=== PATIENT | female | born 1985 | race Caucasian/White ===

== ENCOUNTER 2020-10-25 09:28 | Emergency (ER) | payer BC, SELFPAY ==
[2020-10-25 09:30] VITALS: BP 147/86; PULSE 98; RESP 20; TEMP 36.6; O2SAT 99; BMI 26.6
--- NOTE | 2020-10-25 10:06 | HMH.EDUTC ---
[facility] [place] Clinical Impression: Contact dermatitis Qualifiers: Contact dermatitis type: allergic Contact dermatitis trigger: unspecified trigger Qualified Code(s): L23.9 - Allergic contact dermatitis, unspecified cause Disposition: Home, Self-Care Condition on Discharge: Good Instructions: DI for Contact Dermatitis Additional Instructions: Avoid contact with the offending substance (poison olga). Don't start the oral steroids until tomorrow. Don't put the topical steroids (triamcinolone) on your face or your groin. Follow up with your regular doctor. GO TO THE ER FOR ANY WORSENING SYMPTOMS OR CONCERNS Prescriptions: methylPREDNISolone [Medrol] 4 mg PO DIRECTED 6 Days #21 [email or web address] Transmission Status: Received by [id number] Triamcinolone Acetonide 1 applicatio TP TIDP PRN 7 Days #1 tube PRN Reason: Itching Transmission Status: Received by [id number] Referrals: Hermilo Otto MD [Primary Care Provider] - Time of Disposition: 10:13 Medical Decision Making - Medical Records Medical records reviewed: No: I reviewed the patient's medical records. - Russ Inquiry Pt receiving controlled substance: No Vital Signs: 10/25/20 09:30 10/25/20 10:13 Temperature 97.8 F 97.8 F Temperature Source Oral Pulse Rate 98 H Pulse Rate [Right Brachial] 98 H Respiratory Rate 20 20 Blood Pressure 147/86 H Blood Pressure [Right Arm] 147/86 H Blood Pressure Mean [Right Arm] 106 Blood Pressure Source [Right Arm] Automatic Cuff Blood Pressure Position [Right Arm] Sitting 02 Sat by Pulse Oximetry 99 Oxygen Delivery Method Room Air Orders (Tests/Meds): ED MEDICATIONS Discontinued Medications Generic Name Dose Route Start Last Admin Trade Name Freq PRN Reason Stop Dose Admin Methylprednisolone Sodium Succinate 125 mg 10/25/20 10:06 10/25/20 10:07 Methylprednisolone Sod Succ 125mg Vial IM 10/25/20 10:07 125 mg ONCE ONE Administration [facility] [place] - General Stated complaint: poison oak Time Seen by Provider: 10/25/20 09:45 Mode of Arrival: Ambulatory Source of Information: Patient Limitations: No Limitations Description of Symptoms (Recalled from Triage Doc. by RN): PATIENT C/O POISON OAK RASH TO LEFT ARM AND SIDE SINCE SATURDAY HEENT Symptoms (Recalled from RN notes): No Resp Symptoms (Recalled from RN notes): No Skin Symptoms (Recalled from RN notes): Yes MS Symptoms (Recalled from RN notes): No Functional Status (Recalled from RN notes): wnl - History of Present Illness Provider Complaint: She states that for the past 2 days she has had itching and rash on her left arm, neck and chest. She thinks that she was exposed to poison olga. She has a history of being very sensitive to it. - Related Data Previous Rx's Medication Instructions Recorded Triamcinolone Acetonide 1 applicatio TP TIDP PRN 7 Days #1 10/25/20 tube methylPREDNISolone [Medrol] 4 mg PO DIRECTED 6 Days #21 10/25/20 [email or web address] Allergies Allergy/AdvReac Type Severity Reaction Status Date / Time No Known Allergies Allergy Verified 09/21/19 11:36 - Worker's Comp Is this a Worker's Comp case?: No [facility] History - Hepatitis A Screen Drug use history?: No High risk sexual behaviors?: No History of sexually transmitted infection?: No Currently employed?: No Childcare worker?: No Do you have indoor plumbing?: Yes Do you have electricity?: Yes Attestation statement:: This patient has been screened for Hepatitis A risk factors. I have reviewed the patient's past medical history: Yes Laterality Cases: Bilateral: Tonsillectomy Other Surgeries: Yes: No Previous Surgery, Tubal Ligation - Social History Smoking Status: Never smoker Alcohol Intake: never Occupational Status: other Family Hx:: Hypertension ROS Obtained: Yes All systems reviewed & no additional complaints - Constitutional Constitutional: Denies chills, Denies fever(s) - Musculoskeletal Muscu
[2020-10-25 10:13] VITALS: BP 147/86; PULSE 98; RESP 20; TEMP 36.6; O2SAT 99
== END 2020-10-25 10:17 | disposition home or self-care (01) ==
PROVIDERS: Emergency Provider Nurse Practitioner Family; PCP Family Medicine
DX: L23.7 Allergic contact dermatitis due to plants, except food (principal)
CPT/HCPCS: 96372; 99202; G0463

== ENCOUNTER 2024-06-08 07:57 | Outpatient (CLI) | payer BC, SELFPAY ==
[2024-06-08 08:41] LABS: Basophils # 0.1 K/mm3 (0-0.2); Eosinophils # 0.2 K/mm3 (0.0-0.4); Eosinophils % 2.9 % (0.1-12.0); Hematocrit 42.3 % (37.0-47.0); Hemoglobin 14.5 g/dL (12.2-16.2); Lymphocytes # 2.3 K/mm3 (0.7-4.5); Lymphocytes % 45.1 % (10-50); Mean Corpuscular HGB Conc 34.2 g/dL (31.8-35.4); Mean Corpuscular Hemoglobin 29.7 pg (27.0-31.2); Mean Corpuscular Volume 86.9 fl (81-99); Mean Platelet Volume 9.4 fl (7.4-10.4); Monocytes # 0.2 K/mm3 (0.1-1.0); Monocytes % 2.9 % (1.7-9.3); Neutrophils # 2.5 K/mm3 (1.8-7.8); Neutrophils % 48.2 % (37.0-80.0); Platelet Count 174 K/mm3 (142-424); Red Blood Count 4.86 M/mm3 (4.20-5.40); Red Cell Distribution Width 13.4 % (11.5-17.5); White Blood Count 5.1 K/mm3 (4.8-10.8)
[2024-06-08 09:01] LABS: Chloride 108 mmol/L (98-107)
[2024-06-08 09:02] LABS: Albumin Level 4.4 g/dl (3.5-5.0); Potassium 5.4 mmoL/L (3.5-5.1); Sodium 137 mmol/L (136-145)
[2024-06-08 09:04] LABS: Alanine Aminotransferase 45 U/L (12-78); Anion Gap 6.4 mEq/L (5-15); Aspartate Amino Transferase 36 U/L (14-36); Blood Urea Nitrogen 21 mg/dl (7-17); Carbon Dioxide 28 mmol/L (22.0-30.0); Estimated Glomerular Filt Rate 46 ml/min (>60); GFR (African American) 56 ML/MIN (>60)
[2024-06-08 09:05] LABS: Albumin/Globulin Ratio 1.8 (1.1-1.8); Alkaline Phosphatase 111 U/L (38-126); Bilirubin,Total 0.8 mg/dl (0.2-1.3); Calcium 9.7 mg/dl (8.4-10.2); Globulin 2.4 g/dL (1.3-3.2); Glucose 89 mg/dl (74-100); Total Protein,Serum 6.8 g/dl (6.3-8.2)
[2024-06-09 13:58] LABS: CA 27.29 1271.5
== END 2024-06-08 23:59 | disposition home or self-care (01) ==
LOC: LAB 07:59
PROVIDERS: PCP Family Medicine; Visit Provider Internal Medicine Hematology & Oncology
DX: C50.411 Malignant neoplasm of upper-outer quadrant of right female breast (principal); Z17.0 Estrogen receptor positive status [ER+]; C50.912 Malignant neoplasm of unspecified site of left female breast
CPT/HCPCS: 36415; 80053; 85025; 86300

== ENCOUNTER 2024-06-15 09:25 | Outpatient (CLI) | payer BC, SELFPAY ==
[2024-06-15 09:52] LABS: Chloride 110 mmol/L (98-107); Potassium 4.8 mmoL/L (3.5-5.1); Sodium 137 mmol/L (136-145)
[2024-06-15 09:55] LABS: Anion Gap 5.8 mEq/L (5-15); Blood Urea Nitrogen 13 mg/dl (7-17); Carbon Dioxide 26 mmol/L (22.0-30.0); Estimated Glomerular Filt Rate 56 ml/min (>60); GFR (African American) 68 ML/MIN (>60)
[2024-06-15 09:56] LABS: Calcium 9.5 mg/dl (8.4-10.2); Glucose 93 mg/dl (74-100)
== END 2024-06-15 23:59 | disposition home or self-care (01) ==
LOC: LAB 09:26
PROVIDERS: PCP Family Medicine; Visit Provider Internal Medicine Hematology & Oncology
DX: C50.911 Malignant neoplasm of unspecified site of right female breast (principal); C50.912 Malignant neoplasm of unspecified site of left female breast; Z17.0 Estrogen receptor positive status [ER+]
CPT/HCPCS: 36415; 80048

== ENCOUNTER 2024-07-10 07:59 | Outpatient (CLI) | payer BC, SELFPAY ==
[2024-07-10 08:19] LABS: Basophils # 0.1 K/mm3 (0-0.2); Basophils % 1.6 % (0.1-2.0); Eosinophils # 0.1 K/mm3 (0.0-0.4); Eosinophils % 1.4 % (0.1-12.0); Hematocrit 39.2 % (37.0-47.0); Hemoglobin 13.6 g/dL (12.2-16.2); Lymphocytes # 2.6 K/mm3 (0.7-4.5); Mean Corpuscular HGB Conc 34.7 g/dL (31.8-35.4); Mean Corpuscular Volume 89.3 fl (81-99); Mean Platelet Volume 10.3 fl (7.4-10.4); Monocytes # 0.4 K/mm3 (0.1-1.0); Monocytes % 7.9 % (1.7-9.3); Neutrophils # 1.4 K/mm3 (1.8-7.8); Neutrophils % 30.9 % (37.0-80.0); Platelet Count 238 K/mm3 (142-424); Red Blood Count 4.39 M/mm3 (4.20-5.40); Red Cell Distribution Width 14.4 % (11.5-17.5); White Blood Count 4.4 K/mm3 (4.8-10.8)
[2024-07-10 08:42] LABS: MANUAL DIFFERENTIAL MANUAL DIFFERENTIAL (MANUAL DIFF)
[2024-07-10 08:52] LABS: Sodium 139 mmol/L (136-145)
[2024-07-10 08:53] LABS: Alanine Aminotransferase 45 U/L (12-78); Albumin Level 4.7 g/dl (3.5-5.0); Alkaline Phosphatase 90 U/L (38-126); Anion Gap 11.9 mEq/L (5-15); Aspartate Amino Transferase 44 U/L (14-36); Bilirubin,Total 0.5 mg/dl (0.2-1.3); Blood Urea Nitrogen 17 mg/dl (7-17); Calcium 9.6 mg/dl (8.4-10.2); Carbon Dioxide 25 mmol/L (22.0-30.0); Chloride 107 mmol/L (98-107); Estimated Glomerular Filt Rate 51 ml/min (>60); GFR (African American) 62 ML/MIN (>60); Globulin 2.4 g/dL (1.3-3.2); Glucose 86 mg/dl (74-100); Total Protein,Serum 7.1 g/dl (6.3-8.2)
[2024-07-10 08:54] LABS: Potassium 4.9 mmoL/L (3.5-5.1)
[2024-07-10 11:29] LABS: Lymphocytes % 64 % (10-50); Monocytes % 3 % (2-9); Neutrophils % 33 % (42-76); Platelet Estimate Normal; RBC Morphology Normal; Total Cells Counted 100
[2024-07-11 06:11] LABS: CA 27.29 731.4 U/mL (0.0-38.6)
== END 2024-07-10 23:59 | disposition home or self-care (01) ==
LOC: LAB 08:01
PROVIDERS: PCP Family Medicine; Visit Provider Internal Medicine Hematology & Oncology
DX: C50.911 Malignant neoplasm of unspecified site of right female breast (principal); C50.912 Malignant neoplasm of unspecified site of left female breast; C50.411 Malignant neoplasm of upper-outer quadrant of right female breast; Z17.0 Estrogen receptor positive status [ER+]
CPT/HCPCS: 36415; 80053; 85007; 85025; 85027; 86300

== ENCOUNTER 2024-08-08 09:07 | Outpatient (CLI) | payer BC, SELFPAY ==
[2024-08-08 09:24] LABS: Basophils # 0.1 K/mm3 (0-0.2); Basophils % 1.1 % (0.1-2.0); Eosinophils # 0.1 K/mm3 (0.0-0.4); Eosinophils % 1.7 % (0.1-12.0); Hematocrit 39.3 % (37.0-47.0); Hemoglobin 13.5 g/dL (12.2-16.2); Lymphocytes # 2.8 K/mm3 (0.7-4.5); Lymphocytes % 50.7 % (10-50); Mean Corpuscular HGB Conc 34.4 g/dL (31.8-35.4); Mean Corpuscular Hemoglobin 31.5 pg (27.0-31.2); Mean Corpuscular Volume 91.8 fl (81-99); Mean Platelet Volume 10.7 fl (7.4-10.4); Monocytes # 0.3 K/mm3 (0.1-1.0); Monocytes % 6.3 % (1.7-9.3); Neutrophils # 2.2 K/mm3 (1.8-7.8); Platelet Count 210 K/mm3 (142-424); Red Blood Count 4.28 M/mm3 (4.20-5.40); Red Cell Distribution Width 15.5 % (11.5-17.5); White Blood Count 5.4 K/mm3 (4.8-10.8)
[2024-08-08 09:47] LABS: MANUAL DIFFERENTIAL MANUAL DIFFERENTIAL (MANUAL DIFF)
[2024-08-08 10:25] LABS: Chloride 110 mmol/L (98-107)
[2024-08-08 10:26] LABS: Albumin Level 4.6 g/dl (3.5-5.0); Potassium 5.6 mmoL/L (3.5-5.1); Sodium 143 mmol/L (136-145)
[2024-08-08 10:28] LABS: Blood Urea Nitrogen 11 mg/dl (7-17); Estimated Glomerular Filt Rate 63 ml/min (>60); GFR (African American) 76 ML/MIN (>60)
[2024-08-08 10:29] LABS: Alanine Aminotransferase 49 U/L (12-78); Albumin/Globulin Ratio 1.9 (1.1-1.8); Alkaline Phosphatase 75 U/L (38-126); Anion Gap 11.6 mEq/L (5-15); Aspartate Amino Transferase 47 U/L (14-36); Bilirubin,Total 0.6 mg/dl (0.2-1.3); Calcium 9.3 mg/dl (8.4-10.2); Carbon Dioxide 27 mmol/L (22.0-30.0); Globulin 2.4 g/dL (1.3-3.2); Glucose 91 mg/dl (74-100)
[2024-08-08 13:01] LABS: Lymphocytes % 60 % (10-50); Monocytes % 5 % (2-9); Neutrophils % 35 % (42-76); Platelet Estimate Normal; RBC Morphology Normal; Total Cells Counted 100
== END 2024-08-08 23:59 | disposition home or self-care (01) ==
LOC: LAB 09:10
PROVIDERS: PCP Physician Assistant; Visit Provider Internal Medicine Hematology & Oncology
DX: C50.911 Malignant neoplasm of unspecified site of right female breast (principal); C50.912 Malignant neoplasm of unspecified site of left female breast; Z17.0 Estrogen receptor positive status [ER+]
CPT/HCPCS: 36415; 80053; 85007; 85025; 85027; 86300

== ENCOUNTER 2024-09-04 07:46 | Outpatient (CLI) | payer BC, SELFPAY ==
[2024-09-04 08:26] LABS: Basophils % 0.9 % (0.1-2.0); Eosinophils % 0.9 % (0.1-12.0); Hemoglobin 12.4 g/dL (12.2-16.2); Lymphocytes # 0.6 K/mm3 (0.7-4.5); Mean Corpuscular HGB Conc 35.4 g/dL (31.8-35.4); Mean Corpuscular Hemoglobin 32.9 pg (27.0-31.2); Mean Corpuscular Volume 92.8 fl (81-99); Mean Platelet Volume 10.5 fl (7.4-10.4); Monocytes # 0.3 K/mm3 (0.1-1.0); Monocytes % 6.4 % (1.7-9.3); Neutrophils # 3.3 K/mm3 (1.8-7.8); Neutrophils % 78.3 % (37.0-80.0); Platelet Count 169 K/mm3 (142-424); Red Blood Count 3.77 M/mm3 (4.20-5.40); Red Cell Distribution Width 13.6 % (11.5-17.5); White Blood Count 4.2 K/mm3 (4.8-10.8)
[2024-09-04 08:52] LABS: Alanine Aminotransferase 33 U/L (12-78); Albumin Level 4.6 g/dl (3.5-5.0); Alkaline Phosphatase 70 U/L (38-126); Anion Gap 9.7 mEq/L (5-15); Aspartate Amino Transferase 29 U/L (14-36); Bilirubin,Total 0.6 mg/dl (0.2-1.3); Blood Urea Nitrogen 17 mg/dl (7-17); Calcium 9.4 mg/dl (8.4-10.2); Carbon Dioxide 27 mmol/L (22.0-30.0); Chloride 108 mmol/L (98-107); Estimated Glomerular Filt Rate 63 ml/min (>60); GFR (African American) 76 ML/MIN (>60); Globulin 2.3 g/dL (1.3-3.2); Glucose 100 mg/dl (74-100); Potassium 4.7 mmoL/L (3.5-5.1); Sodium 140 mmol/L (136-145); Total Protein,Serum 6.9 g/dl (6.3-8.2)
[2024-09-05 08:20] LABS: CA 27.29 207.4 U/mL (0.0-38.6)
== END 2024-09-04 23:59 | disposition home or self-care (01) ==
LOC: LAB 07:47
PROVIDERS: PCP Family Medicine; Visit Provider Internal Medicine Hematology & Oncology
DX: C50.911 Malignant neoplasm of unspecified site of right female breast (principal); C50.912 Malignant neoplasm of unspecified site of left female breast; Z17.0 Estrogen receptor positive status [ER+]
CPT/HCPCS: 36415; 80053; 85025; 86300

== ENCOUNTER 2024-09-05 10:52 | Emergency (ER) | payer BC, SELFPAY ==
[2024-09-05] VITALS (9 sets, daily range): BP systolic 104–143; BP diastolic 66–88; PULSE 97–134; RESP 13–19; TEMP 36.9–37.6; O2SAT 96–99; BMI 26.9
--- NOTE | 2024-09-05 11:24 | ECG_ITS ---
APPROVED REPORT Exam: Resting ECG HR:110 bpm ECG Measurements Heart Rate 110 AXES VT 118 P 54 QRSd 80 QRS 16 QT 298 T 54 QTc 363 Conclusion SINUS TACHYCARDIA No STEMI Electronically signed by : VALERIE BETTS, 09/05/2024 15:49:15
--- NOTE | 2024-09-05 11:25 | XR_ITS ---
PROCEDURE INFORMATION: Exam: XR Chest Exam date and time: 09/05/2024 11:33 AM Age: 38 years old Clinical indication: Cough; Additional info: Sirs +, h/o malignancy TECHNIQUE: Imaging protocol: Radiologic exam of the chest. Views: 2 views. COMPARISON: No relevant prior studies available. FINDINGS: Lungs: Unremarkable. No consolidation. Pleural spaces: Unremarkable. No pleural effusion. No pneumothorax. Heart/Mediastinum: Unremarkable. No cardiomegaly. Bones/joints: Unremarkable. IMPRESSION: No acute findings.
[2024-09-05 11:31] LABS: Coronavirus 19, PCR Not Detected (NotDetected); Influenza B, PCR Not Detected (NotDetected)
[2024-09-05] MEDS: LACTATED RINGERS 1000ML 1,000 ML 1000 ML IV (11:34)
[2024-09-05 11:43] LABS: Basophils % 0.6 % (0.1-2.0); Eosinophils % 0.3 % (0.1-12.0); Hematocrit 33.1 % (37.0-47.0); Hemoglobin 11.5 g/dL (12.2-16.2); Lymphocytes # 0.4 K/mm3 (0.7-4.5); Lymphocytes % 13.5 % (10-50); Mean Corpuscular HGB Conc 34.7 g/dL (31.8-35.4); Mean Corpuscular Hemoglobin 32.5 pg (27.0-31.2); Mean Corpuscular Volume 93.5 fl (81-99); Mean Platelet Volume 10.7 fl (7.4-10.4); Monocytes # 0.2 K/mm3 (0.1-1.0); Monocytes % 6.1 % (1.7-9.3); Neutrophils # 2.5 K/mm3 (1.8-7.8); Neutrophils % 79.2 % (37.0-80.0); Platelet Count 132 K/mm3 (142-424); Red Blood Count 3.54 M/mm3 (4.20-5.40); Red Cell Distribution Width 13.9 % (11.5-17.5); White Blood Count 3.1 K/mm3 (4.8-10.8)
[2024-09-05 11:45] LABS: Lactic Acid 0.6 mmol/L (0.7-2.1)
[2024-09-05 11:46] LABS: Alanine Aminotransferase 70 U/L (12-78); Albumin Level 4.2 g/dl (3.5-5.0); Albumin/Globulin Ratio 1.6 (1.1-1.8); Alkaline Phosphatase 82 U/L (38-126); Anion Gap 10.7 mEq/L (5-15); Aspartate Amino Transferase 65 U/L (14-36); Bilirubin,Total 0.5 mg/dl (0.2-1.3); Blood Urea Nitrogen 11 mg/dl (7-17); Calcium 8.7 mg/dl (8.4-10.2); Carbon Dioxide 22 mmol/L (22.0-30.0); Chloride 108 mmol/L (98-107); Creatinine Clearance Estimated 100 mL/min (50-200); Estimated Glomerular Filt Rate 71 ml/min (>60); GFR (African American) 86 ML/MIN (>60); Globulin 2.6 g/dL (1.3-3.2); Glucose 129 mg/dl (74-100); Potassium 3.7 mmoL/L (3.5-5.1); Sodium 137 mmol/L (136-145); Total Protein,Serum 6.8 g/dl (6.3-8.2)
--- NOTE | 2024-09-05 11:46 | HMH.EDGENADL ---
Discharge Plan Disposition Patient Disposition: Home, Self-Care Condition: Good Prescriptions Prescriptions: New cephalexin 500 mg capsule 500 mg PO Q8H 10 Days Qty: 30 0RF ondansetron 4 mg tablet,disintegrating 4 mg PO Q8H PRN (Reason: nausea and vomiting) 4 Days Qty: 12 0RF cwrusceplgwtrxn-aqwawyqms-MF [Bromfed DM] 2-30-10 mg/5 mL syrup 5 ml PO Q6H PRN (Reason: cold symptoms) Qty: 118 0RF oseltamivir [Tamiflu] 75 mg capsule 75 mg PO BID 5 Days Qty: 10 0RF No Action letrozole 2.5 mg tablet 2.5 mg PO Verzenio 150 mg tablet PO Referrals Follow up/Referrals: Hermilo Otto MD [Primary Care Provider] - See instructions Activity Restrictions/Add. Instructions Additional Instructions/Restrictions: You were evaluated in the emergency department today and diagnosed with flu A as well as a urinary tract infection. As we discussed, you do technically meet sepsis criteria based on having an infection, having a high white heart rate, high fever, high respiratory rate, and low white blood cell count. We did send blood cultures, which are pending. We will call you if they come back positive in the next 24 to 48 hours. If you start feeling worse, it is imperative that you return to the emergency department right away. Please pick up and delivery driver your prescriptions at the pharmacy and take them as prescribed. Take ibuprofen every 6-8 hours as needed for fever. Please follow-up closely with your primary care provider for reassessment. Clinical Impressions Clinical Impression: SIRS (systemic inflammatory response syndrome), Influenza A, UTI (urinary tract infection) Stand Alone Forms Stand Alone Forms: Work/School Release Instructions Patient Instructions: DI for Urinary Tract Infection (UTI), DI for Influenza -- Adult, DI for Sepsis -- Adult Print Language Print Language: Latvian Discharge ED Provider: Leslie Clay General Adult HPI General Chief complaint: Fever Stated complaint: fever, cough, body aches Time Seen by Provider: 09/05/24 11:00 Mode of Arrival: Ambulatory Source of Information: Patient Description of Symptoms (Recalled from ER Triage Doc. by RN): pt states she has been sick x3d. pt c/o fever, nonproductive cough, myalgia, chills and N/V. pts was febrile at 104.7F orally this am. pt too 800mg ibuprofen this am and is now 99.7F orally. pt was dx with stage IV bilateral breast cancer in March 2024. 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 pt takes letrozole, verzenio, luperin and xegvalio for her cancer treatments. pts oncologist is Dr. Godfrey at the [facility]. History of Present Illness HPI narrative: This patient is a 38-year-old female with a history of stage IV breast cancer on hormonal therapy presenting to the emergency department for evaluation with concern for fevers, chills, dry cough, body aches for 3 days. She took 800 mg of ibuprofen this morning with some improvement, but she cannot take Tylenol per her oncologist recommendations. She denies any abdominal pain, urinary symptoms, or other concerns. Her child at home did have a fever couple days ago, but no other known sick contacts. Of note, she was seen in [facility] 08/26/2024 for sore throat and was prescribed amoxicillin, which she states she is completed. No other concerns noted at this time. Related Data Home Medications ?Medication ?Instructions ?Recorded ?Confirmed abemaciclib 150 mg tablet mg PO 08/26/24 08/26/24 (Verzenio) letrozole 2.5 mg tablet 2.5 mg PO 08/26/24 08/26/24 Previous Rx's ?Medication ?Instructions ?Recorded [id number]-xpjlazdgdrexobl-TB 5 ml PO Q6H PRN cold symptoms #118 09/05/24 2 mg-30 mg-10 mg/5 mL oral syrup mL (Bromfed DM) cephalexin 500 mg capsule 500 mg PO Q8H 10 days #30 caps 09/05/24 ondansetron 4 mg disintegrating 4 mg PO Q8H PRN nausea and 09/05/24 tablet vomiting 4 days #12 tabs oseltamivir 75 mg capsule (Tamiflu) 75 mg PO BID 5 days #10 caps 09/05/24 Allergies Allergy/AdvReac Type Severity Reaction Status Date / Time No Known Allergies Allergy Verified 09/05/24 11:13 [facility] Disclaimer: The information contained in this section may have been updated after the patient was seen, as this information can be updated by other users. Medical History Pharyngitis Social History Smoking Status: Never smoker alcohol intake: never current occupational status: other Travel in the last 8 weeks: None Have you lived/traveled outside [place] in past 30 days?: No Contact w/someone who lives/traveled outside US past 30 days?: No Exposure to someone with infectious disease in past 14 days?: No Do you have a fever (greater than 100.4 F or 38 C)?: Yes Have you tested positive for COVID-19: No Exposed to someone with COVID-19 in past 14 days?: No Do you have a sore throat?: No Do you have a cough?: Yes Do you have any weakness?: No Do you have any diarrhea?: No Are you experiencing any unusual bleeding?: No Do you have any muscle aches/pain?: Yes Do you have any abdominal pain?: No Are you experiencing loss of taste or smell?: No Other Medical History Have you received the Flu Vaccine for this season: No Have you received the Pneumonia Vaccine: No ROS Obtained: Yes All systems reviewed & no additional complaints except as documented Physical Exam General General appearance: alert and in no apparent distress Head Head exam: atraumatic and normocephalic Eye Eye exam: Present normal appearance, PERRL and EOMI ENT ENT exam: Present normal exam, normal oropharynx, mucous membranes moist and normal external ear exam Neck Neck exam: Present normal inspection, full ROM and trachea midline; Absent tenderness Chest Chest inspection: Present normal inspection and symmetric chest wall rise; Absent tenderness Respiratory Respiratory exam: Present normal lung sounds bilaterally; Absent respiratory distress, wheezes, stridor or accessory muscle use Cardiovascular Cardiovascular exam: Present normal rhythm and tachycardia Abdominal Exam Abdominal exam: Present soft; Absent distention, tenderness or guarding Extremities Exam Extremities exam: Present normal inspection, full ROM and normal capillary refill; Absent tenderness or edema Back Exam Back exam: Present normal inspection and full ROM; Absent tenderness Neurological Exam Neurological exam: Present alert, oriented X3, CN II-XII intact and normal gait; Absent motor sensory deficit Psychiatric Psychiatric exam: Present normal affect and normal mood Skin Skin exam: Present warm and dry Medical Decision Making Medical Records Medical records reviewed: Yes I reviewed the patient's medical records. Screening: Per USPSTF and CDC recommendations, given the prevalence of disease in our region, it is our hospital?s policy to screen for HIV and viral Hepatitis for all patients aged 18 and over and those with ongoing risk factors. Russ Inquiry Pt receiving controlled substance: No Vital Signs: 09/05/24 11:04 09/05/24 11:21 09/05/24 11:30 Temperature 99.7 F H Temperature Source Oral Pulse Rate 134 H 131 H Pulse Rate [Left] 129 H Respiratory Rate 18 15 14 Blood Pressure 143/88 H 134/85 Blood Pressure [Right Arm] 135/69 Blood Pressure Mean Blood Pressure Mean [Right Arm] 91 Blood Pressure Source Blood Pressure Source [Right Arm] Automatic Cuff Blood Pressure Position Blood Pressure Position [Right Arm] Sitting 02 Sat by Pulse Oximetry 99 97 98 Oxygen Delivery Method Room Air Room Air Room Air 09/05/24 11:40 09/05/24 12:13 09/05/24 12:30 Temperature Temperature Source Oral Pulse Rate Pulse Rate [Left] Respiratory Rate 16 13 Blood Pressure 117/71 106/66 L Blood Pressure [Right Arm] Blood Pressure Mean Blood Pressure Mean [Right Arm] Blood Pressure Source Blood Pressure Source [Right Arm] Blood Pressure Position Blood Pressure Position [Right Arm] 02 Sat by Pulse Oximetry Oxygen Delivery Method 09/05/24 13:00 09/05/24 13:30 09/05/24 14:07 Temperature 98.4 F Temperature Source Pulse Rate 97 H 101 H 106 H Pulse Rate [Left] Respiratory Rate 19 16 Blood Pressure 115/70 109/68 L 104/74 L Blood Pressure [Right Arm] Blood Pressure Mean 74 Blood Pressure Mean [Right Arm] Blood Pressure Source Blood Pressure Source [Right Arm] Blood Pressure Position Blood Pressure Position [Right Arm] 02 Sat by Pulse Oximetry 96 96 Oxygen Delivery Method Room Air Room Air 09/05/24 14:12 Temperature 98.9 F Temperature Source Pulse Rate 100 H Pulse Rate [Left] Respiratory Rate 15 Blood Pressure 112/79 Blood Pressure [Right Arm] Blood Pressure Mean Blood Pressure Mean [Right Arm] Blood Pressure Source Automatic Cuff Blood Pressure Source [Right Arm] Blood Pressure Position Supine Blood Pressure Position [Right Arm] 02 Sat by Pulse Oximetry Oxygen Delivery Method Room Air Lab Data Lab results reviewed: Yes I reviewed the patient's lab results. Lab Results 09/05/24 11:11: WBC 3.1 L D, RBC 3.54 L, Hgb 11.5 L, Hct 33.1 L, MCV 93.5, MCH 32.5 H, MCHC 34.7, RDW 13.9, Plt Count 132 L, MPV 10.7 H, Neut % (Auto) 79.2, Lymph % (Auto) 13.5, [place] % (Auto) 6.1, Eos % (Auto) 0.3, Baso % (Auto) 0.6, Neut # (Auto) 2.5, Lymph # (Auto) 0.4 L, [place] # (Auto) 0.2, Eos # (Auto) 0.0, Baso # (Auto) 0.0, ESR 77 H, PT 10.8, INR 0.96, APTT 27.9, D-Dimer 0.61 H, Sodium 137, Potassium 3.7 D, Chloride 108 H, Carbon Dioxide 22, Anion Gap 10.7, BUN 11 D, Creatinine 0.90, Estimated Creat Clear 100, Estimated GFR 71, Est GFR ( Amer) 86, Glucose 129 H, Lactate 0.6 L, Calcium 8.7, Total Bilirubin 0.5, AST 65 H D, ALT 70 D, Alkaline Phosphatase 82, C-Reactive Protein 11.1 H, Total Protein 6.8, Albumin 4.2, Globulin 2.6, Albumin/Globulin Ratio 1.6, Procalcitonin 0.083, HCV Ab ANTIONE w/Rflx PCR Qn Negative, HIV Ag/Ab Combo Qual Negative 09/05/24 11:20: SARS-CoV-2 (PCR) Not detected, Influenza A Untype (PCR) Detected A, Influenza Type B (PCR) Not detected 09/05/24 11:58: Urine Color Yellow, Urine Appearance Slightly cloudy, Urine pH 6.0, Ur Specific [place] >= 1.030, Urine Protein 2+ A, Urine Glucose (UA) Negative, Urine Ketones Trace, Urine Blood 2+ A, Urine Nitrate Negative, Urine Bilirubin Negative, Urine Urobilinogen 0.2, Ur Leukocyte Esterase 3+ A, Urine RBC 5-10, Urine WBC 10-20, Ur Squamous Epith Cells Occasional, Urine Bacteria 2+ 09/05/24 11:11 09/05/24 11:11 Orders (Tests/Meds): ED MEDICATIONS Discontinued Medications Generic Name Dose Route Start Last Admin Trade Name Freq PRN Reason Stop Dose Admin Acetaminophen 1,000 mg 09/05/24 11:28 09/05/24 11:38 Acetaminophen 1,000mg/100ml Vial IV 09/05/24 11:29 Not Given ONCE ONE Lactated Ringer's 1,000 mls @ 1,000 mls/hr 09/05/24 11:25 09/05/24 11:34 Lactated Ringer's 1000 Ml Bag IV 09/05/24 12:24 1,000 mls/hr .Q1H ONE Administration Protocol Lactated Ringer's 1,000 mls @ 999 mls/hr 09/05/24 12:14 09/05/24 12:58 Lactated Ringer's 1000 Ml Bag IV 09/05/24 13:14 999 mls/hr .Q1H1M ONE Administration Ceftriaxone Sodium 2 gm/ 100 mls @ 200 mls/hr 09/05/24 13:01 09/05/24 13:08 Sodium Chloride IV 09/05/24 13:30 200 mls/hr ONCE ONE Administration Sodium Chloride 1,000 mls @ 999 mls/hr 09/05/24 13:01 09/05/24 13:08 Sod Chlor 0.9% 1000ml Bag IV 09/05/24 14:01 999 mls/hr .Q1H1M ONE Administration ORDERS Category Date Time Status XR chest 2V Stat Exams 09/05/24 11:25 Completed Activated Partial Thrombo Time Stat Lab 09/05/24 11:11 Completed C-Reactive Protein Stat Lab 09/05/24 11:11 Completed Complete Blood Count Auto Diff Stat Lab 09/05/24 11:11 Completed Comprehensive Metabolic Panel Stat Lab 09/05/24 11:11 Completed D-Dimer Stat Lab 09/05/24 11:11 Completed Erythrocyte Sedimentation Rate Stat Lab 09/05/24 11:11 Completed HIV Combo Stat Lab 09/05/24 11:11 Completed Hepatitis C Ab Qual. W/ RFX Stat Lab 09/05/24 11:11 Completed Lactic Acid Stat Lab 09/05/24 11:11 Completed Procalcitonin Stat Lab 09/05/24 11:11 Completed Prothrombin Time INR Stat Lab 09/05/24 11:11 Completed Rapid PCR Covid and Flu A/B Stat Lab 09/05/24 11:20 Completed Urinalysis and Microscopic Stat Lab 09/05/24 11:58 Completed Blood Culture Stat Micro 09/05/24 11:35 Received Urine Culture Stat Micro 09/05/24 11:58 Received ECG Data Tracing #1: I reviewed this ECG and interpreted as documented below: Sinus tachycardia with a ventricular rate of [address] changes concerning for ischemia. Normal intervals. ECG initial impression date: 09/05/24 ECG initial impression time: 11:28 Medical Decision Narrative: In summary, this patient is a 38-year-old female presenting to the Emergency Department for evaluation of fever, body aches, dry cough. Differential diagnoses considered include but are not limited to viral syndrome, pneumonia, sepsis. Ruling out the most morbid conditions drove assessment. It should be noted patient's history includes metastatic breast cancer which may or may not be at goal therapy. This complicates all aspects of care by increasing patient's risk for morbidity. I reviewed patient's past medical records and noted [facility] eval 08/26/24, negative strep, prescribed amoxicillin. On exam, patient is lying in bed in no acute distress. She is febrile and tachycardic but non tachypneic, reassuring cardiopulmonary and abdominal exam. No adventitious lung sounds, normal work of breathing. Based on reassuring exam, favor viral illness as a cause of symptoms. Workup included sepsis workup including CBC, CMP, ESR, CRP, lactic acid, procalcitonin, D-dimer, chest x-ray, EKG. EKG obtained is reassuring. She was given sepsis bolus based on ideal body weight. I had initially ordered IV acetaminophen but she states she cannot take Tylenol per oncologist recommendations. I independently interpreted chest x-ray prior to the radiologist read and noted no large focal consolidation concerning for pneumonia. Please see their read for final interpretation. Labs were obtained that demonstrated leukopenia but no neutropenia, chemistry is reassuring with negative lactic acid, normal procalcitonin. Urine is concerning for infection with 2+ blood, 3+ leukocyte esterase, 10-20 white blood cells, 2+ bacteria. She denies any urinary symptoms, but her urinalysis is very concerning. She is positive for flu A, which would explain most of her vital sign abnormalities, including the fever and tachycardia. On reassessment, patient had great improvement after administration of IV fluids. She is feeling a lot better and heart rate is improved and normalized. I discussed with her the fact that she meets sepsis criteria with her vital sign abnormalities, leukopenia, and source of infection being her urine. I advised that the safest option will be to admit her to the hospital for IV antibiotics pending blood cultures. I also had given her the full sepsis bolus as well as IV Rocephin her. after thorough explanation of risk versus benefit and options, patient elects to go home on oral antibiotics to treat urine and instructions for supportive management of the flu. She states that she will come back if her blood cultures come back positive. We discussed reasons for return otherwise as well as should her symptoms worsen. She was discharged with strict return precautions, instructions for supportive management, prescriptions for Zofran, Bromfed, cephalexin, and Tamiflu. She was also given instructions for close outpatient follow-up. Critical Care Critical Care Time Critical Care Time: No
[2024-09-05 11:51] LABS: C-Reactive Protein 11.1 mg/L (0-4)
[2024-09-05 12:04] LABS: Procalcitonin 0.083 ng/mL (0.0-2.0)
[2024-09-05 12:13] LABS: D-Dimer 0.61 ug/mL (0.0-0.5); Erythrocyte Sedimentation Rate 77 mm/hr (0-20)
[2024-09-05 12:13] LABS: Influenza A, PCR Detected (NotDetected)
[2024-09-05 12:17] LABS: Microscopic, Urine URINE MICROSCOPIC (MICROSCOPIC)
[2024-09-05 12:44] LABS: Appearance,Urine Slightly Cloudy (Clear); Color,Urine Yellow (Yellow)
[2024-09-05 12:45] LABS: Glucose,Urine (UA) Negative (Negative); Ketones,Urine Trace (Negative); Protein,Urine 2+ (Negative); Specific Gravity, Urine >= 1.030 (1.005-1.030)
[2024-09-05 12:46] LABS: Bilirubin,Urine Negative (Negative); Blood, Urine 2+ (Negative); Leukocyte Esterase,Urine 3+ (Negative); Nitrate,Urine Negative (Negative); Squamous Epithelial Cell,Urine Occasional #/hpf (0-5); Urobilinogen,Urine 0.2 EU/dl (0.2)
[2024-09-05 12:47] LABS: Bacteria,Urine 2+ /lpf
[2024-09-05] MEDS: LACTATED RINGERS 1000ML 1,000 ML 999 ML IV (12:58)
[2024-09-05 13:07] LABS: Activated Partial Thrombo Time 27.9 seconds (22.8-30.6); INR 0.96 (0.9-1.1); Prothrombin Time 10.8 seconds (10.1-12.5)
[2024-09-05] MEDS: 0.9 % SODIUM CHLORIDE 1000ML 1,000 ML 999 ML IV (13:08)
[2024-09-05] MEDS: CEFTRIAXONE SODIUM 2 GM in 0.9 % SODIUM CHLORIDE 100 ML IV (13:08)
[2024-09-05 13:42] LABS: HIV Combo NEGATIVE (Negative)
[2024-09-05 13:50] LABS: Hepatitis C Ab Qual. W/ RFX NEGATIVE (Negative)
--- NOTE | 2024-09-05 13:54 | PC.NURSE ---
I rounded on the pt. no new complaints at this time. no needs voiced. I asked the pt if she preferred admission or d/c to await results on her blood cultures per . pt states she prefers to be d/c home. call milena in reach.
== END 2024-09-05 14:14 | disposition home or self-care (01) ==
PROVIDERS: Emergency Provider Emergency Medicine; PCP Family Medicine
DX: N39.0 Urinary tract infection, site not specified (principal); R65.10 Systemic inflammatory response syndrome (SIRS) of non-infectious origin without acute organ dysfunction; J10.1 Influenza due to other identified influenza virus with other respiratory manifestations; R50.9 Fever, unspecified; R05.9 Cough, unspecified; M79.10 Myalgia, unspecified site; R11.2 Nausea with vomiting, unspecified; Z85.3 Personal history of malignant neoplasm of breast
CPT/HCPCS: 71046; 80053; 81001; 83605; 84145; 85025; 85378; 85610; 85651; 85730; 86140; 86803; 87040; 87086; 87389; 87636; 93005; 96361; 96365; 96367; 96368; 99284; J0131; J0696; J7030; J7120

== ENCOUNTER 2024-10-05 07:46 | Outpatient (CLI) | payer BC, SELFPAY ==
[2024-10-05 08:33] LABS: Basophils # 0.1 K/mm3 (0-0.2); Basophils % 1.1 % (0.1-2.0); Eosinophils # 0.1 K/mm3 (0.0-0.4); Eosinophils % 1.5 % (0.1-12.0); Hematocrit 36.8 % (37.0-47.0); Hemoglobin 12.8 g/dL (12.2-16.2); Lymphocytes # 2.9 K/mm3 (0.7-4.5); Lymphocytes % 62.8 % (10-50); Mean Corpuscular HGB Conc 34.8 g/dL (31.8-35.4); Mean Corpuscular Hemoglobin 33.9 pg (27.0-31.2); Mean Corpuscular Volume 97.4 fl (81-99); Mean Platelet Volume 10.4 fl (7.4-10.4); Monocytes # 0.3 K/mm3 (0.1-1.0); Monocytes % 6.2 % (1.7-9.3); Neutrophils # 1.3 K/mm3 (1.8-7.8); Neutrophils % 28.2 % (37.0-80.0); Nucleated Red Blood Cells # 0 10^3/uL; Nucleated Red Blood Cells % 0 %; Platelet Count 164 K/mm3 (142-424); Red Blood Count 3.78 M/mm3 (4.20-5.40); Red Cell Distribution Width 13.4 % (11.5-17.5); Red Cell Distribution Width-SD 47.4 fL; White Blood Count 4.7 K/mm3 (4.8-10.8)
[2024-10-05 08:44] LABS: MANUAL DIFFERENTIAL MANUAL DIFFERENTIAL (MANUAL DIFF)
[2024-10-05 08:46] LABS: Albumin Level 4.3 g/dl (3.5-5.0); Chloride 108 mmol/L (98-107); Sodium 142 mmol/L (136-145)
[2024-10-05 08:47] LABS: Potassium 4.9 mmoL/L (3.5-5.1)
[2024-10-05 08:49] LABS: Alanine Aminotransferase 35 U/L (12-78); Albumin/Globulin Ratio 1.5 (1.1-1.8); Alkaline Phosphatase 60 U/L (38-126); Anion Gap 12.9 mEq/L (5-15); Aspartate Amino Transferase 35 U/L (14-36); Bilirubin,Total 0.5 mg/dl (0.2-1.3); Blood Urea Nitrogen 12 mg/dl (7-17); Carbon Dioxide 26 mmol/L (22.0-30.0); Estimated Glomerular Filt Rate 70 ml/min (>60); GFR (African American) 85 ML/MIN (>60); Globulin 2.9 g/dL (1.3-3.2); Total Protein,Serum 7.2 g/dl (6.3-8.2)
[2024-10-05 08:50] LABS: Calcium 9.2 mg/dl (8.4-10.2); Glucose 89 mg/dl (74-100)
[2024-10-05 09:53] LABS: Eosinophils % 1 % (0-3); Lymphocytes % 60 % (10-50); Monocytes % 10 % (2-9); Neutrophils % 29 % (42-76); Total Cells Counted 100
[2024-10-05 09:54] LABS: Platelet Estimate Normal; RBC Morphology Normal
[2024-10-06 09:28] LABS: CA 27.29 180.1 U/mL (0.0-38.6)
== END 2024-10-05 23:59 | disposition home or self-care (01) ==
LOC: LAB 07:47
PROVIDERS: PCP Family Medicine; Visit Provider Internal Medicine Hematology & Oncology
DX: C50.911 Malignant neoplasm of unspecified site of right female breast (principal); C50.912 Malignant neoplasm of unspecified site of left female breast; Z17.0 Estrogen receptor positive status [ER+]
CPT/HCPCS: 36415; 80053; 85007; 85025; 85027; 86300

== ENCOUNTER 2024-10-30 08:15 | Outpatient (CLI) | payer BC, SELFPAY ==
[2024-10-30 08:56] LABS: Basophils # 0.1 K/mm3 (0-0.2); Basophils % 1.2 % (0.1-2.0); Eosinophils # 0.1 Kmm3 (0.0-0.4); Hematocrit 38.6 % (37.0-47.0); Hemoglobin 13.5 g/dL (12.2-16.2); Immature Granulocytes # 0.01 10^3uL; Immature Granulocytes % 0.2 %; Lymphocytes # 2.6 K/mm3 (0.7-4.5); Lymphocytes % 50.6 % (10-50); Mean Corpuscular Hemoglobin 33.3 pg (27.0-31.2); Mean Corpuscular Volume 95.3 fl (81-99); Mean Platelet Volume 10.5 fl (7.4-10.4); Monocytes # 0.3 K/mm3 (0.1-1.0); Monocytes % 5.1 % (1.7-9.3); Neutrophils # 2.1 K/mm3 (1.8-7.8); Neutrophils % 41.9 % (37.0-80.0); Nucleated Red Blood Cells # 0 10^3/uL; Nucleated Red Blood Cells % 0 %; Platelet Count 190 K/mm3 (142-424); Red Blood Count 4.05 M/mm3 (4.20-5.40); Red Cell Distribution Width 12.6 % (11.5-17.5); White Blood Count 5.1 K/mm3 (4.8-10.8)
[2024-10-30 09:30] LABS: Chloride 111 mmol/L (98-107)
[2024-10-30 09:31] LABS: Albumin Level 4.8 g/dl (3.5-5.0); Potassium 4.7 mmoL/L (3.5-5.1); Sodium 143 mmol/L (136-145)
[2024-10-30 09:33] LABS: Anion Gap 9.7 mEq/L (5-15); Blood Urea Nitrogen 15 mg/dl (7-17); Carbon Dioxide 27 mmol/L (22.0-30.0); Estimated Glomerular Filt Rate 56 ml/min (>60); GFR (African American) 68 ML/MIN (>60)
[2024-10-30 09:34] LABS: Alanine Aminotransferase 23 U/L (12-78); Albumin/Globulin Ratio 1.9 (1.1-1.8); Alkaline Phosphatase 64 U/L (38-126); Aspartate Amino Transferase 27 U/L (14-36); Bilirubin,Total 0.7 mg/dl (0.2-1.3); Calcium 9.5 mg/dl (8.4-10.2); Globulin 2.5 g/dL (1.3-3.2); Glucose 95 mg/dl (74-100); Total Protein,Serum 7.3 g/dl (6.3-8.2)
[2024-10-31 07:16] LABS: CA 27.29 219.2 U/mL (0.0-38.6)
== END 2024-10-30 23:59 | disposition home or self-care (01) ==
LOC: LAB 08:17
PROVIDERS: PCP Family Medicine; Visit Provider Internal Medicine Hematology & Oncology
DX: C50.411 Malignant neoplasm of upper-outer quadrant of right female breast (principal); C50.912 Malignant neoplasm of unspecified site of left female breast; Z17.0 Estrogen receptor positive status [ER+]
CPT/HCPCS: 36415; 80053; 85025; 86300

== ENCOUNTER 2024-12-04 09:37 | Outpatient (CLI) | payer BC, SELFPAY ==
--- OUTSIDE RECORDS SUMMARY | 2024-10-06 08:15 | XMS_ITS | Encounter Summary ---
Author Organization [facility] Address [address] [place] [address] Care Team Providers Care Victorian Literature Professor Name Role Phone Hermilo Otto MD Primary Care Provider + [phone] Loretta Godfrey MD Unavailable [phone] Paola Rosenberg ENTRY LEVEL AUTOMOTIVE TECHNICIAN Unavailable Unavaila ble Reason for Visit * Reason Comments Follow-up Encounter Details Date Type Department Care Team (Late st Contact Info) Description 10/06/2024 8:15 AM EDT Office Visit [facility] [address] [place] [phone] Loretta Godfrey MD [address] [address] Malignant neoplasm of upper-outer quadrant of right breast in female, estrogen receptor positive (Primary Dx) Social History Tobacco Use Types Packs/Day Years Used Date Smoking Tobacco: Never Smokeless Tobacco: Never Alcohol Use Standard Drinks/Week Comments Not Currently 0 (1 standard drink = 0.6 oz pur e alcohol) Humiliation, Afraid, Rape, and Kick questionnair e Answer Date Recorded Within the last year, have y ou been afraid of your partner or ex-partner? No 08/27/2024 Within the last year, have y ou been humiliated or emotionally abused in other ways by your partner or ex-partner? No Within the last year, have y ou been kicked, hit, slapped, or otherwise physically hurt by your partner or ex-partner? No 08/27/2024 Within the last year, have y ou been raped or forced to have any kind of sexual activity by your partner or ex-partner? No 08/27/2024 Social Connection and Isolation Panel Answer Date Recorded In a typical week, how many times do you talk on the phone with family, friends, or neighbors? Three times a week 08/27/2024 How often do you get togethe r with friends or relatives? Once a week 08/27/2024 How often do you attend [facility] or church services? More than 4 times per year 08/27/2024 Do you belong to any clubs o r organizations such as denominational groups, unions, fraternal or athletic groups, or school groups? No 08/27/2024 How often do you attend meet ings of the clubs or organizations you belong to? Never 08/27/2024 Are you , , di vorced, , never , or living with a partner? 08/27/2024 AUDIT-C Answer Date Recorded Q1: How often do you have a drink containing alcohol? Never 08/27/2024 Q2: How many drinks containi ng alcohol do you have on a typical day when you are drinking? Patient does not drink Q3: How often do you have si x or more drinks on one occasion? Never 08/27/2024 PHQ-2 Answer Date Recorded Patient Health Questionnaire-2 Score 0 10/06/2024 [facility] - Occupational Stress Questionnaire Answer Date Recorded Do you feel stress - tense, restless, nervous, or anxious, or unable to sleep at night because your mind is troubled all the time - these days? Only a little 08/27/2024 Exercise Vital Sign Answer Date Recorde d On average, how many days pe r week do you engage in moderate to strenuous exercise (like a brisk walk)? 3 days 08/27/2024 On average, how many minutes do you engage in exercise at this level? 40 min 08/27/2024 Hunger Vital Sign Answer Date Recorded Within the past 12 months, y ou worried that your food would run out before you got the money to buy more. Never true 08/28/19 25 Within the past 12 months, t he food you bought just didn't last and you didn't have money to get more. Never true 08/27/2024 PRAPARE - Transportation Answer Date Re corded In the past 12 months, has l ack of transportation kept you from medical appointments or from getting medications? No 11/2024 In the past 12 months, has l ack of transportation kept you from meetings, work, or from getting things needed for daily living? No 08/27/2024 Housing Stability Vital Sign Answer Min e Recorded In the last 12 months, was t here a time when you were not able to pay the mortgage or rent on time? No 08/27/2024 In the past 12 months, how m any times have you moved where you were living? 0 08/27/2024 At any time in the past 12 m [facility], were you homeless or living in a custodial (including now)? No 08/27/2024 Utilities Answer Date Recorded In the past 12 months has th e electric, gas, oil, or water company threatened to shut off services in your home? 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 Not on file Not on file Not on file documented as of this encounter Last Filed Vital Signs Vital Sign Reading Time Taken Comments Blood Pressure 105/73 10/06/2024 7:58 AM EDT Pulse 81 10/06/2024 7:58 AM EDT Temperature 36.3 C (97.3 F) 10/06/2024 7:58 AM EDT Respiratory Rate - - Oxygen Saturation 100% 10/06/2024 7:58 AM EDT Inhaled Oxygen Concentration - - Weight 73.8 kg (162 lb 11.2 oz) 10/06/2024 7:58 AM EDT Height 165.1 cm (5' 5 ) 10/06/2024 7:58 AM EDT Body Mass Index 27.07 10/06/2024 7:58 AM EDT documented in this encounter Functional Status * Over the past 2 weeks, how often have you been bothered by any of the following problems? Question Answer Date of Assessment Author Little interest or pleasure in doing things Not at all 10/06/2024 7:59 AM EDT Silvana Wyman Feeling down, depressed, or hopeless Not at all 10/06/2024 7:59 AM EDT Silvana Wyman Patient Health Questionnaire -2 Score 0 10/06/2024 7:59 AM EDT Silvana Wyman * Calculated C-SSRS Risk Score (Lifetime/Recent) Answer Date of Assessment Author No Risk Indicated 10/06/2024 8:00 AM EDT Jennifer Lino RN * Question Answer Date of Assessment Author 1. Wish to be (Past 1 Month) No 10/06/2024 8:00 AM EDT Jennifer Lino RN 2. Non-Specific Active Suici kelsie Thoughts (Past 1 Month) No 10/06/2024 8:00 AM EDT Angely Lino RN 6. Suicidal Behavior (Lifetime) No 8:00 AM EDT Jennifer Lino RN documented as of this encounter Miscellaneous Notes * Progress Notes - Loretta Godfrey MD - 10/06/2024 8:15 AM EDT [facility] HEMATOLOGY/ONCOLOGY FOLLOW UP Shona Prieto 1985 Primary Care Provider: Hermilo Otto MD Cancer Staging No matching staging information was found for the patient. There are no diagnoses linked to this encounter. Treatment Details Treatment goal [No plan goal] Plan Name (Hem/Onc) Leuprolide Acetate (Lupron) Status Active Start Date 05/19/2024 End Date Until discontinued Provider Loretta Godfrey MD Chemotherapy leuprolide (Lupron) injection 3.75 mg, 3.75 mg, Intramuscular, Once, 1 of 1 cycle Administration: 3.75 mg (05/19/2024), 3.75 mg (06/16/2024), 3.75 mg (07/14/2024), 3.75 mg (08/11/2024), 3.75 mg (09/08/2024) Treatment Details Treatment goal [No plan goal] Plan Name (Hem/Onc) Denosumab (Xgeva) for Prevention of Skeletal-related Events Status Active Start Date 06/16/2024 End Date Until discontinued Provider Loretta Godfrey MD Chemotherapy denosumab (Xgeva) 120 MG/1.7ML injection 120 mg, 120 mg, Subcutaneous, Once, 1 of 1 cycle Administration: 120 mg (06/16/2024), 120 mg (07/14/2024), 120 mg (08/11/2024), 120 mg (09/08/2024) Subjective History of Present Illness: Shona Prieto is a 39 y.o. female with breast cancer. Pt is accompanied by her sister. Pt's gynecologic PA palpated a left breast mass. 04/14/24 Bilateral diagnostic mammogram: 1. The palpable mass noted by the patient's physician in the 9:00 distribution of the left breast corresponds to multiple adjacent possibly interconnecting masses as described above with associated architectural distortion and pleomorphic calcifications. These span over at least 5 cm of tissue. Sonographically the masses can be seen as adjacent irregular hypoechoic masses. The largest individual mass sonographically measures up to 2.3 cm in size. 2. The palpable mass the patient feels in the upper outer quadrant of the left breast corresponds to 2 adjacent masses as described above. The dominant mass is seen sonographically as a mixed echogenicity irregular mass measuring up to 1.8 cm in size. 3. There is a group of calcifications which are similar in appearance to to those seen in the 9:00 distributions which are located separate from the main area approximately 3 cm lateral to this. 3. 0.5 cm irregular mass is seen in the posterior right upper outer quadrant. Mammographically this could reflect a small lymph node. Sonographically what is felt to be the correlate is not a definite lymph node but has a more irregular appearance. 4. Left axillary adenopathy 5. 0.5 cm mass is present in the right posterior upper inner quadrant mammographic and sonographically corresponds to a small irregular mass as described above. 04/16/24 right breast RIGHT BREAST, 1:00, ULTRASOUND-GUIDED BIOPSY: Invasive ductal carcinoma, intermediate grade. Estrogen receptor and progesterone receptor positive by immunohistochemistry. HER2/garett negative by immunohistochemistry. Estrogen Receptor RESULT: Positive 95% 3+ (INTENSITY SCORE) Progesterone Receptor RESULT: Positive 90% 3+ (INTENSITY SCORE) Her2/Garett oncoprotein RESULT: Negative 0% 0+ (INTENSITY SCORE) 04/16/24 left axillary node BREAST, FNA, LEFT AXILLARY NODE: Malignant Estrogen Receptor RESULT: Positive 100% 2 + (INTENSITY SCORE) Progesterone Receptor RESULT: Positive 20% 1+ (INTENSITY SCORE) Her2/garett oncoprotein RESULT: Negative 0+ (INTENSITY SCORE) Left breast LEFT BREAST, 12:00, ULTRASOUND-GUIDED BIOPSY: Invasive ductal carcinoma, intermediate grade. Estrogen receptor and progesterone receptor positive by immunohistochemistry. HER2/garett negative by immunohistochemistry. See comment. IMMUNOHISTOCHEMICAL RESULTS (IHC): Estrogen Receptor RESULT: Positive 90% 3+ (INTENSITY SCORE) Progesterone Receptor RESULT: Positive 90% 3+ (INTENSITY SCORE) Her2/Garett oncoprotein RESULT: Negative 0% 0+ (INTENSITY SCORE) Pt is . Her first child was at 28 and menses 17. LMP was 04/29/24. Pt is s/p BTL in 12/10. Pt's father had prostate cancer at 58. Pt's paternal grandfather from colorectal cancer. 05/15/24 Liver biopsy preliminary per Dr. Waqar Kahn c/w metastatic adenocarcinoma of the breast. Pt is feeling well. 05/12/24 PET/CT Bilateral hypermetabolic breast masses, larger and more numerous on the left, compatible with knownprimary breast malignancy. Devon metastases in the left axillary region. Numerous bilobar liver metastases. Small lytic osseous metastases in the sternum and right sacrum. Pt initiated leuprolide, letrozole and verzenio. She has had some hot flashes. Pt has seen the dentist. She has been seen at [facility]. She had a good visit and we will send liquid biopsy for NGS. Pt has lost 10 pounds intentionally with cutting out sugar. 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 Pt has been seen at [facility] and was told to continue current therapy. Pt enjoyed her spring break camping in [place]. The following portions of the chart were reviewed this encounter and updated as appropriate: Tobacco Allergies Meds Problems Med Hx Surg Hx Fam Hx Objective Review of Systems Constitutional: Negative for chills and fever. HENT: Negative for mouth sores. Respiratory: Negative for cough and shortness of breath. Cardiovascular: Negative for chest pain. Gastrointestinal: Positive for diarrhea. Negative for nausea and vomiting. Genitourinary: Negative for frequency. Musculoskeletal: Negative for arthralgias. Skin: Negative for rash. Neurological: Negative. Psychiatric/Behavioral: Negative. Physical Exam: Vital Signs for this encounter: BSA: 1.84 meters squared Visit Vitals BP 105/73 Pulse 81 Temp 36.3 ??C (97.3 ??F) (Temporal) Ht 1.651 m (5' 5 ) Wt 73.8 kg (162 lb 11.2 oz) SpO2 100% BMI 27.07 kg/m?? Smoking Status Never BSA 1.84 m?? Physical Exam Constitutional: General: She is not in acute distress. Appearance: Normal appearance. She is well-developed. She is not ill-appearing. HENT: Head: Normocephalic and atraumatic. Nose: Nose normal. Eyes: General: No scleral icterus. Cardiovascular: Rate and Rhythm: Normal rate and regular rhythm. Pulmonary: Effort: Pulmonary effort is normal. Abdominal: General: Bowel sounds are normal. There is no distension. Tenderness: There is no abdominal tenderness. Musculoskeletal: General: Normal range of motion. Cervical back: Normal range of motion. Right lower leg: No edema. Left lower leg: No edema. Skin: General: Skin is warm. Neurological: General: No focal deficit present. Mental Status: She is alert and oriented to person, place, and time. Mental status is at baseline. Psychiatric: Mood and Affect: Mood normal. Behavior: Behavior normal. Performance Status: (0) Fully active, able to carry on all predisease performance without restriction Pain Score: 0-No pain Results: No visits with results within 1 Month(s) from this visit. Latest known visit with results is: Clinical Support on 08/11/2024 Component Date Value Ref Range Status External Glucose 08/19/2024 94 74 - 100 mg/dL Final External BUN 08/19/2024 17 6 - 20 mg/dL Final External Creatinine Blood 08/19/2024 0.90 0.50 - 0.95 mg/dL Final External BUN/Creat Ratio 08/19/2024 19 10 - 20 (calc) Final External Sodium 08/19/2024 144 136 - 145 mmol/L Final External Potassium 08/19/2024 4.8 3.4 - 5.0 mmol/L Final External Chloride 08/19/2024 112 (H) 98 - 107 mmol/L Final External Carbon Dioxide (CO2) 08/19/2024 24 22 - 31 mmol/L Final External Anion Gap (AG) 08/19/2024 8 7 - 25 (calc) Final External Calcium 08/19/2024 9.2 8.6 - 10.2 mg/dL Final External Total Protein 08/19/2024 7.2 6.4 - 8.3 g/dL Final External Albumin 08/19/2024 4.2 3.5 - 5.2 g/dL Final External Globulin 08/19/2024 3.0 1.5 - 4.5 Final External Albumin/Globulin Ratio 08/19/2024 1.4 1.1 - 2.5 (calc) Final External Bilirubin Total 08/19/2024 0.3 0.1 - 1.2 mg/dL Final External Alkaline Phosphatase 08/19/2024 103 30 - 121 U/L Final External AST (SGOT) 08/19/2024 56 (H) 0 - 32 U/L Final External ALT (SGPT) 08/19/2024 133 (H) 0 - 33 U/L Final External Estimated GFR 08/19/2024 85 >=60 Final Comment: NOTE New calculation for GFR (CKD-EPI 2020) is formulated without race adjustment factors at the recommendation of the National Kidney Foundation and [place] Society of Nephrology. This calculation has not been validated in women. For pediatric patients refer to https://www.kidney.org/professionals/KDOQI/gfr_calculatorPed Assessment/Plan Stage IV breast cancer ER+ PA + Her 2 garett - with metastatic disease to the liver and bone. Pt initiated on 05/19/24 lupron, AI and CK 4/6 inhibitor and bisphosphonate therapy as she had had dental clearance. We have discussed with pt the potential ill adverse SE of night sweats, hot flashes, menopausal symptoms. We have discussed that this is not curable but treatable. We reviewed NCCN guidelines. We will follow her Ca 27-29/Signetera and this continues to decline.. Pt gone to [facility] for a consultation. She has had some hot flashes and diarrhea. These are both improving. She takes imodium intermittently prn. Her LFTs are now normalizing. Pt has had [facility] sent with most recent was 0. Her genetic testing revealed no deleterious mutation. NGS liquid biopsy revealed no deleterious mutation. Repeat imaging has been reviewed. We discussed the bone sclerosis as being healing bone. documented in this encounter Plan of Treatment Upcoming Encounters Date Type Department Care Team (Late st Contact Info) Description 12/08/2024 Orders Only [facility] at [address] [place] [phone] Loretta Godfrey MD [address] [place], [place] [address] [address] 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, estrogen receptor positive, unspecified site of breast 12/08/2024 8:15 AM EDT Office Visit [facility] at [address] [phone] 12/08/2024 8:30 AM EDT Office Visit [facility] at [address] [place] [address] Loretta Godfrey MD [address] [place] [phone] 12/08/2024 8:45 AM EDT Clinical Support [facility] at [address] [phone] documented as of this encounter Visit Diagnoses Diagnosis Malignant neoplasm of upper-outer quadrant of right breast in female, estrogen receptor positive- Primary 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, estrogen receptor positive, unspecified site of breast documented in this encounter Additional Health Concerns Assessment Noted Time A fall risk assessment has been complete d for the patient 10/06/2024 7:59 AM EDT documented as of this encounter Care Teams Victorian Literature Professor Relationship Specialty Start Date End Date Hermilo Otto MD [address] [place] [address] PCP - General 05/07/24 Loretta Godfrey MD [address] [place], [place] [address] [phone] Medical Oncologist Hematology and Oncology 05/18/24 Paola Rosenberg LPN VALUE-BASED TRANSFORMATION PROGRAM Licensed Practical Nurse 08/25/24 documented as of this encounter
--- OUTSIDE RECORDS SUMMARY | 2024-10-06 08:30 | XMS_ITS | Encounter Summary ---
Author Organization [facility] Address [address] [place] [address] Care Team Providers Care Dredging Inspector Name Role Phone Hermilo Otto MD Primary Care Provider + [phone] Loretta Godfrey MD Unavailable [phone] Paola Rosenberg PRIZE FIGHTER Unavailable Unavaila ble Reason for Visit * Reason Comments Injections Lupron/Xgeva * Episode Based Medications (Routine) - Authorized Specialty Diagnoses / Procedures Referred By Venkat mccarthy Referred To Contact Diagnoses Malignant neoplasm of upper-outer quadrant of right breast in female, estrogen receptor positive Loretta Godfrey MD [address] [address] Phone: tel: fax: [address] [place] [address] Phone: tel: fax: Referral ID Status Reason Start Date Expiration Date V isits Requested Visits Authorized [id number] Authorized 06/10/2024 12/10/2025 1 13 Encounter Details Date Type Department Care Team (Latest Contact Info) Description 10/06/2024 8:30 AM EDT Clinical Support [facility] [address] [place] [phone] Malignant neoplasm of upper-outer quadrant of right breast in female, estrogen receptor positive (Primary Dx) Social History Tobacco Use Types Packs/Day Years Used Date Smoking Tobacco: Never Smokeless Tobacco: Never Tobacco Cessation:Counseling Given: Not Answered Alcohol Use Standard Drinks/Week Comments Not Currently [...] week 08/27/2024 How often do you attend [facility] or [facility] services? More than 4 times per year 08/27/2024 Do you belong to any clubs o r organizations such as gnosticist groups, unions, fraternal or athletic groups, or [...] Recorded Patient Health Questionnaire-2 Score 0 10/06/2024 [facility] - Occupational Stress Questionnaire Answer Date Recorded [...] any time in the past 12 m [facility], were you homeless or living in a jail (including now)? No 08/27/2024 Utilities Answer Date [...] Time Taken Comments Blood Pressure 105/73 10/06/2024 8:54 AM EDT Pulse 81 10/06/2024 8:54 AM EDT Temperature 36.3 C (97.3 F) 10/06/2024 8:54 AM EDT Respiratory Rate - - Oxygen Saturation 100% 10/06/2024 8:54 AM EDT Inhaled Oxygen Concentration - - Weight 73.8 kg (162 lb 11.2 oz) 10/06/2024 8:54 AM EDT Height 165.1 cm (5' 5 ) 10/06/2024 8:54 AM EDT Body Mass Index 27.07 10/06/2024 8:54 AM EDT documented in this encounter Functional [...] Lino RN documented as of this encounter Plan of Treatment Upcoming Encounters Date Type Department Care Team (Late st Contact Info) Description 12/08/2024 Orders Only [facility] [address] [place] [phone] Loretta Godfrey MD [address] [place] [phone] 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, estrogen receptor positive, unspecified site of breast 12/08/2024 8:15 AM EDT Office Visit [facility] [address] [place] [address] 12/08/2024 8:30 AM EDT Office Visit [facility] [address] [place] [address] Loretta Godfrey MD [address] [address] 12/08/2024 8:45 AM EDT Clinical Support [facility] [address] [place] [address] documented as of this encounter Visit Diagnoses Diagnosis Malignant neoplasm of upper-outer quadrant of right breast in female, estrogen receptor positive- Primary 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, estrogen receptor positive, unspecified site of breast documented in this encounter Administered Medications Inactive Administered Medications - up to 3 most recent administrations Medication Order MAR Action Action Date Dose Rate Site denosumab (Xgeva) 120 MG/1.7ML injection 120 mg 120 mg, Subcutaneous, Once, On Sat10/06/24 at 0915, For 1 doseIndications:Malign ant neoplasm of upper-outer quadrant of right breast in female, estrogen receptor positive Given 10/06/2024 9:07 AM EDT 120 mg Left Upper Arm (Back ) leuprolide (Lupron) injection 3.75 mg 3.75 mg, Intramuscular, Once, 1 dose, On Sat10/06/24 at 0915, RoutineIndications:Mal ignant neoplasm of upper-outer quadrant of right breast in female, estrogen receptor positive Given 10/06/2024 9:06 AM EDT 3.75 mg Left Dorsogluteal documented in this encounter Additional Health Concerns Assessment Noted Time A fall risk assessment has been complete d for the patient 10/06/2024 7:59 AM EDT documented as of this encounter Care Teams Dredging Inspector Relationship Specialty Start Date End Date Hermilo Otto MD [address] [address] PCP - General 05/07/24 Loretta Godfrey MD [address] [place] [phone] Medical Oncologist Hematology and Oncology 05/18/24 Paola Rosenberg LPN VALUE-BASED TRANSFORMATION PROGRAM Licensed Practical Nurse 08/25/24 documented as of this encounter
--- OUTSIDE RECORDS SUMMARY | 2024-11-03 08:00 | XMS_ITS | Encounter Summary ---
Author Organization [facility] Address [address] [place] [address] Care Team Providers Care Oil Analyst Name Role Phone Hermilo Otto MD Primary Care Provider + [phone] Loretta Godfrey MD Unavailable [phone] Paola Rosenberg DIVISION HUMAN RESOURCES MANAGER Unavailable Unavaila ble Reason for Visit * Reason Comments Follow-up * Episode Based Medications (Routine) - Authorized Specialty Diagnoses / Procedures Referred By Venkat mccarthy Referred To Contact Diagnoses Malignant neoplasm of upper-outer quadrant of right breast in female, estrogen receptor positive Loretta Godfrey MD [address] [address] Phone: tel: fax: [address] [place] [address] Phone: tel: fax: Referral ID Status Reason Start Date Expiration Date V isits Requested Visits Authorized [id number] Authorized 06/10/2024 12/10/2025 1 13 Encounter Details Date Type Department Care Team (Late st Contact Info) Description 11/03/2024 8:00 AM EDT Office Visit [facility] [address] [place] [address] Loretta Godfrey MD [address] [place] [address] Malignant neoplasm of upper-outer quadrant [...] week 08/27/2024 How often do you attend [facility] or anabaptism services? More than 4 times per year [...] Recorded Patient Health Questionnaire-2 Score 0 10/06/2024 [facility] of Occupat ional Health - Occupational Stress [...] any time in the past 12 m [facility], were you homeless or living in a custodial (including now)? No 08/27/2024 Utilities Answer Date Recorded In the past 12 months has th e [employer], gas, oil, or water company threatened to [...] 1 Month) No 11/03/2024 7:52 AM EDT Slivana Wyman 6. Suicidal Behavior (Lifetime) No 7:52 AM EDT Silvana Wyman documented as of this encounter Miscellaneous Notes * Progress Notes - Loretta Godfrey MD - 11/03/2024 8:00 AM EDT [facility] HEMATOLOGY/ONCOLOGY FOLLOW UP Shona Prieto 1985 [...] the dentist. She has been seen at [facility]. She had a good visit and we will send liquid biopsy for NGS. Pt has lost 10 pounds intentionally with cutting out sugar. 07/14/24 [facility] One CDX revealed no actionable lunch truck driver mutation. Pt has been seen at [facility] and was told to continue current therapy. Pt enjoyed her daughter' green party rollers kating. She's had some stressors with her oriental orthodox. She's quite active attending her children's sporting activities. Jesscia to date: 05/19/24 34.16 08/19/24 0 10/27/24 [...] recommendation of the National Kidney Foundation and [place] Society of Nephrology. This calculation has not been validated in women. For pediatric patients refer to https://www.kidney.org/professionals/KDOQI/gfr_calculatorPed Assessment/Plan Stage IV breast cancer ER+ [place] + Her 2 garett - with metastatic [...] st Contact Info) Description 12/08/2024 Orders Only [facility] [address] [place] [address] Loretta Godfrey MD [address] [place] [phone] 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, estrogen receptor positive, unspecified site of breast 12/08/2024 8:15 AM EDT Office Visit [facility] [address] [place] [address] 12/08/2024 8:30 AM EDT Office Visit [facility] [address] [place] [address] Loretta Godfrey MD [address] [place] [phone] 12/08/2024 8:45 AM EDT Clinical Support [facility] [address] [place] [address] documented as of this encounter Visit Diagnoses Diagnosis Malignant neoplasm of upper-outer quadrant of right breast in female, estrogen receptor positive 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, estrogen receptor positive, unspecified site of breast documented in this encounter Additional Health Concerns Assessment Noted Time A fall risk assessment has been complete d for the patient 11/03/2024 7:52 AM EDT documented as of this encounter Care Teams Oil Analyst Relationship Specialty Start Date End Date Hermilo Otto MD [address] [place] [address] PCP - General 05/07/24 Loretta Godfrey MD [address] [place] [phone] Medical Oncologist Hematology and Oncology 05/18/24 Paola Rosenberg LPN VALUE-BASED TRANSFORMATION PROGRAM Licensed Practical Nurse 08/25/24 documented as of this encounter
--- OUTSIDE RECORDS SUMMARY | 2024-11-03 08:15 | XMS_ITS | Encounter Summary ---
Author Organization [facility] Address [address] [place] [address] Care Team Providers Care Cytopathologist Name Role Phone Hermilo Otto MD Primary Care Provider + [phone] Loretta Godfrey MD Unavailable [phone] Paola Rosenberg DIRECTOR OF APPLICATION DEVELOPMENT Unavailable Unavaila ble Reason for Visit * Reason Comments Injections * Episode Based Medications (Routine) - Authorized Specialty Diagnoses / Procedures Referred By Venkat mccarthy Referred To Contact Diagnoses Malignant neoplasm of upper-outer quadrant of right breast in female, estrogen receptor positive Procedures [place] LEUPROLIDE ACETATE SUSPNSION Loretta Godfrey MD [address] [address] Phone: tel: fax: [facility] at [facility] [address] [place] [address] Phone: tel: fax: Referral ID Status Reason Start Date Expiration Date V isits Requested Visits Authorized [id number] Authorized 05/19/2024 11/18/2025 1 14 Encounter Details Date Type Department Care Team (Latest Contact Info) Description 11/03/2024 8:15 AM EDT Clinical Support [facility] at [facility] [address] [place] [address] Malignant neoplasm of upper-outer quadrant [...] often do you attend [facility] or mosque services? More than 4 times per year 08/27/2024 Do you belong to any clubs o r organizations such as presybeterian groups, unions, fraternal or athletic groups, or [...] Recorded Patient Health Questionnaire-2 Score 0 10/06/2024 [facility] of Occupat ional Health - Occupational Stress [...] any time in the past 12 m [facility], were you homeless or living in a skilled nursing (including now)? No 08/27/2024 Utilities Answer Date Recorded In the past 12 months has th e [employer], gas, oil, or water company threatened to [...] (Lifetime) No 8:35 AM EDT Opal Johnson, SONA documented as of this encounter Plan of Treatment Upcoming Encounters Date Type Department Care Team (Late st Contact Info) Description 12/08/[address] [facility] at [address] [place] [address] Loretta Godfrey MD [address] [place] [phone] 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, estrogen receptor positive, unspecified site of breast 12/08/2024 8:15 AM EDT Office Visit [facility] at [address] [place] [address] 12/08/2024 8:30 AM EDT Office Visit [facility] at [address] [place] [address] Loretta Godfrey MD [address] [address] 12/08/2024 8:45 AM EDT Clinical Support [facility] at [facility] [address] [place] [address] Scheduled Orders Name Type Priority Associated Diagnoses Orde r Schedule Comprehensive metabolic panel Lab STAT Malignant neoplasm of upper-outer quadrant of right breast in female, estrogen receptor positive Expected: 11/03/2024, Expires: 11/03/2025 documented as of this encounter Visit Diagnoses [...] documented as of this encounter Care Teams Cytopathologist Relationship Specialty Start Date End Date Hermilo Otto MD [address] [facility] [address], [place] [address] PCP - General 05/07/24 Loretta Godfrey MD [address] [address] Medical Oncologist Hematology and Oncology 05/18/24 Paola Rosenberg LPN VALUE-BASED TRANSFORMATION PROGRAM Licensed Practical Nurse 08/25/24 documented as of this encounter
--- OUTSIDE RECORDS SUMMARY | 2024-12-04 09:40 | XMS_ITS ---
Author Organization [facility] Address [address] [place] [address] Care Team Providers Care Supervisor Final Name Role Phone Hermilo Otto MD Primary Care Provider + [phone] Loretta Godfrey MD Unavailable [phone] Paola Rosenberg LUMBER CHECKER Unavailable Unavaila ble Active Problems Problem Noted Date Diagnosed Date Malignant neoplasm of upper- outer quadrant of right breast in female, estrogen receptor positive 05/19/2024 Current Treatment and Therapy Plans (Hem/Onc) Denosumab (Xgeva) for Prevention of Skeletal-related Events* Plan Start Date:06/16/2024 Plan Provider:Loretta Godfrey MD Linked Problems Malignant neoplasm of upper- outer quadrant of right breast in female, estrogen receptor positive Treatment Medications No medications scheduled. (Hem/Onc) Leuprolide Acetate (Lupron)* Plan Start Date:05/19/2024 Plan Provider:Loretta Godfrey MD Linked Problems Malignant neoplasm of upper- outer quadrant of right breast in female, estrogen receptor positive Treatment Medications No medications scheduled. Past Treatment and Therapy Plans No past plan information found.
--- OUTSIDE RECORDS SUMMARY | 2024-12-04 09:40 | XMS_ITS | Encounter Summary ---
Author Organization [facility] Address [address] [place] [address] Care Team Providers Care Carrier Driver Name Role Phone Hermilo Otto MD Primary Care Provider + [phone] Loretta Godfrey MD Unavailable [phone] Paola Rosenberg HEALTH SERVICES INFORMATION SPECIALIST Unavailable Unavaila ble Encounter Details Date Type Department Care Team (Late st Contact Info) Description 11/02/2024 Orders Only [facility] at [facility] [address] [place] [address] Loretta Godfrey MD [address] [address] Social History Tobacco Use Types Packs/Day Years [...] week 08/27/2024 How often do you attend chur ch or amish services? More than 4 times per year 08/27/2024 Do you belong to any clubs o r organizations such as tenriism groups, unions, fraternal or athletic groups, or [...] Recorded Patient Health Questionnaire-2 Score 0 10/06/2024 [facility] of Occupat ional Health - [...] any time in the past 12 m [facility], were you homeless or living in a retirement (including now)? No 08/27/2024 Utilities Answer Date [...] on file documented as of this encounter Functional Status * Calculated C-SSRS Risk Score (Lifetime/Recent) Answer Date of Assessment Author No Risk Indicated 11/03/2024 8:35 AM Opal Felix, SONA * Question Answer Date of Assessment Author 1. Wish to be (Past 1 Month) No 11/03/2024 8:35 AM Opal Felix, RN 2. Non-Specific Active Suici kelsie Thoughts (Past 1 Month) No 11/03/2024 8:35 AM Erika Felix RN 6. Suicidal Behavior (Lifetime) No 8:35 AM Opal Felix, RN documented as of this encounter Plan of Treatment Upcoming Encounters Date Type Department Care Team (Late st Contact Info) Description 12/08/2024 Orders Only [facility] at [facility] [address] [place] [phone] Loretta Godfrey MD [address] [place] [address] 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, estrogen receptor positive, unspecified site of breast 12/08/2024 8:15 AM EDT Office Visit [facility] at [facility] [address] [place] [address] 12/08/2024 8:30 AM EDT Office Visit [facility] at [facility] [address] [place] [address] Loretta Godfrey MD [address] [address] 12/08/2024 8:45 AM EDT Clinical Support [facility] at [facility] [address] [place] [address] documented as of this encounter Procedures Procedure Name Priority Date/Time Associated Diagnosis Comments CANCER ANTIGEN 27.29 Routine 10/30/2024 9:[address] ABDOMEN PELVIS W IV CONTRAST Routine 10/27/2024 3:[address] CHEST W IV CONTRAST Routine 10/27/2024 9:29 AM EDT documented in this encounter Results * Cancer antigen 27.29 (10/30/2024 9:18 AM EDT) Blood Venous blood specimen / Unknown Loretta Godfrey MD LAB BLOOD ORDERABLES Final Re sult * CT Abdomen Pelvis w IV Contrast (10/27/2024 3:10 PM EDT) Anatomical Region Laterality Modality Abdomen, Pelvis Computed Tomogra phy us Loretta Godfrey MD IMG CT PROCEDURES Final Resul t * CT Chest w IV Contrast (10/27/2024 9:29 AM EDT) Anatomical Region Laterality Modality Chest Computed Tomogra phy us Loretta Godfrey MD IMG CT PROCEDURES Final Resul t documented in this encounter Visit Diagnoses Not on filedocumented in this encounter Additional Health Concerns Assessment Noted Time A fall risk assessment has been complete d for the patient 10/06/2024 7:59 AM EDT documented as of this encounter Care Teams Carrier Driver Relationship Specialty Start Date End Date Hermilo Otto MD [address] [address] PCP - General 05/07/24 Loretta Godfrey MD [address] [address] Medical Oncologist Hematology and Oncology 05/18/24 Paola Rosenberg LPN VALUE-BASED TRANSFORMATION PROGRAM Licensed Practical Nurse 08/25/24 documented as of this encounter
--- OUTSIDE RECORDS SUMMARY | 2024-12-04 09:40 | XMS_ITS | Encounter Summary ---
Author Organization [facility] Address [address] [place] [address] Care Team Providers Care Animation Director Name Role Phone Hermilo Otto MD Primary Care Provider + [phone] Loretta Godfrey MD Unavailable [phone] Paola Rosenberg STRIP TANK TENDER Unavailable Unavaila ble Reason for Visit * Reason Onset Date Comments Medication Question 11/13/2024 Encounter Details Date Type Department Care Team (Late st Contact Info) Description 11/13/2024 Telephone [facility] [address] [place] [address] Loretta Godfrey MD [address] [address] Medication Question Social History Tobacco Use Types Packs/Day Years [...] 08/27/2024 How often do you attend chur or catholic services? More than 4 times per year 08/27/2024 Do you belong to any clubs o r organizations such as bahai groups, unions, fraternal or athletic groups, or [...] any time in the past 12 m [facility], were you homeless or living in a chcf (including now)? No 08/27/2024 Utilities Answer Date [...] on file documented as of this encounter Plan of Treatment Upcoming Encounters Date Type Department Care Team (Late st Contact Info) Description 12/08/2024 Orders Only [facility] [place] [address] [place] [address] Loretta Godfrey MD [address] [place] [phone] 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, estrogen receptor positive, unspecified site of breast 12/08/2024 8:15 AM EDT Office Visit [facility] [place] [address] 12/08/2024 8:30 AM EDT Office Visit [facility] at [place] [address] [place] [address] Loretta Godfrey MD [address] [address] 12/08/2024 8:45 AM EDT Clinical Support [facility] at [facility] [address] [place] [address] documented as of this encounter Visit Diagnoses Diagnosis 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, estrogen receptor positive, unspecified site of breast- Primary 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, estrogen receptor positive, unspecified site of breast documented in this encounter Additional Health Concerns Assessment Noted Time A fall risk assessment has been complete d for the patient 11/03/2024 7:52 AM EDT documented as of this encounter Care Teams Animation Director Relationship Specialty Start Date End Date Hermilo Otto MD [address] [place] [address] PCP - General 05/07/24 Loretta Godfrey MD [address] [address] Medical Oncologist Hematology and Oncology 05/18/24 Paola Rosenberg LPN VALUE-BASED TRANSFORMATION PROGRAM Licensed Practical Nurse 08/25/24 documented as of this encounter
--- OUTSIDE RECORDS SUMMARY | 2024-12-04 09:40 | XMS_ITS | Encounter Summary ---
Author Organization [facility] Address [address] [place] [address] Care Team Providers Care Sales Apprentice Name Role Phone Hermilo Otto MD Primary Care Provider [phone] Reason for Referral * CAT Scan (Routine) - Pending Review Specialty Diagnoses / Procedures Referred By Venkat mccarthy Referred To Contact Radiology Diagnoses Estrogen receptor positive Procedures CT BIOPSY SITE LIVER Loretta Godfrey MD [address] [place] [address] Phone: tel: fax: Referral ID Status Reason Start Date Expiration Date V isits Requested Visits Authorized [id number] Pending Review 05/13/2024 05/13/2025 1 1 Encounter Details Date Type Department Care Team (Late st Contact Info) Description 05/13/2024 Outside Orders [facility] Central Scheduling [address] [place] [address] Loretta Godfrey MD [address] [place] [address] Estrogen receptor positive (Primary Dx) Social History Tobacco Use Types Packs/Day Years Used Date Smoking Tobacco: Never Assessed Comments Unknown Sex and Gender Information Value Date Recorded Sex Assigned at Not on file Legal Sex Female 8:46 AM PATIENT SERVICES REPRESENTATIVE Gender Identity Not on file Sexual Orientation Not on file documented as of this encounter Plan of Treatment Not on file documented as of this encounter Results * CT BIOPSY SITE LIVER (05/15/2024 10:45 AM EST) Anatomical Region Laterality Modality Liver, Abdomen Computed Tomogra phy (CT) 05/15/2024 12:1 7 PM EST Impressions 05/15/2024 12:25 PM EST Status post CT guided core biopsy of liver mass without immediate complication. Images reviewed, interpreted, and dictated by Dr. Shyla Courtney. Transcribed by Fabian Starks PA-C Narrative 05/15/2024 12:[address] GUIDED LIVER MASS CORE BIOPSY HISTORY: History of breast cancer with hypermetabolic liver masses. ATTENDING RADIOLOGIST: Dr. Courtney. PHYSICIAN AIRLINE MANAGER: Fabian Starks PA-C. PROCEDURE: After informed consent was obtained and a time-out was performed, the patient was prepped and draped in usual sterile fashion over the right upper quadrant. Lesion in the inferior right hepatic lobe for biopsy. Utilizing local anesthesia and sterile technique with a coaxial system, access to lesion was obtained under direct CT guidance. A total of 5 separate 18-gauge core biopsies were obtained. Postbiopsy films demonstrate no evidence of acute complication. The patient received moderate conscious sedation. The patient tolerated the procedure well and left the department in good condition. CONSCIOUS SEDATION: 2.5 mg of IV Versed and 100 mcg of Fentanyl were administered. Continuous vital sign monitoring was used. An RN was present during the sedation process. Overall sedation time was 30 minutes. Procedure Note Naila Courtney MD - 05/15/2024 CT GUIDED LIVER MASS CORE BIOPSY HISTORY: History of breast cancer with hypermetabolic liver masses. ATTENDING RADIOLOGIST: Dr. Courtney. PHYSICIAN AIRLINE MANAGER: Fabian Starks PA-C. PROCEDURE: After informed consent was obtained and a time-out was performed, the patient was prepped and draped in usual sterile fashion over the right upper quadrant. Lesion in the inferior right hepatic lobe for biopsy. Utilizing local anesthesia and sterile technique with a coaxial system, access to lesion was obtained under direct CT guidance. A total of 5 separate 18-gauge core biopsies were obtained. Postbiopsy films demonstrate no evidence of acute complication. The patient received moderate conscious sedation. The patient tolerated the procedure well and left the department in good condition. CONSCIOUS SEDATION: 2.5 mg of IV Versed and 100 mcg of Fentanyl were administered. Continuous vital sign monitoring was used. An RN was present during the sedation process. Overall sedation time was 30 minutes. IMPRESSION: Status post CT guided core biopsy of liver mass without immediate complication. Images reviewed, interpreted, and dictated by Dr. Shyla Courtney. Transcribed by Fabian Starks PA-C Loretta Godfrey MD IMG CT ORDERABLES Final Result documented in this encounter Visit Diagnoses Diagnosis Estrogen receptor positive- Primary Estrogen receptor positive status [ER+] Estrogen receptor positive Estrogen receptor positive status [ER+] documented in this encounter Care Teams Sales Apprentice Relationship Specialty Start Date End Date Hermilo Otto MD [address] [facility] [address] [place] [address] PCP - General Family Medicine 05/15/24 documented as of this encounter
--- OUTSIDE RECORDS SUMMARY | 2024-12-04 09:40 | XMS_ITS | Clinical Summary ---
Author Organization [facility] Address [address] [place] [address] Care Team Providers Care Communications Engineering Technician Name Role Phone Hermilo Otto MD Primary Care Provider [phone] Allergies No known active allergies Medications sertraline (ZOLOFT) 50 MG tablet Take 1 tablet (50 mg total) by mouth daily. 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 Gender Identity Not on file Sexual Orientation Not on file Last Filed Vital Signs Vital Sign Reading Time Taken Comments Blood Pressure 122/70 05/15/2024 12:05 PM EST Pulse 74 05/15/2024 12:05 PM EST Temperature 36.7 C (98 F) 05/15/2024 8:47 AM EST Respiratory Rate 14 05/15/2024 10:49 AM EST Oxygen Saturation 97% 05/15/2024 12:05 PM EST Inhaled Oxygen Concentration - - Weight 74.8 kg (165 lb) 05/15/2024 8:47 AM EST Height 165.1 cm (5' 5 ) 05/15/2024 8:47 AM EST Body Mass Index 27.46 05/15/2024 8:47 AM EST Plan of Treatment Health Maintenance Due Date Last Done Comments Depression Screening (12+) 1999 HIV Screening 09/27/2002 Hepatitis C Screening 09/27/2005 Pap Smear 09/27/2008 COVID-19 VACCINE (1 - 2023-2 5 season) 2024 Tobacco Cessation Counseling and Screening (12+) 05/15/2025 05/15/2024 DTAP/TDAP/TD VACCINES (2 - T d or Tdap) 09/18/2028 09/18/2018 Influenza Vaccine Completed 05/23/2024 Pneumococcal Vaccine: 0-49 Years Aged Out No longer eligible based on patient's age to complete this topic Insurance BLUE CROSS/BLUE SHIELD Care Teams Communications Engineering Technician Relationship Specialty Start Date End Date Hermilo Otto MD [address] [place] [facility] [address] [place] [address] PCP - General Family Medicine 05/15/24
--- OUTSIDE RECORDS SUMMARY | 2024-12-04 09:40 | XMS_ITS | Encounter Summary ---
Author Organization [facility] Address [address] [place] [address] Care Team Providers Care Coat Check Attendant Name Role Phone Hermilo Otto MD Primary Care Provider + [phone] Loretta Godfrey MD Unavailable [phone] Paola Rosenberg LPN Unavailable Unavaila ble Encounter Details Date Type Department Care Team (Latest Contact Info) Description 11/02/2024 Travel Social History Tobacco Use Types Packs/Day Years [...] week 08/27/2024 How often do you attend [facility] or restoration services? More than 4 times per year 08/27/2024 Do you belong to any clubs o r organizations such as pentecostal groups, unions, fraternal or athletic groups, or [...] Recorded Patient Health Questionnaire-2 Score 0 10/06/2024 [facility] of Occupat ional [facility] - Occupational Stress Questionnaire Answer Date Recorded [...] any time in the past 12 m [facility], were you homeless or living in a long-term (including now)? No 08/27/2024 Utilities Answer Date Recorded In the past 12 months has health system electric, gas, oil, or water company threatened [...] st Contact Info) Description 12/08/2024 Orders Only [facility] at [address] [place] [address] Loretta Godfrey MD [address] [place], [place] [address] [address] 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, estrogen receptor positive, unspecified site of breast 12/08/2024 8:15 AM EDT Office Visit [facility] at [address] [place] [address] 12/08/2024 8:30 AM EDT Office Visit [facility] at [address] [place] [address] Loretta Godfrey MD [address] [place], [place] [address] [address] 12/08/2024 8:45 AM EDT Clinical Support [facility] [place] [address] [place] [address] documented as of this encounter Visit Diagnoses Not on filedocumented in this encounter Additional Health Concerns Assessment Noted Time A fall risk assessment has been complete d for the patient 10/06/2024 7:59 AM EDT documented as of this encounter Care Teams Coat Check Attendant Relationship Specialty Start Date End Date Hermilo Otto MD 12[address] [facility] [address] [place] [address] PCP - General 05/07/24 Loretta Godfrey MD [address] [address] Medical Oncologist Hematology and Oncology 05/18/24 Paola Rosenberg LPN VALUE-BASED TRANSFORMATION PROGRAM Licensed Practical Nurse 08/25/24 documented as of this encounter
--- OUTSIDE RECORDS SUMMARY | 2024-12-04 09:40 | XMS_ITS | Encounter Summary ---
Author Organization [facility] Address [address] [place] [address] Care Team Providers Care Head End Desizing Machine Operator Name Role Phone Hermilo Otto MD Primary Care Provider + [phone] Loretta Godfrey MD Unavailable [phone] Paola Rosenberg LPN Unavailable Unavaila ble Encounter Details Date Type Department Care Team (Latest Contact Info) Description 11/03/2024 Travel Social History Tobacco Use Types Packs/Day [...] week 08/27/2024 How often do you attend [facility] or yazdanism services? More than 4 times per year 08/27/2024 Do you belong to any clubs o r organizations such as yazidism groups, unions, fraternal or athletic groups, or [...] 0 10/06/2024 [facility] of Occupat ional [facility] - Occupational Stress Questionnaire Answer Date [...] any time in the past 12 m [facility], were you homeless or living in a senior living (including now)? No 08/27/2024 Utilities Answer Date Recorded In the past 12 months has e electric, gas, oil, or water company [...] st Contact Info) Description 12/08/2024 Orders Only [facility] [address] [place] [address] Loretta Godfrey MD [address] [place] [phone] 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, estrogen receptor positive, unspecified site of breast 12/08/2024 8:15 AM EDT Office Visit [facility] [address] [place] [address] 12/08/2024 8:30 AM EDT Office Visit [facility] [address] [place] [address] Loretta Godfrey MD [address] [phone] 12/08/2024 8:45 AM EDT Clinical Support [facility] [address] [place] [address] documented as of this encounter Visit Diagnoses Not on filedocumented in this encounter Additional Health Concerns Assessment Noted Time A fall risk assessment has been complete d for the patient 11/03/2024 7:52 AM EDT documented as of this encounter Care Teams Head End Desizing Machine Operator Relationship Specialty Start Date End Date Hermilo Otto MD [address] [place] [address] PCP - General 05/07/24 Loretta Godfrey MD [address] [address] Medical Oncologist Hematology and Oncology 05/18/24 Paola Rosenberg LPN VALUE-BASED TRANSFORMATION PROGRAM Licensed Practical Nurse 08/25/24 documented as of this encounter
--- OUTSIDE RECORDS SUMMARY | 2024-12-04 09:40 | XMS_ITS | Encounter Summary ---
Author Organization [facility] Address [address] [place] [address] Care Team Providers Care Paint Line Production Supervisor Name Role Phone Hermilo Otto MD Primary Care Provider + [phone] Loretta Godfrey MD Unavailable [phone] Paola Rosenberg WASTEWATER TREATMENT ENGINEER Unavailable Unavaila ble Encounter Details Date Type Department Care Team (Late st Contact Info) Description 10/30/2024 Orders Only [facility] at [facility] [address] [place] [address] Loretta Godfrey MD [address] [address] Social History Tobacco Use Types [...] often do you attend chur ch or jain services? More than 4 times per year 08/27/2024 Do you belong to any clubs o r organizations such as rastafarian groups, unions, fraternal or athletic groups, or [...] Recorded Patient Health Questionnaire-2 Score 0 10/06/2024 [facility] of Occupat ional Health - Occupational Stress [...] any time in the past 12 m [facility], were you homeless or living in a prison (including now)? No 08/27/2024 Utilities Answer Date Recorded In the past 12 months has th e [employer], gas, oil, or water company threatened to [...] Author No Risk Indicated 11/03/2024 7:52 AM Silvana Oneal * Question Answer Date of Assessment Author 1. Wish to be (Past 1 Month) No 025 7:52 AM Silvana Oneal 2. Non-Specific Active Suici kelsie Thoughts (Past 1 Month) No 11/03/2024 7:52 AM Silvana Oneal 6. Suicidal Behavior (Lifetime) No 7:52 AM Silvana Oneal documented as of this encounter Plan of Treatment Upcoming Encounters Date Type Department Care Team (Late st Contact Info) Description 12/08/2024 Orders Only [facility] at [facility] [address] [place] [address] Loretta Godfrey MD [address] [place] [address] 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, estrogen receptor positive, unspecified site of breast 12/08/2024 8:15 AM EDT Office Visit [facility] [address] [facility] [place] [address] 12/08/2024 8:30 AM EDT Office [facility] [address] [facility] [place] [address] Loretta Godfrey MD [address] [place], [place] [address] [address] 12/08/2024 8:45 AM EDT Clinical Support [facility] at [address] [place] [address] documented as of this encounter Procedures Procedure Name Priority Date/Time Associated Diagnosis Comments COMPLETE METABOLIC PROFILE (CMP) Routine 10/30/2024 10:07 AM EDT CBC W/DIFF Routine 10/30/2024 9:51 AM EDT documented in this encounter Results * COMPLETE METABOLIC PROFILE (CMP) (10/30/2024 10:07 AM EDT) us Loretta Godfrey MD LAB BLOOD ORDERABLES Final Re sult * CBC W/DIFF (10/30/2024 9:51 AM EDT) us Loretta Godfrey MD LAB BLOOD ORDERABLES Final Re sult documented in this encounter Visit Diagnoses Not on filedocumented in this encounter Additional Health Concerns Assessment Noted Time A fall risk assessment has been complete d for the patient 10/06/2024 7:59 AM EDT documented as of this encounter Care Teams Paint Line Production Supervisor Relationship Specialty Start Date End Date Hermilo Otto MD 1210 [facility] [address], [place] [id number] PCP - General 05/07/24 Loretta Godfrey MD [address] [place], [place] [address] [place] [address] Medical Oncologist Hematology and Oncology 05/18/24 Paola Rosenberg LPN VALUE-BASED TRANSFORMATION PROGRAM Licensed Practical Nurse 08/25/24 documented as of this encounter
--- OUTSIDE RECORDS SUMMARY | 2024-12-04 09:40 | XMS_ITS | Encounter Summary ---
Author Organization [facility] Address [address] [place] [address] Care Team Providers Care Manager Diesel Name Role Phone Hermilo Otto MD Primary Care Provider + [phone] Loretta Godfrey MD Unavailable [phone] Paola Rosenberg LPN Unavailable Unavaila ble Reason for Visit * Reason Comments Follow-up Encounter Details Date Type Department Care Team (Late st Contact Info) Description 11/13/2024 Patient Outreach [facility] [address], [address] [place] [address] Paola Rosenberg LPN VALUE-BASED TRANSFORMATION PROGRAM Follow-up Social History Tobacco Use Types Packs/Day Years [...] How often do you attend chur or sabianism services? More than 4 times per year 08/27/2024 Do you belong to any clubs o r organizations such as jainism groups, unions, fraternal or athletic groups, or [...] Recorded Patient Health Questionnaire-2 Score 0 10/06/2024 [facility] Occupat ional Health - Occupational [...] any time in the past 12 m [facility], were you homeless or living in a snf (including now)? No 08/27/2024 Utilities Answer Date [...] on file documented as of this encounter Miscellaneous Notes * Progress Notes - Paola Rosenberg LPN - 11/13/2024 3:02 PM EDT 11/13/2024 Reason for Follow-up: [facility]+ update call. Patient Status: Side Effects: Patient reports diarrhea. Treatment Updates: Current Treatment Plan: leuprolide (Lupron) injection 3.75 mg denosumab (Xgeva) 120 MG/1.7ML injection 120 mg Letrozole 2.5 mg daily. Verzenio 150 mg twice a day. [facility] Update: Other: Patient denies any needs at this time. Follow-Up Plan: Next Appointment: 12/08/2024@8:30 am with Loretta Godfrey. Additional Notes/Care Coordination Needs: Patient Concerns: Patient denies any questions or concerns for this nurse. Patient encouraged to call with any non-urgent matters. documented in this encounter Plan of Treatment Upcoming Encounters Date Type Department Care Team (Late st Contact Info) Description 12/08/2024 Orders Only [facility] at [address] [phone] Loretta Godfrey MD [address] [place] [address] 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, estrogen receptor positive, unspecified site of breast 12/08/2024 8:15 AM EDT Office Visit [facility] at [address] [address] 12/08/2024 8:30 AM EDT Office Visit [facility] at [address] [address] Loretta Godfrey MD [address] [place] [address] 12/08/2024 8:45 AM EDT Clinical Support [facility] at [address] [address] documented as of this encounter Visit Diagnoses Not on filedocumented in this encounter Additional Health Concerns Assessment Noted Time A fall risk assessment has been complete d for the patient 11/03/2024 7:52 AM EDT documented as of this encounter Care Teams Manager Diesel Relationship Specialty Start Date End Date Hermilo Otto MD [facility] [address] [id number] PCP - General 05/07/24 Loretta Godfrey MD [address] [place], [place] [address] [phone] Medical Oncologist Hematology and Oncology 05/18/24 Paola Rosenberg LPN VALUE-BASED TRANSFORMATION PROGRAM Licensed Practical Nurse 08/25/24 documented as of this encounter
--- OUTSIDE RECORDS SUMMARY | 2024-12-04 09:40 | XMS_ITS | Clinical Summary ---
Author Organization [facility] Address [address] [place] [address] Care Team Providers Care Posting Machine Operator Name Role Phone Hermilo Otto MD Primary Care Provider + [phone] Loretta Godfrey MD Unavailable [phone] Paola Rosenberg IT SECURITY SPECIALIST Unavailable Unavaila ble Allergies No known active allergies Medications sertraline (Zoloft) 50 MG tablet Take 1 tablet (50 mg) by mouth daily. Active Abemaciclib (Verzenio) 150 MG tablet chemo tablet Take 1 tablet (150 mg total) by mouth 2 (two) times a day. 60 tablet 11 4 Active letrozole (Femara) 2.5 MG chemo tabletIndication s: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, estrogen receptor positive, unspecified site of breast Take 1 tablet (2.5 mg total) by mouth daily. Take with or without food. 30 tablet 5 5 05/12/20 25 Active letrozole (Femara) 2.5 MG chemo tablet Take 1 tablet (2.5 mg total) by mouth daily. Take with or without food. 30 tablet 5 5 11/14/19 25 Discontinu ed(Reorder ) Active Problems Problem Noted Date Diagnosed Date Malignant neoplasm of upper- outer quadrant of right breast in female, estrogen receptor positive 05/19/2024 Encounters Date Type Department Care Team Description 11/13/2024 Telephone [facility] at [address] [address] Loretta Godfrey MD Medication Question 11/13/2024 Patient Outreach [facility] [address], [address] [place] [address] Paola Rosenberg LPN Follow-up 11/04/2024 Refill [facility] at [address] [place] [address] Loretta Godfrye MD 11/03/2024 8:15 AM EDT Clinical Support [facility] at [address] [address] Malignant neoplasm of upper-outer quadrant of right breast in female, estrogen receptor positive (Primary Dx) 11/03/2024 8:00 AM EDT Office Visit [facility] at [address] [address] Loretta Godfrey MD Malignant neoplasm of upper-outer quadrant of right breast in female, estrogen receptor positive 11/03/2024 Travel 11/02/2024 Travel 11/02/2024 Orders Only [facility] at [address] [address] Loretta Godfrey MD 10/30/2024 Orders Only [facility] at [address] [address] Loretta Godfrey MD 10/26/2024 Orders Only [facility] at [address] [address] Loretta Godfrey MD 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, estrogen receptor positive, unspecified site of breast; Malignant neoplasm of upper-outer quadrant of right breast in female, estrogen receptor positive 10/15/2024 Patient Outreach [facility] [address] [facility] [address] [place] [address] Paola Rosenberg LPN Follow-up 10/06/2024 8:30 AM EDT Clinical Support [facility] at [address] [place] [address] Malignant neoplasm of upper-outer quadrant of right breast in female, estrogen receptor positive (Primary Dx) 10/06/2024 8:15 AM EDT Office Visit [facility] at [place] [address] [place] [address] Loretta Godfrey MD Malignant neoplasm of upper-outer quadrant of right breast in female, estrogen receptor positive (Primary Dx) 10/06/2024 Orders Only [facility] at [place] [address] [place] [address] Loretta Godfrey MD 10/06/2024 Travel 10/05/2024 Orders Only [facility] at [address] [place] [address] Loretta Godfrey MD 10/05/2024 Travel 2024 Orders Only [facility] at [address] [place] [address] Loretta Godfrey MD 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, estrogen receptor positive, unspecified site of breast; Malignant neoplasm of upper-outer quadrant of right breast in female, estrogen receptor positive 09/08/2024 9:00 AM EDT Clinical Support [facility] at [place] [address] [place] [address] Malignant neoplasm of upper-outer quadrant of right breast in female, estrogen receptor positive (CMS/HCC) (Primary Dx) 09/08/2024 8:45 AM EDT Office Visit [facility] at [place] [address] [place] [address] Loretta Godfrey MD Malignant neoplasm of upper-outer quadrant of right breast in female, estrogen receptor positive (CMS/HCC) 09/08/2024 Travel 09/07/2024 Orders Only [facility] at [place] [address] [place] [address] Loretta Godfrey MD 09/04/2024 Orders Only [facility] at [facility] [address] [place] [address] Loretta Godfrey MD from Last 3 Months Immunizations Immunization Administration Dates Next Due Influenza, Recombinant, injectable, preservative free 05/20/2024 Influenza, injectable, quadrivalent, preservativ e free 06/06/2018 Tdap 09/18/2018 Social History Tobacco Use Types Packs/Day Years [...] How often do you attend chur or worship services? More than 4 times per year 08/27/2024 Do you belong to any clubs o r organizations such as spiritism groups, unions, fraternal or athletic groups, or [...] Recorded Patient Health Questionnaire-2 Score 0 10/06/2024 [facility] - [facility]ational Stress Questionnaire Answer Date Recorded [...] any time in the past 12 m [facility], were you homeless or living in [...] file Not on file Not on file Last Filed Vital Signs Vital Sign Reading Time Taken Comments Blood Pressure 132/82 11/03/2024 8:35 AM EDT Pulse 68 11/03/2024 8:35 AM EDT Temperature 36.4 C (97.5 F) 11/03/2024 7:48 AM EDT Respiratory Rate 19 11/03/2024 8:35 AM EDT Oxygen Saturation 99% 11/03/2024 8:35 AM EDT Inhaled Oxygen Concentration - - Weight 74 kg (163 lb 2.3 oz) 11/03/2024 8:35 AM EDT Height 165.1 cm (5' 5 ) 11/03/2024 8:35 AM EDT Body Mass Index 27.15 11/03/2024 8:35 AM EDT Plan of Treatment Upcoming Encounters Date Type Department Care Team (Late st Contact Info) Description 12/08/2024 Orders Only [facility] at [address] [place] [address] Loretta Godfrey MD [address] [phone] 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, estrogen receptor positive, unspecified site of breast 12/08/2024 8:15 AM EDT Office Visit [facility] at [facility] [address] [place] [address] 12/08/2024 8:30 AM EDT Office Visit [facility] at [facility] [address] [place] [address] Loretta Godfrey MD [address] [address] 12/08/2024 8:45 AM EDT Clinical Support [facility] at [place] [address] [place] [address] Health Maintenance Due Date Last Done Comments [facility]-HIV Screening 1987 [facility]-Infant/Child/Adol SDOH Screenings 1987 [facility]-KPSWR-18 Vaccine (#1) 09/27/1992 [facility]-Obesity Intervention 09/27/1993 [facility]-Varicella Vaccines (1 of 2 - 13+ 2-dose series) 09/27/2000 [facility]-Hepatitis A Vaccines (1 of 2 - Risk 2-dose series) 09/27/2006 [facility]-Hepatitis B Vaccines (1 of 3 - 19+ 3-dose series) 09/27/2006 [facility]-Pneumococcal Vaccine: Pediatrics (0 to 5 Years) and At-Risk Patients (6 to 49 Years) (1 of 2 - PCV) 09/27/2006 [facility]-Zoster Vaccines (1 of 2) 09/27/2006 [facility]-Pap Smear 09/27/2008 [facility]-Cervical Cancer Screening 09/27/2017 [facility]-HPV/Cotest 09/27/2017 [facility]- SDOH Screenings 02/27/2025 [facility]-Adult SDOH Screenings 02/27/2025 08/27/2024 [facility]-Depression Screening 10/06/2025 10/06/2024 [facility]-DTaP,Tdap,and Td Vaccine s (2 - Td or Tdap) 09/18/2028 09/18/2018 [facility]-Hepatitis C Screening Completed 03/04/2018 [facility]-Influenza Vaccine Completed 05/20/2024 , 06/06/2018 HPV Vaccines Aged Out No longer eligi ble based on patient's age to complete this topic [facility]-HIB Vaccines Aged Out No longer e ligible based on patient's age to complete this topic [facility]-IPV Vaccines Aged Out No longer e ligible based on patient's age to complete this topic [facility]-Rotavirus Vaccines Aged Out No lo nger eligible based on patient's age to complete this topic Procedures Procedure Name Priority Date/Time Associated Diagnosis Comments COMPLETE METABOLIC PROFILE (CMP) Routine 10/30/2024 10:07 AM EDT CBC W/DIFF Routine 10/30/2024 9:51 AM EDT CANCER ANTIGEN 27.29 Routine 10/30/2024 9:[address] ABDOMEN PELVIS W IV CONTRAST Routine 10/27/2024 3:[address] CHEST W IV CONTRAST Routine 10/27/2024 9:29 AM EDT CBC W/DIFF Routine 10/05/2024 10:37 AM EDT COMPLETE METABOLIC PROFILE (CMP) Routine 10/05/2024 10:37 AM EDT CANCER ANTIGEN 27.29 Routine 10/05/2024 10:23 AM EDT COMPLETE METABOLIC PROFILE (CMP) Routine 09/04/2024 10:12 AM EDT CBC W/DIFF Routine 09/04/2024 9:15 AM EDT CANCER ANTIGEN 27.29 Routine 09/04/2024 8:41 AM EDT from Last 3 Months Results * COMPLETE METABOLIC PROFILE (CMP) (10/30/2024 10:07 AM EDT) Only the most recent of3 resultswithin the time period is included. Loretta Godfrey MD LAB BLOOD ORDERABLES Final Re sult * CBC W/DIFF (10/30/2024 9:51 AM EDT) Only the most recent of3 resultswithin the time period is included. Loretta Godfrey MD LAB BLOOD ORDERABLES Final Re sult * Cancer antigen 27.29 (10/30/2024 9:18 AM EDT) Only the most recent of3 resultswithin the time period is included. Blood Venous blood specimen / Unknown us Loretta Godfrey MD LAB BLOOD ORDERABLES [...] MD IMG CT PROCEDURES Final Resul t from Last 3 Months Insurance ANTHEM Care Teams Posting Machine Operator Relationship Specialty Start Date End Date Hermilo Otto MD [address] [facility] [place] [address] [address] PCP - General 05/07/24 Loretta Godfrey MD [address] [address] Medical Oncologist Hematology and Oncology 05/18/24 Paola Rosenberg LPN VALUE-BASED TRANSFORMATION PROGRAM Licensed Practical Nurse 08/25/24
--- OUTSIDE RECORDS SUMMARY | 2024-12-04 09:40 | XMS_ITS | Referral Summary ---
Author Organization [facility] [employer] Address [address] [place] [address] Care Team Providers Care Oil Well Services Dispatcher Name Role Phone Hermilo Otto MD Primary Care Provider [phone] Allergies No known active allergies Medications sertraline (ZOLOFT) 50 MG tablet Take 1 tablet (50 mg total) by mouth daily. Active Social History Tobacco Use Types Packs/Day Years Used Date Smoking Tobacco: Never Smokeless Tobacco: Never Tobacco Cessation:Counseling Given: Not Answered Comments No Sex and Gender Information Value Date Recorded Sex Assigned at Not on file Legal Sex Female 8:46 AM WELLNESS SPA MANAGER Gender Identity Not on file Sexual Orientation [...] 05/15/2024 8:47 AM EST Plan of Treatment Not on file Insurance [id number] [address] [address] BLUE CROSS/BLUE SHIELD Care Teams Oil Well Services Dispatcher Relationship Specialty Start Date End Date Hermilo Otto MD [address] [facility] [address] [place] [phone] PCP - General Family Medicine 05/15/24
--- OUTSIDE RECORDS SUMMARY | 2024-12-04 09:41 | XMS_ITS | Encounter Summary ---
Author Organization [facility] Address [address] [place] [address] Care Team Providers Care Operations Business Partner Name Role Phone Hermilo Otto MD Primary Care Provider + [phone] Loretta Godfrey MD Unavailable [phone] Paola Rosenberg SECURITY SERVICES MANAGER Unavailable Unavaila ble Encounter Details Date Type Department Care Team (Late st Contact Info) Description 10/05/2024 Orders Only [facility] at [facility] [address] [place] [phone] Loretta Godfrey MD [address] [address] Social History Tobacco Use Types [...] often do you attend chur ch or restorationist services? More than 4 times per year 08/27/2024 Do you belong to any clubs o r organizations such as restorationism groups, unions, fraternal or athletic groups, or [...] Recorded Patient Health Questionnaire-2 Score 0 10/06/2024 [facility] of Occupat ional Health - Occupational [...] any time in the past 12 m [facility], were you homeless or living in a intermediate (including now)? No 08/27/2024 Utilities Answer Date Recorded In the past 12 months has th e [employer], gas, oil, or water company threatened to [...] as of this encounter Functional Status * Over the past 2 weeks, how often have you been bothered by any of the following problems? Question Answer Date of Assessment Author Little interest or pleasure in doing things Not at all 10/06/2024 7:59 AM Silvana Oneal Feeling down, depressed, or hopeless Not at all 10/06/2024 7:59 AM Silvana Oneal Patient Health Questionnaire -2 Score 0 10/06/2024 7:59 AM Silvana Oneal * Calculated C-SSRS Risk Score (Lifetime/Recent) Answer Date of Assessment Author No Risk Indicated 10/06/2024 8:00 AM Jennifer Silva RN * Question Answer Date of Assessment Author 1. Wish to be (Past 1 Month) No 10/06/2024 8:00 AM Jennifer Silva RN 2. Non-Specific Active Suici kelsie Thoughts (Past 1 Month) No 10/06/2024 8:00 AM Angely Silva RN 6. Suicidal Behavior (Lifetime) No 8:00 AM Jennifer Silva, RN documented as of this encounter Plan of Treatment Upcoming Encounters Date Type Department Care Team (Late st Contact Info) Description 12/08/2024 Orders Only [facility] at [address] [place] [address] Loretta Godfrey MD [address] [place], [place] [address] [address] 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, estrogen receptor positive, unspecified site of breast 12/08/2024 8:15 AM EDT Office Visit [facility] at [address] [address] 12/08/2024 8:30 AM EDT Office Visit [facility] at [address] [place] [address] Loretta Godfrey MD [address] [place] [address] 12/08/2024 8:45 AM EDT Clinical Support [facility] at [address] [phone] documented as of this encounter Procedures Procedure Name Priority Date/Time Associated Diagnosis Comments COMPLETE METABOLIC PROFILE (CMP) Routine 10/05/2024 10:37 AM EDT CBC W/DIFF Routine 10/05/2024 10:37 AM EDT documented in this encounter Results * CBC W/DIFF (10/05/2024 10:37 AM EDT) us Loretta Godfrey MD LAB BLOOD ORDERABLES Final Re sult * COMPLETE METABOLIC PROFILE (CMP) (10/05/2024 10:37 AM EDT) us Loretta Godfrey MD LAB BLOOD ORDERABLES Final Re sult documented in this encounter Visit Diagnoses Not on filedocumented in this encounter Care Teams Operations Business Partner Relationship Specialty Start Date End Date Hermilo Otto MD [address] [facility] [address] [place] [address] PCP - General 05/07/24 Loretta Godfrey MD [address] [phone] Medical Oncologist Hematology and Oncology 05/18/24 Paola Rosenberg LPN VALUE-BASED TRANSFORMATION PROGRAM Licensed Practical Nurse 08/25/24 documented as of this encounter
--- OUTSIDE RECORDS SUMMARY | 2024-12-04 09:41 | XMS_ITS ---
Author Organization [facility] Address [address] [place] [address] Care Team Providers Care District Fire Management Officer Name Role Phone Hermilo Otto MD Primary Care Provider + [phone] Loretta Godfrey MD Unavailable [phone] Paola Rosenberg LPN Unavailable Unavaila ble [facility] Status:Active (Active) Start date:08/25/2024 Enrollment date:08/27/2024 Enrollment reason:Identified as high-risk Overview This episode type is for outpatient care managers enrolling patients in the [facility] program. Case Team Name Relationship Phone Paola Rosenberg LPN(Responsible Staff) Licens ed Practical Nurse Continued Care and Services Coordination
--- OUTSIDE RECORDS SUMMARY | 2024-12-04 09:41 | XMS_ITS | Encounter Summary ---
Author Organization [facility] Address [address] [place] [address] Care Team Providers Care Sleeping Room Cleaner Name Role Phone Hermilo Otto MD Primary Care Provider + [phone] Loretta Godfrey MD Unavailable [phone] Paola Rosenberg LPN Unavailable Unavaila ble Encounter Details Date Type Department Care Team (Latest Contact Info) Description 10/05/2024 Travel Social History Tobacco Use Types Packs/Day [...] week 08/27/2024 How often do you attend [facility] or hinduism services? More than 4 times per year 08/27/2024 Do you belong to any clubs o r organizations such as christianity groups, unions, fraternal or athletic groups, or [...] [facility] of Occupat ional [facility] - Occupational Stress Questionnaire Answer [...] any time in the past 12 m [facility], were you homeless or living in a mcc (including now)? No 08/27/2024 Utilities Answer Date Recorded In the past 12 months has [facility], gas, oil, or water company threatened [...] [facility] at [address] [place] [address] Loretta Godfrey MD [address] [place], [place] [address] [address] 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, estrogen receptor positive, unspecified site of breast 12/08/2024 8:15 AM EDT Office Visit [facility] at [address] [place] [address] 12/08/2024 8:30 AM EDT Office Visit [facility] at [address] [place] [address] Loretta Godfrey MD [address] [place], [place] [address] [address] 12/08/2024 8:45 AM EDT Clinical Support [facility] at [place] [address] [place] [address] documented as of this encounter Visit Diagnoses Not on filedocumented in this encounter Care Teams Sleeping Room Cleaner Relationship Specialty Start Date End Date Hermilo Otto MD [address] [facility] [address] [place] [address] PCP - General 05/07/24 Loretta Godfrey MD [address] [facility] [address] [place] [address] Medical Oncologist Hematology and Oncology 05/18/24 Paola Rosenberg, [place] VALUE-BASED TRANSFORMATION PROGRAM Licensed Practical Nurse 08/25/24 documented as of this encounter
--- OUTSIDE RECORDS SUMMARY | 2024-12-04 09:41 | XMS_ITS | Encounter Summary ---
Author Organization [facility] Address [address] [place] [address] Care Team Providers Care Microbiology Manager Name Role Phone Hermilo Otto MD Primary Care Provider + [phone] Loretta Godfrey MD Unavailable [phone] Paola Rosenberg POLITICAL WORKER Unavailable Unavaila ble Reason for Visit * Reason Onset Date Comments Med Refill 11/04/2024 Encounter Details Date Type Department Care Team (Late st Contact Info) Description 11/04/2024 Refill [facility] [address] [place] [phone] Loretta Godfrey MD [address] [address] Social History Tobacco Use Types [...] How often do you attend chur or jain services? More than 4 times per year 08/27/2024 Do you belong to any clubs o r organizations such as mu-ism groups, unions, fraternal or athletic groups, or [...] Recorded Patient Health Questionnaire-2 Score 0 10/06/2024 [facility] - Occupational [...] any time in the past 12 m [facility], were you homeless or living in a longterm (including now)? No 08/27/2024 Utilities Answer Date [...] Contact Info) Description 12/08/2024 Orders Only [facility] [place] [address] [place] [address] Loretta Godfrey MD [address] [place] [phone] 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, estrogen receptor positive, unspecified site of breast 12/08/2024 8:15 AM EDT Office Visit [facility] [place] [address] 12/08/2024 8:30 AM EDT Office Visit [facility] [place] [address] [place] [address] Loretta Godfrey MD [address] [phone] 12/08/2024 8:45 AM EDT Clinical Support [facility] at [facility] [address] [place] [phone] documented as of this encounter Visit Diagnoses Not on filedocumented in this encounter Additional Health Concerns Assessment Noted Time A fall risk assessment has been complete d for the patient 11/03/2024 7:52 AM EDT documented as of this encounter Care Teams Microbiology Manager Relationship Specialty Start Date End Date Hermilo Otto MD [facility] [address] [address] PCP - General 05/07/24 Loretta Godfrey MD [address] [place] [phone] Medical Oncologist Hematology and Oncology 05/18/24 Paola Rosenberg LPN VALUE-BASED TRANSFORMATION PROGRAM Licensed Practical Nurse 08/25/24 documented as of this encounter
--- OUTSIDE RECORDS SUMMARY | 2024-12-04 09:41 | XMS_ITS | Encounter Summary ---
Author Organization [facility] Address [address] [place] [address] Care Team Providers Care District Manager Name Role Phone Hermilo Otto MD Primary Care Provider + [phone] Loretta Godfrey MD Unavailable [phone] Paola Rosenberg LPN Unavailable Unavaila ble Encounter Details Date Type Department Care Team (Latest Contact Info) Description 10/06/2024 Travel Social History Tobacco Use Types Packs/Day [...] week 08/27/2024 How often do you attend [facility] or latter-day services? More than 4 times per year 08/27/2024 Do you belong to any clubs o r organizations such as uatsdin groups, unions, fraternal or athletic groups, or [...] Recorded Patient Health Questionnaire-2 Score 0 10/06/2024 [facility] - Occupational Stress Questionnaire Answer Date [...] any time in the past 12 m [facility], were you homeless or living in a [...] Suicidal Behavior (Lifetime) No 8:00 AM Jennifer Silva RN documented as of this encounter Plan of Treatment Upcoming Encounters Date Type Department Care Team (Late st Contact Info) Description 12/08/2024 Orders Only [facility] [address] [place] [address] Loretta Godfrey MD [address] [place] [address] 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, estrogen receptor positive, unspecified site of breast 12/08/2024 8:15 AM EDT [facility] [address] [phone] 12/08/2024 8:30 AM EDT [facility] [address] [phone] Loretta Godfrey MD [address] [place] [address] 12/08/2024 8:45 AM EDT Clinical Support [facility] at [address] [phone] documented as of this encounter Visit Diagnoses Not on filedocumented in this encounter Additional Health Concerns Assessment Noted Time A fall risk assessment has been complete d for the patient 10/06/2024 7:59 AM EDT documented as of this encounter Care Teams District Manager Relationship Specialty Start Date End Date Hermilo Otto MD [address] [address] PCP - General 05/07/24 Loretta Godfrey MD [address] [place], [place] [address] [phone] Medical Oncologist Hematology and Oncology 05/18/24 Paola Rosenberg LPN VALUE-BASED TRANSFORMATION PROGRAM Licensed Practical Nurse 08/25/24 documented as of this encounter
--- OUTSIDE RECORDS SUMMARY | 2024-12-04 09:41 | XMS_ITS | Encounter Summary ---
Author Organization [facility] Address [address] [place] [address] Care Team Providers Care Clinic Office Coordinator Name Role Phone Hermilo Otto MD Primary Care Provider + [phone] Loretta Godfrey MD Unavailable [phone] Paola Rosenberg BUSINESS INTELLIGENCE DIRECTOR Unavailable Unavaila ble Encounter Details Date Type Department Care Team (Late st Contact Info) Description 10/26/2024 Orders Only [facility] [address] [place] [address] Loretta Godfrey MD [address] [address] Bilateral malignant neoplasm of breast [...] week 08/27/2024 How often do you attend [facility] or evangelical services? More than 4 times per year 08/27/2024 Do you belong to any clubs o r organizations such as hindu groups, unions, fraternal or athletic groups, or [...] Recorded Patient Health Questionnaire-2 Score 0 10/06/2024 [facility] - Occupational [...] any time in the past 12 m [facility], were you homeless or living in a usp (including now)? 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, estrogen receptor positive, unspecified site of breast 12/08/2024 8:15 AM EDT Office Visit [facility] [address] [place] [address] 12/08/2024 8:30 AM EDT Office Visit [facility] [place] [address] [place] [address] Loretta Godfrey MD [address] [phone] 12/08/2024 8:45 AM EDT Clinical Support [facility] [address] [place] [phone] documented as of this encounter Visit Diagnoses Diagnosis 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, estrogen receptor positive, unspecified site of breast Malignant neoplasm of upper-outer quadrant of right breast in female, estrogen receptor positive 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, estrogen receptor positive, unspecified site of breast documented in this encounter Additional Health Concerns Assessment Noted Time A fall risk assessment has been complete d for the patient 10/06/2024 7:59 AM EDT documented as of this encounter Care Teams Clinic Office Coordinator Relationship Specialty Start Date End Date Hermilo Otto MD [address] [place] [address] PCP - General 05/07/24 Loretta Godfrey MD [address] [place] [phone] Medical Oncologist Hematology and Oncology 05/18/24 Paola Rosenberg LPN VALUE-BASED TRANSFORMATION PROGRAM Licensed Practical Nurse 08/25/24 documented as of this encounter
--- OUTSIDE RECORDS SUMMARY | 2024-12-04 09:41 | XMS_ITS | Encounter Summary ---
Author Organization [facility] Address [address] [place] [address] Care Team Providers Care Account Services Coordinator Name Role Phone Hermilo Otto MD Primary Care Provider + [phone] Loretta Godfrey MD Unavailable [phone] Paola Rosenberg LPN Unavailable Unavaila ble Reason for Visit * Reason Comments [facility] Program Encounter Details Date Type Department Care Team (Late st Contact Info) Description 08/27/2024 Patient Outreach [facility] [address] [place] [address] Paola Rosenberg LPN VALUE-BASED TRANSFORMATION PROGRAM [facility] Program Social History Tobacco Use Types Packs/Day Years [...] How often do you attend chur or anabaptism services? More than 4 times per year 08/27/2024 Do you belong to any clubs o r organizations such as baptist groups, unions, fraternal or athletic groups, or [...] Recorded Patient Health Questionnaire-2 Score 0 10/06/2024 [facility] [...] time in the past 12 m [facility], were you homeless or living in a fpc (including now)? No 08/27/2024 Utilities Answer Date [...] as of this encounter Functional Status * AUDIT-C Score Answer Date of Assessment Author 0 08/27/2024 12:05 PM Paola Brower LPN * Question Answer Date of Assessment Author Q1: How often do you have a drink containing alcohol? Never 08/27/2024 12:05 PM Paola Brower LPN Q2: How many drinks containing alcohol do you have on a typical day when you are drinking? Patient does not drink 08/27/2024 12:05 PM Paola Brower LPN Q3: How often do you have six or more drinks on one occasion? Never 08/27/2024 12:05 PM Paola Brower LPN * Over the past 2 weeks, how [...] Progress Notes - Paola Rosenberg LPN - 08/27/2024 11:42 AM EST 08/27/2024 Reason for Follow-up: [facility]+ enrollment call. Patient Status: Current Symptoms: Patient denies any at this time. Pain Level: 0/10 Side Effects: Patient report some diarrhea but better than it used to be. Treatment Updates: Current Treatment Plan: Lupron, xgeva, femara, verzenio. [facility] Update: Financial: Low risk. Housing: Stable Transportation: No need identified. Follow-Up Plan: Next Appointment: 09/08/2024@8:45 am with Loretta Godfrey. Additional Notes/Care Coordination Needs: Patient Concerns: Patient denies any questions or concerns for this nurse at this time. Patient encouraged to call with any non-urgent matters. 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, estrogen receptor positive, unspecified site of breast 12/08/2024 8:15 AM EDT Office Visit [facility] [address] [place] [phone] 12/08/2024 8:30 AM EDT Office Visit [facility] [address] [place] [phone] Loretta Godfrey MD [address] [place] [address] [address] 12/08/2024 8:45 AM EDT Clinical Support [facility] [address] [place] [address] documented as of this encounter Visit Diagnoses Not on filedocumented in this encounter Care Teams Account Services Coordinator Relationship Specialty Start Date End Date Hermilo Otto MD [facility] [address] [address] PCP - General 05/07/24 Loretta Godfrey MD [address] [phone] Medical Oncologist Hematology and Oncology 05/18/24 Paola Rosenberg LPN VALUE-BASED TRANSFORMATION PROGRAM Licensed Practical Nurse 08/25/24 documented as of this encounter
--- OUTSIDE RECORDS SUMMARY | 2024-12-04 09:41 | XMS_ITS | Patient Health Record ---
Author Organization [facility] Address [address] [place] [address] Care Team Providers Care Marketing Community Liaison Name Role Phone Makenzie Ward Unavailable [phone] Chela Doss Unavailable [phone] Allergies No Known Allergies Results Component Value Reference Range Notes Pap w/HPV Reviewed date:04/13/2024 09:31:36 AM Interpretation:Pap normal, HPV negative Performing Lab:[facility], [facility] CLIA ID [id number], [address], [address], [place] [address], Director - Maya Durant MD Notes/Report: Any Nucleic Acid Amplification testing is performed on the [employer] [place]. Diagnosis: Negative for intraepithelial lesion or malignancy. AP results Recommendation: Follow-up based on current clinical guidelines and/or clinical consideration. Satisfactory for interpretation with endocervical/transforma tion zone component absent. Specimen Type: ThinPrep Collection Technique: Not provided Specimen Source: Cervical/Endocervical CPT Codes: 62744 Negative for intraepithelial lesion or malignancy. ICD Codes: Z01.419 Date of Last Pap: Not provided DIAGNOSIS: Results of Last Pap: Not provided LMP: 03/20/2024 Other Gynecological Patient Information: Not provided Liyah Duong Night Guard Negative Educational Note: The pap screening test aids in the detection of premalignant and malignant states of the cervix. False positive and negative results may occur. It is not a diagnostic test. If abnormal cells are reported, follow-up based on current clinical guidelines and/or clinical consideration is recommended. Screening note: This specimen has been analyzed by the [employer] [facility], an interactive computer system which assists the lab in screening of ThinPrep Pap Test slides. Following imaging, the slide was reviewed by a Night Guard and/or Pathologist. FINAL HAIRSPRING SETTER CYTOLOGY REPORT Pertinent Clinical History/History of Surgery: Not provided Specimen Adequacy: HPV High-Risk Negative Negative US GUIDED BREAST BIOPSY W WO DEVICE EACH ADDITIONAL Reviewed date:04/25/2024 08:07:19 AM Interpretation: Performing Lab: Notes/Report: PATHOLOGY: Pathology for the left 12:00 mass (site 3) revealed invasive ductal carcinoma, intermediate grade. Pathology for the left 9:00 mass (site 4) revealed an invasive ductal carcinoma, intermediate grade. The pathology results are felt to be concordant with the imaging findings. RECOMMENDATION: Recommend surgical consultation and preoperative breast MRI. The patient will be notified of the results/recommendations by our breast imaging nurse. This report was finalized on 04/22/2024 4:[address] Duke Stewart MD. 14G VACORA VACUUM-ASSISTED ULTRASOUND GUIDED CORE BIOPSY HISTORY: 38-year-old patient presents for ultrasound-guided core biopsy of 2 separate masses present in the left breast. This includes a 1.8 cm mass in the left 12:00 distribution (site 3) as well as a 2.3 cm (site 4) mass in the left approximately 9:00 distribution. PROCEDURE: Initially, core biopsy of the 1.8 cm mass in the left 12:00 distribution was performed (site 3). Written and verbal consent was obtained for ultrasound guided core biopsy of a 1.8 cm left breast mass located in the 12:00 distribution. Time out was observed to verify the patient's identity and correct location of the breast abnormality. The presence of the lesion was confirmed with ultrasound and a lateral approach was chosen. The breast was prepped and draped in the usual sterile fashion and 1% lidocaine with (3 cc) and without (4 cc) epinephrine was utilized for local anesthesia. A small skin incision was made with a scalpel and a 14-gauge needle was introduced into the breast under direct sonographic guidance. The needle was placed through the mass. A total of 4 core samples were obtained. The specimens were placed in formalin and forwarded to the pathology department. A post biopsy marking clip (wing clip) was placed. Next, biopsy of the 2.3 cm mass in the left 9:00 distribution was performed (site 4). Written and verbal consent was obtained for ultrasound guided core biopsy of a two-point cm left breast mass located in the 9:00 distribution. Time out was observed to verify the patient's identity and correct location of the breast abnormality. The presence of the lesion was confirmed with ultrasound and a lateral approach was chosen. The breast was prepped and draped in the usual sterile fashion and 1% lidocaine with (4 cc) and without (5 cc) epinephrine was utilized for local anesthesia. A small skin incision was made with a scalpel and a 14-gauge needle was introduced into the breast under direct sonographic guidance. The needle was placed through the mass. A total of 5 core samples were obtained. The specimens were placed in formalin and forwarded to the pathology department. A post biopsy marking clip (coil clip) was placed. Post procedure mammogram for marker placement was performed. Upon completion of the procedure, compression was applied to the biopsy site until all appreciable bleeding subsided and a sterile dressing was applied. Post biopsy instructions were reviewed with the patient by our clinical breast imaging staff. A written copy of these instructions was also given to the patient. The patient tolerated the procedure well and no immediate complications occurred. SUMMARY: 14-gauge ultrasound guided and vacuum assisted core biopsy of a 1.8 cm mass in the left 12:00 distribution and a 2.3 cm mass in the left 9:00 distribution. A post biopsy marking clip was placed. Pathology results are pending. This report was finalized on 04/16/2024 4:[address] Duke Stewart MD. Signed by: Duke Stewart on 04/16/2024 4:40 PM LEFT BREAST 9;00 MASS U/S BX 5 CC LIDO 4 CC LIDO W/EPI 1% 5 CORES 14 G DENNIS PINK COIL CLIP PLACED TO BE SCHEDULED BY ALIS CASE, ALLEN KEBEDE OR MANISHA GABRIEL. US GUIDED BREAST BIOPSY W WO DEVICE INITIAL Reviewed date:04/25/2024 08:07:19 AM Interpretation: Performing Lab: Notes/Report: PATHOLOGY: Invasive ductal carcinoma, intermediate grade. The pathology results are felt to be concordant with the imaging findings. RECOMMENDATION: Recommend surgical consultation and preoperative breast MRI The patient will be notified of the results/recommendations by our breast imaging nurse. This report was finalized on 04/22/2024 4:[address] Duke Stewart MD. 14G VACORA VACUUM-ASSISTED ULTRASOUND GUIDED CORE BIOPSY HISTORY: 0.5 cm mass posterior 1:00 right breast. PROCEDURE: Written and verbal consent was obtained for ultrasound guided core biopsy of a 0.5 cm right breast mass located in the posterior 1 o'clock position. Time out was observed to verify the patient's identity and correct location of the breast abnormality. The presence of the lesion was confirmed with ultrasound and a lateral approach was chosen. The breast was prepped and draped in the usual sterile fashion and 1% lidocaine with (3 cc) and without (5 cc) epinephrine was utilized for local anesthesia. A small skin incision was made with a scalpel and a 14-gauge needle was introduced into the breast under direct sonographic guidance. The needle was placed through the mass. A total of 5 core samples were obtained. The specimens were placed in formalin and forwarded to the pathology department. A post biopsy marking clip (coil clip) was placed. Post procedure mammogram for marker placement was performed. The clip cannot be identified on the post procedure mammogram. It may be secondary to its deep posterior location or possible clip migration. Upon completion of the procedure, compression was applied to the biopsy site until all appreciable bleeding subsided and a sterile dressing was applied. Post biopsy instructions were reviewed with the patient by our clinical breast imaging staff. A written copy of these instructions was also given to the patient. The patient tolerated the procedure well and no immediate complications occurred. SUMMARY: 14-gauge ultrasound guided and vacuum assisted core biopsy of a 0.5 cm right breast mass located in the posterior 1 o'clock position. A post biopsy marking clip was placed. Pathology results are pending. This report was finalized on 04/16/2024 4:[address] Duke Stewart MD. Signed by: Duke Stewart on 04/16/2024 4:28 PM RT BREAST 1;00 13 CMFN BX U/S 5 CC LIDO 3 CC LIDO W/EPI 1% 5 CORES 14G MARQUEE PINK COIL CLIP PLACED TO BE SCHEDULED BY ALIS CASE, ALLEN KEBEDE OR MANISHA GABRIEL. MAMMO DIAGNOSTIC DIGITAL ALIS OSYNTHESIS BILATERAL W CAD Reviewed date:04/15/2024 08:11:12 AM Interpretation:BIRNEY 5 Follow up as discussed Performing Lab: Notes/Report: BILATERAL DIAGNOSTIC MAMMOGRAM WITH TOMOSYNTHESIS AND A FOCUSED BILATERAL BREAST ULTRASOUND CLINICAL INDICATION: 38-year-old patient presents for evaluation of a palpable area of concern noted by her physician in the left 9:00 distribution as well as an additional palpable area of concern the patient herself notes in the upper outer quadrant on the left. She reports no family history of breast cancer. TECHNIQUE: Low dose full field digital breast tomosynthesis imaging was performed consisting of bilateral CC and MLO views. In addition, bilateral CC and MLO focal compression views were performed as well as bilateral ML views all with tomosynthesis. Left CC and ML magnification views were performed. A focused bilateral breast ultrasound was performed COMPARISON: This is the patient's baseline exam FINDINGS: There are scattered areas of fibroglandular density. Left breast: Located in the mid approximately 7-9 distribution and correlating to the palpable area of concern noted by the patient's physician are multiple adjacent irregular isodense masses with ill-defined borders. The dominant mass in this grouping measures 2.3 cm in size. There is associated architectural distortion in the intervening tissues and there are also associated coarse, rounded and amorphous calcifications. These calcifications are in a segmental distribution and vary in size and shape. Altogether the masses and calcifications span over approximately 5.0 (anterior to posterior) by 4.4 (medial to lateral) by 3.7 (superior and 4) centimeters of tissue located approximately 3 cm lateral to this is an additional cluster of similar-appearing calcifications. These span over 0.5 cm of tissue and do not appear to have any associated masses. The palpable mass the patient feels in the upper outer quadrant correlates to an irregular isodense mass with ill-defined borders measuring approximately 1.2 cm in size. Located slightly lateral and superior to this just beneath the skin is an additional 0.6 cm oval isodense mass with ill-defined borders. There are no associated calcifications with these masses. In the posterior upper outer quadrant there is an oval isodense mass with partially obscured borders measuring 0.5 cm in size. This could possibly reflect a small intramammary lymph node as on the exaggerated lateral cc view it does have a questionable associated lucency. The anterior aspect of an enlarged left axillary lymph node is noted. Focused ultrasound imaging of the left breast was performed. There are multiple irregular hypoechoic masses present in the 7-8 o'clock distribution sonographically. The largest mass sonographically measures up to 2.3 cm in size. These correlate to the multiple masses noted sonographically. Located in the 12 o'clock position, 1 cm from the nipple and correlating to the palpable area of concern noted by the patient is a mixed echogenicity irregular mass measuring 1.8 cm in size with associated increased vascularity. Located approximately 1 cm superior to this is an additional 0.5 cm irregular hypoechoic mass. Located in the 12 o'clock position, 12 cm from the nipple in the posterior one third of the breast is an irregular hypoechoic mass with ill-defined borders measuring 0.4 cm in size. This correlates to the small mass noted mammographically that was thought to possibly reflect a lymph node. Imaging of the axillary lymph node demonstrates a 4.7 cm left axillary lymph node with loss of the normal hilar architecture and very hypoechoic thickened cortex. Several other smaller more normal-appearing lymph nodes are noted as well. Right breast: Located in the posterior upper inner quadrant anterior to the pectoralis muscle is an oval isodense mass with questionable ill-defined borders measuring 0.5 cm in size. No spiculated masses, architectural distortion or suspicious calcifications are seen. The visualized axillary lymph nodes themselves do not appear enlarged. Focused ultrasound imaging of the right breast demonstrates in the 1 o'clock position, 13 cm from the nipple and oval hypoechoic mass with ill-defined borders measuring 0.5 cm in size. This is felt to likely correlate to the small mammographic mass. 1. The palpable mass noted by the [...] a small irregular mass as described above. RECOMMENDATION: Recommend ultrasound-guided core biopsy of the dominant irregular mass in the left 9:00 distribution measuring 2.3 cm in size. Recommend ultrasound-guided core biopsy of the 1.8 cm irregular mixed echogenicity mass in the 12:00 distribution. Recommend ultrasound-guided core biopsy of the 0.5 cm irregular mass in the right deep 1:00 distribution. Recommend ultrasound-guided fine-needle aspiration biopsy of the 4.7 cm abnormal-appearing left axillary lymph node. ACR BI-RADS CATEGORY: 5, HIGHLY SUGGESTIVE OF MALIGNANCY CAD was utilized. The standard false-negative rate of mammography is between 10% and 25%. Complex patterns or increased breast density will markedly elevate the false-negative rate of mammography. A letter, in lay terminology, with the results of this exam was given to the patient at the time of the visit. At our facility, a triangular marker is positioned over a palpable area of concern indicated by the patient. A [place] marker is placed over a visible skin lesion. A linear marker indicates a scar. Physician Order Ultrasound Guided Breast Biopsy Diagnosis: Abnormal Mammogram This report was finalized on 04/14/2024 5:[address] Duke Stewart MD. Signed by: Duke Stewart on 04/14/2024 5:13 PM BASELINE EXAM. PT IS HERE FOR A LEFT BREAST LUMP 9;00 2 CMFN RX. PT WROTE ON ELI SHEET SHE FOUND A SECOND LUMP UOQ AFTER HER EXAM WITH MD., U/S IF NEEDED, 1 CM ROUND LUMP TO LEFT BREAST , 9 O CLOCK POSITION, 2 CM FROM AREOLA Reason For Referral Reason Dx Bilateral MMG- U/ S if needed 1cm round lump to left breast, 9 oclock position, 2cm from areola Diagnosis 1 Mass of left breast, unspecified quadrant (N63.20) Referral Organization [facility] Referring Provider First Name Chela Referring Provider Last Name Romario Referring Provider Speciality OB - Gynec ology Referral Priority Routine Referral Appointment Date 04/14/2024 Medications Medication SIG (Take, Route, Fr equency, Duration) Notes Start Date End Date Status Valtrex 1 GM Tablet 2 tablets Orally julieta ry 12 hours; Duration: 1 days 04/06/2024 Active Zoloft 50 MG Tablet 1 tablet Orally Once a day; Duration: 90 days 04/06/2024 Active Social History Tobacco Use: Social History Observation Description Date Details (start date - stop date) Never Smoker NA - NA Sex Assigned At : Social History Observation Description Sex Assigned At Female Social History Drugs/Alcohol: Social Info Question Answer Notes Drugs Have you used drugs other than those for medical reasons in the past 12 months? No Alcohol Screen Did you have a drink containing alcohol in the past year? Yes How often did you have a drink containing alcohol in the past year? 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 Problem Premenstrual tension syndrome (00547487) PMDD (premenstrual dysphoric disorder) (F32.81) Active confirmed Problem test positive (834939153) Encounter for test, result positive (Z32.01) 018 Active confirmed test positive Problem Gynecological examination normal (216959434246267 ) Cervical smear, as part of routine gynecological examination (Z01.419) 019 Active confirmed Annual without abnormal findings Vital Signs Blood pressure diastolic 70 mm Hg 05/11/2024 Height 65 in 05/11/2024 Blood pressure systolic 114 mm Hg 05/11/2024 Weight 171.8 lbs 05/11/2024 BMI 28.59 kg/m2 05/11/2024 Encounters Encounter Location Date Provider Diagnosis [facility] [address] [address] 05/11/2024 Chela Doss PMDD (premenstrual dysphoric disorder) F32.81 [facility] [address] [phone] 04/06/2024 Chela Doss Encounter for gynecological examination with abnormal finding Z01.411 ; PMDD (premenstrual dysphoric disorder) F32.81 ; Mass of left breast, unspecified quadrant N63.20 and HSV-1 infection B00.9 Assessments Encounter Date Diagnosis (ICD Code) Assessment Notes Treatment Notes Treatment Clinical Notes Section Notes 04/06/2024 Encounter for gynecological examination with abnormal finding (ICD-10 - Z01.411) Normal annual exam Pap obtained BSE encouraged Follow up annual exam or PRN 04/06/2024 PMDD (premenstrual dysphoric disorder) (ICD-10 - F32.81) The patient's mood symptoms and timing related to menses is consistent with a diagnosis of PMS or PMDD. We discussed options for treatment. Generally, if a patient would also like an effective contraceptive method, use of oral contraceptives is considered first line, as either a cyclic or continuous formula. For patients who do not need contraception or have a contraindication to ocp, SSRIs or SNRIs can be used with dosing either continuous or just in the luteal phase, starting around cycle day 14 and continuing to the start of menses. These therapies can also be used in combination if needed for symptom control. Desires to proceed w/ SSRI. Rx Zoloft. Educated pt on medication, usage, and possible side effects. RTC in 1 month for f/u or prn. 05/11/2024 PMDD (premenstrual dysphoric disorder) (ICD-10 - F32.81) C/w Zoloft. RF sent. ER if SI/HI develops. 04/06/2024 Mass of left breast, unspecified quadrant (ICD-10 - N63.20) 04/06/2024 HSV-1 infection (ICD-10 - B00.9) Plan Of Treatment Next Appt Details Provider Name:Parul Main, 04/14/2025 03:00:00 PM, [address], [address], Insurance Providers Payer Name Payer Address Payer Phone Subscriber Number Group Number Insured Name Patient Relationship to Insured Coverage Start Date Coverage End Date Fanny DOLAN [address] [place] [address] [id number] Shona Sterling Self - patient is the insured Medical (General) History Surgical History Surgery Date(Month/Year) BTL [place] 2007 Tonsillectomy
--- OUTSIDE RECORDS SUMMARY | 2024-12-04 09:41 | XMS_ITS | Encounter Summary ---
Author Organization [facility] Address [address] [place] [address] Care Team Providers Care Environmental Planner Name Role Phone Hermilo Otto MD Primary Care Provider + [phone] Loretta Godfrey MD Unavailable [phone] Paola Rosenberg LPN Unavailable Unavaila ble Reason for Visit * Reason Comments Follow-up Encounter Details Date Type Department Care Team (Late st Contact Info) Description 10/15/2024 Patient Outreach POPUL[facility] [address], [address] [place] [address] Paola Rosenberg LPN VALUE-BASED TRANSFORMATION [...] How often do you attend chur or anglican services? More than 4 times per year 08/27/2024 Do you belong to any clubs o r organizations such as moravian groups, unions, fraternal or athletic groups, or [...] Patient Health Questionnaire-2 Score 0 10/06/2024 [facility] - Occupational [...] [facility] the [facility], were you homeless or living [...] Progress Notes - Paola Rosenberg LPN - 10/15/2024 10:48 AM EDT 10/15/2024 Reason for Follow-up: [facility] update call. Patient Status: Current Symptoms: Patient denies any symptoms at this time. Treatment Updates: Current Treatment Plan: Lupron, xgeva, femara, verzenio [facility] Update: Other: Patient denies any needs at this time. Follow-Up Plan: Next Appointment: 11/03/2024@7:55 am with Loretta Godfrey. Additional Notes/Care Coordination Needs: Patient Concerns: Patient denies any questions or concerns for this nurse at this time. Patient encouraged to call with any non-urgent matters. 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, estrogen receptor positive, unspecified site of breast 12/08/2024 8:15 AM EDT Office Visit [facility] [address] [place] [phone] 12/08/2024 8:30 AM EDT Office Visit [facility] [address] [place] [phone] Loretta Godfrey MD [address] [place] [phone] 12/08/2024 8:45 AM EDT Clinical Support [facility] [address] [phone] documented as of this encounter Visit Diagnoses Not on filedocumented in this encounter Additional Health Concerns Assessment Noted Time A fall risk assessment has been complete d for the patient 10/06/2024 7:59 AM EDT documented as of this encounter Care Teams Environmental Planner Relationship Specialty Start Date End Date Hermilo Otto MD [address] [address] PCP - General 05/07/24 Loretta Godfrey MD [address] [place], [place] [address] [phone] Medical Oncologist Hematology and Oncology 05/18/24 Paola Rosenberg LPN VALUE-BASED TRANSFORMATION PROGRAM Licensed Practical Nurse 08/25/24 documented as of this encounter
--- OUTSIDE RECORDS SUMMARY | 2024-12-04 09:41 | XMS_ITS | Encounter Summary ---
Author Organization [facility] Address [address] [place] [address] Care Team Providers Care Teacher Early Childhood Development Name Role Phone Hermilo Otto MD Primary Care Provider + [phone] Loretta Godfrey MD Unavailable [phone] Paola Rosenberg CARGO SUPERVISOR Unavailable Unavaila ble Encounter Details Date Type Department Care Team (Late st Contact Info) Description 10/06/2024 Orders Only [facility] at [facility] [address] [place] [phone] Loretta Godfrey MD [address] [address] Social History Tobacco Use Types [...] often do you attend chur ch or muslim services? More than 4 times per year [...] Health Questionnaire-2 Score 0 10/06/2024 [facility] of Occupat ional Health - Occupational [...] any time in the past 12 m [facility], were you homeless or living in a jail (including now)? 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, estrogen receptor positive, unspecified site of breast 12/08/2024 8:15 AM EDT Office Visit [facility] at [address] [phone] 12/08/2024 8:30 AM EDT Office Visit [facility] at [address] [address] Loretta Godfrey MD [address] [place] [phone] 12/08/2024 8:45 AM EDT Clinical Support [facility] at [address] [phone] documented as of this encounter Procedures Procedure Name Priority Date/Time Associated Diagnosis Comments CANCER ANTIGEN 27.29 Routine 10/05/2024 10:23 AM EDT documented in this encounter Results * Cancer antigen 27.29 (10/05/2024 10:23 AM EDT) Blood Venous blood specimen / Unknown us Loretta Godfrey MD LAB BLOOD ORDERABLES Final Re sult documented in this encounter Visit Diagnoses Not on filedocumented in this encounter Additional Health Concerns Assessment Noted Time A fall risk assessment has been complete d for the patient 10/06/2024 7:59 AM EDT documented as of this encounter Care Teams Teacher Early Childhood Development Relationship Specialty Start Date End Date Hermilo Otto MD 1210 [facility] [address] [place] [address] PCP - General 05/07/24 Loretta Godfrey MD [address] [phone] Medical Oncologist Hematology and Oncology 05/18/24 Paola Rosenberg LPN VALUE-BASED TRANSFORMATION PROGRAM Licensed Practical Nurse 08/25/24 documented as of this encounter
[2024-12-04 10:34] LABS: Basophils # 0.1 K/mm3 (0-0.2); Basophils % 1.1 % (0.1-2.0); Eosinophils # 0.1 Kmm3 (0.0-0.4); Eosinophils % 0.9 % (0.1-12.0); Hematocrit 35.9 % (37.0-47.0); Hemoglobin 12.7 g/dL (12.2-16.2); Immature Granulocytes # 0 10^3uL; Immature Granulocytes % 0 %; Lymphocytes # 2.7 K/mm3 (0.7-4.5); Lymphocytes % 51.3 % (10-50); Mean Corpuscular HGB Conc 35.4 g/dL (31.8-35.4); Mean Corpuscular Hemoglobin 33.5 pg (27.0-31.2); Mean Corpuscular Volume 94.7 fl (81-99); Mean Platelet Volume 10.4 fl (7.4-10.4); Monocytes # 0.4 K/mm3 (0.1-1.0); Monocytes % 7.2 % (1.7-9.3); Neutrophils # 2.1 K/mm3 (1.8-7.8); Neutrophils % 39.5 % (37.0-80.0); Nucleated Red Blood Cells # 0 10^3/uL; Nucleated Red Blood Cells % 0 %; Platelet Count 220 K/mm3 (142-424); Red Blood Count 3.79 M/mm3 (4.20-5.40); Red Cell Distribution Width 12.3 % (11.5-17.5); Red Cell Distribution Width-SD 42.4 fL; White Blood Count 5.3 K/mm3 (4.8-10.8)
[2024-12-04 10:47] LABS: Alanine Aminotransferase 17 U/L (12-78); Albumin Level 4.2 g/dl (3.5-5.0); Albumin/Globulin Ratio 1.8 (1.1-1.8); Alkaline Phosphatase 59 U/L (38-126); Aspartate Amino Transferase 23 U/L (14-36); Bilirubin,Total 0.5 mg/dl (0.2-1.3); Blood Urea Nitrogen 14 mg/dl (7-17); Calcium 9.4 mg/dl (8.4-10.2); Carbon Dioxide 25 mmol/L (22.0-30.0); Chloride 108 mmol/L (98-107); Estimated Glomerular Filt Rate 62 ml/min (>60); GFR (African American) 75 ML/MIN (>60); Globulin 2.4 g/dL (1.3-3.2); Glucose 82 mg/dl (74-100); Sodium 138 mmol/L (136-145); Total Protein,Serum 6.6 g/dl (6.3-8.2)
[2024-12-05 06:55] LABS: CA 27.29 108.6 U/mL (0.0-38.6)
== END 2024-12-04 23:59 | disposition home or self-care (01) ==
LOC: LAB 09:38
PROVIDERS: PCP Family Medicine; Visit Provider Internal Medicine Hematology & Oncology
DX: C50.411 Malignant neoplasm of upper-outer quadrant of right female breast (principal); C50.911 Malignant neoplasm of unspecified site of right female breast; C50.912 Malignant neoplasm of unspecified site of left female breast; Z17.0 Estrogen receptor positive status [ER+]
CPT/HCPCS: 36415; 80053; 85025; 86300

== ENCOUNTER 2025-01-01 12:00 | Outpatient (CLI) | payer BC, SELFPAY ==
--- OUTSIDE RECORDS SUMMARY | 2024-11-03 08:00 | XMS_ITS | Encounter Summary ---
Author Organization [facility] Address [address] [place] [address] Care Team Providers Care Top Edge Beveler Name Role Phone Hermilo Otto MD Primary Care Provider + [phone] Loretta Godfrey MD Unavailable [phone] Paola Rosenberg TELEVISION JOURNALIST Unavailable Unavaila ble Reason for Visit * Reason Comments Follow-up * Episode Based Medications (Routine) - Authorized Specialty Diagnoses / Procedures Referred By Veknat mccarthy Referred To Contact Diagnoses Malignant neoplasm of upper-outer quadrant of right breast in female, estrogen receptor positive Loretta Godfrey MD [address] [address] Phone: tel: fax: [address] [place] [address] Phone: tel: fax: Referral ID Status Reason Start Date Expiration Date V isits Requested Visits Authorized [id number] Authorized 06/10/2024 12/10/2025 1 13 Encounter Details Date Type Department Care Team (Late st Contact Info) Description 11/03/2024 8:00 AM EDT Office Visit [facility] [address] [place] [address] Loretta Godfrey MD [address] [address] Malignant neoplasm of upper-outer quadrant of right breast in female, estrogen receptor positive Social History Tobacco Use Types Packs/Day Years [...] 08/27/2024 How often do you attend [facility] or oriental orthodox services? More than 4 times per year 08/27/2024 Do you belong to any clubs o r organizations such as oriental orthodox groups, unions, fraternal or athletic groups, or [...] Recorded Patient Health Questionnaire-2 Score 0 10/06/2024 [facility] of Occupat ional Health - Occupational Stress [...] any time in the past 12 m [facility], were you homeless or living in a intermediate (including now)? No 08/27/2024 Utilities Answer Date Recorded In the past 12 months has th e [employer], gas, oil, or water company threatened to [...] Sign Reading Time Taken Comments Blood Pressure 132/82 11/03/2024 7:48 AM EDT Pulse 68 11/03/2024 7:48 AM EDT Temperature 36.4 C (97.5 F) 11/03/2024 7:48 AM EDT Respiratory Rate - - Oxygen Saturation 99% 11/03/2024 7:48 AM EDT Inhaled Oxygen Concentration - - Weight 74 kg (163 lb 2.3 oz) 11/03/2024 7:48 AM EDT Height 165.1 cm (5' 5 ) 11/03/2024 7:48 AM EDT Body Mass Index 27.15 11/03/2024 7:48 AM EDT documented in this encounter Functional Status * Calculated C-SSRS Risk Score (Lifetime/Recent) Answer Date of Assessment Author No Risk Indicated 11/03/2024 7:52 AM EDT Silvana Wyman * Question Answer Date of Assessment Author 1. Wish to be (Past 1 Month) No 025 7:52 AM EDT Silvana Wyman 2. Non-Specific Active Suici kelsie Thoughts (Past 1 Month) No 11/03/2024 7:52 AM EDT Silvana Wyman 6. Suicidal Behavior (Lifetime) No 7:52 AM EDT Silvana Wyman documented as of this encounter Miscellaneous Notes * Progress Notes - Loretta Godfrey MD - 11/03/2024 8:00 AM EDT [facility] at [facility] HEMATOLOGY/ONCOLOGY FOLLOW UP Shona Prieto 1985 Primary Care Provider: Hermilo Otto MD Cancer Staging No matching staging information was found for the patient. Diagnoses and all orders for this visit: Malignant neoplasm of upper-outer quadrant of right breast in female, estrogen receptor positive - Appointment request for clinic-administered medication Treatment Details Treatment goal [No plan goal] Plan Name (Hem/Onc) Leuprolide Acetate (Lupron) Status Active Start Date 05/19/2024 End Date Until discontinued Provider Loretta Godfrey MD Chemotherapy leuprolide (Lupron) injection 3.75 mg, 3.75 mg, Intramuscular, Once, 1 of 1 cycle Administration: 3.75 mg (05/19/2024), 3.75 mg (06/16/2024), 3.75 mg (07/14/2024), 3.75 mg (08/11/2024), 3.75 mg (09/08/2024), 3.75 mg (10/06/2024) Treatment Details Treatment goal [No plan goal] Plan Name (Hem/Onc) Denosumab (Xgeva) for Prevention of Skeletal-related Events Status Active Start Date 06/16/2024 End Date Until discontinued Provider Loretta Godfrey MD Chemotherapy denosumab (Xgeva) 120 MG/1.7ML injection 120 mg, 120 mg, Subcutaneous, Once, 1 of 1 cycle Administration: 120 mg (06/16/2024), 120 mg (07/14/2024), 120 mg (08/11/2024), 120 mg (09/08/2024), 120 mg (10/06/2024) Subjective History of Present Illness: Shona Prieto [...] the dentist. She has been seen at [facility]. She had a good visit and we will send liquid biopsy for NGS. Pt has lost 10 pounds intentionally with cutting out sugar. 07/14/24 [facility] One CDX revealed no actionable stake driver mutation. Pt has been seen at [facility] and was told to continue current therapy. Pt enjoyed her daughter' constitution party rollers kating. She's had some stressors with her oriental orthodox. She's quite active attending her children's sporting activities. Jessica to date: 05/19/24 34.16 08/19/24 0 10/27/24 CT CAP 1.Masses within the breasts have decreased in size. 2.Sclerotic areas involving the axial and appendicular skeleton which could reflect sequela of metastatic disease and have been suggested. 3.Multiple hypodense areas within the liver which seems smaller as compared to the prior study. This could reflect treatment response to metastatic disease. 4.Left ovarian cyst. 5.There is an appearance to the colon with a somewhat thickened wall throughout that probably reflects contracted state. A colitis could not be excluded in the proper clinical setting. The following portions of the chart were [...] BSA: 1.84 meters squared Visit Vitals BP 132/82 Pulse 68 Temp 36.4 ??C (97.5 ??F) (Temporal) Ht 1.651 m (5' 5 ) Wt 74 kg (163 lb 2.3 oz) SpO2 99% BMI 27.15 kg/m?? Smoking Status Never BSA 1.84 m?? [...] recommendation of the National Kidney Foundation and [place] Society of Nephrology. This calculation has not been validated in women. For pediatric patients refer to https://www.kidney.org/professionals/KDOQI/gfr_calculatorPed Assessment/Plan Stage IV breast cancer ER+ [place] + Her 2 garett - with metastatic [...] this continues to decline.. Pt gone to [facility] for a consultation. She has had some hot flashes and diarrhea. These are both improving. She takes imodium intermittently prn. Her LFTs are normal. Pt has had [employer] sent with most recent was 0.This will be due at the end of October. Her genetic testing revealed no deleterious mutation. NGS liquid biopsy revealed no deleterious mutation. Repeat imaging has been reviewed on 10/27/24. We discussed the bone sclerosis as being healing bone. Overall, she is doing well. documented in this encounter Plan of Treatment Upcoming Encounters Date Type Department Care Team (Late st Contact Info) Description 01/05/2025 8:00 AM EDT Office Visit [facility] at [facility] [address] [place] [address] Loretta Godfrey MD [address] [address] 01/05/2025 8:15 AM EDT Clinical Support [facility] at [facility] [address] [place] [address] documented as of this encounter Visit Diagnoses Diagnosis Malignant neoplasm of upper-outer quadrant of right breast in female, estrogen receptor positive documented in this encounter Additional Health Concerns Assessment Noted Time A fall risk assessment has been complete d for the patient 11/03/2024 7:52 AM EDT documented as of this encounter Care Teams Top Edge Beveler Relationship Specialty Start Date End Date Hermilo Otto MD [address] [facility] [address], [place] [address] PCP - General 05/07/24 [place] [address] [place] [address] Medical Oncologist Hematology and Oncology 05/18/24 Paola Rosenberg LPN VALUE-BASED TRANSFORMATION PROGRAM Licensed Practical Nurse 08/25/24 documented as of this encounter
--- OUTSIDE RECORDS SUMMARY | 2024-11-03 08:15 | XMS_ITS | Encounter Summary ---
Author Organization [facility] Address [address] [place] [address] Care Team Providers Care Transfer Machine Operator Name Role Phone Hermilo Otto MD Primary Care Provider + [phone] Loretta Godfrey MD Unavailable [phone] Paola Rosenberg SHOP HAND Unavailable Unavaila ble Reason for Visit * Reason Comments Injections * Episode Based Medications (Routine) - Authorized Specialty Diagnoses / Procedures Referred By Venkat mccarthy Referred To Contact Diagnoses Malignant neoplasm of upper-outer quadrant of right breast in female, estrogen receptor positive Procedures MO LEUPROLIDE ACETATE SUSPNSION Loretta Godfrey MD [address] [address] Phone: tel: fax: [facility] at [facility] [address] [place] [address] Phone: tel: fax: Referral ID Status Reason Start Date Expiration Date V isits Requested Visits Authorized [id number] Authorized 05/19/2024 11/18/2025 1 14 Encounter Details Date Type Department Care Team (Latest Contact Info) Description 11/03/2024 8:15 AM EDT Clinical Support [facility] at [facility] [address] [place] [address] Malignant neoplasm of upper-outer quadrant of right [...] week 08/27/2024 How often do you attend [facility] or adventist services? More than 4 times per year 08/27/2024 Do you belong to any clubs o r organizations such as rastafari groups, unions, fraternal or athletic groups, or [...] Recorded Patient Health Questionnaire-2 Score 0 10/06/2024 [facility] of Occupat ional Health - Occupational Stress [...] any time in the past 12 m [facility], were you homeless or living in a half-way (including now)? No 08/27/2024 Utilities Answer Date Recorded In the past 12 months has th e [employer], gas, oil, or water company threatened to [...] Time Taken Comments Blood Pressure 132/82 11/03/2024 8:35 AM EDT Pulse 68 11/03/2024 8:35 AM EDT Temperature - - Respiratory Rate 19 11/03/2024 8:35 AM EDT Oxygen Saturation 99% 11/03/2024 8:35 AM EDT Inhaled Oxygen Concentration - - Weight 74 kg (163 lb 2.3 oz) 11/03/2024 8:35 AM EDT Height 165.1 cm (5' 5 ) 11/03/2024 8:35 AM EDT Body Mass Index 27.15 11/03/2024 8:35 AM EDT documented in this encounter Functional Status * Calculated C-SSRS Risk Score (Lifetime/Recent) Answer Date of Assessment Author No Risk Indicated 11/03/2024 8:35 AM EDT Opal Johnson, RN * Question Answer Date of Assessment Author 1. Wish to be (Past 1 Month) No 11/03/2024 8:35 AM EDT Opal Johnson, RN 2. Non-Specific Active Suici kelsie Thoughts (Past 1 Month) No 11/03/2024 8:35 AM EDT Erika Johnson, RN 6. Suicidal Behavior (Lifetime) No 8:35 AM EDT Opal Johnson, RN documented as of this encounter Plan of Treatment Upcoming Encounters Date Type Department Care Team (Late st Contact Info) Description 01/05/2025 8:00 AM EDT Office Visit [facility] at [facility] [address] [place] [address] Loretta Godfrey MD [address] [address] 01/05/2025 8:15 AM EDT Clinical Support [facility] at [facility] [address] [place] [address] documented as of this encounter Visit Diagnoses Diagnosis Malignant neoplasm of upper-outer quadrant of right breast in female, estrogen receptor positive- Primary documented in this encounter Administered Medications Inactive Administered Medications - up to 3 most recent administrations Medication Order MAR Action Action Date Dose Rate Site denosumab (Xgeva) 120 MG/1.7ML injection 120 mg 120 mg, Subcutaneous, Once, On Sat11/03/24 at 0845, For 1 doseIndications:[place] abdul neoplasm of upper-outer quadrant of right breast in female, estrogen receptor positive Given 11/03/2024 8:40 AM EDT 120 mg Right Upper Arm (Hugh k) leuprolide (Lupron) injection 3.75 mg 3.75 mg, Intramuscular, Once, 1 dose, On Sat11/03/24 at 0845, RoutineIndications:Ma lignant neoplasm of upper-outer quadrant of right breast in female, estrogen receptor positive Given 11/03/2024 8:44 AM EDT 3.75 mg Right Dorsogluteal documented in this encounter Additional Health Concerns Assessment Noted Time A fall risk assessment has been complete d for the patient 11/03/2024 7:52 AM EDT documented as of this encounter Care Teams Transfer Machine Operator Relationship Specialty Start Date End Date Hermilo Otto MD [address] [place] [address] PCP - General 05/07/24 Loretta Godfrey MD [address] [phone] Medical Oncologist Hematology and Oncology 05/18/24 Paola Rosenberg LPN VALUE-BASED TRANSFORMATION PROGRAM Licensed Practical Nurse 08/25/24 documented as of this encounter
--- OUTSIDE RECORDS SUMMARY | 2024-12-08 08:30 | XMS_ITS | Encounter Summary ---
Author Organization [facility] Address [address] [place] [address] Care Team Providers Care Rating Specialist Name Role Phone Hermilo Otto MD Primary Care Provider + [phone] Loretta Godfrey MD Unavailable [phone] Paola Rosenberg STEEL FIXER Unavailable Unavaila ble Encounter Details Date Type Department Care Team (Late st Contact Info) Description 12/08/2024 8:30 AM EDT Office Visit [facility] at [facility] [address] [place] [phone] Loretta Godfrey MD [address] [address] Malignant neoplasm of upper-outer quadrant [...] 08/27/2024 How often do you attend [facility] or buddhist services? More than 4 times per year [...] Recorded Patient Health Questionnaire-2 Score 0 10/06/2024 [facility] of Occupat ional Health - Occupational [...] any time in the past 12 m [facility], were you homeless or living in a alf (including now)? No 08/27/2024 Utilities Answer Date [...] 1 Month) No 12/08/2024 8:31 AM Silvana Oneal 6. Suicidal Behavior (Lifetime) No 8:31 AM Silvana Oneal documented as of this encounter Miscellaneous Notes * Progress Notes - Loretta Godfrey MD - 12/08/2024 8:30 AM EDT [facility] HEMATOLOGY/ONCOLOGY FOLLOW UP Shona Prieto 1985 Primary [...] the dentist. She has been seen at [facility]. She had a good visit and we will send liquid biopsy for NGS. Pt has lost 10 pounds intentionally with cutting out sugar. 07/14/24 [facility] One CDX revealed no actionable cdl driver mutation. Pt has been seen at [facility] and was told to continue current therapy. Pt enjoyed her daughter'sbirthday green party rollers kating. She's had some stressors with her moravian. She's quite active attending her children's sporting [...] softball season. She will be traveling to [place]. Pt will becamping as well. The following [...] recommendation of the National Kidney Foundation and [place] Society of Nephrology. This calculation has not been validated in women. For pediatric patients refer to https://www.kidney.org/professionals/KDOQI/gfr_calculatorPed No results found. Assessment/Plan Stage IV breast cancer ER+ [place] + Her 2 garett - with metastatic [...] Description 01/05/2025 8:00 AM EDT Office Visit [facility] [address] [place] [address] [place] [address] [place] [phone] 01/05/2025 8:15 AM EDT Clinical Support [facility] at [facility] [address] [place] [phone] documented as of this encounter Visit Diagnoses Diagnosis Malignant neoplasm of upper-outer quadrant of right breast in female, estrogen receptor positive- Primary documented in this encounter Additional Health Concerns Assessment Noted Time A fall risk assessment has been complete d for the patient 12/08/2024 8:31 AM EDT documented as of this encounter Care Teams Rating Specialist Relationship Specialty Start Date End Date Hermilo Otto MD 1210 [facility] [address], [place] [address] PCP - General 05/07/24 Loretta Godfrey MD [address] [phone] Medical Oncologist Hematology and Oncology 05/18/24 Paola Rosenberg LPN VALUE-BASED TRANSFORMATION PROGRAM Licensed Practical Nurse 08/25/24 documented as of this encounter
--- OUTSIDE RECORDS SUMMARY | 2024-12-08 08:45 | XMS_ITS | Encounter Summary ---
Author Organization [facility] Address [address] [place] [address] Care Team Providers Care Hammer Operator Name Role Phone Hermilo Otto MD Primary Care Provider + [phone] Loretta Godfrey MD Unavailable [phone] Paola Rosenberg DIRECTOR HOUSEKEEPING Unavailable Unavaila ble Reason for Visit * Reason Comments Injections * Episode Based Medications (Routine) - Authorized Specialty Diagnoses / Procedures Referred By Venkat mccarthy Referred To Contact Diagnoses Malignant neoplasm of upper-outer quadrant of right breast in female, estrogen receptor positive Procedures NE LEUPROLIDE ACETATE SUSPNSION Loretta Godfrey MD [address] [address] Phone: tel: fax: [facility] [address] [place] [address] Phone: tel: fax: Referral ID Status Reason Start Date Expiration Date V isits Requested Visits Authorized [id number] Authorized 05/19/2024 11/18/2025 1 14 Encounter Details Date Type Department Care Team (Latest Contact Info) Description 12/08/2024 8:45 AM EDT Clinical Support [facility] [address] [place] [address] Malignant neoplasm of upper-outer quadrant [...] 08/27/2024 How often do you attend [facility] or buddhism services? More than 4 times per year [...] Recorded Patient Health Questionnaire-2 Score 0 10/06/2024 [facility] of Occupat ional Health - Occupational [...] in the past 12 m [facility], were you homeless or living in a retirement (including now)? No 08/27/2024 Utilities Answer Date Recorded In the past 12 months has th e [employer], gas, oil, or water company threatened to [...] Time Taken Comments Blood Pressure 122/80 12/08/2024 9:25 AM EDT Pulse 71 12/08/2024 9:25 AM EDT Temperature 36.5 C (97.7 F) 12/08/2024 9:25 AM EDT Respiratory Rate 18 12/08/2024 9:25 AM EDT Oxygen Saturation 100% 12/08/2024 9:25 AM EDT Inhaled Oxygen Concentration - - Weight 71.4 kg (157 lb 6.5 oz) 12/08/2024 9:25 A M EDT Height - - Body Mass Index 26.19 12/08/2024 8:29 AM EDT documented in this encounter Functional Status * Calculated C-SSRS Risk Score (Lifetime/Recent) Answer Date of Assessment Author No Risk Indicated 12/08/2024 9:25 AM EDT Opal Johnson, RN * Question Answer Date of Assessment Author 1. Wish to be (Past 1 Month) No 12/08/2024 9:25 AM EDT Opal Johnson, RN 2. Non-Specific Active Suici kelsie Thoughts (Past 1 Month) No 12/08/2024 9:25 AM EDT Erika Johnson, RN 6. Suicidal Behavior (Lifetime) No 9:25 AM EDT Opal Johnson, RN documented as of this encounter Plan of Treatment Upcoming Encounters Date Type Department Care Team (Late st Contact Info) Description 01/05/2025 8:00 AM EDT Office Visit [facility] [address] [place] [phone] Loretta Godfrey MD [address] [phone] 01/05/2025 8:15 AM EDT Clinical Support [facility] [address] [place] [address] Scheduled Orders Name Type Priority Associated Diagnoses Orde r Schedule Comprehensive metabolic panel Lab STAT Malignant neoplasm of upper-outer quadrant of right breast in female, estrogen receptor positive Expected: 12/08/2024, Expires: 12/08/2025 documented as of this encounter Visit Diagnoses Diagnosis Malignant neoplasm of upper-outer quadrant of right breast in female, estrogen receptor positive- Primary documented in this encounter Administered Medications Inactive Administered Medications - up to 3 most recent administrations Medication Order MAR Action Action Date Dose Rate Site denosumab (Xgeva) 120 MG/1.7ML injection 120 mg 120 mg, Subcutaneous, Once, On Sat12/08/24 at 0930, For 1 doseIndications:Malign ant neoplasm of upper-outer quadrant of right breast in female, estrogen receptor positive Given 12/08/2024 9:27 AM EDT 120 mg Left Upper Arm (Back ) leuprolide (Lupron) injection 3.75 mg 3.75 mg, Intramuscular, Once, 1 dose, On Sat12/08/24 at 0930, RoutineIndications:Mal ignant neoplasm of upper-outer quadrant of right breast in female, estrogen receptor positive Given 12/08/2024 9:34 AM EDT 3.75 mg Left Dorsogluteal documented in this encounter Additional Health Concerns Assessment Noted Time A fall risk assessment has been complete d for the patient 12/08/2024 8:31 AM EDT documented as of this encounter Care Teams Hammer Operator Relationship Specialty Start Date End Date Hermilo Otto MD [address] [place] [address] PCP - General 05/07/24 Loretta Godfrey MD [address] [phone] Medical Oncologist Hematology and Oncology 05/18/24 Paola Rosenberg LPN VALUE-BASED TRANSFORMATION PROGRAM Licensed Practical Nurse 08/25/24 documented as of this encounter
--- OUTSIDE RECORDS SUMMARY | 2025-01-01 12:02 | XMS_ITS | Encounter Summary ---
Author Organization [facility] Address [address] [place] [address] Care Team Providers Care Outsole Beveler Name Role Phone Hermilo Otto MD Primary Care Provider + [phone] Loretta Godfrey MD Unavailable [phone] Paola Rosenberg WASTE MANAGEMENT SPECIALIST Unavailable Unavaila ble Reason for Visit * Reason Onset Date Comments Medication Question 11/13/2024 Encounter Details Date Type Department Care Team (Late st Contact Info) Description 11/13/2024 Telephone [facility] at [facility] [address] [place] [address] Loretta Godfrey MD [address] [address] Medication Question Social History Tobacco [...] How often do you attend chur or sikhism services? More than 4 times per year 08/27/2024 Do you belong to any clubs o r organizations such as confucianism groups, unions, fraternal or athletic groups, or [...] Patient Health Questionnaire-2 Score 0 10/06/2024 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, estrogen receptor positive, unspecified site of breast- Primary documented in this encounter Additional Health Concerns Assessment Noted Time A fall risk assessment has been complete d for the patient 11/03/2024 7:52 AM EDT documented as of this encounter Care Teams Outsole Beveler Relationship Specialty Start Date End Date Hermilo Otto MD 1210 [facility] [address] [place] [address] PCP - General 05/07/24 Loretta Godfrey MD [address] [phone] Medical Oncologist Hematology and Oncology 05/18/24 Paola Rosenberg LPN VALUE-BASED TRANSFORMATION PROGRAM Licensed Practical Nurse 08/25/24 documented as of this encounter
--- OUTSIDE RECORDS SUMMARY | 2025-01-01 12:02 | XMS_ITS | Encounter Summary ---
Author Organization Healthcare Address [address] [place] [address] Care Team Providers Care Oreman Name Role Phone Hermilo Otto MD Primary Care Provider + [phone] Loretta Godfrey MD Unavailable [phone] Paola Rosenberg LPN Unavailable Unavaila ble Encounter Details Date Type Department Care Team (Latest Contact Info) Description 12/08/2024 Travel Social History Tobacco Use Types Packs/Day [...] week 08/27/2024 How often do you attend [facility] or buddhist services? More than 4 times per year 08/27/2024 Do you belong to any clubs o r organizations such as yazdanism groups, unions, fraternal or athletic groups, or [...] Recorded Patient Health Questionnaire-2 Score 0 10/06/2024 [facility] Occupat ional [facility] - Occupational Stress Questionnaire Answer Date Recorded [...] any time in the past 12 m [facility], were you homeless or living in a assisted (including now)? No 08/27/2024 Utilities Answer Date [...] Description 01/05/2025 8:00 AM EDT Office Visit [facility] at [facility] [address] [place] [address] Loretta Godfrey MD [address] [place] [phone] 01/05/2025 8:15 AM EDT Clinical Support [facility] at [facility] [address] [place] [address] documented as of this encounter Visit Diagnoses Not on filedocumented in this encounter Additional Health Concerns Assessment Noted Time A fall risk assessment has been complete d for the patient 12/08/2024 8:31 AM EDT documented as of this encounter Care Teams Oreman Relationship Specialty Start Date End Date Hermilo Otto MD [address] [phone] PCP - General 05/07/24 [place] [address] [place] [phone] Medical Oncologist Hematology and Oncology 05/18/24 Paola Rosenberg LPN VALUE-BASED TRANSFORMATION PROGRAM Licensed Practical Nurse 08/25/24 documented as of this encounter
--- OUTSIDE RECORDS SUMMARY | 2025-01-01 12:02 | XMS_ITS | Clinical Summary ---
Author Organization [facility] Address [address] [place] [address] Care Team Providers Care Healthcare Administrative Assistant Name Role Phone Hermilo Otto MD Primary Care Provider + [phone] Loretta Godfrey MD Unavailable [phone] Paola Rosenberg LPN Unavailable Unavaila ble Allergies No known active allergies Medications sertraline (Zoloft) 50 MG tablet Take 1 tablet (50 mg) by mouth daily. Active Abemaciclib (Verzenio) 150 MG tablet chemo tablet Take 1 tablet (150 mg total) by mouth 2 (two) times a day. 60 tablet 11 05/19/2024 Active letrozole (Femara) 2.5 MG chemo tabletIndication s: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, estrogen receptor positive, unspecified site of breast Take 1 tablet (2.5 mg total) by mouth daily. Take with or without food. 30 tablet 5 11/13/2024 05/12/20 25 Active Active Problems Problem Noted Date Diagnosed Date Malignant neoplasm of upper- outer quadrant of right breast in female, estrogen receptor positive 05/19/2024 Encounters Date Type Department Care Team Description 12/17/2024 Orders Only [facility] at [facility] [address] [place] [phone] Loretta Godfrey MD 12/15/2024 Patient Outreach [facility] [address], [address] [place] [phone] Paola Rosenberg LPN Follow-up 12/14/2024 Patient Outreach [facility] [address] [facility] [address] [place] [address] Paola Rosenberg LPN Follow-up 12/08/2024 8:45 AM EDT Clinical Support [facility] at [address] [place] [address] Malignant neoplasm of upper-outer quadrant of right breast in female, estrogen receptor positive (Primary Dx) 12/08/2024 8:30 AM EDT Office Visit [facility] [address] [place] [address] Loretta Godfrey MD Malignant neoplasm of upper-outer quadrant of right breast in female, estrogen receptor positive (Primary Dx) 12/08/2024 Travel 12/08/2024 Orders Only [facility] at [address] [address] Loretta Godfrey MD 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, estrogen receptor positive, unspecified site of breast 12/07/2024 Travel 12/07/2024 Orders Only [facility] [address] [place] [address] Loretta Godfrey MD 12/04/2024 Orders Only [facility] at [address] [address] Iliana Silvestre, PharmD 12/04/2024 Orders Only [facility] at [address] [place] [address] Loretta Godfrey MD 11/13/2024 Telephone [facility] at [address] [place] [address] Loretta Godfrey MD Medication Question 11/13/2024 Patient Outreach [facility] [address] [facility] [address] [place] [address] Paola Rosenberg LPN Follow-up 11/04/2024 Refill [facility] at [address] [place] [address] Loretta Godfrey MD 11/03/2024 8:15 AM EDT Clinical Support [facility] [address] [place] [address] Malignant neoplasm of upper-outer quadrant of right breast in female, estrogen receptor positive (Primary Dx) 11/03/2024 8:00 AM EDT Office Visit [facility] at [address] [address] Loretta Godfrey MD Malignant neoplasm of upper-outer quadrant of right breast in female, estrogen receptor positive 11/03/2024 Travel 11/02/2024 Travel 11/02/2024 Orders Only [facility] [address] [place] [address] Loretta Godfrey MD 10/30/2024 Orders Only [facility] [address] [place] [address] Loretta Godfrey MD 10/26/2024 Orders Only [facility] [address] [place] [address] Loretta Godfrey MD 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, estrogen receptor positive, unspecified site of breast; Malignant neoplasm of upper-outer quadrant of right breast in female, estrogen receptor positive 10/15/2024 Patient Outreach [facility], [address] [place] [address] Paola Rosenberg LPN Follow-up 10/06/2024 8:30 AM EDT Clinical Support [facility] [address] [place] [address] Malignant neoplasm of upper-outer quadrant of right breast in female, estrogen receptor positive (Primary Dx) 10/06/2024 8:15 AM EDT Office Visit [facility] [address] [place] [address] Lroetta Godfrey MD Malignant neoplasm of upper-outer quadrant of right breast in female, estrogen receptor positive (Primary Dx) 10/06/2024 Orders Only [facility] [place] [address] [place] [address] Loretta Godfrey MD 10/06/2024 Travel 10/05/2024 Orders Only [facility] [address] [place] [address] Loretta Godfrey MD 10/05/2024 Travel from Last 3 Months Immunizations Immunization Administration [...] often do you attend chur ch or moravian services? More than 4 times per year 08/27/2024 Do you belong to any clubs o r organizations such as cheondoism groups, unions, fraternal or athletic groups, or [...] Recorded Patient Health Questionnaire-2 Score 0 10/06/2024 [facility] - [facility]ational Stress Questionnaire Answer [...] any time in the past [address] [facility], were you homeless or living in a longterm (including now)? No 08/27/2024 Utilities Answer Date Recorded In the past 12 months has th e [employer], gas, oil, or water [employer] threatened to shut off services in your [...] oz) 12/08/2024 9:25 A M EDT Height 165.1 cm (5' 5 ) 12/08/2024 8:29 AM EDT Body Mass Index 26.19 12/08/2024 8:29 AM EDT Plan of Treatment Upcoming Encounters Date Type Department Care Team (Late st Contact Info) Description 01/05/2025 8:00 AM EDT Office Visit [facility] [address] [place] [address] Loretta Godfrey MD [address] [place] [phone] 01/05/2025 8:15 AM EDT Clinical Support [facility] at [address] [phone] Health Maintenance Due Date Last Done Comments [facility]-HIV Screening 1987 [facility]-/Child/Adol SDOH Screenings 1987 [id number] Vaccine (#1) 09/27/1992 [facility]-Obesity Intervention 09/27/1993 [facility]-Varicella [...] 09/27/2008 [facility]-Cervical Cancer Screening 09/27/2017 [facility]-HPV/Cotest 09/27/2017 [facility]-Influenza Vaccine (#1) 02/22/202505/20, 06/06/2018 [facility]- SDOH Screenings 02/27/2025 [facility]-Adult SDOH Screenings 02/27/2025 08/27/2024 [facility]-Depression Screening 10/06/2025 10/06/2024 [facility]-DTaP,Tdap,and Td Vaccine s (2 - Td or Tdap) 09/18/2028 09/18/2018 [facility]-Hepatitis C Screening Completed 03/04/2018 HPV Vaccines Aged Out No longer eligi [...] Procedure Name Priority Date/Time Associated Diagnosis Comments SIGNATERA ONLY Routine 12/17/2024 9:29 AM EDT CBC W/DIFF Routine 12/04/2024 11:13 AM EDT COMPLETE METABOLIC PROFILE (CMP) Routine 12/04/2024 11:13 AM EDT CANCER ANTIGEN 27.29 Routine 12/04/2024 8:49 AM EDT COMPLETE METABOLIC PROFILE (CMP) Routine 10/30/2024 10:07 [...] ANTIGEN 27.29 Routine 10/05/2024 10:23 AM EDT from Last 3 Months Results * SIGNATERA ONLY (12/17/2024 9:29 AM EDT) Blood Venous blood specimen / Unknown us Loretta Godfrey MD [facility] BLOOD ORDERABLES Final Result * COMPLETE METABOLIC PROFILE (CMP) (12/04/2024 11:13 AM EDT) Only the most recent of3 resultswithin the time period is included. us Loretta Godfrey MD LAB BLOOD ORDERABLES Final Re sult * CBC W/DIFF (12/04/2024 11:13 AM EDT) Only the most recent of3 resultswithin the time period is included. us Loretta Godfrey MD LAB BLOOD ORDERABLES Final Re sult * Cancer antigen 27.29 (12/04/2024 8:49 AM EDT) Only the most recent of3 [...] Resul t from Last 3 Months Insurance ANTH Care Teams Healthcare Administrative Assistant Relationship Specialty Start Date End Date Hermilo Otto MD [address] [place] [address] PCP - General 05/07/24 Loretta Godfrey MD [address] [facility] [address] [place] [address] Medical Oncologist Hematology and Oncology 05/18/24 Paola Rosenberg LPN VALUE-BASED TRANSFORMATION PROGRAM Licensed Practical Nurse 08/25/24
--- OUTSIDE RECORDS SUMMARY | 2025-01-01 12:02 | XMS_ITS | Encounter Summary ---
Author Organization [facility] Address [address] [place] [address] Care Team Providers Care Ballast Cleaning Machine Operator Name Role Phone Hermilo Otto MD Primary Care Provider + [phone] Loretta Godfrey MD Unavailable [phone] Paola Rosenberg TALENT SOURCER Unavailable Unavaila ble Encounter Details Date Type Department Care Team (Late st Contact Info) Description 12/17/2024 Orders Only [facility] at [facility] [address] [place] [phone] Loretta Godfrey MD [address] [address] Social History Tobacco Use Types [...] often do you attend chur ch or evangelical services? More than 4 times per year 08/27/2024 Do you belong to any clubs o r organizations such as mosque groups, unions, fraternal or athletic groups, or [...] Recorded Patient Health Questionnaire-2 Score 0 10/06/2024 [facility] of Occupat ional Health - Occupational Stress [...] any time in the past 12 m [facility], were you homeless or living in a senior care (including now)? No 08/27/2024 Utilities Answer Date [...] Description 01/05/2025 8:00 AM EDT Office Visit [facility] at [facility] [address] [place] [phone] Loretta Godfrey MD [address] [address] 01/05/2025 8:15 AM EDT Clinical Support [facility] [address] [place] [address] documented as of this encounter Procedures Procedure Name Priority Date/Time Associated Diagnosis Comments SIGNATERA ONLY Routine 12/17/2024 9:29 AM EDT documented in this encounter Results * SIGNATERA ONLY (12/17/2024 9:29 AM EDT) Blood Venous blood specimen / Unknown us Loretta Godfrey MD SK[facility] BLOOD ORDERABLES Final Result documented in this encounter Visit Diagnoses Not on filedocumented in this encounter Additional Health Concerns Assessment Noted Time A fall risk assessment has been complete d for the patient 12/08/2024 8:31 AM EDT documented as of this encounter Care Teams Ballast Cleaning Machine Operator Relationship Specialty Start Date End Date Hermilo Otto MD [facility] [phone] PCP - General 05/07/24 Loretta Godfrey MD [address] [phone] Medical Oncologist Hematology and Oncology 05/18/24 Paola Rosenberg LPN VALUE-BASED TRANSFORMATION PROGRAM Licensed Practical Nurse 08/25/24 documented as of this encounter
--- OUTSIDE RECORDS SUMMARY | 2025-01-01 12:02 | XMS_ITS | Encounter Summary ---
Author Organization Healthcare Address [address] [place] [address] Care Team Providers Care Hand Striper Name Role Phone Hermilo Otto MD Primary Care Provider + [phone] Loretta Godfrey MD Unavailable [phone] Paola Rosenberg NURSE EMERGENCY ROOM Unavailable Unavaila ble Encounter Details Date Type Department Care Team (Late st Contact Info) Description 12/04/2024 Orders Only [facility] at [address] [address] Iliana Silvestre, PharmD Inpatient Pharmacy [address] [place] [address] Social History Tobacco Use Types Packs/Day Years [...] How often do you attend chur or rastafari services? More than 4 times per year 08/27/2024 Do you belong to any clubs o r organizations such as evangelical groups, unions, fraternal or athletic groups, or [...] Recorded Patient Health Questionnaire-2 Score 0 10/06/2024 [facility] of Occupat ional Health - [...] any time in the past 12 m [facility], were you homeless or living in [...] Description 01/05/2025 8:00 AM EDT Office Visit [facility] at [facility] [address] [place] [phone] Loretta Godfrey MD [address] [address] 01/05/2025 8:15 AM EDT Clinical Support [facility] at [facility] [address] [place] [phone] documented as of this encounter Visit Diagnoses Not on filedocumented in this encounter Additional Health Concerns Assessment Noted Time A fall risk assessment has been complete d for the patient 11/03/2024 7:52 AM EDT documented as of this encounter Care Teams Hand Striper Relationship Specialty Start Date End Date Hermilo Otto MD [address] [facility] [address] [place] [address] PCP - General 05/07/24 Loretta Godfrey MD [address] [address] Medical Oncologist Hematology and Oncology 05/18/24 Paola Rosenberg LPN VALUE-BASED TRANSFORMATION PROGRAM Licensed Practical Nurse 08/25/24 documented as of this encounter
--- OUTSIDE RECORDS SUMMARY | 2025-01-01 12:02 | XMS_ITS | Encounter Summary ---
Author Organization [facility] Address [address] [place] [address] Care Team Providers Care Flake Miller Wheat And Oats Name Role Phone Hermilo Otto MD Primary Care Provider + [phone] Loretta Godfrey MD Unavailable [phone] Paola Rosenberg DIAL MARKER Unavailable Unavaila ble Encounter Details Date Type Department Care Team (Late st Contact Info) Description 10/30/2024 Orders Only [facility] at [facility] [address] [place] [address] Loretta Godfrey MD [address] [address] Social History Tobacco Use Types [...] often do you attend chur ch or confucianism services? More than 4 times per year [...] Recorded Patient Health Questionnaire-2 Score 0 10/06/2024 [facility] of Occupat ional Health - [...] any time in the past 12 m [facility], were you homeless or living in a jail (including now)? No 08/27/2024 Utilities Answer Date Recorded In the past 12 months has th e [employer], gas, oil, or water company threatened to [...] Description 01/05/2025 8:00 AM EDT Office Visit [facility] [address] [place] [phone] Loretta Godfrey MD [address] [phone] 01/05/2025 8:15 AM EDT Clinical Support [facility] [address] [place] [address] documented as of this encounter Procedures Procedure [...] documented as of this encounter Care Teams [place] Wheat [employer] Oats Relationship Specialty Start Date End Date Hermilo Otto MD [facility] [place] [address] PCP - General 05/07/24 Loretta Godfrey MD [address] [address] Medical Oncologist Hematology and Oncology 05/18/24 Paola Rosenberg LPN VALUE-BASED TRANSFORMATION PROGRAM Licensed Practical Nurse 08/25/24 documented as of this encounter
--- OUTSIDE RECORDS SUMMARY | 2025-01-01 12:02 | XMS_ITS | Encounter Summary ---
Author Organization [facility] Address [address] [place] [address] Care Team Providers Care Printing And Stamping Supervisor Name Role Phone Hermilo Otto MD Primary Care Provider + [phone] Loretta Godfrey MD Unavailable [phone] Paola Rosenberg LPN Unavailable Unavaila ble Reason for Visit * Reason Comments Follow-up Encounter Details Date Type Department Care Team (Late st Contact Info) Description 12/14/2024 Patient Outreach [facility] [address] [place] [address] Paola Rosenberg LPN VALUE-BASED TRANSFORMATION [...] How often do you attend chur or mandaen services? More than 4 times per year 08/27/2024 Do you belong to any clubs o r organizations such as congregational groups, unions, fraternal or athletic groups, or [...] Recorded Patient Health Questionnaire-2 Score 0 10/06/2024 [facility] of Occupat ional Health - Occupational Stress [...] any time in the past 12 m [facility], were you homeless or living [...] Progress Notes - Paola Rosenberg LPN - 12/14/2024 3:55 PM EDT 12/14/2024 Call attempt 1; unable to reach patient, left voicemail with call back number. documented in this encounter Plan of Treatment Upcoming Encounters Date Type Department Care Team (Late st Contact Info) Description 01/05/2025 8:00 AM EDT Office Visit [facility] [address] [place] [address] Loretta Godfrey MD [address] [place] [phone] 01/05/2025 8:15 AM EDT Clinical Support [facility] at [facility] [address] [place] [address] documented as of this encounter Visit Diagnoses Not on filedocumented in this encounter Additional Health Concerns Assessment Noted Time A fall risk assessment has been complete d for the patient 12/08/2024 8:31 AM EDT documented as of this encounter Care Teams Printing And Stamping Supervisor Relationship Specialty Start Date End Date Hermilo Otto MD [address] [address] PCP - General 05/07/24 Loretta Godfrey MD [address] [phone] Medical Oncologist Hematology and Oncology 05/18/24 Paola Rosenberg LPN VALUE-BASED TRANSFORMATION PROGRAM Licensed Practical Nurse 08/25/24 documented as of this encounter
--- OUTSIDE RECORDS SUMMARY | 2025-01-01 12:02 | XMS_ITS ---
Author Organization [facility] Address [address] [place] [address] Care Team Providers Care Group Home Paraprofessional Name Role Phone Hermilo Otto MD Primary Care Provider + [phone] Loretta Godfrey MD Unavailable [phone] Paola Rosenberg LPN Unavailable Unavaila ble [facility] Status:Active (Active) Start date:08/25/2024 Enrollment date:08/27/2024 Enrollment reason:Identified as high-risk Overview This episode type is for outpatient care managers enrolling patients in the [facility] program. Case Team Name Relationship Phone Paola Rosenberg LPN(Responsible Staff) Licens ed Practical Nurse Continued Care and Services Coordination
--- OUTSIDE RECORDS SUMMARY | 2025-01-01 12:02 | XMS_ITS ---
Author Organization [facility] Address [address] [place] [address] Care Team Providers Care Rail Gang Supervisor Name Role Phone Hermilo Otto MD Primary Care Provider + [phone] Loretta Godfrey MD Unavailable [phone] Paola Rosenberg FINANCE INTERN Unavailable Unavaila ble Active Problems Problem Noted [...]
--- OUTSIDE RECORDS SUMMARY | 2025-01-01 12:02 | XMS_ITS | Encounter Summary ---
Author Organization [facility] Address [address] [place] [address] Care Team Providers Care Timber Rider Name Role Phone Hermilo Otto MD Primary Care Provider + [phone] Loretta Godfrey MD Unavailable [phone] Paola Rosenberg LPN Unavailable Unavaila ble Reason for Visit * Reason Comments Follow-up Encounter Details Date Type Department Care Team (Late st Contact Info) Description 11/13/2024 Patient Outreach [facility] [address] [place] [address] Paola Rosenberg LPN VALUE-BASED TRANSFORMATION [...] How often do you attend chur or pentecostal services? More than 4 times per year [...] Recorded Patient Health Questionnaire-2 Score 0 10/06/2024 [facility] of Occupat ional Health - Occupational Stress [...] any time in the past 12 m [facility], were you homeless or living in a [...] 3:02 PM EDT 11/13/2024 Reason for Follow-up: [facility]+ update call. Patient Status: Side [...] Description 01/05/2025 8:00 AM EDT Office Visit [facility] at [facility] [address] [place] [address] Loretta Godfrey MD [address] [address] 01/05/2025 8:15 AM EDT Clinical Support [facility] at [facility] [address] [place] [phone] documented as of this encounter Visit Diagnoses Not on filedocumented in this encounter Additional Health Concerns Assessment Noted Time A fall risk assessment has been complete d for the patient 11/03/2024 7:52 AM EDT documented as of this encounter Care Teams Timber Rider Relationship Specialty Start Date End Date Hermilo Otto MD [facility] [address] [address] PCP - General 05/07/24 Loretta Godfrey MD [address] [phone] Medical Oncologist Hematology and Oncology 05/18/24 Paola Rosenberg LPN VALUE-BASED TRANSFORMATION PROGRAM Licensed Practical Nurse 08/25/24 documented as of this encounter
--- OUTSIDE RECORDS SUMMARY | 2025-01-01 12:02 | XMS_ITS | Encounter Summary ---
Author Organization [facility] Address [address] [place] [address] Care Team Providers Care Chief Executive Or Managing Director Name Role Phone Hermilo Otto MD Primary Care Provider + [phone] Loretta Godfrey MD Unavailable [phone] Paola Rosenberg FIELD REP Unavailable Unavaila ble Encounter Details Date Type Department Care Team (Late st Contact Info) Description 12/08/2024 Orders Only [facility] [address] [place] [phone] Loretta Godfrey MD [address] [address] 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, estrogen receptor positive, unspecified site of breast Social History Tobacco Use Types Packs/Day Years [...] How often do you attend chur or adventism services? More than 4 times per year [...] any time in the past 12 m [facility], were you homeless or living in a group home (including now)? No 08/27/2024 Utilities Answer Date [...] Indicated 12/08/2024 9:25 AM EDT Opal Johnson, SONA * Question Answer Date of Assessment Author 1. Wish to be (Past 1 Month) No 12/08/2024 9:25 AM Opal Felix, RN 2. Non-Specific Active Suici kelsie Thoughts (Past 1 Month) No 12/08/2024 9:25 AM MARIA FERNANDAT Erika Johnson RN 6. Suicidal Behavior (Lifetime) No 9:25 AM Opal Felix, RN documented as of this encounter Plan of Treatment Upcoming Encounters Date Type Department Care Team (Late st Contact Info) Description 01/05/2025 8:00 AM EDT Office Visit [facility] [address] [place] [phone] Loretta Godfrey MD [address] [place] [phone] 01/05/2025 8:15 AM EDT Clinical Support [facility] [address] [place] [address] documented as of this encounter Visit Diagnoses Diagnosis 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, estrogen receptor positive, unspecified site of breast documented in this encounter Additional Health Concerns Assessment Noted Time A fall risk assessment has been complete d for the patient 12/08/2024 8:31 AM EDT documented as of this encounter Care Teams Chief Executive Or Managing Director Relationship Specialty Start Date End Date Hermilo Otto MD [address] [place] [address] PCP - General 05/07/24 Loretta Godfrey MD [address] [place] [phone] Medical Oncologist Hematology and Oncology 05/18/24 Paola Rosenberg LPN VALUE-BASED TRANSFORMATION PROGRAM Licensed Practical Nurse 08/25/24 documented as of this encounter
--- OUTSIDE RECORDS SUMMARY | 2025-01-01 12:02 | XMS_ITS | Clinical Summary ---
Author Organization [employer] ([place], [place], [place], [place]) Address [address] [place] [address] Care Team Providers Care Drop Wire Hanger Name Role Phone Hermilo Otto MD Primary Care Provider + [phone] Allergies No known active allergies Medications sertraline (ZOLOFT) 50 MG tablet Take 1 tablet (50 mg total) by mouth daily. Active Social History Tobacco Use Types Packs/Day Years Used Date Smoking Tobacco: Never Smokeless Tobacco: Never Tobacco Cessation:Counseling Given: Not Answered Comments No Sex and Gender Information Value Date Recorded Sex Assigned at Not on file Legal Sex Female 8:46 AM DERRICK WORKER Gender Identity Not on file Sexual Orientation [...] VACCINE (1 - 2023-2 5 season) 2024 Influenza Vaccine (#1) 2025 05/23/2024 Tobacco Cessation Counseling and Screening (12+) 05/15/2025 05/15/2024 DTAP/TDAP/TD VACCINES (2 - T d or Tdap) 09/18/2028 09/18/2018 Pneumococcal Vaccine: 0-49 Years Aged Out No longer eligible based on patient's age to complete this topic Insurance BLUE CROSS/BLUE SHIELD Care Teams Drop Wire Hanger Relationship Specialty Start Date End Date Hermilo Otto MD [address] [place] [facility] [address] [place] [phone] PCP - General Family Medicine 05/15/24
--- OUTSIDE RECORDS SUMMARY | 2025-01-01 12:02 | XMS_ITS | Encounter Summary ---
Author Organization Healthcare Address [address] [place] [address] Care Team Providers Care Turret Lathe Machinist Name Role Phone Hermilo Otto MD Primary Care Provider + [phone] Loretta Godfrey MD Unavailable [phone] Paola Rosenberg LPN Unavailable Unavaila ble [...] week 08/27/2024 How often do you attend [facility] or muslim services? More than 4 times [...] Recorded Patient Health Questionnaire-2 Score 0 10/06/2024 [facility] Occupat ional [facility] - Occupational Stress Questionnaire Answer Date [...] time in the past [address] [facility], were you homeless or living [...] Description 01/05/2025 8:00 AM EDT Office Visit [facility] [address] [place] [address] Loretta Godfrey MD [address] [place] [phone] 01/05/2025 8:15 AM EDT Clinical Support [facility] [address] [place] [address] documented as of this encounter Visit Diagnoses Not on filedocumented in this encounter Additional Health Concerns Assessment Noted Time A fall risk assessment has been complete d for the patient 11/03/2024 7:52 AM EDT documented as of this encounter Care Teams Turret Lathe Machinist Relationship Specialty Start Date End Date Hermilo Otto MD [address] [place] [phone] PCP - General 05/07/24 [place] [address] [place] [phone] Medical Oncologist Hematology and Oncology 05/18/24 Paola Rosenberg LPN VALUE-BASED TRANSFORMATION PROGRAM Licensed Practical Nurse 08/25/24 documented as of this encounter
--- OUTSIDE RECORDS SUMMARY | 2025-01-01 12:02 | XMS_ITS | Encounter Summary ---
Author Organization [employer] ([place], [place], [place], [place]) Address [address] [place] [address] Care Team Providers Care Airport Duty Manager Name Role Phone Hermilo Otto MD Primary Care Provider [phone] Reason for Referral * CAT Scan (Routine) - Pending Review Specialty Diagnoses / Procedures Referred By Venkat mccarthy Referred To Contact Radiology Diagnoses Estrogen receptor positive Procedures CT BIOPSY SITE LIVER Loretta Godfrey MD [address] [place] [address] Phone: tel: fax: Referral ID Status Reason Start Date Expiration Date V isits Requested Visits Authorized [id number] Pending Review 05/13/2024 05/13/2025 1 1 Encounter Details Date Type Department Care Team (Late st Contact Info) Description 05/13/2024 Outside Orders [facility] Central Scheduling 1 [place] [address] Loretta Godfrey MD [address] [place] [address] Estrogen receptor positive (Primary Dx) Social History Tobacco Use Types Packs/Day Years Used Date Smoking Tobacco: Never Assessed Comments Unknown Sex and Gender Information Value Date Recorded Sex Assigned at Not on file Legal Sex Female 8:46 AM FORENSIC INVESTIGATOR Gender Identity Not on file Sexual Orientation [...] liver masses. ATTENDING RADIOLOGIST: Dr. Courtney. PHYSICIAN BUNK ASSEMBLER: Fabian Starks PA-C. PROCEDURE: After informed consent [...] liver masses. ATTENDING RADIOLOGIST: Dr. Courtney. PHYSICIAN BUNK ASSEMBLER: Fabian Starks PA-C. PROCEDURE: After informed consent [...] by Fabian Starks PA-C Loretta Godfrey MD IM CT ORDERABLES Final Result documented in this encounter Visit Diagnoses Diagnosis Estrogen receptor positive- Primary Estrogen receptor positive status [ER+] Estrogen receptor positive Estrogen receptor positive status [ER+] documented in this encounter Care Teams Airport Duty Manager Relationship Specialty Start Date End Date Hermilo Otto MD 1210 [facility] [address] [place] [phone] PCP - General Family Medicine 05/15/24 documented as of this encounter
--- OUTSIDE RECORDS SUMMARY | 2025-01-01 12:02 | XMS_ITS | Encounter Summary ---
Author Organization [facility] Address [address] [place] [address] Care Team Providers Care Waiter/Waitress Economy Class Name Role Phone Hermilo Otto MD Primary Care Provider + [phone] Loretta Godfrey MD Unavailable [phone] Paola Rosenberg DECORATING EQUIPMENT SETTER Unavailable Unavaila ble Encounter Details Date Type Department Care Team (Late st Contact Info) Description 12/07/2024 Orders Only [facility] [address] [place] [phone] Loretta Godfrey MD [address] [address] Social History Tobacco Use Types [...] often do you attend chur ch or gnosticist services? More than 4 times per year [...] Recorded Patient Health Questionnaire-2 Score 0 10/06/2024 [facility] of Occupat ional Health - Occupational [...] any time in the past 12 m [facility], were you homeless or living in a nursing home (including now)? No 08/27/2024 Utilities Answer [...] Author No Risk Indicated 12/08/2024 9:25 AM Opal Felix RN * Question Answer Date of Assessment [...] 8:00 AM EDT Office Visit [facility] [address] [place] [phone] Loretta Godfrey MD [address] [place] [phone] 01/05/2025 8:15 AM EDT Clinical Support [facility] [address] [place] [phone] documented as of this encounter Procedures Procedure Name Priority Date/Time Associated Diagnosis Comments CANCER ANTIGEN 27.29 Routine 12/04/2024 8:49 AM EDT documented in this encounter Results * Cancer antigen 27.29 (12/04/2024 8:49 AM EDT) Blood Venous blood specimen / Unknown us Loretta Godfrey MD LAB BLOOD ORDERABLES Final Re sult documented in this encounter Visit Diagnoses Not on filedocumented in this encounter Additional Health Concerns Assessment Noted Time A fall risk assessment has been complete d for the patient 11/03/2024 7:52 AM EDT documented as of this encounter Care Teams Waiter/Waitress Economy Class Relationship Specialty Start Date End Date Hermilo Otto MD [facility] [place] [address] PCP - General 05/07/24 Loretta Godfrey MD [address] [phone] Medical Oncologist Hematology and Oncology 05/18/24 Paola Rosenberg LPN VALUE-BASED TRANSFORMATION PROGRAM Licensed Practical Nurse 08/25/24 documented as of this encounter
--- OUTSIDE RECORDS SUMMARY | 2025-01-01 12:02 | XMS_ITS | Encounter Summary ---
Author Organization Healthcare Address [address] [place] [address] Care Team Providers Care Machine Molder Squeeze Name Role Phone Hermilo Otto MD Primary Care Provider + [phone] Loretta Godfrey MD Unavailable [phone] Paola Rosenberg LPN Unavailable Unavaila ble Encounter Details Date Type Department Care Team (Latest Contact Info) Description 12/07/2024 Travel Social History Tobacco Use Types Packs/Day [...] week 08/27/2024 How often do you attend [facility] or pentecostalism services? More than 4 times per year 08/27/2024 Do you belong to any clubs o r organizations such as voodoo groups, unions, fraternal or athletic groups, or [...] Recorded Patient Health Questionnaire-2 Score 0 10/06/2024 [facility] of Occupat ional [facility] - Occupational Stress Questionnaire Answer Date [...] in the past 12 m [facility], were you homeless or living in [...] Visit [facility] [address] [place] [phone] [facility] [phone] 01/05/2025 8:15 AM EDT Clinical Support [facility] [address] [place] [phone] documented as of this encounter Visit Diagnoses Not on filedocumented in this encounter Additional Health Concerns Assessment Noted Time A fall risk assessment has been complete d for the patient 11/03/2024 7:52 AM EDT documented as of this encounter Care Teams Machine Molder Squeeze Relationship Specialty Start Date End Date Hermilo Otto MD 1210 [facility] [address] [place], [place] [phone] PCP - General 05/07/24 Loretta Godfrey MD [address] [phone] Medical Oncologist Hematology and Oncology 05/18/24 Paola Rosenberg LPN VALUE-BASED TRANSFORMATION PROGRAM Licensed Practical Nurse 08/25/24 documented as of this encounter
--- OUTSIDE RECORDS SUMMARY | 2025-01-01 12:02 | XMS_ITS | Referral Summary ---
Author Organization [employer] ([place], [place], [place], [place]) Address [address] [place] [address] Care Team Providers Care Medical Office Technician Name Role Phone Hermilo Otto MD Primary Care Provider + [phone] Allergies No known active allergies Medications sertraline (ZOLOFT) 50 MG tablet Take 1 tablet (50 mg total) by mouth daily. Active Social History Tobacco Use Types Packs/Day Years Used Date Smoking Tobacco: Never Smokeless Tobacco: Never Tobacco Cessation:Counseling Given: Not Answered Comments No Sex and Gender Information Value Date Recorded Sex Assigned at Not on file Legal Sex Female 8:46 AM TIMBER FELLER Gender Identity Not on file Sexual Orientation [...] Plan of Treatment Not on file Insurance BLUE CROSS/BLUE SHIELD Care Teams Medical Office Technician Relationship Specialty Start Date End Date Hermilo Otto MD 1210 [facility] [address] [place] [phone] PCP - General Family Medicine 05/15/24
--- OUTSIDE RECORDS SUMMARY | 2025-01-01 12:02 | XMS_ITS | Encounter Summary ---
Author Organization Healthcare Address [address] [place] [address] Care Team Providers Care Coat Feller Name Role Phone Hermilo Otto MD Primary Care Provider + [phone] Loretta Godfrey MD Unavailable [phone] Paola Rosenberg LPN Unavailable Unavaila ble [...] week 08/27/2024 How often do you attend [facility] or yazdanism services? More than 4 times [...] Recorded Patient Health Questionnaire-2 Score 0 10/06/2024 [facility] of Occupat ional [facility] - Occupational Stress Questionnaire Answer Date [...] any time in the past 12 m [facility], were you homeless or living in a detention (including now)? No 08/27/2024 Utilities Answer Date [...] Description 01/05/2025 8:00 AM EDT Office Visit [facility] [address] [place] [phone] [facility] [phone] 01/05/2025 8:15 AM EDT Clinical Support [facility] [address] [place] [phone] documented as of this encounter Visit Diagnoses Not on filedocumented in this encounter Additional Health Concerns Assessment Noted Time A fall risk assessment has been complete d for the patient 10/06/2024 7:59 AM EDT documented as of this encounter Care Teams Coat Feller Relationship Specialty Start Date End Date Hermilo Otto MD 1210 [facility] [address] [place] [address] PCP - General 05/07/24 Loretta Godfrey MD [address] [address] [phone] Medical Oncologist Hematology and Oncology 05/18/24 Paola Rosenberg LPN VALUE-BASED TRANSFORMATION PROGRAM Licensed Practical Nurse 08/25/24 documented as of this encounter
--- OUTSIDE RECORDS SUMMARY | 2025-01-01 12:02 | XMS_ITS | Encounter Summary ---
Author Organization [facility] Address [address] [place] [address] Care Team Providers Care Dry Wall Installations Mechanic Name Role Phone Hermilo Otto MD Primary Care Provider + [phone] Loretta Godfrey MD Unavailable [phone] Paola Rosenberg LPN Unavailable Unavaila ble Reason for Visit * Reason Comments Follow-up Encounter Details Date Type Department Care Team (Late st Contact Info) Description 12/15/2024 Patient Outreach [facility] [address] [place] [address] Paola Rosenberg LPN VALUE-BASED TRANSFORMATION [...] How often do you attend chur or advent services? More than 4 times per year [...] Recorded Patient Health Questionnaire-2 Score 0 10/06/2024 [facility] of Occupat ional Health - Occupational [...] any time in the past 12 m [facility], were you homeless or living in a penitentiary (including now)? No 08/27/2024 Utilities Answer Date [...] Progress Notes - Paola Rosenberg LPN - 12/15/2024 11:15 AM EDT 12/15/2024 Call attempt 2; unable to reach patient, left voicemail with call back number. documented in this encounter Plan of Treatment Upcoming Encounters Date Type Department Care Team (Late st Contact Info) Description 01/05/2025 8:00 AM EDT Office Visit [facility] [address] [place] [address] Loretta Godfrey MD [address] [place] [phone] 01/05/2025 8:15 AM EDT Clinical Support [facility] [address] [place] [address] documented as of this encounter Visit Diagnoses Not on filedocumented in this encounter Additional Health Concerns Assessment Noted Time A fall risk assessment has been complete d for the patient 12/08/2024 8:31 AM EDT documented as of this encounter Care Teams Dry Wall Installations Mechanic Relationship Specialty Start Date End Date Hermilo Otto MD [address] [address] PCP - General 05/07/24 Loretta Godfrey MD [address] [phone] Medical Oncologist Hematology and Oncology 05/18/24 Paola Rosenberg LPN VALUE-BASED TRANSFORMATION PROGRAM Licensed Practical Nurse 08/25/24 documented as of this encounter
--- OUTSIDE RECORDS SUMMARY | 2025-01-01 12:02 | XMS_ITS | Encounter Summary ---
Author Organization [facility] Address [address] [place] [address] Care Team Providers Care Device Processing Engineer Name Role Phone Hermilo Otto MD Primary Care Provider + [phone] Loretta Godfrey MD Unavailable [phone] Paola Rosenberg SENIOR CLINICAL RESEARCH ASSOCIATE Unavailable Unavaila ble Encounter Details Date Type Department Care Team (Late st Contact Info) Description 12/04/2024 Orders Only [facility] [address] [place] [phone] Loretta Godfrey MD [address] [address] Social History Tobacco Use Types [...] often do you attend chur ch or oriental orthodox services? More than 4 times per year 08/27/2024 Do you belong to any clubs o r organizations such as sikhism groups, unions, fraternal or athletic groups, or [...] Recorded Patient Health Questionnaire-2 Score 0 10/06/2024 [facility] of Occupat ional Health - [...] any time in the past 12 m [facility], were you homeless or living in [...] Description 01/05/2025 8:00 AM EDT Office Visit [facility] [address] [place] [phone] Loretta Godfrey MD [address] [address] 01/05/2025 8:15 AM EDT Clinical Support [facility] [address] [place] [phone] documented as of this encounter Procedures Procedure Name Priority Date/Time Associated Diagnosis Comments COMPLETE METABOLIC PROFILE (CMP) Routine 12/04/2024 11:13 AM EDT CBC W/DIFF Routine 12/04/2024 11:13 AM EDT documented in this encounter Results * CBC W/DIFF (12/04/2024 11:13 AM EDT) us Loretta Godfrey MD LAB BLOOD ORDERABLES Final Re sult * COMPLETE METABOLIC PROFILE (CMP) (12/04/2024 11:13 AM EDT) us Loretta Godfrey MD LAB BLOOD ORDERABLES Final Re sult documented in this encounter Visit Diagnoses Not on filedocumented in this encounter Additional Health Concerns Assessment Noted Time A fall risk assessment has been complete d for the patient 11/03/2024 7:52 AM EDT documented as of this encounter Care Teams Device Processing Engineer Relationship Specialty Start Date End Date Hermilo Otto MD [facility] [address] [address] PCP - General 05/07/24 Loretta Godfrey MD 2195 [facility] [address] [place] [address] Medical Oncologist Hematology and Oncology 05/18/24 Paola Rosenberg LPN VALUE-BASED TRANSFORMATION PROGRAM Licensed Practical Nurse 08/25/24 documented as of this encounter
--- OUTSIDE RECORDS SUMMARY | 2025-01-01 12:03 | XMS_ITS | Encounter Summary ---
Author Organization [facility] Address [address] [place] [address] Care Team Providers Care Teller Manager Name Role Phone Hermilo Otto MD Primary Care Provider + [phone] Loretta Godfrey MD Unavailable [phone] Paola Rosenberg TRANSPORTATION DRIVER Unavailable Unavaila ble Encounter Details Date Type Department Care Team (Late st Contact Info) Description 11/02/2024 Orders Only [facility] [address] [place] [phone] Loretta Godfrey MD [address] [address] Social History Tobacco Use Types [...] Recorded Patient Health Questionnaire-2 Score 0 10/06/2024 [facility] of Occupat ional Health - Occupational [...] (Past 1 Month) No 11/03/2024 8:35 AM MARIA FERNANDAT Erika Johnson RN 6. Suicidal Behavior (Lifetime) No 8:35 AM Opal Felix, RN documented as of this encounter Plan of Treatment Upcoming Encounters Date Type Department Care Team (Late st Contact Info) Description 01/05/2025 8:00 AM EDT Office Visit [facility] [address] [place] [phone] Loretta Godfrey MD [address] [place] [phone] 01/05/2025 8:15 AM EDT Clinical Support [facility] [address] [place] [address] documented as of this encounter [...] Region Laterality Modality Chest Computed Tomogra phy Loretta Godfrey MD IMG CT PROCEDURES Final Resul t documented in this encounter Visit Diagnoses Not on filedocumented in this encounter Additional Health Concerns Assessment Noted Time A fall risk assessment has been complete d for the patient 10/06/2024 7:59 AM EDT documented as of this encounter Care Teams Teller Manager Relationship Specialty Start Date End Date Hermilo Otto MD 1210 [facility] [address] [place] [address] PCP - General 05/07/24 Loretta Godfrey MD [address] [place] [phone] Medical Oncologist Hematology and Oncology 05/18/24 Paola Rosenberg LPN VALUE-BASED TRANSFORMATION PROGRAM Licensed Practical Nurse 08/25/24 documented as of this encounter
--- OUTSIDE RECORDS SUMMARY | 2025-01-01 12:03 | XMS_ITS | Patient Health Record ---
Author Organization [facility] Address [address] [place] [address] Care Team Providers Care Electrical Test Engineer Name Role Phone Makenzie Ward Unavailable [phone] Chela Doss Unavailable [phone] Allergies No Known Allergies Results Component Value Reference Range Notes Pap w/HPV Reviewed date:04/13/2024 09:31:36 AM Interpretation:Pap normal, HPV negative Performing Lab:[facility], [facility] - MXA CLIA ID [id number], [address], [address], [place] [address], Director - Maya Durant MD Notes/Report: Any Nucleic Acid Amplification testing is performed on the startuply [place]. Diagnosis: Negative for intraepithelial lesion or malignancy. AP results Satisfactory for interpretation with endocervical/transforma tion zone component absent. Specimen Type: ThinPrep Collection Technique: Not provided Recommendation: Follow-up based on current clinical guidelines and/or clinical consideration. ICD Codes: Z01.419 Date of Last Pap: Not provided CPT Codes: 90552 Negative for intraepithelial lesion or malignancy. Specimen Source: Cervical/Endocervical LMP: 03/20/2024 Canvassing Manager DIAGNOSIS: Results of Last Pap: Not provided Other Gynecological Patient Information: Not provided Liyah Duong Negative Educational Note: The pap screening test aids in the detection of premalignant and malignant states of the cervix. False positive and negative results may occur. It is not a diagnostic test. If abnormal cells are reported, follow-up based on current clinical guidelines and/or clinical consideration is recommended. Screening note: This specimen has been analyzed by the ThinDecohuntp Imaging System, an interactive computer system which assists the lab in screening of ThinPrep Pap Test slides. Following imaging, the slide was reviewed by a Canvassing Manager and/or Pathologist. Specimen Adequacy: FINAL OPERATOR/ASSISTANT FOREMAN CYTOLOGY REPORT Pertinent Clinical History/History of Surgery: Not provided HPV High-Risk Negative Negative US GUIDED BREAST [...] on 04/22/2024 4:[address] Duke Alcantar MD. 14G VACORA VACUUM-ASSISTED ULTRASOUND GUIDED CORE [...] on 04/16/2024 4:[address] Duke Alcantar MD. Signed by: Duke Alcantar on 04/16/2024 4:28 PM RT BREAST 1;00 [...] on 04/22/2024 4:[address] Duke Alcantar MD. 14G VACORA VACUUM-ASSISTED ULTRASOUND GUIDED CORE [...] on 04/16/2024 4:[address] Duke Alcantar MD. Signed by: Duke Alcantar on 04/16/2024 4:40 PM LEFT BREAST 9;00 MASS U/S BX 5 CC LIDO 4 CC LIDO W/EPI 1% 5 CORES 14 G MARQUEE PINK COIL CLIP PLACED TO BE [...] of concern indicated by the patient. A [place] marker is placed over a visible skin lesion. A linear marker indicates a scar. Physician Order Ultrasound Guided Breast Biopsy Diagnosis: Abnormal Mammogram This report was finalized on 04/14/2024 5:[address] Duke Alcantar MD. Signed by: Duke Alcantar on 04/14/2024 5:13 PM BASELINE EXAM. 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 Problem Premenstrual tension syndrome (21952701) PMDD (premenstrual dysphoric disorder) (F32.81) Active confirmed Problem test positive (710630659) Encounter for test, result positive (Z32.01) 018 Active confirmed test positive Problem Gynecological examination normal (988486332099259 ) Cervical smear, as part of routine gynecological examination (Z01.419) 019 Active confirmed Annual without abnormal findings Vital Signs Blood pressure diastolic 70 mm Hg 05/11/2024 Height 65 in 05/11/2024 Blood pressure systolic 114 mm Hg 05/11/2024 Weight 171.8 lbs 05/11/2024 BMI 28.59 kg/m2 05/11/2024 Encounters Encounter Location Date Provider Diagnosis [facility] [address] [address] 05/11/2024 Chela Doss PMDD (premenstrual dysphoric disorder) F32.81 [facility] [address] [address] 04/06/2024 Chela Doss Encounter for gynecological examination [...] Provider Name:Parul Main, 04/14/2025 03:00:00 PM, [address], [address], Insurance Providers Payer Name Payer Address Payer Phone Subscriber Number Group Number Insured Name Patient Relationship to Insured Coverage Start Date Coverage End Date Fanny DOLAN [address] [place] [address] [id number] Shona Sterling Self - patient is the insured Medical (General) History Surgical History Surgery Date(Month/Year) BTL Lampe Teeth 2007 Tonsillectomy
--- OUTSIDE RECORDS SUMMARY | 2025-01-01 12:03 | XMS_ITS | Encounter Summary ---
Author Organization [facility] Address [address] [place] [address] Care Team Providers Care Computer Specialist Name Role Phone Hermilo Otto MD Primary Care Provider + [phone] Loretta Godfrey MD Unavailable [phone] Paola Rosenberg SENIOR PIPING DESIGNER Unavailable Unavaila ble Reason for Visit * Reason Onset Date Comments Med Refill 11/04/2024 Encounter Details Date Type Department Care Team (Late st Contact Info) Description 11/04/2024 Refill [facility] [address] [place] [phone] Loretta Godfrey MD [address] [address] Social History Tobacco Use Types [...] in the past 12 m [facility], were you homeless or living in a fci (including now)? No 08/27/2024 Utilities Answer Date [...] Description 01/05/2025 8:00 AM EDT Office Visit [facility] [place] [address] [place] [address] Loretta Godfrey MD [address] [phone] 01/05/2025 8:15 AM EDT Clinical Support [facility] at [address] [place] [address] documented as of this encounter Visit Diagnoses Not on filedocumented in this encounter Additional Health Concerns Assessment Noted Time A fall risk assessment has been complete d for the patient 11/03/2024 7:52 AM EDT documented as of this encounter Care Teams Computer Specialist Relationship Specialty Start Date End Date Hermilo Otto MD [address] [facility] [address] [place] [address] PCP - General 05/07/24 Loretta Godfrey MD [address] [phone] Medical Oncologist Hematology and Oncology 05/18/24 Paola Rosenberg LPN VALUE-BASED TRANSFORMATION PROGRAM Licensed Practical Nurse 08/25/24 documented as of this encounter
[2025-01-01 12:17] LABS: Hematocrit 36.3 % (37.0-47.0); Hemoglobin 12.5 g/dL (12.2-16.2); Immature Granulocytes % 0.4 %; Mean Corpuscular HGB Conc 34.4 g/dL (31.8-35.4); Mean Corpuscular Hemoglobin 33.4 pg (27.0-31.2); Mean Corpuscular Volume 97.1 fl (81-99); Nucleated Red Blood Cells % 0 %; Platelet Count 170 K/mm3 (142-424); Red Blood Count 3.74 M/mm3 (4.20-5.40); Red Cell Distribution Width-SD 45.5 fL; White Blood Count 5.5 K/mm3 (4.8-10.8)
[2025-01-02 10:43] LABS: CA 27.29 122.7 U/mL (0.0-38.6)
[2025-01-05 07:47] LABS: Alanine Aminotransferase 21 U/L (12-78); Albumin Level 4.2 g/dl (3.5-5.0); Albumin/Globulin Ratio 1.6 (1.1-1.8); Alkaline Phosphatase 70 U/L (38-126); Anion Gap 16.0 mEq/L (5-15); Aspartate Amino Transferase 28 U/L (14-36); Bilirubin,Total 0.6 mg/dl (0.2-1.3); Blood Urea Nitrogen 18 mg/dl (7-17); Calcium 9.2 mg/dl (8.4-10.2); Carbon Dioxide 27 mmol/L (22.0-30.0); Chloride 105 mmol/L (98-107); Creatinine,Serum 1.00 mg/dl (0.52-1.04); Estimated Glomerular Filt Rate 62 ml/min (>60); GFR (African American) 75 ML/MIN (>60); Globulin 2.7 g/dL (1.3-3.2); Glucose 96 mg/dl (74-100); Potassium 5.0 mmoL/L (3.5-5.1); Sodium 143 mmol/L (136-145); Total Protein,Serum 6.9 g/dl (6.3-8.2)
== END 2025-01-01 23:59 | disposition home or self-care (01) ==
LOC: LAB 12:00
PROVIDERS: PCP Family Medicine; Visit Provider Internal Medicine Hematology & Oncology
DX: C50.411 Malignant neoplasm of upper-outer quadrant of right female breast (principal); Z17.0 Estrogen receptor positive status [ER+]
CPT/HCPCS: 36415; 80053; 85025; 86300

== ENCOUNTER 2025-01-29 07:42 | Outpatient (CLI) | payer BC, SELFPAY ==
--- OUTSIDE RECORDS SUMMARY | 2024-12-08 08:30 | XMS_ITS | Encounter Summary ---
Author Organization [facility] Address [address] [place] [address] Care Team Providers Care Manager Card Name Role Phone Hermilo Otto MD Primary Care Provider + [phone] Loretta Godfrey MD Unavailable [phone] Paola Rosenberg DEPUTY COMMISSIONER Unavailable Unavaila ble Encounter Details Date Type Department Care Team (Late st Contact Info) Description 12/08/2024 8:30 AM EDT Office Visit [facility] [address] [place] [phone] Loretta Godfrey MD [address] [address] Malignant neoplasm of upper-outer quadrant [...] week 08/27/2024 How often do you attend [facility] or shinto services? More than 4 times per year 08/27/2024 Do you belong to any clubs o r organizations such as episcopalian groups, unions, fraternal or athletic groups, or [...] Recorded Patient Health Questionnaire-2 Score 0 10/06/2024 [facility] of Occupat ional Health - Occupational [...] any time in the past 12 m [facility], were you homeless or living [...] Sign Reading Time Taken Comments Blood Pressure 122/80 12/08/2024 8:29 AM EDT Pulse 71 12/08/2024 8:29 AM EDT Temperature 36.5 C (97.7 F) 12/08/2024 8:29 AM EDT Respiratory Rate - - Oxygen Saturation 100% 12/08/2024 8:29 AM EDT Inhaled Oxygen Concentration - - Weight 71.4 kg (157 lb 6.5 oz) 12/08/2024 8:29 A M EDT Height 165.1 cm (5' 5 ) 12/08/2024 8:29 AM EDT Body Mass Index 26.19 12/08/2024 8:29 AM EDT documented in this encounter Functional Status * Calculated C-SSRS Risk Score (Lifetime/Recent) Answer Date of Assessment Author No Risk Indicated 12/08/2024 8:31 AM EDT Silvana Wyman * Question Answer Date of Assessment Author 1. Wish to be (Past 1 Month) No 025 8:31 AM Silvana Oneal 2. Non-Specific Active Suici kelsie Thoughts (Past 1 Month) No 12/08/2024 8:31 AM Silvana Oenal 6. Suicidal Behavior (Lifetime) No 8:31 AM Silvana Oneal documented as of this encounter Miscellaneous Notes * Progress Notes - Loretta Godfrey MD - 12/08/2024 8:30 AM EDT [facility] at [facility] HEMATOLOGY/ONCOLOGY FOLLOW UP Shona Prieto 1985 Primary Care Provider: Hermilo Otto MD Cancer Staging No matching staging information was found for the patient. Assessment & Plan Treatment Details Treatment goal [No plan goal] Plan Name (Hem/Onc) Leuprolide Acetate (Lupron) Status Active Start Date 05/19/2024 End Date Until discontinued Provider Loretta Godfrey MD Chemotherapy leuprolide (Lupron) injection 3.75 mg, 3.75 mg, Intramuscular, Once, 1 of 1 cycle Administration: 3.75 mg (05/19/2024), 3.75 mg (06/16/2024), 3.75 mg (07/14/2024), 3.75 mg (08/11/2024), 3.75 mg (09/08/2024), 3.75 mg (10/06/2024), 3.75 mg (11/03/2024) Treatment Details Treatment goal [No plan goal] Plan Name (Hem/Onc) Denosumab (Xgeva) for Prevention of Skeletal-related Events Status Active Start Date 06/16/2024 End Date Until discontinued Provider Loretta Godfrey MD Chemotherapy denosumab (Xgeva) 120 MG/1.7ML injection 120 mg, 120 mg, Subcutaneous, Once, 1 of 1 cycle Administration: 120 mg (06/16/2024), 120 mg (07/14/2024), 120 mg (08/11/2024), 120 mg (09/08/2024), 120 mg (10/06/2024), 120 mg (11/03/2024) Subjective History of Present Illness: Shona Prieto [...] the dentist. She has been seen at [facility]. She had a good visit and we will send liquid biopsy for NGS. Pt has lost 10 pounds intentionally with cutting out sugar. 07/14/24 [facility] One CDX revealed no actionable four horse hitch driver mutation. Pt has been seen at [facility] and was told to continue current therapy. Pt enjoyed her daughter'sbirthday alliance party rollers kating. She's had some stressors with her episcopalian. She's quite active attending her children's sporting activities. Signetera to date: 05/19/24 34.16 08/19/24 0 10/27/24 [...] be excluded in the proper clinical setting. Pt is looking forward to travel softball season. She will be traveling to [place]. Pt will becamping as well. The following portions of the chart were reviewed this encounter and updated as appropriate: Tobacco Allergies Meds Problems Med Hx Surg Hx Fam Hx Objective Review of Systems Constitutional: Negative for chills and fever. HENT: Negative for mouth sores. Respiratory: Negative for cough and shortness of breath. Cardiovascular: Negative for chest pain. Gastrointestinal: Negative for diarrhea, nausea and vomiting. Genitourinary: Negative for frequency. Musculoskeletal: Negative for arthralgias. Skin: Negative for rash. Neurological: Negative. Psychiatric/Behavioral: Negative. Physical Exam: Vital Signs for this encounter: BSA: 1.81 meters squared Visit Vitals BP 122/80 Pulse 71 Temp 36.5 ??C (97.7 ??F) (Temporal) Ht 1.651 m (5' 5 ) Wt 71.4 kg (157 lb 6.5 oz) SpO2 100% BMI 26.19 kg/m?? Smoking Status Never BSA 1.81 m?? Physical Exam Constitutional: General: She is [...] recommendation of the National Kidney Foundation and [place] Society of Nephrology. This calculation has not been validated in women. For pediatric patients refer to https://www.kidney.org/professionals/KDOQI/gfr_calculatorPed No results found. Assessment/Plan Stage IV breast cancer ER+ [place] + Her 2 garett - with metastatic [...] this continues to decline.. Pt gone to [facility] for a consultation. She has had some hot flashes and diarrhea. These are both improving. She takes imodium intermittently prn. Her LFTs are normal. Pt has had Signatera sent with most recent was 0.This will [...] Care Team (Late st Contact Info) Description 02/02/2025 9:15 AM EDT Office Visit [facility] [address] [place] [address] [place] [address] [place] [phone] 02/02/2025 9:30 AM EDT Clinical Support [facility] [address] [place] [phone] documented as of this encounter Visit Diagnoses Diagnosis Malignant neoplasm of upper-outer quadrant of right breast in female, estrogen receptor positive- Primary documented in this encounter Additional Health Concerns Assessment Noted Time A fall risk assessment has been complete d for the patient 12/08/2024 8:31 AM EDT documented as of this encounter Care Teams Manager Card Relationship Specialty Start Date End Date Hermilo Otto MD 1210 [facility] [address] [address] PCP - General 05/07/24 Loretta Godfrey MD [address] [address] Medical Oncologist Hematology and Oncology 05/18/24 Paola Rosenberg LPN VALUE-BASED TRANSFORMATION PROGRAM Licensed Practical Nurse 08/25/24 documented as of this encounter
--- OUTSIDE RECORDS SUMMARY | 2024-12-08 08:45 | XMS_ITS | Encounter Summary ---
Author Organization [facility] Address [address] [place] [address] Care Team Providers Care Signalling And Communications Engineer Name Role Phone Hermilo Otto MD Primary Care Provider + [phone] Loretta Godfrey MD Unavailable [phone] Paola Rosenberg ACCOUNT SUPERVISOR Unavailable Unavaila ble Reason for Visit * Reason Comments Injections * Episode Based Medications (Routine) - Authorized Specialty Diagnoses / Procedures Referred By Venkat mcacrthy Referred To Contact Diagnoses Malignant neoplasm of upper-outer quadrant of right breast in female, estrogen receptor positive Procedures IN LEUPROLIDE ACETATE SUSPNSION Loretta Godfrey MD [address] [address] Phone: tel: fax: [facility] [address] [place] [address] Phone: tel: fax: Referral ID Status Reason Start Date Expiration Date V isits Requested Visits Authorized [id number] Authorized 05/19/2024 11/18/2025 1 14 Encounter Details Date Type Department Care Team (Latest Contact Info) Description 12/08/2024 8:45 AM EDT Clinical Support [facility] [address] [place] [address] Malignant neoplasm of upper-outer quadrant [...] How often do you attend [facility] or jewish services? More than 4 times per year [...] Recorded Patient Health Questionnaire-2 Score 0 10/06/2024 [facility] of Occupat ional Health - [...] any time in the past 12 m [facility], were you homeless or living in a alf (including now)? No 08/27/2024 Utilities Answer Date Recorded In the past 12 months has th e [employer], gas, oil, or water company threatened to [...] Description 02/02/2025 9:15 AM EDT Office Visit [facility] [address] [place] [address] Loretta Godfrey MD [address] [phone] 02/02/2025 9:30 AM EDT Clinical Support [facility] [address] [place] [address] documented as of this encounter Visit Diagnoses Diagnosis Malignant neoplasm of upper-outer quadrant of right breast in female, estrogen receptor positive- Primary documented in this encounter Administered Medications Inactive Administered Medications - up to 3 most recent administrations Medication Order MAR Action Action Date Dose Rate Site denosumab (Xgeva) 120 MG/1.7ML injection 120 mg 120 mg, Subcutaneous, Once, On Tu12/08/24 at 0930, For 1 doseIndications:Malign ant neoplasm [...] documented as of this encounter Care Teams Signalling And Communications Engineer Relationship Specialty Start Date End Date Hermilo Otto MD [facility] [place] [address] PCP - General 05/07/24 Loretta Godfrey MD [address] [phone] Medical Oncologist Hematology and Oncology 05/18/24 Paola Rosenberg LPN VALUE-BASED TRANSFORMATION PROGRAM Licensed Practical Nurse 08/25/24 documented as of this encounter
--- OUTSIDE RECORDS SUMMARY | 2025-01-05 08:00 | XMS_ITS | Encounter Summary ---
Author Organization [facility] Address [address] [place] [address] Care Team Providers Care Heat And Frost Insulator Helper Name Role Phone Hermilo Otto MD Primary Care Provider + [phone] Loretta Godfrey MD Unavailable [phone] Paola Rosenberg SLOT MACHINE MECHANIC Unavailable Unavaila ble Reason for Visit * Reason Comments Follow-up Encounter Details Date Type Department Care Team (Late st Contact Info) Description 01/05/2025 8:00 AM EDT Office Visit [facility] at [facility] [address] [place] [address] Loretta Godfrey MD [address] [address] Malignant neoplasm of upper-outer quadrant [...] week 08/27/2024 How often do you attend [facility] or christian services? More than 4 times per year 08/27/2024 Do you belong to any clubs o r organizations such as druze groups, unions, fraternal or athletic groups, or [...] Recorded Patient Health Questionnaire-2 Score 0 10/06/2024 [facility] - [...] time in the past 12 m [facility], were you homeless or living [...] Sign Reading Time Taken Comments Blood Pressure 106/70 01/05/2025 7:55 AM EDT Pulse 69 01/05/2025 7:55 AM EDT Temperature 36.5 C (97.7 F) 01/05/2025 7:55 AM EDT Respiratory Rate - - Oxygen Saturation 100% 01/05/2025 7:55 AM EDT Inhaled Oxygen Concentration - - Weight 73.2 kg (161 lb 6 oz) 01/05/2025 7:55 AM EDT Height 165.1 cm (5' 5 ) 01/05/2025 7:55 AM EDT Body Mass Index 26.85 01/05/2025 7:55 AM EDT documented in this encounter Miscellaneous Notes * Progress Notes - Loretta Godfrey MD - 01/05/2025 8:00 AM EDT [facility] [place] at [facility] HEMATOLOGY/ONCOLOGY FOLLOW UP Shona Prieto 1985 [...] mg (09/08/2024), 3.75 mg (10/06/2024), 3.75 mg (11/03/2024), 3.75 mg (12/08/2024) Treatment Details Treatment goal [No plan goal] [...] mg (09/08/2024), 120 mg (10/06/2024), 120 mg (11/03/2024), 120 mg (12/08/2024) Subjective History of Present Illness: Shona Prieto [...] the dentist. She has been seen at [facility]. She had a good visit and we will send liquid biopsy for NGS. Pt has lost 10 pounds intentionally with cutting out sugar. 07/14/24 [facility] CDX revealed no actionable regional otr company driver mutation. Pt has been seen at [facility] and was told to continue current therapy. Pt enjoyed her daughter'day republican rollers kating. She's had some stressors with her druze. She's quite active attending her children's sporting activities. Signetera to date: 05/19/24 34.16 08/19/24 0 12/08/24 0 10/27/24 CT CAP 1.Masses within the [...] looking forward to travel softball season. She enjoyed [employer]. Pt does not wish to have her mother haul her camper ever again. The following portions of the chart were [...] Exam: Vital Signs for this encounter: BSA: 1.83 meters squared Visit Vitals BP 106/70 Pulse 69 Temp 36.5 ??C (97.7 ??F) (Temporal) Ht 1.651 m (5' 5 ) Wt 73.2 kg (161 lb 6 oz) SpO2 100% BMI 26.85 kg/m?? Smoking Status Never BSA 1.83 m?? Physical Exam Constitutional: General: She is [...] recommendation of the National Kidney Foundation and [place] Society of Nephrology. This calculation has not been validated in women. For pediatric patients refer to https://www.kidney.org/professionals/KDOQI/gfr_calculatorPed Assessment/Plan Stage IV breast cancer ER+ [place] + Her 2 garett - with metastatic [...] her Ca 27-29/Signetera and this continues to decline. Pt gone to [facility] for a consultation. She has had some hot flashes and diarrhea. These are both improving. She takesimodium intermittently prn. Her LFTs are normal. Pt has had Signatera sent with most recent was 0. This will be due at the end of January. Her genetic testing revealed no deleterious mutation. NGS liquid biopsy revealed no deleterious mutation. Repeat imaging has been reviewed on 10/27/24. We discussed the bone sclerosis as being healing bone. Overall, she is doing well. Pt continues to feel well. We will re-image in 8 weeks. documented in this encounter Plan of Treatment Upcoming Encounters Date Type Department Care Team (Late st Contact Info) Description 02/02/2025 9:15 AM EDT Office Visit [facility] at [facility] [address] [place] [address] Loretta Godfrey MD [address] [phone] 02/02/2025 9:30 AM EDT Clinical Support [facility] at [facility] [address] [place] [phone] documented as of this encounter Visit Diagnoses Diagnosis Malignant neoplasm of upper-outer quadrant of right breast in female, estrogen receptor positive- Primary documented in this encounter Additional Health Concerns Assessment Noted Time A fall risk assessment has been complete d for the patient 12/08/2024 8:31 AM EDT documented as of this encounter Care Teams Heat And Frost Insulator Helper Relationship Specialty Start Date End Date Hermilo Otto MD [facility] [place] [address] PCP - General 05/07/24 Lroetta Godfrey MD [address] [phone] Medical Oncologist Hematology and Oncology 05/18/24 Paola Rosenberg LPN VALUE-BASED TRANSFORMATION PROGRAM Licensed Practical Nurse 08/25/24 documented as of this encounter
--- OUTSIDE RECORDS SUMMARY | 2025-01-05 08:15 | XMS_ITS | Encounter Summary ---
Author Organization [facility] Address [address] [place] [address] Care Team Providers Care Ticket Taker Name Role Phone Hermilo Otto MD Primary Care Provider + [phone] Loretta Godfrey MD Unavailable [phone] Paola Rosenberg LOG ROLLER Unavailable Unavaila ble Reason for Visit * Reason Comments Injections Lupron/xgeva injecti ons * Episode Based Medications (Routine) - Authorized Specialty Diagnoses / Procedures Referred By Venkat mccarthy Referred To Contact Diagnoses Malignant neoplasm of upper-outer quadrant of right breast in female, estrogen receptor positive Procedures NM LEUPROLIDE ACETATE SUSPNSION Loretta Godfrey MD [address] [address] Phone: tel: fax: [facility] [address] [place] [address] Phone: tel: fax: Referral ID Status Reason Start Date Expiration Date V isits Requested Visits Authorized [id number] Authorized 05/19/2024 11/18/2025 1 14 Encounter Details Date Type Department Care Team (Latest Contact Info) Description 01/05/2025 8:15 AM EDT Clinical Support [facility] [address] [place] [address] Malignant neoplasm of upper-outer quadrant [...] How often do you attend chur or evangelical services? More than 4 times per year 08/27/2024 Do you belong to any clubs o r organizations such as mormonism groups, unions, fraternal or athletic groups, or [...] Recorded Patient Health Questionnaire-2 Score 0 10/06/2024 [facility] - Occupational [...] any time in the past 12 m [facility], were you homeless or living in a skilled nursing (including now)? No 08/27/2024 Utilities Answer Date Recorded In the past 12 months has th e [employer], gas, oil, or water company threatened to [...] Date of Assessment Author No Risk Indicated 01/05/2025 8:39 AM EDT Opal Johnson, RN * Question Answer Date of Assessment Author 1. Wish to be (Past 1 Month) No 01/05/2025 8:39 AM EDT Opal Johnson, RN 2. Non-Specific Active Suici kelsie Thoughts (Past 1 Month) No 01/05/2025 8:39 AM EDT Erika Johnson, RN 6. Suicidal Behavior (Lifetime) No 8:39 AM EDT Opal Johnson, RN documented as of this encounter Plan of Treatment Upcoming Encounters Date Type Department Care Team (Late st Contact Info) Description 02/02/2025 9:15 AM EDT Office Visit [facility] [address] [place] [phone] Loretta Godfrey MD [address] [address] 02/02/2025 9:30 AM EDT Clinical Support [facility] [address] [place] [address] Scheduled Orders Name Type Priority Associated Diagnoses Orde r Schedule Comprehensive metabolic panel Lab STAT Malignant neoplasm of upper-outer quadrant of right breast in female, estrogen receptor positive Expected: 01/05/2025, Expires: 01/05/2026 documented as of this encounter Visit Diagnoses Diagnosis Malignant neoplasm of upper-outer quadrant of right breast in female, estrogen receptor positive- Primary documented in this encounter Administered Medications Inactive Administered Medications - up to 3 most recent administrations Medication Order MAR Action Action Date Dose Rate Site denosumab (Xgeva) 120 MG/1.7ML injection 120 mg 120 mg, Subcutaneous, Once, On Sat01/05/25 at 0845, For 1 doseIndications:Malig nant neoplasm of upper-outer quadrant of right breast in female, estrogen receptor positive Given 01/05/2025 8:39 AM EDT 120 mg Right Upper Arm (Hugh k) leuprolide (Lupron) injection 3.75 mg 3.75 mg, Intramuscular, Once, 1 dose, On Sat01/05/25 at 0845, RoutineIndications:Ma lignant neoplasm of upper-outer quadrant of right breast in female, estrogen receptor positive Given 01/05/2025 8:43 AM EDT 3.75 mg Right Dorsogluteal documented in this encounter Additional Health Concerns Assessment Noted Time A fall risk assessment has been complete d for the patient 12/08/2024 8:31 AM EDT documented as of this encounter Care Teams Ticket Taker Relationship Specialty Start Date End Date Hermilo Otto MD [address] [address] PCP - General 05/07/24 Loretta Godfrey MD [address] [phone] Medical Oncologist Hematology and Oncology 05/18/24 Paola Rosenberg LPN VALUE-BASED TRANSFORMATION PROGRAM Licensed Practical Nurse 08/25/24 documented as of this encounter
--- OUTSIDE RECORDS SUMMARY | 2025-01-29 07:44 | XMS_ITS | Encounter Summary ---
Author Organization [facility] Address [address] [place] [address] Care Team Providers Care Compounder Flavorings Name Role Phone Hermilo Otto MD Primary Care Provider + [phone] Loretta Godfrey MD Unavailable [phone] Paola Rosenberg TOP TAPER MACHINE Unavailable Unavaila ble Encounter Details Date Type Department Care Team (Late st Contact Info) Description 01/01/2025 Orders Only [facility] at [facility] [address] [place] [phone] Loretta Godfrey MD [address] [address] Social History Tobacco Use Types [...] often do you attend chur ch or taoism services? More than 4 times per year 08/27/2024 Do you belong to any clubs o r organizations such as alevism groups, unions, fraternal or athletic groups, or [...] any time in the past 12 m [facility], were you homeless or living in a correction (including now)? No 08/27/2024 Utilities Answer Date [...] Description 02/02/2025 9:15 AM EDT Office Visit [facility] at [address] [address] [place] [address] [place] [phone] 02/02/2025 9:30 AM EDT Clinical Support [facility] at [address] [place] [address] documented as of this encounter Procedures Procedure Name Priority Date/Time Associated Diagnosis Comments CBC W/DIFF Routine 01/01/2025 1:52 PM EDT documented in this encounter Results * CBC W/DIFF (01/01/2025 1:52 PM EDT) us Loretta Godfrey MD LAB BLOOD ORDERABLES Final Re sult documented in this encounter Visit Diagnoses Not on filedocumented in this encounter Additional Health Concerns Assessment Noted Time A fall risk assessment has been complete d for the patient 12/08/2024 8:31 AM EDT documented as of this encounter Care Teams Compounder Flavorings Relationship Specialty Start Date End Date Hermilo Otto MD [address] [place] [phone] PCP - General 05/07/24 Loretta Godfrey MD [address] [address] Medical Oncologist Hematology and Oncology 05/18/24 Paola Rosenberg LPN VALUE-BASED TRANSFORMATION PROGRAM Licensed Practical Nurse 08/25/24 documented as of this encounter
--- OUTSIDE RECORDS SUMMARY | 2025-01-29 07:44 | XMS_ITS | Encounter Summary ---
Author Organization [facility] Address [address] [place] [address] Care Team Providers Care Payroll Supervisor Name Role Phone Hermilo Otto MD Primary Care Provider + [phone] Loretta Godfrey MD Unavailable [phone] Paola Rosenberg DOG DAY CARE ATTENDANT Unavailable Unavaila ble Encounter Details Date Type Department Care Team (Late st Contact Info) Description 12/04/2024 Orders Only [facility] [address] [place] [phone] Loretta Godfrey MD [address] [address] Social History Tobacco Use Types [...] often do you attend chur ch or sabianist services? More than 4 times per year 08/27/2024 Do you belong to any clubs o r organizations such as anabaptist groups, unions, fraternal or athletic groups, or [...] Recorded Patient Health Questionnaire-2 Score 0 10/06/2024 [facility] - Occupational [...] Description 02/02/2025 9:15 AM EDT Office Visit [facility] [address] [place] [phone] Loretta Godfrey MD [address] [address] 02/02/2025 9:30 AM EDT Clinical Support [facility] [address] [place] [phone] documented as of this encounter Procedures Procedure [...] documented as of this encounter Care Teams Payroll Supervisor Relationship Specialty Start Date End Date Hermilo Otto MD [facility] [address] [address] PCP - General 05/07/24 Loretta Godfrey MD 2195 [facility] [address] [place] [address] Medical Oncologist Hematology and Oncology 05/18/24 Paola Rosenberg LPN VALUE-BASED TRANSFORMATION PROGRAM Licensed Practical Nurse 08/25/24 documented as of this encounter
--- OUTSIDE RECORDS SUMMARY | 2025-01-29 07:44 | XMS_ITS | Encounter Summary ---
Author Organization [facility] Address [address] [place] [address] Care Team Providers Care Patrol Deputy Sheriff Name Role Phone Hermilo Otto MD Primary Care Provider + [phone] Loretta Godfrey MD Unavailable [phone] Paola Rosenberg LPN Unavailable Unavaila ble Reason for Visit * Reason Comments Follow-up Encounter Details Date Type Department Care Team (Late st Contact Info) Description 12/15/2024 Patient Outreach [facility] [address] [place] [address] Paola Rosenberg LPN VALUE-BASED TRANSFORMATION [...] How often do you attend chur or methodist services? More than 4 times per year 08/27/2024 Do you belong to any clubs o r organizations such as mormon groups, unions, fraternal or athletic groups, or [...] Recorded Patient Health Questionnaire-2 Score 0 10/06/2024 [facility] of Occupat ional Health - [...] Description 02/02/2025 9:15 AM EDT Office Visit [email or web address] at [facility] [address] [place] [address] Loretta Godfrey MD [address] [place] [phone] 02/02/2025 9:30 AM EDT Clinical Support [facility] [[email or web address] at [facility] [address] [place] [address] documented as of this encounter Visit Diagnoses Not on filedocumented in this encounter Additional Health Concerns Assessment Noted Time A fall risk assessment has been complete d for the patient 12/08/2024 8:31 AM EDT documented as of this encounter Care Teams Patrol Deputy Sheriff Relationship Specialty Start Date End Date Hermiol Otto MD [address] [address] PCP - General 05/07/24 Loretta Godfrey MD [address] [phone] Medical Oncologist Hematology and Oncology 05/18/24 Paola Rosenberg LPN VALUE-BASED TRANSFORMATION PROGRAM Licensed Practical Nurse 08/25/24 documented as of this encounter
--- OUTSIDE RECORDS SUMMARY | 2025-01-29 07:44 | XMS_ITS | Referral Summary ---
Author Organization [employer] ([place], [place], [place], [place]) Address [address] [place] [address] Care Team Providers Care Tractor Engine Assembler Name Role Phone Hermilo Otto MD Primary Care Provider + [phone] Allergies No known active allergies Medications sertraline (ZOLOFT) 50 MG tablet Take 1 tablet (50 mg total) by mouth daily. Active Social History Tobacco Use Types Packs/Day Years Used Date Smoking Tobacco: Never Smokeless Tobacco: Never Tobacco Cessation:Counseling Given: Not Answered Comments No Sex and Gender Information Value Date Recorded Sex Assigned at Not on file Legal Sex Female 8:46 AM CASING GRADER Gender Identity Not on file Sexual Orientation [...] file Insurance BLUE CROSS/BLUE SHIELD Care Teams Tractor Engine Assembler Relationship Specialty Start Date End Date Hermilo Otto MD 12[address] [facility] [address] [place] [phone] PCP - General Family Medicine 05/15/24
--- OUTSIDE RECORDS SUMMARY | 2025-01-29 07:44 | XMS_ITS | Encounter Summary ---
Author Organization [employer] ([place], [place], [place], [place]) Address [address] [place] [address] Care Team Providers Care Statement Clerks Manager Name Role Phone Hermilo Otto MD Primary Care Provider [phone] Reason for Referral * CAT Scan (Routine) - Pending Review Specialty Diagnoses / Procedures Referred By Venkat mccarthy Referred To Contact Radiology Diagnoses Estrogen receptor positive Procedures CT BIOPSY SITE LIVER Loretta Godfrey MD [address] [place] [address] Phone: tel: fax: Referral ID Status Reason Start Date Expiration Date V isits Requested Visits Authorized [id number] Pending Review 05/13/2024 05/13/2025 1 1 Encounter Details Date Type Department Care Team (Late st Contact Info) Description 05/13/2024 Outside Orders [facility] Central Scheduling [address] [place] [address] Loretta Godfrey MD [address] [place] [address] Estrogen receptor positive (Primary Dx) Social History Tobacco Use Types Packs/Day Years Used Date Smoking Tobacco: Never Assessed Comments Unknown Sex and Gender Information Value Date Recorded Sex Assigned at Not on file Legal Sex Female 8:46 AM DENTAL TECHNOLOGY ADVISOR Gender Identity Not on file Sexual Orientation [...] liver masses. ATTENDING RADIOLOGIST: Dr. Courtney. PHYSICIAN NAVY MATERIAL INSPECTOR: Fabian Starks PA-C. PROCEDURE: After informed consent [...] liver masses. ATTENDING RADIOLOGIST: Dr. Courtney. PHYSICIAN NAVY MATERIAL INSPECTOR: Fabian Starks PA-C. PROCEDURE: After informed consent [...] [ER+] documented in this encounter Care Teams Statement Clerks Manager Relationship Specialty Start Date End Date Hermilo Otto MD 1210 [facility] [address] [place] [phone] PCP - General Family Medicine 05/15/24 documented as of this encounter
--- OUTSIDE RECORDS SUMMARY | 2025-01-29 07:44 | XMS_ITS | Encounter Summary ---
Author Organization [facility] Address [address] [place] [address] Care Team Providers Care Weigher Operator Name Role Phone Hermilo Otto MD Primary Care Provider + [phone] Loretta Godfrey MD Unavailable [phone] Paola Rosenberg LPN Unavailable Unavaila ble [...] week 08/27/2024 How often do you attend healthsource [place] or orthodox services? More than 4 times per year 08/27/2024 Do you belong to any clubs o r organizations such as lutheran groups, unions, fraternal or athletic groups, or [...] 10/06/2024 [facility] Occupat ional [facility] - Occupational Stress Questionnaire Answer Date [...] Description 02/02/2025 9:15 AM EDT Office Visit [facility] at [facility] [address] [place] [phone] [facility] [phone] 02/02/2025 9:30 AM EDT Clinical Support [facility] at [facility] [address] [place] [phone] documented as of this encounter Visit Diagnoses Not on filedocumented in this encounter Additional Health Concerns Assessment Noted Time A fall risk assessment has been complete d for the patient 11/03/2024 7:52 AM EDT documented as of this encounter Care Teams Weigher Operator Relationship Specialty Start Date End Date Hermilo Otto MD 1210 [facility] [address] [place], [place] [phone] PCP - General 05/07/24 Loretta Godfrey MD [address] [phone] Medical Oncologist Hematology and Oncology 05/18/24 Paola Rosenberg LPN VALUE-BASED TRANSFORMATION PROGRAM Licensed Practical Nurse 08/25/24 documented as of this encounter
--- OUTSIDE RECORDS SUMMARY | 2025-01-29 07:44 | XMS_ITS | Encounter Summary ---
Author Organization [facility] Address [address] [place] [address] Care Team Providers Care Federal Aid Coordinator Name Role Phone Hermilo Otto MD Primary Care Provider + [phone] Loretta Godfrey MD Unavailable [phone] Paola Rosenberg LPN Unavailable Unavaila ble Reason for Visit * Reason Comments Follow-up Encounter Details Date Type Department Care Team (Late st Contact Info) Description 01/14/2025 Patient Outreach [facility] [address] [place] [address] Paola Rosenberg LPN VALUE-BASED TRANSFORMATION [...] How often do you attend chur or latter-day services? More than 4 times per year 08/27/2024 Do you belong to any clubs o r organizations such as roman catholic groups, unions, fraternal or athletic groups, or [...] Recorded Patient Health Questionnaire-2 Score 0 10/06/2024 [facility] of Occupat ional Health - [...] Progress Notes - Paola Rosenberg LPN - 01/14/2025 1:16 PM EDT 01/14/2025 Reason for Follow-up: [facility] update call. Patient Status: Current Symptoms: Patient denies any at this time. Pain Level: 0/10 Side Effects: Patient denies at this time. Treatment Updates: Current Treatment Plan: leuprolide (Lupron) injection 3.75 mg denosumab (Xgeva) 120 MG/1.7ML injection 120 mg Letrozole 2.5 mg daily. Verzenio 150 mg twice a day. [facility] Update: Other: Patient denies any needs at this time. Follow-Up Plan: Next Appointment: 02/02/2025@9:15 am with Loretta Godfrey. Additional Notes/Care Coordination Needs: Patient Concerns: Patient denies any questions or concerns for this nurse at this time. Patient encouraged to call with any non-urgent matters. documented in this encounter Plan of Treatment Upcoming Encounters Date Type Department Care Team (Late st Contact Info) Description 02/02/2025 9:15 AM EDT Office Visit [facility] at [facility] [address] [place] [phone] Loretta Godfrey MD [address] [phone] 02/02/2025 9:30 AM EDT Clinical Support [facility] at [facility] [address] [place] [phone] documented as of this encounter Visit Diagnoses Not on filedocumented in this encounter Additional Health Concerns Assessment Noted Time A fall risk assessment has been complete d for the patient 12/08/2024 8:31 AM EDT documented as of this encounter Care Teams Federal Aid Coordinator Relationship Specialty Start Date End Date Hermilo Otto MD [address] [place] [address] PCP - General 05/07/24 Loretta Godfrey MD [address] [phone] Medical Oncologist Hematology and Oncology 05/18/24 Paola Rosenberg LPN VALUE-BASED TRANSFORMATION PROGRAM Licensed Practical Nurse 08/25/24 documented as of this encounter
--- OUTSIDE RECORDS SUMMARY | 2025-01-29 07:44 | XMS_ITS | Encounter Summary ---
Author Organization [facility] Address [address] [place] [address] Care Team Providers Care Lye Treater Name Role Phone Hermilo Otto MD Primary Care Provider + [phone] Loretta Godfrey MD Unavailable [phone] Paola Rosenberg PIPE LINE INSPECTOR Unavailable Unavaila ble Encounter Details Date Type Department Care Team (Late st Contact Info) Description 12/04/2024 Orders Only [facility] at [address] [phone] Iliana Silvestre, PharmD Inpatient Pharmacy [address] [place] [address] Social History Tobacco Use Types Packs/Day Years [...] How often do you attend chur or confucianism services? More than 4 times [...] Recorded Patient Health Questionnaire-2 Score 0 10/06/2024 [facility] of Occupat ional Health - Occupational Stress [...] any time in the past 12 m [facility], were you homeless or living in [...] Description 02/02/2025 9:15 AM EDT Office Visit [facility] at [facility] [address] [place] [phone] Loretta Godfrey MD [address] [phone] 02/02/2025 9:30 AM EDT Clinical Support [facility] at [facility] [address] [place] [phone] documented as of this encounter Visit Diagnoses Not on filedocumented in this encounter Additional Health Concerns Assessment Noted Time A fall risk assessment has been complete d for the patient 11/03/2024 7:52 AM EDT documented as of this encounter Care Teams Lye Treater Relationship Specialty Start Date End Date Hermilo Otto MD 1210 [facility] [address] [place] [address] PCP - General 05/07/24 Loretta Godfrey MD [address] [address] Medical Oncologist Hematology and Oncology 05/18/24 Paola Rosenberg LPN VALUE-BASED TRANSFORMATION PROGRAM Licensed Practical Nurse 08/25/24 documented as of this encounter
--- OUTSIDE RECORDS SUMMARY | 2025-01-29 07:44 | XMS_ITS ---
Author Organization [facility] Address [address] [place] [address] Care Team Providers Care Business Law Instructor Name Role Phone Hermilo Otto MD Primary Care Provider + [phone] Loretta Godfrey MD Unavailable [phone] Paola Rosenberg LPN Unavailable Unavaila ble [facility] Status:Active (Active) Start date:08/25/2024 Enrollment date:08/27/2024 Enrollment reason:Identified as high-risk Overview This episode type is for outpatient care managers enrolling patients in the [facility] program. Case Team Name Relationship Phone Paola Rosenberg LPN(Responsible Staff) Licens ed Practical Nurse Continued Care and Services Coordination
--- OUTSIDE RECORDS SUMMARY | 2025-01-29 07:44 | XMS_ITS | Clinical Summary ---
Author Organization [facility] Address [address] [place] [address] Care Team Providers Care Component Assembler Name Role Phone Hermilo Otto MD Primary Care Provider + [phone] Allergies No known active allergies Medications Vit-Fe Fumarate-FA ( ) 27-1 MG tablet tablet Take 1 tablet by mouth Daily. Active docusate sodium 100 MG capsule Take 100 mg by mouth 2 (Two) Times a Day As Needed for constipation. 0 6 Active lanolin ointment Apply topically Every 1 (One) Hour As Needed for dry skin (nipple pain). 40 g 6 Active ibuprofen (ADVIL,MOTRIN) 600 MG tablet Take 1 tablet by mouth Every 6 (Six) Hours As Needed for Mild Pain . 20 tablet 10/19/2018 9:21 AM EDT 9 Active HYDROcodone-perry taminophen (NORCO) 5-325 MG per tablet Take 1 tablet by mouth Every 4 (Four) Hours As Needed. 10 tablet 11/26/2018 11:44 AM EDT 9 Active sertraline (ZOLOFT) 50 MG tablet Take 1 tablet by mouth Daily. 4 Active Active Problems Problem Noted Date Diagnosed Date Term 10/17/2018 Normal spontaneous vaginal delivery 03/31/2016 Resolved Problems Problem Noted Date Diagnosed Date Resolved Date 03/29/2016 03/31/2016 Family History Medical History Relation Name Comments Prostate cancer Father Hypertension Mother Melanoma Paternal Aunt 70s Relation Name Status Comments Father Mother Paternal Aunt Alive Social History Tobacco Use Types Packs/Day Years Used Date Smoking Tobacco: Never Tobacco Cessation:Counseling Given: Not Answered Alcohol Use Standard Drinks/Week Comments No 0 (1 standard drink = 0.6 oz pur e alcohol) [place] Depression Scale Answer Date Recorded Retired [place] Depression Score 1 10/17/2018 Retired EPD Scale: Thought of Harming Self Unrec ognized value 10/17/2018 PHQ-2 Answer Date Recorded Patient Health Questionnaire-2 Score 0 04/29/2024 Comments No Sex and Gender Information Value Date Recorded Sex Assigned at Not on file Legal Sex Female 10:19 AM EDT Gender Identity Not on file Sexual Orientation Not on file Last Filed Vital Signs Vital Sign Reading Time Taken Comments Blood Pressure 138/87 04/29/2024 3:08 PM EST Pulse 79 04/29/2024 3:08 PM EST Temperature 36.7 C (98.1 F) 04/29/2024 3:08 PM EST Respiratory Rate 16 04/29/2024 3:08 PM EST Oxygen Saturation 97% 04/29/2024 3:08 PM EST Inhaled Oxygen Concentration - - Weight 77.1 kg (170 lb) 05/06/2024 11:45 AM EST Height 167.6 cm (5' 6 ) 05/06/2024 11:45 AM EST Body Mass Index 27.44 05/06/2024 11:45 AM EST Plan of Treatment Health Maintenance Due Date Last Done Comments Annual Gynecologic Pelvic an d Breast Exam 1987 PAP SMEAR 09/27/2008 ANNUAL PHYSICAL 10/16/2018 COVID-19 Vaccine (2023-2 5 season) 2024 INFLUENZA VACCINE 03/24/2025 05/20/2024, 06/06/2018 TDAP/TD VACCINES (2 - Td or Tdap) 09/18/2028 09/18/2018 HEPATITIS C SCREENING Completed 03/04/2018 Pneumococcal Vaccine 0-49 Aged Out No longer eligible based on patient's age to complete this topic Procedures Procedure Name Priority Date/Time Associated Diagnosis Comments HEPATITIS C ANTIBODY Routine 03/04/2018 4:42 PM EDT care, subsequent , first trimester from Last 3 Months or Most Recently Relevant to Health Maintenance Results * Hepatitis C Antibody (03/04/2018 4:42 PM EDT) Hepatitis C Ab Non-Reacti ve Non-Reacti ve 03/04/2018 7:55 PM EDT [facility] Blood Venipuncture / Unknown 03/04/2018 4:42 PM EDT 03/04/2018 4:42 PM EDT Makenzie Ward MD LAB BLOOD ORDERABLES Final Re sult [facility]
[address] [place] [address], from Last 3 Months or Most Recently Relevant to Health Maintenance Insurance Advance Directives * CPR (Attempt to Resuscitate) (Latest Code Status on File) Date Activated Date Inactivated Comments 10/17/2018 4:11 PM 10/19/2018 2:15 PM Question Answer Comments Code Status (Patient has no pulse and is not breathing): CPR (Attempt to Resuscitate) Medical Interventions (Patie nt has pulse or is breathing): Full * CPR (Attempt to Resuscitate) Date Activated Date Inactivated Comments 10/17/2018 1:35 AM 10/17/2018 4:11 PM Question Answer Comments Code Status (Patient has no pulse and is not breathing): CPR (Attempt to Resuscitate) Medical Interventions (Patie nt has pulse or is breathing): Full * Full Code Date Activated Date Inactivated Comments 03/30/2016 2:24 AM 03/31/2016 5:05 PM * Full Code Date Activated Date Inactivated Comments 03/29/2016 3:13 PM 03/30/2016 2:24 AM Care Teams Component Assembler Relationship Specialty Start Date End Date Hermilo Otto MD [address] [place] [facility] [address] [facility] [address] [place] [address] PCP - General Family Medicine 04/14/24
--- OUTSIDE RECORDS SUMMARY | 2025-01-29 07:44 | XMS_ITS | Clinical Summary ---
Author Organization [employer] ([place], [place], [place], [place]) Address [address] [place] [address] Care Team Providers Care Heel Room Supervisor Name Role Phone Hermilo Otto MD Primary Care Provider + [phone] Allergies No known active allergies Medications sertraline (ZOLOFT) 50 MG tablet Take 1 tablet (50 mg total) by mouth daily. Active Social History Tobacco Use Types Packs/Day Years Used Date Smoking Tobacco: Never Smokeless Tobacco: Never Tobacco Cessation:Counseling Given: Not Answered Comments No Sex and Gender Information Value Date Recorded Sex Assigned at Not on file Legal Sex Female 8:46 AM PIPING BLOCKER Gender Identity Not on file Sexual Orientation [...] topic Insurance BLUE CROSS/BLUE SHIELD Care Teams Heel Room Supervisor Relationship Specialty Start Date End Date Hermilo Otto MD [address] [place] [facility] [address] [place] [phone] PCP - General Family Medicine 05/15/24
--- OUTSIDE RECORDS SUMMARY | 2025-01-29 07:44 | XMS_ITS | Encounter Summary ---
Author Organization [facility] Address [address] [place] [address] Care Team Providers Care Utilization Engineer Name Role Phone Hermilo Otto MD Primary Care Provider + [phone] Loretta Godfrey MD Unavailable [phone] Paola Rosenberg WET END HELPER Unavailable Unavaila ble Encounter Details Date Type Department Care Team (Late st Contact Info) Description 12/08/2024 Orders Only [facility] [address] [place] [phone] Loretta Godfrey MD [address] [address] Bilateral malignant neoplasm of breast [...] How often do you attend chur or uatsdin services? More than 4 times [...] Recorded Patient Health Questionnaire-2 Score 0 10/06/2024 [facility] of Occupat ional Health - Occupational [...] any time in the past 12 m [facility] [place] [facility], were you homeless or living in a halfway (including now)? 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, estrogen receptor positive, unspecified site of breast documented in this encounter Additional Health Concerns Assessment Noted Time A fall risk assessment has been complete d for the patient 12/08/2024 8:31 AM EDT documented as of this encounter Care Teams Utilization Engineer Relationship Specialty Start Date End Date Hermilo Otto MD [address] [place] [address] PCP - General 05/07/24 Loretta Godfrey MD [address] [place] [phone] Medical Oncologist Hematology and Oncology 05/18/24 Paola Rosenberg LPN VALUE-BASED TRANSFORMATION PROGRAM Licensed Practical Nurse 08/25/24 documented as of this encounter
--- OUTSIDE RECORDS SUMMARY | 2025-01-29 07:44 | XMS_ITS | Encounter Summary ---
Author Organization [facility] Address [address] [place] [address] Care Team Providers Care Returns Supervisor Name Role Phone Hermilo Otto MD Primary Care Provider + [phone] Loretta Godfrey MD Unavailable [phone] Paola Rosenberg DOG DAYCARE PROVIDER Unavailable Unavaila ble Encounter Details Date Type Department Care Team (Late st Contact Info) Description 12/17/2024 Orders Only [facility] at [facility] [address] [place] [phone] Loretta Godfrey MD [address] [address] Social History Tobacco Use Types [...] often do you attend chur ch or alevism services? More than 4 times per year 08/27/2024 Do you belong to any clubs o r organizations such as scientologist groups, unions, fraternal or athletic groups, or [...] Recorded Patient Health Questionnaire-2 Score 0 10/06/2024 [facility] of Occupat ional Health - Occupational Stress [...] Description 02/02/2025 9:15 AM EDT [facility] [address] [place] [phone] Loretta Godfrey MD [address] [address] 02/02/2025 9:30 AM EDT Clinical Support [facility] [address] [place] [address] documented as of this encounter Procedures Procedure [...] documented as of this encounter Care Teams Returns Supervisor Relationship Specialty Start Date End Date Hermilo Otto MD [facility] [place] [phone] PCP - General 05/07/24 Loretta Godfrey MD [address] [phone] Medical Oncologist Hematology and Oncology 05/18/24 Paola Rosenberg LPN VALUE-BASED TRANSFORMATION PROGRAM Licensed Practical Nurse 08/25/24 documented as of this encounter
--- OUTSIDE RECORDS SUMMARY | 2025-01-29 07:44 | XMS_ITS | Encounter Summary ---
Author Organization [facility] Address [address] [place] [address] Care Team Providers Care Document Design Specialist Name Role Phone Hermilo Otto MD Primary Care Provider + [phone] Loretta Godfrey MD Unavailable [phone] Paola Rosenberg LPN Unavailable Unavaila ble [...] week 08/27/2024 How often do you attend [facility] or orthodoxy services? More than 4 [...] 0 10/06/2024 [facility] of Occupat ional [facility] - Occupational Stress Questionnaire Answer Date Recorded [...] Office Visit [facility] [address] [place] [address] Loretta Godfrey MD [address] [place] [address] 02/02/2025 9:30 AM EDT Clinical Support [facility] [address] [place] [address] documented as of this encounter Visit Diagnoses Not on filedocumented in this encounter Additional Health Concerns Assessment Noted Time A fall risk assessment has been complete d for the patient 12/08/2024 8:31 AM EDT documented as of this encounter Care Teams Document Design Specialist Relationship Specialty Start Date End Date Hermilo Otto MD [address] [place] [phone] PCP - General 05/07/24 [place] [address] [place] [phone] Medical Oncologist Hematology and Oncology 05/18/24 Paola Rosenberg LPN VALUE-BASED TRANSFORMATION PROGRAM Licensed Practical Nurse 08/25/24 documented as of this encounter
--- OUTSIDE RECORDS SUMMARY | 2025-01-29 07:44 | XMS_ITS | Encounter Summary ---
Author Organization [facility] Address [address] [place] [address] Care Team Providers Care Brick Mason Name Role Phone Hermilo Otto MD Primary Care Provider + [phone] Loretta Godfrey MD Unavailable [phone] Paola Rosenberg LPN Unavailable Unavaila ble Reason for Visit * Reason Comments Follow-up Encounter Details Date Type Department Care Team (Late st Contact Info) Description 12/14/2024 Patient Outreach [facility] [address] [place] [address] Paola Rosenberg LPN VALUE-BASED TRANSFORMATION [...] How often do you attend chur or sikh services? More than 4 times per year 08/27/2024 Do you belong to any clubs o r organizations such as restorationist groups, unions, fraternal or athletic groups, or [...] Recorded Patient Health Questionnaire-2 Score 0 10/06/2024 [facility] of Occupat ional Health - Occupational [...] Description 02/02/2025 9:15 AM EDT Office Visit [facility] [address] [place] [address] Loretta Godfrey MD [address] [place] [phone] 02/02/2025 9:30 AM EDT Clinical Support [facility] [address] [place] [address] documented as of this encounter Visit Diagnoses Not on filedocumented in this encounter Additional Health Concerns Assessment Noted Time A fall risk assessment has been complete d for the patient 12/08/2024 8:31 AM EDT documented as of this encounter Care Teams Brick Mason Relationship Specialty Start Date End Date Hermilo Otto MD [address] [address] PCP - General 05/07/24 Loretta Godfrey MD [address] [phone] Medical Oncologist Hematology and Oncology 05/18/24 Paola Rosenberg LPN VALUE-BASED TRANSFORMATION PROGRAM Licensed Practical Nurse 08/25/24 documented as of this encounter
--- OUTSIDE RECORDS SUMMARY | 2025-01-29 07:44 | XMS_ITS | Encounter Summary ---
Author Organization [facility] Address [address] [place] [address] Care Team Providers Care Noteman Name Role Phone Hermilo Otto MD Primary Care Provider + [phone] Loretta Godfrey MD Unavailable [phone] Paola Rosenberg LPN Unavailable Unavaila ble Encounter Details Date Type Department Care Team (Latest Contact Info) Description 01/01/2025 Travel Social History Tobacco Use Types Packs/Day [...] do you attend [facility] or samaritan services? More than 4 times per year 08/27/2024 Do you belong to any clubs o r organizations such as adventist groups, unions, fraternal or athletic groups, or [...] Patient Health Questionnaire-2 Score 0 10/06/2024 [facility] of Occupat ional [facility] - Occupational Stress Questionnaire Answer Date [...] any time in the past 12 m [facility], were you homeless or living [...] Description 02/02/2025 9:15 AM EDT Office Visit [facility] [address] [place] [phone] [facility] [phone] 02/02/2025 9:30 AM EDT Clinical Support [facility] [address] [place] [phone] documented as of this encounter Visit Diagnoses Not on filedocumented in this encounter Additional Health Concerns Assessment Noted Time A fall risk assessment has been complete d for the patient 12/08/2024 8:31 AM EDT documented as of this encounter Care Teams Noteman Relationship Specialty Start Date End Date Hermilo Otto MD 1210 [facility] [address] [place], [place] [phone] PCP - General 05/07/24 Loretta Godfrey MD [address] [phone] Medical Oncologist Hematology and Oncology 05/18/24 Paola Rosenberg LPN VALUE-BASED TRANSFORMATION PROGRAM Licensed Practical Nurse 08/25/24 documented as of this encounter
--- OUTSIDE RECORDS SUMMARY | 2025-01-29 07:44 | XMS_ITS | Encounter Summary ---
Author Organization [facility] Address [address] [place] [address] Care Team Providers Care Event Designer Name Role Phone Hermilo Otto MD Primary Care Provider + [phone] Loretta Godfrey MD Unavailable [phone] Paola Rosenberg FINE CRAFT ARTIST Unavailable Unavaila ble Encounter Details Date Type Department Care Team (Late st Contact Info) Description 01/04/2025 Orders Only [facility] at [facility] [address] [place] [phone] Loretta Godfrey MD [address] [address] Social History Tobacco Use Types [...] often do you attend chur ch or yarsani services? More than 4 times per year 08/27/2024 Do you belong to any clubs o r organizations such as holiness groups, unions, fraternal or athletic groups, or [...] Recorded Patient Health Questionnaire-2 Score 0 10/06/2024 [facility] of Occupat ional Health - [...] time in the past 12 m [facility], were you homeless or living in [...] Author No Risk Indicated 01/05/2025 8:39 AM Opal Felix RN * Question Answer Date of Assessment Author 1. Wish to be (Past 1 Month) No 01/05/2025 8:39 AM Opal Felix, RN 2. Non-Specific Active Suici kelsie Thoughts (Past 1 Month) No 01/05/2025 8:39 AM MARIA FERNANDAT Erika Johnson RN 6. Suicidal Behavior (Lifetime) No 8:39 AM Opal Felix, RN documented as of this encounter Plan of Treatment Upcoming Encounters Date Type Department Care Team (Late st Contact Info) Description 02/02/2025 9:15 AM EDT Office Visit [facility] [address] [place] [phone] Loretta Godfrey MD [address] [place] [address] 02/02/2025 9:30 AM EDT Clinical Support [facility] [address] [place] [phone] documented as of this encounter Procedures Procedure Name Priority Date/Time Associated Diagnosis Comments CANCER ANTIGEN 27.29 Routine 01/01/2025 1:26 PM EDT documented in this encounter Results * Cancer antigen 27.29 (01/01/2025 1:26 PM EDT) Blood Venous blood specimen / Unknown us Loretta Godfrey MD LAB BLOOD ORDERABLES Final Re sult documented in this encounter Visit Diagnoses Not on filedocumented in this encounter Additional Health Concerns Assessment Noted Time A fall risk assessment has been complete d for the patient 12/08/2024 8:31 AM EDT documented as of this encounter Care Teams Event Designer Relationship Specialty Start Date End Date Hermilo Otto MD [facility] [place] [address] PCP - General 05/07/24 Loretta Godfrey MD [address] [place] [address] [phone] Medical Oncologist Hematology and Oncology 05/18/24 Paola Rosenberg LPN VALUE-BASED TRANSFORMATION PROGRAM Licensed Practical Nurse 08/25/24 documented as of this encounter
--- OUTSIDE RECORDS SUMMARY | 2025-01-29 07:44 | XMS_ITS | Encounter Summary ---
Author Organization [facility] Address [address] [place] [address] Care Team Providers Care Consumer Relations Complaint Clerk Name Role Phone Hermilo Otto MD Primary Care Provider + [phone] Loretta Godfrey MD Unavailable [phone] Paola Rosenberg LPN Unavailable Unavaila ble Encounter Details Date Type Department Care Team (Latest Contact Info) Description 01/05/2025 Travel Social History Tobacco Use Types Packs/Day [...] often do you attend [facility] or pentecostal services? More than 4 times per year 08/27/2024 Do you belong to any clubs o r organizations such as jewish groups, unions, fraternal or athletic groups, or [...] [facility] of Occupat ional [facility] - Occupational Stress Questionnaire Answer Date [...] were you homeless or living in a care home (including now)? No 08/27/2024 Utilities Answer [...] 02/02/2025 9:15 AM EDT Office Visit [facility] [address] [place] [address] Loretta Godfrey MD [address] [place] [phone] 02/02/2025 9:30 AM EDT Clinical Support [facility] at [facility] [address] [place] [address] documented as of this encounter Visit Diagnoses Not on filedocumented in this encounter Additional Health Concerns Assessment Noted Time A fall risk assessment has been complete d for the patient 12/08/2024 8:31 AM EDT documented as of this encounter Care Teams Consumer Relations Complaint Clerk Relationship Specialty Start Date End Date Hermilo Otto MD [address] [place] [phone] PCP - General 05/07/24 [place] [address] [place] [phone] Medical Oncologist Hematology and Oncology 05/18/24 Paola Rosenberg LPN VALUE-BASED TRANSFORMATION PROGRAM Licensed Practical Nurse 08/25/24 documented as of this encounter
--- OUTSIDE RECORDS SUMMARY | 2025-01-29 07:44 | XMS_ITS | Encounter Summary ---
Author Organization [facility] Address [address] [place] [address] Care Team Providers Care Can Closing Machine Operator Name Role Phone Hermilo Otto MD Primary Care Provider + [phone] Loretta Godfrey MD Unavailable [phone] Paola Rosenberg OIL PUMP STATION OPERATOR CHIEF Unavailable Unavaila ble Encounter Details Date Type Department Care Team (Late st Contact Info) Description 12/07/2024 Orders Only [facility] [address] [place] [phone] Loretta Godfrey MD [address] [address] Social History Tobacco Use Types [...] often do you attend chur ch or yarsanism services? More than 4 times per year 08/27/2024 Do you belong to any clubs o r organizations such as buddhist groups, unions, fraternal or athletic groups, or [...] 10/06/2024 [facility] of Occupat ional Health - [...] 02/02/2025 9:15 AM EDT Office Visit [facility] [address] [place] [phone] Loretta Godfrey MD [address] [place] [address] 02/02/2025 9:30 AM EDT Clinical Support [facility] at [facility] [address] [place] [address] documented as of this encounter Procedures Procedure [...] documented as of this encounter Care Teams Can Closing Machine Operator Relationship Specialty Start Date End Date Hermilo Otto MD [facility] [place] [address] PCP - General 05/07/24 Loretta Godfrey MD [address] [place] [address] [address] Medical Oncologist Hematology and Oncology 05/18/24 Paola Rosenberg LPN VALUE-BASED TRANSFORMATION PROGRAM Licensed Practical Nurse 08/25/24 documented as of this encounter
--- OUTSIDE RECORDS SUMMARY | 2025-01-29 07:45 | XMS_ITS | Encounter Summary ---
Author Organization [facility] Address [address] [place] [address] Care Team Providers Care Litigation Partner Name Role Phone Hermilo Otto MD Primary Care Provider + [phone] Loretta Godfrey MD Unavailable [phone] Paola Rosenberg LPN Unavailable Unavaila ble Reason for Visit * Reason Comments Follow-up Encounter Details Date Type Department Care Team (Late st Contact Info) Description 01/13/2025 Patient Outreach [facility] [address] [place] [address] Paola Rosenberg LPN VALUE-BASED TRANSFORMATION [...] How often do you attend chur or hoahaoism services? More than 4 times per year [...] Recorded Patient Health Questionnaire-2 Score 0 10/06/2024 [facility] of Occupat ional Health - [...] were you homeless or living in a fdc (including now)? No 08/27/2024 Utilities Answer Date [...] Progress Notes - Paola Rosenberg LPN - 01/13/2025 2:07 PM EDT 01/13/2025 Call attempt 1; unable to reach patient, left voicemail with call back number. documented in this encounter Plan of Treatment Upcoming Encounters Date Type Department Care Team (Late st Contact Info) Description 02/02/2025 9:15 AM EDT Office [facility] [address] [place] [address] Loretta Godfrey MD [address] [place] [phone] 02/02/2025 9:30 AM EDT Clinical Support [facility] [address] [place] [address] documented as of this encounter Visit Diagnoses Not on filedocumented in this encounter Additional Health Concerns Assessment Noted Time A fall risk assessment has been complete d for the patient 12/08/2024 8:31 AM EDT documented as of this encounter Care Teams Litigation Partner Relationship Specialty Start Date End Date Hermilo Otto MD [address] [address] PCP - General 05/07/24 Loretta Godfrey MD [address] [phone] Medical Oncologist Hematology and Oncology 05/18/24 Paola Rosenberg LPN VALUE-BASED TRANSFORMATION PROGRAM Licensed Practical Nurse 08/25/24 documented as of this encounter
--- OUTSIDE RECORDS SUMMARY | 2025-01-29 07:45 | XMS_ITS ---
Author Organization [facility] Address [address] [place] [address] Care Team Providers Care Chip Frier Name Role Phone Hermilo Otto MD Primary Care Provider + [phone] Loretta Godfrey MD Unavailable [phone] Paola Rosenberg EQUIPMENT MONITOR PHOTOTYPESETTING Unavailable Unavaila ble Active Problems Problem Noted [...]
--- OUTSIDE RECORDS SUMMARY | 2025-01-29 07:45 | XMS_ITS | Patient Health Record ---
Author Organization [facility] Address [address] [place] [address] Care Team Providers Care Bore Mill Operator For Plastic Name Role Phone Makenzie Ward Unavailable [phone] Chela Doss Unavailable [phone] Allergies No Known Allergies Results Component Value Reference Range Notes MAMMO DIAGNOSTIC DIGITAL ALIS OSYNTHESIS BILATERAL W CAD Reviewed date:04/15/2024 08:11:12 AM Interpretation:BIRAD 5 Follow up as discussed Performing Lab: [...] of concern indicated by the patient. A [place] marker is placed over a visible skin [...] O CLOCK POSITION, 2 CM FROM AREOLA US GUIDED BREAST BIOPSY W WO DEVICE [...] ALIS CASE, ALLEN KEBEDE OR MANISHA GABRIEL. Pap w/HPV Reviewed date:04/13/2024 09:31:36 AM Interpretation:Pap normal, HPV negative Performing Lab:[facility], [facility] - MAX CLIA ID [id number], [address] [facility], [address], [place] [address], Director - Maya Durant MD Notes/Report: Any Nucleic Acid Amplification testing is performed on the [employer] [place]. Diagnosis: Negative for intraepithelial lesion or malignancy. AP results Recommendation: Follow-up based on current clinical guidelines and/or clinical consideration. Satisfactory for interpretation with endocervical/transforma tion zone component absent. Specimen Type: ThinPrep Collection Technique: Not provided Specimen Source: Cervical/Endocervical CPT Codes: 79132 Negative for intraepithelial lesion or malignancy. ICD Codes: Z01.419 Date of Last Pap: Not provided DIAGNOSIS: Results of Last Pap: Not provided LMP: 03/20/2024 Other Gynecological Patient Information: Not provided Liyah Duong Tool Mechanic Negative Educational Note: The pap screening test aids in the detection of premalignant and malignant states of the cervix. False positive and negative results may occur. It is not a diagnostic test. If abnormal cells are reported, follow-up based on current clinical guidelines and/or clinical consideration is recommended. Screening note: This specimen has been analyzed by the [employer] System, an interactive computer system which assists the lab in screening of ThinPrep Pap Test slides. Following imaging, the slide was reviewed by a Tool Mechanic and/or Pathologist. 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 Problem Premenstrual tension syndrome (81202080) PMDD (premenstrual dysphoric disorder) (F32.81) Active confirmed Problem Gynecological examination normal (681796867248631 ) Cervical smear, as part of routine gynecological examination (Z01.419) 019 Active confirmed Annual without abnormal findings Problem test positive (110557983) Encounter for test, result positive (Z32.01) 018 Active confirmed test positive Vital Signs Blood pressure diastolic 70 mm Hg 05/11/2024 Height 65 in 05/11/2024 Blood pressure systolic 114 mm Hg 05/11/2024 Weight 171.8 lbs 05/11/2024 BMI 28.59 kg/m2 05/11/2024 Encounters Encounter Location Date Provider Diagnosis [facility] [address] [address] 05/11/2024 Chela Doss PMDD (premenstrual dysphoric disorder) F32.81 [facility] [address] [address] 04/06/2024 Chela Doss Encounter for gynecological examination [...] Provider Name:Parul Main, 04/14/2025 03:00:00 PM, [address], [address], Insurance Providers Payer Name Payer Address Payer Phone Subscriber Number Group Number Insured Name Patient Relationship to Insured Coverage Start Date Coverage End Date Fanny DOLAN [address] [place] [address] [phone] [id number] Shona Sterling Self - patient is the insured Medical (General) History Surgical History Surgery Date(Month/Year) BTL [place]eth 2007 Tonsillectomy
--- OUTSIDE RECORDS SUMMARY | 2025-01-29 07:45 | XMS_ITS | Encounter Summary ---
Author Organization [facility] Address [address] [place] [address] Care Team Providers Care Air And Water Filler Name Role Phone Hermilo Otto MD Primary Care Provider + [phone] Loretta Godfrey MD Unavailable [phone] Paola Rosenberg REGULATORY AFFAIRS ASSISTANT Unavailable Unavaila ble Encounter Details Date Type Department Care Team (Late st Contact Info) Description 01/05/2025 Orders Only [facility] at [facility] [address] [place] [phone] Loretta Godfrey MD [address] [address] Social History Tobacco Use Types [...] often do you attend chur ch or temple services? More than 4 times per year [...] Description 02/02/2025 9:15 AM EDT Office Visit [facility] at [facility] [address] [place] [phone] Loretta Godfrey MD [address] [place] [address] 02/02/2025 9:30 AM EDT Clinical Support [facility] at [facility] [address] [place] [address] documented as of this encounter Procedures Procedure Name Priority Date/Time Associated Diagnosis Comments COMPLETE METABOLIC PROFILE (CMP) Routine 01/05/2025 8:52 AM EDT COMPLETE METABOLIC PROFILE (CMP) Routine 01/01/2025 9:28 AM EDT documented in this encounter Results * COMPLETE METABOLIC PROFILE (CMP) (01/05/2025 8:52 AM EDT) us Loretta Godfrey MD LAB BLOOD ORDERABLES Final Re sult * COMPLETE METABOLIC PROFILE (CMP) (01/01/2025 9:28 AM EDT) us Loretta Godfrey MD LAB BLOOD ORDERABLES Final Re sult documented in this encounter Visit Diagnoses Not on filedocumented in this encounter Additional Health Concerns Assessment Noted Time A fall risk assessment has been complete d for the patient 12/08/2024 8:31 AM EDT documented as of this encounter Care Teams Air And Water Filler Relationship Specialty Start Date End Date Hermilo Otto MD [facility] [address] [address] PCP - General 05/07/24 Loretta Godfrey MD [address] [place] [address] Medical Oncologist Hematology and Oncology 05/18/24 Paola Rosenberg LPN VALUE-BASED TRANSFORMATION PROGRAM Licensed Practical Nurse 08/25/24 documented as of this encounter
--- OUTSIDE RECORDS SUMMARY | 2025-01-29 07:45 | XMS_ITS | Clinical Summary ---
Author Organization [facility] Address [address] [place] [address] Care Team Providers Care Classification Analyst Name Role Phone Hermilo Otto MD Primary Care Provider + [phone] Loretta Godfrey MD Unavailable [phone] Paola Rosenberg LPN Unavailable Unavaila ble [...] Encounters Date Type Department Care Team Description 01/14/2025 Patient Outreach POPULATION [facility] [address] [place] [address] Paola Rosenberg LPN Follow-up 01/13/2025 Patient Outreach POPULATION [facility] [address], [address] [place] [address] Paola Rosenberg LPN Follow-up 01/05/2025 8:15 AM EDT Clinical Support [facility] at [facility] [address] [place] [address] Malignant neoplasm of upper-outer quadrant of right breast in female, estrogen receptor positive (Primary Dx) 01/05/2025 8:00 AM EDT Office Visit [facility] at [facility] [address] [place] [address] Loretta Godfrey MD Malignant neoplasm of upper-outer quadrant of right breast in female, estrogen receptor positive (Primary Dx) 01/05/2025 Orders Only [facility] at [facility] [address] [place] [address] Loretta Godfrey MD 01/05/2025 Travel 01/04/2025 Orders Only [facility] at [facility] [address] [place] [address] Loretta Godfrey MD 01/01/2025 Travel 01/01/2025 Orders Only [facility] at [facility] [address] [place] [address] Loretta Godfrey MD 12/17/2024 Orders Only [facility] at [place] [address] [place] [address] Loretta Godfrey MD 12/15/2024 Patient Outreach [facility] [address] [place], [place] [address], [facility] [address] [place] [address] Paola Rosenberg LPN Follow-up 12/14/2024 Patient Outreach [facility] [address] [place], [place] [address], [address] [place] [address] Paola Rosenberg LPN Follow-up 12/08/2024 8:45 AM EDT Clinical Support [facility] at [facility] [address] [place] [address] Malignant neoplasm of upper-outer quadrant of right breast in female, estrogen receptor positive (Primary Dx) 12/08/2024 8:30 AM EDT Office Visit [facility] at [address] [place] [address] Loretta Godfrey MD Malignant neoplasm of upper-outer quadrant of right breast in female, estrogen receptor positive (Primary Dx) 12/08/2024 Travel 12/08/2024 Orders Only [facility] at [address] [place] [address] Loretta Godfrey MD 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, estrogen receptor positive, unspecified site of breast 12/07/2024 Travel 12/07/2024 Orders Only [facility] at [address] [place] [address] Loretta Godfrey MD 12/04/2024 Orders Only [facility] at [address] [place] [address] Ilaina Silvestre, PharmD 12/04/2024 Orders Only [facility] at [address] [place] [address] Loretta Godfrey MD 11/13/2024 Telephone [facility] at [address] [place] [address] Loretta Godfrey MD Medication Question 11/13/2024 Patient Outreach [facility] [address] [place] [address], [address] [place] [address] Paola Rosenberg LPN Follow-up 11/04/2024 Refill [facility] at [place] [address] [place] [address] Loretta Godfrey MD 11/03/2024 8:15 AM EDT Clinical Support [facility] at [address] [place] [address] Malignant neoplasm of upper-outer quadrant of right breast in female, estrogen receptor positive (Primary Dx) 11/03/2024 8:00 AM EDT Office Visit [facility] at [address] [address] Loretta Godfrey MD Malignant neoplasm of upper-outer quadrant of right breast in female, estrogen receptor positive 11/03/2024 Travel 11/02/2024 Travel 11/02/2024 Orders Only [facility] at [address] [address] Loretta Godfrey MD 10/30/2024 Orders Only [facility] at [address] [address] Loretta Godfrey MD from Last 3 Months [...] How often do you attend chur or zoroastrianism services? More than 4 times per year 08/27/2024 Do you belong to any clubs o r organizations such as protestant groups, unions, fraternal or athletic groups, or [...] Recorded Patient Health Questionnaire-2 Score 0 10/06/[address] [facility] - Occupational Stress Questionnaire Answer Date Recorded [...] time in the past 12 m [facility], were you homeless or living in a [place] facility (including now)? No 08/27/2024 Utilities Answer Date Recorded In the past 12 months has th e [employer], gas, oil, or water company threatened to [...] F) 01/05/2025 7:55 AM EDT Respiratory Rate 18 12/08/2024 9:25 AM EDT Oxygen Saturation 100% 01/05/2025 7:55 AM EDT Inhaled Oxygen Concentration - - Weight 73.2 kg (161 lb 6 oz) 01/05/2025 7:55 AM EDT Height 165.1 cm (5' 5 ) 01/05/2025 7:55 AM EDT Body Mass Index 26.85 01/05/2025 7:55 AM EDT Plan of Treatment Upcoming Encounters Date Type Department Care Team (Late st Contact Info) Description 02/02/2025 9:15 AM EDT Office Visit [facility] [address] [place] [address] Loretta Godfrey MD [address] [place] [phone] 02/02/2025 9:30 AM EDT Clinical Support [facility] at [facility] [address] [address] Health Maintenance Due Date Last Done Comments [facility]-HIV Screening 1987 [facility]-Infant/Child/Adol SDOH Screenings 1987 [id number] Vaccine (#1) 09/27/1992 [facility]-Obesity Intervention 09/27/1993 [facility]-Varicella [...] PROFILE (CMP) Routine 01/05/2025 8:52 AM EDT CBC W/DIFF Routine 01/01/2025 1:52 PM EDT CANCER ANTIGEN 27.29 Routine 01/01/2025 1:26 PM EDT COMPLETE METABOLIC PROFILE (CMP) Routine 01/01/2025 9:28 AM EDT SIGNATERA ONLY Routine 12/17/2024 9:29 AM EDT CBC W/DIFF Routine 12/04/2024 11:13 AM EDT COMPLETE METABOLIC PROFILE (CMP) Routine 12/04/2024 11:13 AM EDT CANCER ANTIGEN 27.29 Routine 12/04/2024 8:49 AM EDT COMPLETE METABOLIC PROFILE (CMP) Routine 10/30/2024 10:07 AM EDT CBC W/DIFF Routine 10/30/2024 9:51 AM EDT CANCER ANTIGEN 27.29 Routine 10/30/2024 9:18 AM EDT from Last 3 Months Results * COMPLETE METABOLIC PROFILE (CMP) (01/05/2025 8:52 AM EDT) Only the most recent of4 resultswithin the time period is included. Loretta Godfrey MD LAB BLOOD ORDERABLES Final Re sult * CBC W/DIFF (01/01/2025 1:52 PM EDT) Only the most recent of3 resultswithin the time period is included. Result [facility] Loretta Godfrey MD LAB BLOOD ORDERABLES Final Re sult * Cancer antigen 27.29 (01/01/2025 1:26 PM EDT) Only the most recent of3 resultswithin the time period is included. Blood Venous blood specimen / Unknown Loretta Godfrey MD LAB BLOOD ORDERABLES Final Re sult * SIGNATERA ONLY (12/17/2024 9:29 AM EDT) Blood Venous blood specimen / Unknown Loretta Godfrey MD [facility] BLOOD ORDERABLES Final Result from Last 3 Months Insurance ANTHEM Care Teams Classification Analyst Relationship Specialty Start Date End Date Hermilo Otto MD [address] [facility] [address] [place] [address] PCP - General 05/07/24 Loretta Godfrey MD [address] [address] Medical Oncologist Hematology and Oncology 05/18/24 Paola Rosenberg LPN VALUE-BASED TRANSFORMATION PROGRAM Licensed Practical Nurse 08/25/24
[2025-01-29 08:05] LABS: Hematocrit 36.4 % (37.0-47.0); Hemoglobin 12.7 g/dL (12.2-16.2); Immature Granulocytes % 0.2 %; Mean Corpuscular HGB Conc 34.9 g/dL (31.8-35.4); Mean Corpuscular Hemoglobin 33.8 pg (27.0-31.2); Mean Corpuscular Volume 96.8 fl (81-99); Nucleated Red Blood Cells % 0 %; Platelet Count 164 K/mm3 (142-424); Red Blood Count 3.76 M/mm3 (4.20-5.40); Red Cell Distribution Width-SD 44.1 fL; White Blood Count 4.6 K/mm3 (4.8-10.8)
[2025-01-29 09:07] LABS: Albumin Level 4.3 g/dl (3.5-5.0); Chloride 105 mmol/L (98-107); Potassium 5.6 mmoL/L (3.5-5.1); Sodium 142 mmol/L (136-145)
[2025-01-29 09:10] LABS: Alanine Aminotransferase 19 U/L (12-78); Albumin/Globulin Ratio 1.7 (1.1-1.8); Alkaline Phosphatase 70 U/L (38-126); Anion Gap 12.6 mEq/L (5-15); Aspartate Amino Transferase 27 U/L (14-36); Bilirubin,Total 0.7 mg/dl (0.2-1.3); Blood Urea Nitrogen 18 mg/dl (7-17); Carbon Dioxide 30 mmol/L (22.0-30.0); Creatinine,Serum 1.00 mg/dl (0.52-1.04); Estimated Glomerular Filt Rate 62 ml/min (>60); GFR (African American) 75 ML/MIN (>60); Globulin 2.6 g/dL (1.3-3.2); Total Protein,Serum 6.9 g/dl (6.3-8.2)
[2025-01-29 09:11] LABS: Calcium 9.6 mg/dl (8.4-10.2); Glucose 93 mg/dl (74-100)
[2025-01-30 08:16] LABS: CA 27.29 112.8 U/mL (0.0-38.6)
== END 2025-01-29 23:59 | disposition home or self-care (01) ==
LOC: LAB 07:43
PROVIDERS: PCP Family Medicine; Visit Provider Internal Medicine Hematology & Oncology
DX: C50.411 Malignant neoplasm of upper-outer quadrant of right female breast (principal); C50.912 Malignant neoplasm of unspecified site of left female breast; Z17.0 Estrogen receptor positive status [ER+]
CPT/HCPCS: 36415; 80053; 85025; 86300

== ENCOUNTER 2025-02-26 07:51 | Outpatient (CLI) | payer BC, SELFPAY ==
--- OUTSIDE RECORDS SUMMARY | 2025-01-05 08:00 | XMS_ITS | Encounter Summary ---
Author Organization [facility] Address [address] [place] [address] Care Team Providers Care Retread Operator Name Role Phone Hermilo Otto MD Primary Care Provider + [phone] Loretta Godfrey MD Unavailable [phone] Paola Rosenberg WINE SPECIALIST Unavailable Unavaila ble Reason for Visit * Reason Comments Follow-up Encounter Details Date Type Department Care Team (Late st Contact Info) Description 01/05/2025 8:00 AM EDT Office Visit [facility] [address] [place] [phone] Loretta Godfrey MD [address] [address] Malignant neoplasm of upper-outer quadrant [...] week 08/27/2024 How often do you attend [facility] or orthodoxy services? More than 4 times per year 08/27/2024 Do you belong to any clubs o r organizations such as taoist groups, unions, fraternal or athletic groups, or [...] Patient Health Questionnaire-2 Score 0 10/06/2024 [facility] ional Health - Occupational [...] any time in the past 12 m [facility], were you homeless or [...] Godfrey MD - 01/05/2025 8:00 AM EDT [facility] [place] [facility] HEMATOLOGY/ONCOLOGY FOLLOW UP Shona Prieto 1985 [...] the dentist. She has been seen at [facility]. She had a good visit and we will send liquid biopsy for NGS. Pt has lost 10 pounds intentionally with cutting out sugar. 07/14/24 [facility] CDX revealed no actionable maintenance truck driver mutation. Pt has been seen at [facility] and was told to continue current therapy. Pt enjoyed her daughter'day democrat rollers kating. She's had some stressors with her taoist. She's quite active attending her children's sporting [...] forward to travel softball season. She enjoyed [employer]. Pt does not wish to have her [...] recommendation of the National Kidney Foundation and [place] Society of Nephrology. This calculation has not been validated in women. For pediatric patients refer to https://www.kidney.org/professionals/KDOQI/gfr_calculatorPed Assessment/Plan Stage IV breast cancer ER+ [place] + Her 2 garett - with metastatic [...] Care Team (Late st Contact Info) Description 03/02/2025 8:00 AM EDT Office Visit [facility] at [facility] [address] [place] [phone] Loretta Godfrey MD [address] [phone] 03/02/2025 8:15 AM EDT Clinical Support [facility] at [facility] [address] [place] [address] documented as of this encounter Visit Diagnoses Diagnosis Malignant neoplasm of upper-outer quadrant of right breast in female, estrogen receptor positive- Primary documented in this encounter Additional Health Concerns Assessment Noted Time A fall risk assessment has been complete d for the patient 12/08/2024 8:31 AM EDT documented as of this encounter Care Teams Retread Operator Relationship Specialty Start Date End Date Hermilo Otto MD [facility] [place] [address] PCP - General 05/07/24 Loretta Godfrey MD [address] [address] Medical Oncologist Hematology and Oncology 05/18/24 Paola Rosenberg LPN VALUE-BASED TRANSFORMATION PROGRAM Licensed Practical Nurse 08/25/24 documented as of this encounter
--- OUTSIDE RECORDS SUMMARY | 2025-01-05 08:15 | XMS_ITS | Encounter Summary ---
Author Organization [facility] Address [address] [place] [address] Care Team Providers Care Supervisor Labor Gang Name Role Phone Hermilo Otto MD Primary Care Provider + [phone] Loretta Godfrey MD Unavailable [phone] Paola Rosenberg POLITICAL SCIENTIST Unavailable Unavaila ble Reason for Visit * Reason Comments Injections Lupron/xgeva injecti ons * Episode Based Medications (Routine) - Authorized Specialty Diagnoses / Procedures Referred By Venkat mccarthy Referred To Contact Diagnoses Malignant neoplasm of upper-outer quadrant of right breast in female, estrogen receptor positive Procedures CA LEUPROLIDE ACETATE SUSPNSION Loretta Godfrey MD [address] [address] Phone: tel: fax: [facility] [address] [place] [address] Phone: tel: fax: Referral ID Status Reason Start Date Expiration Date V isits Requested Visits Authorized [id number] Authorized 05/19/2024 11/18/2025 1 14 Encounter Details Date Type Department Care Team (Latest Contact Info) Description 01/05/2025 8:15 AM EDT Clinical Support [facility] at [facility] [address] [place] [address] Malignant neoplasm of upper-outer quadrant [...] How often do you attend chur or yazidism services? More than 4 times per year 08/27/2024 Do you belong to any clubs o r organizations such as congregation groups, unions, fraternal or athletic groups, or [...] Patient Health Questionnaire-2 Score 0 10/06/2024 [facility] - Occupational Stress Questionnaire Answer Date [...] any time in the past 12 m [facility], were you homeless or living in a fci (including now)? No 08/27/2024 Utilities Answer Date Recorded In the past 12 months has th e [employer], gas, oil, or water company threatened to [...] Description 03/02/2025 8:00 AM EDT Office Visit [facility] [address] [place] [address] Loretta Godfrey MD [address] [address] 03/02/2025 8:15 AM EDT Clinical Support [facility] [address] [place] [address] documented as of this encounter [...] documented as of this encounter Care Teams Supervisor Labor Gang Relationship Specialty Start Date End Date Hermilo Otto MD [address] [facility] [address] [place] [address] PCP - General 05/07/24 Loretta Godfrey MD [address] [facility] [address] [place] [phone] Medical Oncologist Hematology and Oncology 05/18/24 Paola Rosenberg LPN VALUE-BASED TRANSFORMATION PROGRAM Licensed Practical Nurse 08/25/24 documented as of this encounter
--- OUTSIDE RECORDS SUMMARY | 2025-02-02 09:15 | XMS_ITS | Encounter Summary ---
Author Organization [facility] Address [address] [place] [address] Care Team Providers Care Workforce Development Specialist Name Role Phone Hermilo Otto MD Primary Care Provider + [phone] Loretta Godfrey MD Unavailable [phone] Paola Rosenberg BUSINESS CONTINUITY STRATEGY DIRECTOR Unavailable Unavaila ble Reason for Visit * Reason Comments Follow-up Encounter Details Date Type Department Care Team (Late st Contact Info) Description 02/02/2025 9:15 AM EDT Office Visit [facility] at [facility] [address] [place] [address] Loretta Godfrey MD [address] [address] Malignant neoplasm of upper-outer quadrant [...] How often do you attend chur or mu-ism services? More than 4 times per year 08/27/2024 Do you belong to any clubs o r organizations such as orthodoxy groups, unions, fraternal or athletic groups, or [...] 0 10/06/2024 [facility] - Occupational Stress Questionnaire Answer Date Recorded [...] the past [address] [facility], were you homeless or living in a [...] Godfrey MD - 02/02/2025 9:15 AM EDT [facility] HEMATOLOGY/ONCOLOGY FOLLOW UP Shona Prieto 1985 [...] the dentist. She has been seen at [facility]. She had a good visit and we will send liquid biopsy for NGS. Pt has lost 10 pounds intentionally with cutting out sugar. 07/14/24 [facility] One CDX revealed no actionable driver trainer mutation. Pt has been seen at [facility] and was told to continue current therapy. Pt enjoyed her daughter' constitution party rollers kating. She's had some stressors with her orthodoxy. She's quite active attending her children's sporting [...] recommendation of the National Kidney Foundation and [place] Society of Nephrology. This calculation has not been validated in women. For pediatric patients refer to https://www.kidney.org/professionals/KDOQI/gfr_calculatorPed No results found. Assessment/Plan Stage IV breast cancer ER+ [place] + Her 2 garett - with metastatic [...] this continues to decline. Pt gone [place] [facility] for a consultation. She [...] Description 03/02/2025 8:00 AM EDT Office Visit [facility] [address] [place] [address] Loretta Godfrey MD [address] [phone] 03/02/2025 8:15 AM EDT Clinical Support [facility] at [facility] [address] [place] [address] documented as of this encounter Visit Diagnoses Diagnosis Malignant neoplasm of upper-outer quadrant of right breast in female, estrogen receptor positive- Primary documented in this encounter Additional Health Concerns Assessment Noted Time A fall risk assessment has been complete d for the patient 12/08/2024 8:31 AM EDT documented as of this encounter Care Teams Workforce Development Specialist Relationship Specialty Start Date End Date Hermilo Otto MD [address] [place] [address] PCP - General 05/07/24 Loretta oGdfrey MD [address] [phone] Medical Oncologist Hematology and Oncology 05/18/24 Paola Rosenberg LPN VALUE-BASED TRANSFORMATION PROGRAM Licensed Practical Nurse 08/25/24 documented as of this encounter
--- OUTSIDE RECORDS SUMMARY | 2025-02-02 09:30 | XMS_ITS | Encounter Summary ---
Author Organization [facility] Address [address] [place] [address] Care Team Providers Care President And Chief Operating Officer Name Role Phone Hermilo Otto MD Primary Care Provider + [phone] Loretta Godfrey MD Unavailable [phone] Paola Rosenberg SHOP FOREMAN Unavailable Unavaila ble Reason for Visit * Reason Comments Injections * Episode Based Medications (Routine) - Authorized Specialty Diagnoses / Procedures Referred By Venkat mccarthy Referred To Contact Diagnoses Malignant neoplasm of upper-outer quadrant of right breast in female, estrogen receptor positive Procedures NC LEUPROLIDE ACETATE SUSPNSION Loretta Godfrey MD [address] [address] Phone: tel: fax: [facility] [address] [place] [address] Phone: tel: fax: Referral ID Status Reason Start Date Expiration Date V isits Requested Visits Authorized [id number] Authorized 05/19/2024 11/18/2025 1 14 Encounter Details Date Type Department Care Team (Latest Contact Info) Description 02/02/2025 9:30 AM EDT Clinical Support [facility] [address] [place] [address] Malignant neoplasm of upper-outer quadrant [...] How often do you attend [facility] or episcopalian services? More than 4 times per year [...] the past 12 months has th e [employer], gas, oil, or water company threatened to [...] Time Taken Comments Blood Pressure 117/87 02/02/2025 9:41 AM EDT Pulse 83 02/02/2025 9:41 AM EDT Temperature 36.5 C (97.7 F) 02/02/2025 9:41 AM EDT Respiratory Rate - - Oxygen Saturation 100% 02/02/2025 9:41 AM EDT Inhaled Oxygen Concentration - - Weight 72.1 kg (158 lb 15.2 oz) 02/02/2025 9:41 AM EDT Height - - Body Mass Index 26.45 02/02/2025 8:55 AM EDT documented in this encounter Functional Status * Calculated C-SSRS Risk Score (Lifetime/Recent) Answer Date of Assessment Author No Risk Indicated 02/02/2025 10:00 AM EDT Call, Essie Flynn RN * Question Answer Date of Assessment Author 1. Wish to be (Past 1 Month) No 025 10:00 AM EDT Call, Essie Flynn RN 2. Non-Specific Active Suici kelsie Thoughts (Past 1 Month) No 02/02/2025 10:00 AM EDT Call, Cristino Flynn RN 6. Suicidal Behavior (Lifetime) No 10:00 AM EDT Call, Essie Flynn RN documented as of this encounter Plan of Treatment Upcoming Encounters Date Type Department Care Team (Late st Contact Info) Description 03/02/2025 8:00 AM EDT Office Visit [facility] [address] [place] [address] Loretta Godfrey MD [address] [address] 03/02/2025 8:15 AM EDT Clinical Support [facility] [address] [place] [address] Scheduled Orders Name Type Priority Associated Diagnoses Orde r Schedule Comprehensive metabolic panel Lab STAT Malignant neoplasm of upper-outer quadrant of right breast in female, estrogen receptor positive Expected: 02/02/2025, Expires: 02/02/2026 documented as of this encounter Visit Diagnoses Diagnosis Malignant neoplasm of upper-outer quadrant of right breast in female, estrogen receptor positive- Primary documented in this encounter Administered Medications Inactive Administered Medications - up to 3 most recent administrations Medication Order MAR Action Action Date Dose Rate Site denosumab (Xgeva) 120 MG/1.7ML injection 120 mg 120 mg, Subcutaneous, Once, On Sat02/02/25 at 1000, For 1 doseIndications:Malign ant neoplasm of upper-outer quadrant of right breast in female, estrogen receptor positive Given 02/02/2025 9:59 AM EDT 120 mg Left Upper Arm (Back ) leuprolide (Lupron) injection 3.75 mg 3.75 mg, Intramuscular, Once, 1 dose, On Sat02/02/25 at 1000, RoutineIndications:Mal ignant neoplasm of upper-outer quadrant of right breast in female, estrogen receptor positive Given 02/02/2025 10:03 AM EDT 3.75 mg Left Dorsogluteal documented in this encounter Additional Health Concerns Assessment Noted Time A fall risk assessment has been complete d for the patient 12/08/2024 8:31 AM EDT documented as of this encounter Care Teams President And Chief Operating Officer Relationship Specialty Start Date End Date Hermilo Otto MD [address] [place] [address] PCP - General 05/07/24 Loretta Godfrey MD [address] [address] Medical Oncologist Hematology and Oncology 05/18/24 Paola Rosenberg LPN VALUE-BASED TRANSFORMATION PROGRAM Licensed Practical Nurse 08/25/24 documented as of this encounter
--- OUTSIDE RECORDS SUMMARY | 2025-02-19 17:27 | XMS_ITS | Encounter Summary ---
Author Organization [facility] Address [address] [place] [address] Care Team Providers Care Acoustical Tile Patternmaker Name Role Phone Hermilo Otto MD Primary Care Provider + [phone] Reason for Referral * MRI/CAT/PET Scan (Emergency) - Closed Specialty Diagnoses / Procedures Referred By Venkat mccarthy Referred To Contact Radiology Diagnoses Malignant neoplasm of upper-outer quadrant of right breast in female, estrogen receptor positive Procedures CT Abdomen Pelvis With Contrast Loretta Godfrey MD [address] [place] [address] Phone: tel: fax: [address] [address] Phone: tel: Referral ID Status Reason Start Date Expiration Date Visits Re quested Visits Authorized [id number] Closed 02/02/2025 05/04/2026 1 1 * MRI/CAT/PET Scan (Emergency) - Closed Specialty Diagnoses / Procedures [facility] Referred To Contact Radiology Diagnoses Malignant neoplasm of upper-outer quadrant of right breast in female, estrogen receptor positive Procedures CT Chest With Contrast Loretta Godfrey MD [address] [place] [address] Phone: tel: fax: [address] [address] Phone: tel: Referral ID Status Reason Start [...] With Contrast Loretta Godfrey MD [address] [place] [address] Phone: tel: fax: [facility] [address] [place] [address] Phone: tel: Referral ID Status Reason Start Date Expiration Date Visits Re quested Visits Authorized Closed 02/02/2025 05/04/2026 1 1 Encounter Details Date Type Department Care Team (Late st Contact Info) Description 02/19/2025 5:27 PM EDT - 02/19/2025 11:59 PM EDT Hospital Encounter [facility] [address] [facility] [address] [place] [address] Loretta Godfrey MD [address] [place] [address] Malignant neoplasm of upper-outer quadrant of right breast in female, estrogen receptor positive Discharge Disposition: Home or Self Care Social History Tobacco Use Types Packs/Day Years Used Date Smoking Tobacco: Never Alcohol Use Standard Drinks/Week Comments No 0 (1 standard drink = 0.6 oz pur e alcohol) [place] Depression Scale Answer Date Recorded Retired [place] Depression Score 1 10/17/2018 Retired EPD Scale: [...] Martinez, 02/19/2025 5:59 PM EDT Workstation ID: [id number] Narrative 02/19/2025 5:[address] CHEST [...] DO 02/19/2025 5:59 PM EDT Workstation ID: [id number] us Loretta Godfrey MD IMG CT ORDERABLES [...] DO 02/19/2025 5:59 PM EDT Workstation ID: [id number] Narrative 02/19/2025 5:[address] CHEST [...] DO 02/19/2025 5:59 PM EDT Workstation ID: [id number] us Loretta Godfrey MD IMG CT ORDERABLES [...] mL documented in this encounter Care Teams Acoustical Tile Patternmaker Relationship Specialty Start Date End Date Hermilo Otto MD [address] [facility] [address] [facility] [address] [place] [address] PCP - General Family Medicine 04/14/24 documented as of this encounter
--- OUTSIDE RECORDS SUMMARY | 2025-02-26 07:53 | XMS_ITS | Clinical Summary ---
[facility] Organization [facility] Address [address] [place] [address] Care Team Providers Care Plate Shop Helper Name Role Phone Hermilo Otto MD Primary Care Provider + [phone] Allergies No known active allergies Medications Vit-Fe [...] Date Diagnosed Date Resolved Date 03/29/2016 03/31/2016 Encounters Date Type Department Care Team Description 02/19/2025 5:27 PM EDT - 02/19/2025 11:59 PM EDT Hospital Encounter [address] [place] [address] Loretta Godfrey MD Malignant neoplasm of upper-outer quadrant of right breast in female, estrogen receptor positive Discharge Disposition: Home or Self Care 02/19/2025 Travel from Last 3 Months Family History Medical History Relation Name Comments Prostate cancer Father Hypertension Mother Melanoma Paternal Aunt 70s Relation Name Status Comments Father Mother Paternal Aunt Alive Social History Tobacco Use Types Packs/Day Years Used Date Smoking Tobacco: Never Tobacco Cessation:Counseling Given: Not Answered Alcohol Use Standard Drinks/Week Comments No 0 (1 standard drink = 0.6 oz pur e alcohol) [facility] [place] Depression Scale Answer Date Recorded Retired [facility] [place] Depression Score 1 10/17/2018 Retired EPD Scale: [...] SMEAR 09/27/2008 ANNUAL PHYSICAL 10/16/2018 COVID-19 Vaccine ( - 2023-2 5 season) 2025 INFLUENZA VACCINE 03/24/2025 05/20/2024, 06/06/2018 TDAP/TD VACCINES [...] right breast in female, estrogen receptor positive HEPATITIS C ANTIBODY Routine 03/04/2018 4:42 PM EDT care, subsequent , first trimester from Last 3 Months or Most Recently Relevant to Health Maintenance Results * CT Abdomen Pelvis With Contrast [...] colitis, possibly treatment related Electronically Signed: Gurmeet Martinez DO 02/19/2025 5:59 PM EDT Workstation ID: [id number] Narrative 02/19/2025 5:[address] CHEST [...] DO 02/19/2025 5:59 PM EDT Workstation ID: [id number] us Loretta Godfrey MD [facility] ORDERABLES Final R esult * CT [...] Martinez, 02/19/2025 5:59 PM EDT Workstation ID: [id number] Narrative 02/19/2025 5:[address] CHEST [...] DO 02/19/2025 5:59 PM EDT Workstation ID: [id number] Loretta Godfrey MD IMG CT ORDERABLES Final R esult * Hepatitis C Antibody (03/04/2018 4:42 PM EDT) Hepatitis C Ab Non-Reacti ve Non-Reacti ve 03/04/2018 7:55 PM EDT [facility] Blood Venipuncture / Unknown 03/04/2018 4:42 PM EDT 03/04/2018 4:42 PM EDT Makenzie Ward MD LAB BLOOD ORDERABLES Final Re sult [facility]
[address] [id number], from Last 3 Months or Most Recently Relevant to Health Maintenance Insurance [facility] BLUE [facility] PPO Advance Directives * CPR (Attempt to Resuscitate) [...] 3:13 PM 03/30/2016 2:24 AM Care Teams Plate Shop Helper Relationship Specialty Start Date End Date Hermilo Otto MD [address] [place] [address] [place] [address] PCP - General Family Medicine 04/14/24
--- OUTSIDE RECORDS SUMMARY | 2025-02-26 07:53 | XMS_ITS | Clinical Summary ---
Author Organization [employer] ([place], [place], [place], [place]) Address [address] [place] [address] Care Team Providers Care High School Band Teacher Name Role Phone Hermilo Otto MD Primary Care Provider + [phone] Allergies No known active allergies Medications sertraline (ZOLOFT) 50 MG tablet Take 1 tablet (50 mg total) by mouth daily. 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
--- OUTSIDE RECORDS SUMMARY | 2025-02-26 07:53 | XMS_ITS | Encounter Summary ---
Author Organization [facility] Address [address] [place] [address] Care Team Providers Care Pattern Molder Name Role Phone Hermilo Otto MD Primary Care Provider + [phone] Loretta Godfrey MD Unavailable [phone] Paola Rosenberg GRAVITY PROSPECTING OPERATOR Unavailable Unavaila ble Encounter Details Date Type Department Care Team (Late st Contact Info) Description 01/04/2025 Orders Only [facility] [address] [place] [phone] Loretta Godfrey MD [address] [address] Social History Tobacco Use Types [...] Recorded Patient Health Questionnaire-2 Score 0 10/06/2024 [facility] Occupat ional Health - Occupational [...] time in the past 12 m [facility], were you homeless or living in [...] Description 03/02/2025 8:00 AM EDT Office Visit [facility] [address] [place] [phone] Loretta Godfrey MD [address] [place] [address] 03/02/2025 8:15 AM EDT Clinical Support [facility] [address] [place] [address] documented as of this encounter Procedures Procedure [...] documented as of this encounter Care Teams Pattern Molder Relationship Specialty Start Date End Date Hermilo Otto MD [facility] [place] [address] PCP - General 05/07/24 Loretta Godfrey MD [address] [address] Medical Oncologist Hematology and Oncology 05/18/24 Paola Rosenberg LPN VALUE-BASED TRANSFORMATION PROGRAM Licensed Practical Nurse 08/25/24 documented as of this encounter
--- OUTSIDE RECORDS SUMMARY | 2025-02-26 07:53 | XMS_ITS | Encounter Summary ---
Author Organization [employer] ([place], [place], [place], [place]) Address [address] [place] [address] Care Team Providers Care Executive Sales Manager Name Role Phone Hermilo Otto MD Primary Care Provider [phone] Reason for Referral * CAT Scan (Routine) - Pending Review Specialty Diagnoses / Procedures Referred By Venkat mccarthy Referred To Contact Radiology Diagnoses Estrogen receptor positive Procedures CT BIOPSY SITE LIVER Loretta Godfrey MD [address] [place] [address] Phone: tel: fax: Referral ID Status Reason Start Date Expiration Date V isits Requested Visits Authorized [id number] Pending Review 05/13/2024 05/13/2025 1 1 Encounter Details Date Type Department Care Team (Late st Contact Info) Description 05/13/2024 Outside Orders [facility] Scheduling [address] [place] [address] Loretta Godfrey MD [address] [place] [address] Estrogen receptor positive (Primary Dx) Social History Tobacco Use Types Packs/Day Years Used Date Smoking Tobacco: Never Assessed Comments Unknown Sex and Gender Information Value Date Recorded Sex Assigned at Not on file Legal Sex Female 8:46 AM CUSTOMS INSPECTOR Gender Identity Not on file Sexual Orientation [...] liver masses. ATTENDING RADIOLOGIST: Dr. Courtney. PHYSICIAN FAMILY LIVING EDUCATOR: Fabian Starks PA-C. PROCEDURE: After informed consent [...] liver masses. ATTENDING RADIOLOGIST: Dr. Courtney. PHYSICIAN FAMILY LIVING EDUCATOR: Fabian Starks PA-C. PROCEDURE: After informed consent [...] [ER+] documented in this encounter Care Teams Executive Sales Manager Relationship Specialty Start Date End Date Hermilo Otto MD [address] [facility] [address] [place] [phone] PCP - General Family Medicine 05/15/24 documented as of this encounter
--- OUTSIDE RECORDS SUMMARY | 2025-02-26 07:53 | XMS_ITS | Referral Summary ---
Author Organization [employer] ([place], [place], [place], [place]) Address [address] [place] [address] Care Team Providers Care Home Economics Teacher Name Role Phone Hermilo Otto MD Primary Care Provider + [phone] Allergies No known active allergies Medications sertraline (ZOLOFT) 50 MG tablet Take 1 tablet (50 mg total) by mouth daily. Active Social History Tobacco Use Types Packs/Day Years Used Date Smoking Tobacco: Never Smokeless Tobacco: Never Tobacco Cessation:Counseling Given: Not Answered Comments No Sex and Gender Information Value Date Recorded Sex Assigned at Not on file Legal Sex Female 8:46 AM FUND DEVELOPMENT MANAGER Gender Identity Not on file Sexual [...] file Insurance BLUE CROSS/BLUE SHIELD Care Teams Home Economics Teacher Relationship Specialty Start Date End Date Hermilo Otto MD [address] [facility] [address] [place] [phone] PCP - General Family Medicine 05/15/24
--- OUTSIDE RECORDS SUMMARY | 2025-02-26 07:53 | XMS_ITS ---
Author Organization [facility] Address [address] [place] [address] Care Team Providers Care Residential Program Director Name Role Phone Hermilo Otto MD Primary Care Provider + [phone] Loretta Godfrey MD Unavailable [phone] Paola Rosenberg LPN Unavailable Unavaila ble [facility] Status:Active (Active) Start date:08/25/2024 Enrollment date:08/27/2024 Enrollment reason:Identified as high-risk Overview This episode type is for outpatient care managers enrolling patients in the [facility] program. Case Team Name Relationship Phone Paola Rosenberg LPN(Responsible Staff) Licens ed Practical Nurse Continued Care and Services Coordination
--- OUTSIDE RECORDS SUMMARY | 2025-02-26 07:53 | XMS_ITS | Encounter Summary ---
Author Organization [facility] Address [address] [place] [address] Care Team Providers Care Snuff Blender Name Role Phone Hermilo Otto MD Primary Care Provider + [phone] Loretta Godfrey MD Unavailable [phone] Paola Rosenberg LPN Unavailable Unavaila ble [...] attend [facility] or gnosticism services? More than 4 times per year 08/27/2024 Do you belong to any clubs o r organizations such as faith groups, unions, fraternal or athletic groups, or [...] Recorded Patient Health Questionnaire-2 Score 0 10/06/2024 [facility] Occupat ional [facility] - Occupational Stress Questionnaire Answer Date [...] any time in the past 12 m [facility], were you homeless or living [...] Description 03/02/2025 8:00 AM EDT Office Visit [facility] [address] [place] [phone] Loretta Godfrey MD [address] [phone] 03/02/2025 8:15 AM EDT Clinical Support [facility] [address] [place] [phone] documented as of this encounter Visit Diagnoses Not on filedocumented in this encounter Additional Health Concerns Assessment Noted Time A fall risk assessment has been complete d for the patient 12/08/2024 8:31 AM EDT documented as of this encounter Care Teams Snuff Blender Relationship Specialty Start Date End Date Hermilo Otto MD 1210 [facility] [address] [place], [place] [phone] PCP - General 05/07/24 Loretta Godfrey MD [address] [phone] Medical Oncologist Hematology and Oncology 05/18/24 Paola Rosenberg LPN VALUE-BASED TRANSFORMATION PROGRAM Licensed Practical Nurse 08/25/24 documented as of this encounter
--- OUTSIDE RECORDS SUMMARY | 2025-02-26 07:54 | XMS_ITS | Encounter Summary ---
Author Organization [facility] Address [address] [place] [address] Care Team Providers Care Labeling Strategist Name Role Phone Hermilo Otto MD Primary Care Provider + [phone] Loretta Godfrey MD Unavailable [phone] Paola Rosenberg LPN Unavailable Unavaila ble Encounter Details Date Type Department Care Team (Latest Contact Info) Description 02/23/2025 Travel Social History Tobacco Use Types Packs/Day [...] week 08/27/2024 How often do you attend [facility] or mandaen services? More than 4 times [...] Recorded Patient Health Questionnaire-2 Score 0 10/06/2024 [facility] - Occupational Stress Questionnaire Answer Date [...] in the past 12 m [facility], were you homeless or living in a [...] EDT Office Visit [facility] [place] [facility] [address] [place] [phone] Loretta Godfrey MD [address] [phone] 03/02/2025 8:15 AM EDT Clinical Support [facility] [place] [facility] [address] [place] [phone] documented as of this encounter Visit Diagnoses Not on filedocumented in this encounter Additional Health Concerns Assessment Noted Time A fall risk assessment has been complete d for the patient 12/08/2024 8:31 AM EDT documented as of this encounter Care Teams Labeling Strategist Relationship Specialty Start Date End Date Hermilo Otto MD 1210 [facility] [address] [place], [place] [phone] PCP - General 05/07/24 Loretta Godfrey MD [address] [phone] Medical Oncologist Hematology and Oncology 05/18/24 Paola Rosenberg LPN VALUE-BASED TRANSFORMATION PROGRAM Licensed Practical Nurse 08/25/24 documented as of this encounter
--- OUTSIDE RECORDS SUMMARY | 2025-02-26 07:54 | XMS_ITS | Encounter Summary ---
Author Organization [facility] Address [address] [place] [address] Care Team Providers Care Comprehensive Ophthalmologist Name Role Phone Hermilo Otto MD Primary Care Provider + [phone] Loretta Godfrey MD Unavailable [phone] Paola Rosenberg SUGAR LABORATORY ASSISTANT Unavailable Unavaila ble Encounter Details Date Type Department Care Team (Late st Contact Info) Description 01/01/2025 Orders Only [facility] at [facility] [address] [place] [phone] Loretta Godfrey MD [address] [address] Social History Tobacco Use Types [...] often do you attend chur ch or buddhist services? More than 4 times per year 08/27/2024 Do you belong to any clubs o r organizations such as jain groups, unions, fraternal or athletic groups, or [...] Patient Health Questionnaire-2 Score 0 10/06/2024 [facility] Occupat ional Health - [...] any time in the past 12 m [facility], were you homeless or living [...] Description 03/02/2025 8:00 AM EDT Office Visit [facility] at [address] [address] [place] [address] [place] [phone] 03/02/2025 8:15 AM EDT Clinical Support [facility] at [address] [place] [address] documented as of this encounter [...] documented as of this encounter Care Teams Comprehensive Ophthalmologist Relationship Specialty Start Date End Date Hermilo Otto MD [address] [place] [phone] PCP - General 05/07/24 Loretta Godfrey MD [address] [address] Medical Oncologist Hematology and Oncology 05/18/24 Paola Rosenberg LPN VALUE-BASED TRANSFORMATION PROGRAM Licensed Practical Nurse 08/25/24 documented as of this encounter
--- OUTSIDE RECORDS SUMMARY | 2025-02-26 07:54 | XMS_ITS | Encounter Summary ---
Author Organization [facility] Address [address] [place] [address] Care Team Providers Care Wharfinger Chief Name Role Phone Hermilo Otto MD Primary Care Provider [phone] Encounter Details Date Type Department Care Team (Latest Contact Info) Description 02/19/2025 Travel Social History Tobacco Use Types Packs/Day Years Used Date Smoking Tobacco: Never Alcohol Use Standard Drinks/Week Comments No 0 (1 standard drink = 0.6 oz pur e alcohol) [place] Depression Scale Answer Date Recorded Retired [place] Depression Score 1 10/17/2018 Retired EPD Scale: [...] on file documented as of this encounter Visit Diagnoses Not on filedocumented in this encounter Care Teams Wharfinger Chief Relationship Specialty Start Date End Date Hermilo Otto MD [address] [place] PCP - General Family Medicine 04/14/24 documented as of this encounter
--- OUTSIDE RECORDS SUMMARY | 2025-02-26 07:54 | XMS_ITS | Encounter Summary ---
Author Organization [facility] Address [address] [place] [address] Care Team Providers Care Statistical Programmer Analyst Name Role Phone Hermilo Otto MD Primary Care Provider + [phone] Loretta Godfrey MD Unavailable [phone] Paola Rosenberg LPN Unavailable Unavaila ble Reason for Visit * Reason Comments Follow-up Encounter Details Date Type Department Care Team (Late st Contact Info) Description 01/14/2025 Patient Outreach [facility] [address] [place] [address] Paola Rosenberg LPN VALUE-BASED TRANSFORMATION [...] How often do you attend chur or islam services? More than 4 times per year 08/27/2024 Do you belong to any clubs o r organizations such as pentecostalism groups, unions, fraternal or athletic groups, or [...] any time in the past [address] [facility], were you homeless or living in [...] 1:16 PM EDT 01/14/2025 Reason for Follow-up: [facility] update call. Patient Status: Current Symptoms: Patient [...] EDT Office Visit [facility] [address] [place] [phone] Loretta Godfrey MD [address] [phone] 03/02/2025 8:15 AM EDT Clinical Support [facility] [address] [place] [phone] documented as of this encounter Visit Diagnoses Not on filedocumented in this encounter Additional Health Concerns Assessment Noted Time A fall risk assessment has been complete d for the patient 12/08/2024 8:31 AM EDT documented as of this encounter Care Teams Statistical Programmer Analyst Relationship Specialty Start Date End Date Hermilo Otto MD [address] [place] [address] PCP - General 05/07/24 Loretta Godfrey MD [address] [address] Medical Oncologist Hematology and Oncology 05/18/24 Paola Rosenberg LPN VALUE-BASED TRANSFORMATION PROGRAM Licensed Practical Nurse 08/25/24 documented as of this encounter
--- OUTSIDE RECORDS SUMMARY | 2025-02-26 07:54 | XMS_ITS | Encounter Summary ---
Author Organization [facility] Address [address] [place] [address] Care Team Providers Care Manager Subway Name Role Phone Hermilo Otto MD Primary Care Provider + [phone] Loretta Godfrey MD Unavailable [phone] Paola Rosenberg LPN Unavailable Unavaila ble Encounter Details Date Type Department Care Team (Latest Contact Info) Description 02/02/2025 Travel Social History Tobacco Use Types Packs/Day [...] week 08/27/2024 How often do you attend [facility] or sabianism services? More than 4 times per year 08/27/2024 Do you belong to any clubs o r organizations such as yarsani groups, unions, fraternal or athletic groups, or [...] Recorded Patient Health Questionnaire-2 Score 0 10/06/2024 [facility] Occupat ional [facility] - Occupational Stress Questionnaire Answer Date [...] time in the past 12 m [facility], were you homeless or living in a [...] No Risk Indicated 02/02/2025 10:00 AM EDT CallEssie RN * Question Answer Date of Assessment Author 1. Wish to be (Past 1 Month) No 025 10:00 AM EDT CallEssie RN 2. Non-Specific Active Suici kelsie Thoughts (Past 1 Month) No 02/02/2025 10:00 AM EDT Call, Cristino Flynn RN 6. Suicidal Behavior (Lifetime) No 10:00 AM EDT CallEssie RN documented as of this encounter Plan of Treatment Upcoming Encounters Date Type Department Care Team (Late st Contact Info) Description 03/02/2025 8:00 AM EDT Office Visit [facility] [address] [place] [address] Loretta Godfrey MD [address] [place] [phone] 03/02/2025 8:15 AM EDT Clinical Support [facility] at [facility] [address] [place] [address] documented as of this encounter Visit Diagnoses Not on filedocumented in this encounter Additional Health Concerns Assessment Noted Time A fall risk assessment has been complete d for the patient 12/08/2024 8:31 AM EDT documented as of this encounter Care Teams Manager Subway Relationship Specialty Start Date End Date Hermilo Otto MD 1210 [facility] [address] [place] [address] PCP - General 05/07/24 Loretta Godfrey MD [address] [phone] Medical Oncologist Hematology and Oncology 05/18/24 Paola Rosenberg LPN VALUE-BASED TRANSFORMATION PROGRAM Licensed Practical Nurse 08/25/24 documented as of this encounter
--- OUTSIDE RECORDS SUMMARY | 2025-02-26 07:54 | XMS_ITS | Encounter Summary ---
Author Organization [facility] Address [address] [place] [address] Care Team Providers Care Community Education Specialist Name Role Phone Hermilo Otto MD Primary Care Provider + [phone] Loretta Godfrey MD Unavailable [phone] Paola Rosenberg MUSIC MANAGER Unavailable Unavaila ble Encounter Details Date Type Department Care Team (Late st Contact Info) Description 02/23/2025 Orders Only [facility] at [facility] [address] [place] [phone] Loretta Godfrey MD [address] [address] Social History Tobacco Use Types [...] often do you attend chur ch or hoahaoism services? More than 4 times [...] Recorded Patient Health Questionnaire-2 Score 0 10/06/2024 [facility] of Occupat ional Health - Occupational [...] No 08/27/2024 Housing Stability Vital Sign Answer Mni e Recorded In the last 12 months, was t here a time when you were not able to pay the mortgage or rent on time? No 08/27/2024 In the past 12 months, how m any times have you moved where you were living? 0 08/27/2024 At any time in the past 12 m [facility], were you homeless or [...] Description 03/02/2025 8:00 AM EDT Office Visit [facility] at [facility] [address] [place] [address] Loretta Godfrey MD [address] [address] 03/02/2025 8:15 AM EDT Clinical Support [facility] at [facility] [address] [place] [address] documented as of this encounter Procedures Procedure Name Priority Date/Time Associated Diagnosis Comments CT ABDOMEN PELVIS W IV CONTRAST Routine 02/19/2025 12:[address] CHEST W IV CONTRAST Routine 02/19/2025 9:43 AM EDT documented in this encounter Results * CT Abdomen Pelvis w IV Contrast (02/19/2025 12:13 PM EDT) Anatomical Region Laterality Modality Abdomen, Pelvis Computed Tomogra phy us Loretta Godfrey MD IMG CT PROCEDURES Final Resul t * CT Chest w IV Contrast (02/19/2025 9:43 AM EDT) Anatomical Region Laterality Modality Chest Computed Tomogra phy us Loretta Godfrey MD IMG CT PROCEDURES Final Resul t documented in this encounter Visit Diagnoses Not on filedocumented in this encounter Additional Health Concerns Assessment Noted Time A fall risk assessment has been complete d for the patient 12/08/2024 8:31 AM EDT documented as of this encounter Care Teams Community Education Specialist Relationship Specialty Start Date End Date Hermilo Otto MD [address] [place], [place] [phone] PCP - General 05/07/24 Loretta Godfrey MD [address] [facility] [address] [place] [address] Medical Oncologist Hematology and Oncology 05/18/24 Paola Rosenberg LPN VALUE-BASED TRANSFORMATION PROGRAM Licensed Practical Nurse 08/25/24 documented as of this encounter
--- OUTSIDE RECORDS SUMMARY | 2025-02-26 07:54 | XMS_ITS | Encounter Summary ---
Author Organization [facility] Address [address] [place] [address] Care Team Providers Care Call Center Recruiter Name Role Phone Hermilo Otto MD Primary Care Provider + [phone] Loretta Godfrey MD Unavailable [phone] Paola Rosenberg RECONCILIATION ANALYST Unavailable Unavaila ble Encounter Details Date Type Department Care Team (Late st Contact Info) Description 01/29/2025 Orders Only [facility] [address] [place] [phone] Loretta Godfrey MD [address] [address] Social History Tobacco Use [...] often do you attend chur ch or jewish services? More than 4 times per year 08/27/2024 Do you belong to any clubs o r organizations such as restoration groups, unions, fraternal or athletic groups, or [...] 10/06/2024 [facility] - Occupational [...] Description 03/02/2025 8:00 AM EDT Office Visit [facility] [address] [place] [phone] Loretta Godfrey MD [address] [phone] 03/02/2025 8:15 AM EDT Clinical Support [facility] [address] [place] [address] documented as of this encounter Procedures Procedure Name Priority Date/Time Associated Diagnosis Comments COMPLETE METABOLIC PROFILE (CMP) Routine 01/29/2025 10:38 AM EDT CBC W/DIFF Routine 01/29/2025 9:12 AM EDT documented in this encounter Results * COMPLETE METABOLIC PROFILE (CMP) (01/29/2025 10:38 AM EDT) us Loretta Godfrey MD LAB BLOOD ORDERABLES Final Re sult * CBC W/DIFF (01/29/2025 9:12 AM EDT) us Loretta Godfrey MD LAB BLOOD ORDERABLES Final Re sult documented in this encounter Visit Diagnoses Not on filedocumented in this encounter Additional Health Concerns Assessment Noted Time A fall risk assessment has been complete d for the patient 12/08/2024 8:31 AM EDT documented as of this encounter Care Teams Call Center Recruiter Relationship Specialty Start Date End Date Hermilo Otto MD [facility] [address] [address] PCP - General 05/07/24 Loretta Godfrey MD [address] [facility] [address] [place] [address] Medical Oncologist Hematology and Oncology 05/18/24 Paola Rosenberg LPN VALUE-BASED TRANSFORMATION PROGRAM Licensed Practical Nurse 08/25/24 documented as of this encounter
--- OUTSIDE RECORDS SUMMARY | 2025-02-26 07:54 | XMS_ITS | Encounter Summary ---
Author Organization [facility] Address [address] [place] [address] Care Team Providers Care Yarn Hauler Name Role Phone Hermilo Otto MD Primary Care Provider + [phone] Loretta Godfrey MD Unavailable [phone] Paola Rosenberg LPN Unavailable Unavaila ble Reason for Visit * Reason Comments Follow-up Encounter Details Date Type Department Care Team (Late st Contact Info) Description 02/11/2025 Patient Outreach [facility] [address], [address] [place] [address] Paola Rosenberg LPN VALUE-BASED TRANSFORMATION [...] How often do you attend chur or congregational services? More than 4 times per year [...] Recorded Patient Health Questionnaire-2 Score 0 10/06/2024 [facility] - Occupational [...] time in the past 12 m [facility], were you homeless or living in [...] Progress Notes - Paola Rosenberg LPN - 02/11/2025 11:49 AM EDT 02/11/2025 Reason for Follow-up: [facility]+ update call. Patient Status: Current Symptoms: Patient denies any symptoms at this time. Side Effects: Patient denies any side effects at this time. Treatment Updates: Current Treatment Plan: leuprolide (Lupron) injection 3.75 mg denosumab (Xgeva) 120 MG/1.7ML injection 120 mg Letrozole 2.5 mg daily. Verzenio 150 mg twice a day [facility] Update: Other: Patient denies any needs at this time. Follow-Up Plan: Next Appointment: 03/02/2025@8:00 am with Loretta Godfrey. Additional Notes/Care Coordination Needs: Patient Concerns: Patient denies any questions or concerns for this nurse. Patient encouraged to call with any non-urgent matters. documented in this encounter Plan of Treatment Upcoming Encounters Date Type Department Care Team (Late st Contact Info) Description 03/02/2025 8:00 AM EDT Office Visit [facility] [address] [place] [phone] Loretta Godfrey MD [address] [phone] 03/02/2025 8:15 AM EDT Clinical Support [facility] [address] [place] [phone] documented as of this encounter Visit Diagnoses Not on filedocumented in this encounter Additional Health Concerns Assessment Noted Time A fall risk assessment has been complete d for the patient 12/08/2024 8:31 AM EDT documented as of this encounter Care Teams Yarn Hauler Relationship Specialty Start Date End Date Hermilo Otto MD [address] [place] [address] PCP - General 05/07/24 Loretta Godfrey MD [address] [phone] Medical Oncologist Hematology and Oncology 05/18/24 Paola Rosenberg LPN VALUE-BASED TRANSFORMATION PROGRAM Licensed Practical Nurse 08/25/24 documented as of this encounter
--- OUTSIDE RECORDS SUMMARY | 2025-02-26 07:54 | XMS_ITS | Encounter Summary ---
Author Organization [facility] Address [address] [place] [address] Care Team Providers Care Nurse Prn Name Role Phone Hermilo Otto MD Primary Care Provider + [phone] Loretta Godfrey MD Unavailable [phone] Paola Rosenberg BLEACH PLANT OPERATOR Unavailable Unavaila ble Encounter Details Date Type Department Care Team (Late st Contact Info) Description 01/05/2025 Orders Only [facility] [address] [place] [phone] Loretta Godfrey MD [address] [address] Social History Tobacco Use [...] any clubs o r organizations such as episcopal groups, unions, fraternal or athletic groups, or [...] time in the past [address] [facility], were you homeless or living [...] Description 03/02/2025 8:00 AM EDT Office Visit [facility] [address] [place] [phone] Loretta Godfrey MD [address] [place] [address] 03/02/2025 8:15 AM EDT Clinical Support [facility] at [facility] [address] [place] [address] documented as of this encounter Procedures Procedure Name Priority Date/Time Associated Diagnosis Comments COMPLETE METABOLIC PROFILE (CMP) Routine 01/05/2025 8:52 AM EDT COMPLETE METABOLIC PROFILE (CMP) Routine 01/01/2025 9:28 AM EDT documented in this encounter Results * COMPLETE METABOLIC PROFILE (CMP) (01/05/2025 8:52 AM EDT) us oLretta Godfrey MD LAB BLOOD ORDERABLES Final Re [...] documented as of this encounter Care Teams Nurse Prn Relationship Specialty Start Date End Date Hermilo Otto MD [facility] [address] [address] PCP - General 05/07/24 Loretta Godfrey MD [address] [place] [address] Medical Oncologist Hematology and Oncology 05/18/24 Paola Rosenberg LPN VALUE-BASED TRANSFORMATION PROGRAM Licensed Practical Nurse 08/25/24 documented as of this encounter
--- OUTSIDE RECORDS SUMMARY | 2025-02-26 07:54 | XMS_ITS | Patient Health Record ---
Author Organization [facility] Address [address] [place] [address] Care Team Providers Care Receiving Operator Name Role Phone Makenzie Ward Unavailable [phone] Chela Doss Unavailable [phone] Allergies No Known Allergies Results Component Value Reference Range Notes Pap w/HPV Reviewed date:04/13/2024 09:31:36 AM Interpretation:Pap normal, HPV negative Performing Lab:[facility], [facility] - MAX CLIA ID [id number], [address] [facility], [address], [place] [address], Director - Maya Durant MD Notes/Report: Any Nucleic Acid Amplification testing is performed on the [employer]. Diagnosis: Negative for intraepithelial lesion or malignancy. AP results FINAL MANAGER WILLOW CYTOLOGY REPORT DIAGNOSIS: Negative for intraepithelial lesion or malignancy. Specimen Adequacy: Satisfactory for interpretation with endocervical/transforma tion zone component absent. Pertinent Clinical History/History of Surgery: Not provided Collection Technique: Not provided Results of Last Pap: Not provided LMP: 03/20/2024 Date of Last Pap: Not provided Specimen Source: Cervical/Endocervical Specimen Type: ThinPrep Other Gynecological Patient Information: Not provided Recommendation: Follow-up based on current clinical guidelines and/or clinical consideration. Screening note: This specimen has been analyzed by the ThinPrep Imaging System, an interactive computer system which assists the lab in screening of ThinPrep Pap Test slides. Following imaging, the slide was reviewed by a Lift Builder Whole and/or Pathologist. Negative Educational Note: The pap screening test aids in the detection of premalignant and malignant states of the cervix. False positive and negative results may occur. It is not a diagnostic test. If abnormal cells are reported, follow-up based on current clinical guidelines and/or clinical consideration is recommended. Liyah Duong Lift Builder Whole CPT Codes: 20908 ICD Codes: Z01.419 HPV High-Risk Negative Negative US GUIDED BREAST [...] of concern indicated by the patient. A [place] marker is placed over a visible skin [...] ALIS CASE, ALLEN KEBEDE OR MANISHA GABRIEL. 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 Problem test positive (137312171) Encounter for test, result positive (Z32.01) 018 Active confirmed test positive Problem Gynecological examination normal (507330390724649 ) Cervical smear, as part of routine gynecological examination (Z01.419) 019 Active confirmed Annual without abnormal findings Problem Premenstrual tension syndrome (60653134) PMDD (premenstrual dysphoric disorder) (F32.81) Active confirmed Vital Signs Blood pressure diastolic 70 mm Hg 05/11/2024 Height 65 in 05/11/2024 Blood pressure systolic 114 mm Hg 05/11/2024 Weight 171.8 lbs 05/11/2024 BMI 28.59 kg/m2 05/11/2024 Encounters Encounter Location Date Provider Diagnosis [facility] [address] [address] 05/11/2024 Chela Doss PMDD (premenstrual dysphoric disorder) F32.81 [facility] [address] [address] 04/06/2024 Chela Doss Encounter for gynecological examination [...] Provider Name:Parul Main, 04/14/2025 03:00:00 PM, [address], [address], Insurance Providers Payer Name Payer Address Payer Phone Subscriber Number Group Number Insured Name Patient Relationship to Insured Coverage Start Date Coverage End Date Fanny DOLAN [address] [place] [address] [phone] [id number] Shona Sterling Self - patient is the insured Medical (General) History Surgical History Surgery Date(Month/Year) BTL [place] 2007 Tonsillectomy
--- OUTSIDE RECORDS SUMMARY | 2025-02-26 07:54 | XMS_ITS | Encounter Summary ---
Author Organization [facility] Address [address] [place] [address] Care Team Providers Care Locomotive Crane Engineer Name Role Phone Hermilo Otto MD Primary Care Provider + [phone] Loretta Godfrey MD Unavailable [phone] Paola Rosenberg LPN Unavailable Unavaila ble [...] 08/27/2024 How often do you attend [facility] or confucianist services? More than 4 times per year 08/27/2024 Do you belong to any clubs o r organizations such as zoroastrian groups, unions, fraternal or athletic groups, or [...] [facility] of Occupat ional [facility] - Occupational Stress Questionnaire Answer Date [...] time in the past 12 m [facility], were you homeless or [...] EDT Office Visit [facility] [address] [place] [address] Loretta Godfrey MD [address] [place] [address] 03/02/2025 8:15 AM EDT Clinical Support [facility] [address] [place] [address] documented as of this encounter Visit Diagnoses Not on filedocumented in this encounter Additional Health Concerns Assessment Noted Time A fall risk assessment has been complete d for the patient 12/08/2024 8:31 AM EDT documented as of this encounter Care Teams Locomotive Crane Engineer Relationship Specialty Start Date End Date Hermilo Otto MD [address] [place] [phone] PCP - General 05/07/24 [place] [address] [place] [phone] Medical Oncologist Hematology and Oncology 05/18/24 Paola Rosenberg LPN VALUE-BASED TRANSFORMATION PROGRAM Licensed Practical Nurse 08/25/24 documented as of this encounter
--- OUTSIDE RECORDS SUMMARY | 2025-02-26 07:54 | XMS_ITS | Encounter Summary ---
Author Organization [facility] Address [address] [place] [address] Care Team Providers Care Wafer Production Worker Name Role Phone Hermilo Otto MD Primary Care Provider + [phone] Loretta Godfrey MD Unavailable [phone] Paola Rosenberg LPN Unavailable Unavaila ble Encounter Details Date Type Department Care Team (Late st Contact Info) Description 02/01/2025 Orders Only [facility] [address] [place] [address] Provider, [address] [address] Social History Tobacco Use Types Packs/Day Years [...] How often do you attend chur or orthodoxy services? More than 4 times per year 08/27/2024 Do you belong to any clubs o r organizations such as mandaen groups, unions, fraternal or athletic groups, or [...] any time in the past 12 m [facility], were you homeless or living [...] 1 Month) No 02/02/2025 10:00 AM EDT CallCristino RN 6. Suicidal Behavior (Lifetime) No 10:00 AM EDT CallEssie RN documented as of this encounter Plan of Treatment Upcoming Encounters Date Type Department Care Team (Late st Contact Info) Description 03/02/2025 8:00 AM EDT Office Visit [facility] [address] [place] [phone] Loretta Godfrey MD [address] [place] [phone] 03/02/2025 8:15 AM EDT Clinical Support [facility] [address] [place] [address] documented as of this encounter Procedures Procedure Name Priority Date/Time Associated Diagnosis Comments CANCER ANTIGEN 27.29 Routine 02/01/2025 9:11 AM EDT documented in this encounter Results * Cancer antigen 27.29 (02/01/2025 9:11 AM EDT) Blood Venous blood specimen / Unknown us Historical Provider LAB BLOOD ORDERABLES Final R esult documented in this encounter Visit Diagnoses Not on filedocumented in this encounter Additional Health Concerns Assessment Noted Time A fall risk assessment has been complete d for the patient 12/08/2024 8:31 AM EDT documented as of this encounter Care Teams Wafer Production Worker Relationship Specialty Start Date End Date Hermilo Otto MD [address] [place] [address] PCP - General 05/07/24 Loretta Godfrey MD [address] [place] [phone] Medical Oncologist Hematology and Oncology 05/18/24 Paola Rosenberg LPN VALUE-BASED TRANSFORMATION PROGRAM Licensed Practical Nurse 08/25/24 documented as of this encounter
--- OUTSIDE RECORDS SUMMARY | 2025-02-26 07:54 | XMS_ITS | Encounter Summary ---
Author Organization [facility] Address [address] [place] [address] Care Team Providers Care Retail Key Holder Name Role Phone Hermilo Otto MD Primary Care Provider + [phone] Loretta Godfrey MD Unavailable [phone] Paola Rosenberg LPN Unavailable Unavaila ble Encounter Details Date Type Department Care Team (Latest Contact Info) Description 02/01/2025 Travel Social History Tobacco Use Types Packs/Day [...] week 08/27/2024 How often do you attend [facility] or buddhist services? More than 4 [...] 0 10/06/2024 [facility] of Occupat ional [facility] - Occupational Stress Questionnaire Answer [...] Description 03/02/2025 8:00 AM EDT Office Visit [facility] [address] [place] [phone] Loretta Godfrey MD [address] [phone] 03/02/2025 8:15 AM EDT Clinical Support [facility] [address] [place] [phone] documented as of this encounter Visit Diagnoses Not on filedocumented in this encounter Additional Health Concerns Assessment Noted Time A fall risk assessment has been complete d for the patient 12/08/2024 8:31 AM EDT documented as of this encounter Care Teams Retail Key Holder Relationship Specialty Start Date End Date Hermilo Otto MD [address] [facility] [address] [place], [place] [phone] PCP - General 05/07/24 Loretta Godfrey MD [address] [phone] Medical Oncologist Hematology and Oncology 05/18/24 Paola Rosenberg LPN VALUE-BASED TRANSFORMATION PROGRAM Licensed Practical Nurse 08/25/24 documented as of this encounter
--- OUTSIDE RECORDS SUMMARY | 2025-02-26 07:54 | XMS_ITS ---
Author Organization [facility] Address [address] [place] [address] Care Team Providers Care Choir Teacher Name Role Phone Hermilo Otto MD Primary Care Provider + [phone] Loretta Godrfey MD Unavailable [phone] Paola Rosenberg SERVICE TECH/WELDER Unavailable Unavaila ble Active Problems Problem Noted [...]
--- OUTSIDE RECORDS SUMMARY | 2025-02-26 07:54 | XMS_ITS | Clinical Summary ---
Author Organization [facility] Address [address] [place] [address] Care Team Providers Care Key Entry Operator Name Role Phone Hermilo Otto MD Primary Care Provider + [phone] Loretta Godfrey MD Unavailable [phone] Paola Rosenberg LPN Unavailable Unavaila ble [...] Encounters Date Type Department Care Team Description 02/23/2025 Travel 02/23/2025 Orders Only [facility] [address] [place] [phone] Loretta Godfrey MD 02/11/2025 Patient Outreach [facility] [address] [facility] [address], [address] [place] [address] Paola Rosenberg LPN Follow-up 02/02/2025 9:30 AM EDT Clinical Support [facility] at [address] [place] [address] Malignant neoplasm of upper-outer quadrant of right breast in female, estrogen receptor positive (Primary Dx) 02/02/2025 9:15 AM EDT Office [facility] at [address] [place] [address] Loretta Godfrey MD Malignant neoplasm of upper-outer quadrant of right breast in female, estrogen receptor positive (Primary Dx) 02/02/2025 Travel 02/01/2025 Travel 02/01/2025 Orders Only [facility] at [address] [place] [address] Provider, Historical 01/29/[address] [facility] at [address] [place] [address] Loretta Godfrey MD 01/14/2025 Patient Outreach [facility] [address] [place] [address], [address] [place] [address] Paola Rosenberg LPN Follow-up 01/13/2025 Patient Outreach POPULATION [address], [address] [place] [address] Paola Rosenberg LPN Follow-up 01/05/2025 8:15 AM EDT Clinical Support [facility] at [place] [address] [place] [address] Malignant neoplasm of upper-outer quadrant of right breast in female, estrogen receptor positive (Primary Dx) 01/05/2025 8:00 AM EDT Office Visit [facility] at [place] [address] [place] [address] Loretta Godfrey MD Malignant neoplasm of upper-outer quadrant of right breast in female, estrogen receptor positive (Primary Dx) 01/05/[address] [facility] at [address] [place] [address] Loretta Godfrey MD 01/05/2025 Travel 01/04/[address] [facility] at [address] [place] [address] Loretta Godfrey MD 01/01/2025 Travel 01/01/[address] [facility] at [address] [address] Loretta Godfrey MD 12/17/[address] [facility] at [address] [address] Loretta Godfrey MD 12/15/2024 Patient Outreach POPULATION [address], [address] [place] [address] Paola Rosenberg CONTOUR SANDER Follow-up 12/14/2024 Patient Outreach POPULATION [address], [address] [place] [address] Paola Rosenberg CONTOUR SANDER Follow-up 12/08/2024 8:45 AM EDT Clinical Support [facility] at [address] [place] [address] Malignant neoplasm of upper-outer quadrant of right breast in female, estrogen receptor positive (Primary Dx) 12/08/2024 8:30 AM EDT Office [facility] at [address] [place] [address] Loretta Godfrey MD Malignant neoplasm of upper-outer quadrant of right breast in female, estrogen receptor positive (Primary Dx) 12/08/2024 Travel 12/08/[address] [facility] at [address] [place] [address] Loretta Godfrey MD 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, estrogen receptor positive, unspecified site of breast 12/07/2024 Travel 12/07/[address] [facility] at [address] [address] Loretta Godfrey MD 12/04/[address] [facility] at [address] [address] Iliana Silvestre, PharmD 12/04/[address] [facility] at [address] [address] Loretta Godfrey MD from Last 3 Months [...] How often do you attend [facility] or samaritan services? More than 4 times per year 08/27/2024 Do you belong to any clubs o r organizations such as adventism groups, unions, fraternal or athletic groups, or [...] Score 0 10/06/2024 [facility] of Occupat ional [facility] - Occupational Stress Questionnaire Answer Date [...] Recorded In the past 12 months has [employer] electric, gas, oil, or water company threatened [...] F) 02/02/2025 9:41 AM EDT Respiratory Rate 18 12/08/2024 9:25 AM EDT Oxygen Saturation 100% 02/02/2025 9:41 AM EDT Inhaled Oxygen Concentration - - Weight 72.1 kg (158 lb 15.2 oz) 02/02/2025 9:41 AM EDT Height 165.1 cm (5' 5 ) 02/02/2025 8:55 AM EDT Body Mass Index 26.45 02/02/2025 8:55 AM EDT Plan of Treatment Upcoming Encounters Date Type Department Care Team (Late st Contact Info) Description 03/02/2025 8:00 AM EDT Office Visit [facility] at [facility] [address] [place] [address] Loretta Godfrey MD [address] [place] [address] 03/02/2025 8:15 AM EDT Clinical Support [facility] at [facility] [address] [place] [address] Health Maintenance Due Date Last Done Comments [facility]-HIV Screening 1985 [facility]-/Child/Adol SDOH Screenings 1985 [id number] Vaccine (#1) 09/27/1992 [facility]-Obesity Intervention 09/27/1993 [facility]-Varicella [...] (1 of 2) 09/27/2006 [facility]-Pap Smear 09/27/2008 HPV Vaccines (1 - Risk 3-dos e SCDM series) 09/27/2014 [facility]-Cervical Cancer Screening 09/27/2017 [facility]-HPV/Cotest 09/27/2017 [facility]-Influenza Vaccine (#1) 02/22/202505/20, 06/06/2018 [facility]- SDOH Screenings 02/27/2025 [facility]-Adult SDOH Screenings 02/27/2025 08/27/2024 [facility]-Depression Screening 10/06/2025 10/06/2024 [facility]-DTaP,Tdap,and Td Vaccine s (2 - Td or Tdap) 09/18/2028 09/18/2018 [facility]-Hepatitis C Screening Completed 03/04/2018 [facility]-HIB Vaccines Aged Out No longer e [...] IV CONTRAST Routine 02/19/2025 9:43 AM EDT CANCER ANTIGEN 27.29 Routine 02/01/2025 9:11 AM EDT COMPLETE METABOLIC PROFILE (CMP) Routine 01/29/2025 10:38 AM EDT CBC W/DIFF Routine 01/29/2025 9:12 AM EDT COMPLETE METABOLIC PROFILE (CMP) Routine 01/05/2025 8:52 [...] ANTIGEN 27.29 Routine 12/04/2024 8:49 AM EDT from Last 3 Months Results * CT Abdomen Pelvis w IV Contrast (02/19/2025 12:13 PM EDT) Anatomical Region Laterality Modality Abdomen, Pelvis Computed Tomogra phy Result [facility] Loretta Godfrey MD IMG CT PROCEDURES Final Resul t * CT Chest w IV Contrast (02/19/2025 9:43 AM EDT) Anatomical Region Laterality Modality Chest Computed Tomogra phy Loretta Godfrey MD IMG CT PROCEDURES Final Resul t * Cancer antigen 27.29 (02/01/2025 9:11 AM EDT) Only the most recent of3 resultswithin the time period is included. Blood Venous blood specimen / Unknown Historical Provider LAB BLOOD ORDERABLES Final R esult * COMPLETE METABOLIC PROFILE (CMP) (01/29/2025 10:38 AM EDT) Only the most recent of4 resultswithin the time period is included. Result [facility] Loretta Godfrey MD LAB BLOOD ORDERABLES Final Re sult * CBC W/DIFF (01/29/2025 9:12 AM EDT) Only the most recent of3 resultswithin the time period is included. Loretta Godfrey MD LAB BLOOD ORDERABLES Final Re sult * SIGNATERA ONLY (12/17/2024 9:29 AM EDT) Blood Venous blood specimen / Unknown Loretta Godfrey MD [facility] BLOOD ORDERABLES Final Result from Last 3 Months Insurance ANTHEM Care Teams Key Entry Operator Relationship Specialty Start Date End Date Hermilo Otto MD [address] [place] [address] PCP - General 05/07/24 Loretta Godfrey MD [address] [facility] [address] [place] [address] Medical Oncologist Hematology and Oncology 05/18/24 Paola Rosenberg LPN VALUE-BASED TRANSFORMATION PROGRAM Licensed Practical Nurse 08/25/24
--- OUTSIDE RECORDS SUMMARY | 2025-02-26 07:54 | XMS_ITS | Encounter Summary ---
Author Organization [facility] Address [address] [place] [address] Care Team Providers Care Cashiers Supervisor Name Role Phone Hermilo Otto MD Primary Care Provider + [phone] Loretta Godfrey MD Unavailable [phone] Paola Rosenberg LPN Unavailable Unavaila ble Reason for Visit * Reason Comments Follow-up Encounter Details Date Type Department Care Team (Late st Contact Info) Description 01/13/2025 Patient Outreach [facility] [address], [address] [place] [address] Paola Rosenberg LPN VALUE-BASED TRANSFORMATION [...] Recorded Patient Health Questionnaire-2 Score 0 10/06/2024 [facility] of Occupat ional Health - Occupational Stress [...] any time in the past 12 m [facility], were you homeless or living in [...] 8:00 AM EDT Office Visit [facility] [address] [place] [address] Loretta Godfrey MD [address] [place] [phone] 03/02/2025 8:15 AM EDT Clinical Support [facility] [address] [place] [address] documented as of this encounter Visit Diagnoses Not on filedocumented in this encounter Additional Health Concerns Assessment Noted Time A fall risk assessment has been complete d for the patient 12/08/2024 8:31 AM EDT documented as of this encounter Care Teams Cashiers Supervisor Relationship Specialty Start Date End Date Hermilo Otto MD [address] [address] PCP - General 05/07/24 Loretta Godfrey MD [address] [phone] Medical Oncologist Hematology and Oncology 05/18/24 Paola Rosenberg LPN VALUE-BASED TRANSFORMATION PROGRAM Licensed Practical Nurse 08/25/24 documented as of this encounter
[2025-02-26 08:19] LABS: Hematocrit 38.5 % (37.0-47.0); Hemoglobin 13.1 g/dL (12.2-16.2); Immature Granulocytes % 0.4 %; Mean Corpuscular HGB Conc 34.0 g/dL (31.8-35.4); Mean Corpuscular Hemoglobin 33.0 pg (27.0-31.2); Mean Corpuscular Volume 97.0 fl (81-99); Nucleated Red Blood Cells % 0 %; Platelet Count 166 K/mm3 (142-424); Red Blood Count 3.97 M/mm3 (4.20-5.40); Red Cell Distribution Width-SD 43.7 fL; White Blood Count 5.0 K/mm3 (4.8-10.8)
[2025-02-26 08:38] LABS: Alanine Aminotransferase 74 U/L (12-78); Albumin Level 4.3 g/dl (3.5-5.0); Albumin/Globulin Ratio 1.5 (1.1-1.8); Alkaline Phosphatase 86 U/L (38-126); Anion Gap 11.0 mEq/L (5-15); Aspartate Amino Transferase 85 U/L (14-36); Bilirubin,Total 0.6 mg/dl (0.2-1.3); Blood Urea Nitrogen 19 mg/dl (7-17); Calcium 9.4 mg/dl (8.4-10.2); Carbon Dioxide 28 mmol/L (22.0-30.0); Chloride 107 mmol/L (98-107); Creatinine,Serum 1.10 mg/dl (0.52-1.04); Estimated Glomerular Filt Rate 56 ml/min (>60); GFR (African American) 68 ML/MIN (>60); Globulin 2.8 g/dL (1.3-3.2); Glucose 98 mg/dl (74-100); Potassium 5.0 mmoL/L (3.5-5.1); Sodium 141 mmol/L (136-145); Total Protein,Serum 7.1 g/dl (6.3-8.2)
[2025-02-27 09:22] LABS: CA 27.29 127.2 U/mL (0.0-38.6)
== END 2025-02-26 23:59 | disposition home or self-care (01) ==
LOC: LAB 07:52
PROVIDERS: PCP Family Medicine; Visit Provider Internal Medicine Hematology & Oncology
DX: C50.911 Malignant neoplasm of unspecified site of right female breast (principal); C50.912 Malignant neoplasm of unspecified site of left female breast; Z17.0 Estrogen receptor positive status [ER+]
CPT/HCPCS: 36415; 80053; 85025; 86300

== ENCOUNTER 2025-03-09 07:51 | Outpatient (CLI) | payer BC, SELFPAY ==
--- OUTSIDE RECORDS SUMMARY | 2025-02-02 09:15 | XMS_ITS | Encounter Summary ---
Author Organization [facility] Address [address] [place] [address] Care Team Providers Care Concrete Pipe Machine Operator Name Role Phone Hermilo Otto MD Primary Care Provider + [phone] Loretta Godfrey MD Unavailable [phone] Paola Rosenberg HAND SHAKER Unavailable Unavaila ble Reason for Visit * Reason Comments Follow-up Encounter Details Date Type Department Care Team (Late st Contact Info) Description 02/02/2025 9:15 AM EDT Office Visit [facility] at [facility] [address] [place] [address] Loretta Godfrey MD [address] [address] Malignant neoplasm of upper-outer quadrant [...] How often do you attend chur or mormon services? More than 4 times per year [...] Recorded Patient Health Questionnaire-2 Score 0 10/06/2024 [facility] - Occupational Stress Questionnaire Answer Date [...] any time in the past 12 m [facility], were you homeless or living in [...] Sign Reading Time Taken Comments Blood Pressure 117/87 02/02/2025 8:55 AM EDT Pulse 83 02/02/2025 8:55 AM EDT Temperature 36.5 C (97.7 F) 02/02/2025 8:55 AM EDT Respiratory Rate - - Oxygen Saturation 100% 02/02/2025 8:55 AM EDT Inhaled Oxygen Concentration - - Weight 72.1 kg (158 lb 15.2 oz) 02/02/2025 8:55 AM EDT Height 165.1 cm (5' 5 ) 02/02/2025 8:55 AM EDT Body Mass Index 26.45 02/02/2025 8:55 AM EDT documented in this encounter Miscellaneous Notes * Progress Notes - Loretta Godfrey MD - 02/02/2025 9:15 AM EDT [facility] at [facility] HEMATOLOGY/ONCOLOGY FOLLOW UP Shona Prieto 1985 [...] mg (10/06/2024), 3.75 mg (11/03/2024), 3.75 mg (12/08/2024), 3.75 mg (01/05/2025) Treatment Details Treatment goal [No plan goal] [...] mg (10/06/2024), 120 mg (11/03/2024), 120 mg (12/08/2024), 120 mg (01/05/2025) Subjective History of Present Illness: Shona Prieto [...] the dentist. She has been seen at [facility]. She had a good visit and we will send liquid biopsy for NGS. Pt has lost 10 pounds intentionally with cutting out sugar. 07/14/24 [facility] One CDX revealed no actionable train driver mutation. Pt has been seen at [facility] and was told to continue current therapy. Pt enjoyed her daughter' republican rollers kating. She's had some stressors with her anabaptist. She's quite active attending her children's sporting [...] excluded in the proper clinical setting. 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 The following portions of the chart were [...] Exam: Vital Signs for this encounter: BSA: 1.82 meters squared Visit Vitals BP 117/87 Pulse 83 Temp 36.5 ??C (97.7 ??F) (Temporal) Ht 1.651 m (5' 5 ) Wt 72.1 kg (158 lb 15.2 oz) SpO2 100% BMI 26.45 kg/m?? Smoking Status Never BSA 1.82 m?? Physical Exam Vitals reviewed. HENT: Head: Normocephalic. Eyes: Extraocular Movements: Extraocular movements intact. Cardiovascular: Rate and Rhythm: Regular rhythm. Heart sounds: Normal heart sounds. Pulmonary: Effort: Pulmonary effort is normal. Abdominal: Palpations: Abdomen is soft. Skin: General: Skin is warm. Neurological: General: No focal deficit present. Mental Status: She is alert. Psychiatric: Mood and Affect: Mood normal. Performance Status: (0) Fully active, able to carry on all predisease performance without restriction Results: No visits with results within 1 [...] recommendation of the National Kidney Foundation and [place] Society of Nephrology. This calculation has not been validated in women. For pediatric patients refer to https://www.kidney.org/professionals/KDOQI/gfr_calculatorPed No results found. Assessment/Plan Stage IV breast cancer ER+ [place] + Her 2 garett - with metastatic [...] this continues to decline. Pt gone to [facility] and [facility] for a consultation. She [...] Pt continues to feel well. We will re-image. She is feeling well. documented in this encounter Plan of Treatment Upcoming Encounters Date Type Department Care Team (Late st Contact Info) Description 03/30/2025 12:30 PM EDT Office Visit [facility] [address] [place] [address] Loretta Godfrey MD [address] [phone] 03/30/2025 12:45 PM EDT Clinical Support [facility] at [facility] [address] [place] [address] documented as of this encounter Visit Diagnoses Diagnosis Malignant neoplasm of upper-outer quadrant of right breast in female, estrogen receptor positive- Primary documented in this encounter Additional Health Concerns Assessment Noted Time A fall risk assessment has been complete d for the patient 12/08/2024 8:31 AM EDT documented as of this encounter Care Teams Concrete Pipe Machine Operator Relationship Specialty Start Date End Date Hermilo Otto MD [address] [place] [address] PCP - General 05/07/24 Loretta Godfrey MD [address] [phone] Medical Oncologist Hematology and Oncology 05/18/24 Paola Rosenberg LPN VALUE-BASED TRANSFORMATION PROGRAM Licensed Practical Nurse 08/25/24 documented as of this encounter
--- OUTSIDE RECORDS SUMMARY | 2025-02-02 09:30 | XMS_ITS | Encounter Summary ---
Author Organization [facility] Address [address] [place] [address] Care Team Providers Care Stave Machine Tender Name Role Phone Hermilo Otto MD Primary Care Provider + [phone] Loretta Godfrey MD Unavailable [phone] Paola Rosenberg FINISHING MACHINE OPERATOR Unavailable Unavaila ble Reason for Visit * Reason Comments Injections * Episode Based Medications (Routine) - Authorized Specialty Diagnoses / Procedures Referred By Venkat mccarthy Referred To Contact Diagnoses Malignant neoplasm of upper-outer quadrant of right breast in female, estrogen receptor positive Procedures NH LEUPROLIDE ACETATE SUSPNSION Loretta Godfrey MD [address] [address] Phone: tel: fax: [facility] [address] [place] [address] Phone: tel: fax: Referral ID Status Reason Start Date Expiration Date V isits Requested Visits Authorized [id number] Authorized 05/19/2024 11/18/2025 1 14 Encounter Details Date Type Department Care Team (Latest Contact Info) Description 02/02/2025 9:30 AM EDT Clinical Support [facility] [address] [place] [address] Malignant neoplasm of upper-outer quadrant [...] do you attend [facility] or jainism services? More than 4 times per year 08/27/2024 Do you belong to any clubs o r organizations such as samaritan groups, unions, fraternal or athletic groups, or [...] any time in the past 12 m [facility], were you homeless or living in a senior care (including now)? No 08/27/2024 Utilities Answer Date Recorded In the past 12 months has th e [employer], gas, oil, or water company threatened to [...] Description 03/30/2025 12:30 PM EDT Office Visit [facility] [address] [place] [address] Loretta Godfrey MD [address] [address] 03/30/2025 12:45 PM EDT Clinical Support [facility] [address] [place] [address] documented as of this encounter Visit Diagnoses [...] documented as of this encounter Care Teams Stave Machine Tender Relationship Specialty Start Date End Date Hermilo Otto MD [facility] [address] [address] PCP - General 05/07/24 Loretta Godfrey MD [address] [facility] [address] [place] [address] Medical Oncologist Hematology and Oncology 05/18/24 Paola Rosenberg LPN VALUE-BASED TRANSFORMATION PROGRAM Licensed Practical Nurse 08/25/24 documented as of this encounter
--- OUTSIDE RECORDS SUMMARY | 2025-02-19 17:27 | XMS_ITS | Encounter Summary ---
Author Organization [facility] Address [address] [place] [address] Care Team Providers Care Web Press Operator Assistant Name Role Phone Hermilo Otto MD Primary Care Provider + [phone] Reason for Referral * MRI/CAT/PET Scan (Emergency) - Closed Specialty Diagnoses / Procedures Referred By Venkat mccarthy Referred To Contact Radiology Diagnoses Malignant neoplasm of upper-outer quadrant of right breast in female, estrogen receptor positive Procedures CT Abdomen Pelvis With Contrast Loretta Godfrey MD [address] [place] [address] Phone: tel: fax: [address] [address] Phone: tel: Referral ID Status Reason Start Date Expiration Date Visits Re quested Visits Authorized [id number] Closed 02/02/2025 05/04/2026 1 1 * MRI/CAT/PET Scan (Emergency) - Closed Specialty Diagnoses / Procedures [facility] Referred To Contact Radiology Diagnoses Malignant neoplasm of upper-outer quadrant of right breast in female, estrogen receptor positive Procedures CT Chest With Contrast Loretta Godfrey MD [address] [place] [address] Phone: tel: fax: [address] [address] Phone: tel: Referral ID Status Reason Start Date Expiration Date Visits Re quested Visits Authorized Closed 02/02/2025 05/04/2026 1 1 Reason for Visit * MRI/CAT/PET Scan (Emergency) - Closed Specialty Diagnoses / Procedures Referred By Contac t Referred To Contact Radiology Diagnoses Malignant neoplasm of upper-outer quadrant of right breast in female, estrogen receptor positive Procedures CT Abdomen Pelvis With Contrast Loretta Godfrey MD [address] [place] [address] Phone: tel: fax: [facility] [address] [place] [address] Phone: tel: Referral ID Status Reason Start Date Expiration Date Visits Re quested Visits Authorized Closed 02/02/2025 05/04/2026 1 1 Encounter Details Date Type Department Care Team (Late st Contact Info) Description 02/19/2025 5:27 PM EDT - 02/19/2025 11:59 PM EDT Hospital Encounter [facility] [address] [facility] [address] [place] [address] Loretta Godfrey MD [address] [place] [address] Malignant neoplasm of upper-outer quadrant of right breast in female, estrogen receptor positive Discharge Disposition: Home or Self Care Social History Tobacco Use Types Packs/Day Years Used Date Smoking Tobacco: Never Alcohol Use Standard Drinks/Week Comments No 0 (1 standard drink = 0.6 oz pur e alcohol) [place] Depression Scale Answer Date Recorded Retired [place] Depression Score 1 10/17/2018 Retired EPD Scale: Thought of Harming Self Unrec ognized value 10/17/2018 PHQ-2 Answer Date Recorded Patient Health Questionnaire-2 Score 0 04/29/2024 Comments No Sex and Gender Information Value Date Recorded Sex Assigned at Not on file Legal Sex Female 10:19 AM EDT Gender Identity Not on file Sexual Orientation Not on file documented as of this encounter Medications at Time of Discharge docusate sodium 100 MG capsule Take 100 mg by mouth 2 (Two) Times a Day As Needed for constipation. 0 03/31/2016 HYDROcodone-acet aminophen (NORCO) 5-325 MG per tablet Take 1 tablet by mouth Every 4 (Four) Hours As Needed. 10 tablet 11/26/2018 11:44 AM EDT 11/26/2018 ibuprofen (ADVIL,MOTRIN) 600 MG tablet Take 1 tablet by mouth Every 6 (Six) Hours As Needed for Mild Pain . 20 tablet 10/19/2018 9:21 AM EDT 10/19/2018 lanolin ointment Apply topically Every 1 (One) Hour As Needed for dry skin (nipple pain). 40 g 03/31/2016 Vit-Fe Fumarate-FA ( 27-1) 27-1 MG tablet tablet Take 1 tablet by mouth Daily. sertraline (ZOLOFT) 50 MG tablet Take 1 tablet by mouth Daily. 04/06/2024 documented as of this encounter Plan of Treatment Not on file documented as of this encounter Procedures Procedure Name Priority Date/Time Associated Diagnosis Comments CT ABDOMEN PELVIS W CONTRAST STAT 02/19/2025 5:42 PM EDT Malignant neoplasm of upper-outer quadrant of right breast in female, estrogen receptor positive CT CHEST W CONTRAST STAT 02/19/2025 5 :42 PM EDT Malignant neoplasm of upper-outer quadrant of right breast in female, estrogen receptor positive documented in this encounter Results * CT Abdomen Pelvis With Contrast (02/19/2025 5:42 PM EDT) Anatomical Region Laterality Modality Abdomen, Pelvis N/A Computed Tomogra phy 02/19/2025 5:50 PM EDT Impressions 02/19/2025 5:59 PM EDT Impression: 1.Overall findings are stable since prior study. No evidence of new or worsening metastatic lesion. Please note that the primary lesions noted within the breasts are better evaluated with mammogram. 2.Nonspecific mild diffuse colonic wall thickening may represent mild colitis, possibly treatment related Electronically Signed: Gurmeet Martinez, 02/19/2025 5:59 PM EDT Workstation ID: [id number] Narrative 02/19/2025 5:[address] CHEST W CONTRAST DIAGNOSTIC, CT ABDOMEN PELVIS W CONTRAST Date of Exam: 02/19/2025 5:28 PM EDT Indication: C50.411 Z17.0. Comparison: 10/27/2024 Technique: Axial CT images were obtained of the chest, abdomen and pelvis after the uneventful intravenous administration of iodinated contrast. Reconstructed coronal and sagittal images were also obtained. Automated exposure control and iterative construction methods were used. Findings: CT chest: Lower Neck: Unremarkable. Hilum and Mediastinum: No pathologically enlarged lymph nodes. Normal heart size. No pericardial effusion. Unremarkable thoracic aorta and pulmonary arteries. Lung Parenchyma and Pleura: No focal consolidations. No suspicious pulmonary nodules. No endobronchial lesions. No significant pleural effusions. Soft tissues: Small nodular densities noted within the breasts bilaterally, grossly unchanged from prior study. Otherwise the visualized soft tissues are unremarkable Osseous structures: Scattered sclerotic lesions noted within the visualized vertebral bodies and sternum are grossly unchanged in appearance since prior study. Additional lytic lesion noted within the sternum is also grossly unchanged (for example image 71 of series 901). No definite new lesion or pathologic fracture is noted. CT abdomen and pelvis: Liver: Multiple ill-defined hepatic lesions are noted, similar to mildly decreased in size since prior study. No definite enlarging lesion is identified. Gallbladder: The gallbladder is normal without evidence of radiopaque stones. Bile Ducts: No billiary dcutal dilation. Spleen: Spleen is normal in size and CT density. Pancreas: Pancreas is normal. There is no evidence of pancreatic mass or peripancreatic fluid. Adrenals: Adrenal glands are unremarkable. Kidneys: Kidneys are normal in size. There are no stones or hydronephrosis. Gastrointestinal: Mild diffuse colonic wall thickening, similar to prior study. Otherwise the GI tract is grossly unremarkable. Bladder: The bladder is normal. Pelvis: No suspecious mass. Peritoneum/Mesentery: No fluid collection, ascities, or free air. Lymph Nodes: No lymphadenopathy. Vasculature: Unremarkable Abdominal Wall: Unremarkable Bony Structures: Multiple scattered small sclerotic lesions are once again noted within the vertebral bodies, sacrum and pelvic bones. A few sclerotic lesions are also noted within the visualized femoral bones. Accounting for differences in technique, these appear to be grossly similar. Procedure Note Gurmeet Martinez, DO - 02/19/2025 CT CHEST W CONTRAST DIAGNOSTIC, CT ABDOMEN PELVIS W CONTRAST Date of Exam: 02/19/2025 5:28 PM EDT Indication: C50.411 Z17.0. Comparison: 10/27/2024 Technique: Axial CT images were obtained of the chest, abdomen and pelvisafter the uneventful intravenous administration of iodinated contrast.Reconstructed coronal and sagittal images were also obtained. Automatedexposure control and iterative construction methods were used. Findings: CT chest: Lower Neck: Unremarkable. Hilum and Mediastinum: No pathologically enlarged lymph nodes. Normalheart size. No pericardial effusion. Unremarkable thoracic aorta andpulmonary arteries. Lung Parenchyma and Pleura: No focal consolidations. No suspiciouspulmonary nodules. No endobronchial lesions. No significant pleuraleffusions. Soft tissues: Small nodular densities noted within the breastsbilaterally, grossly unchanged from prior study. Otherwise the visualized soft tissues are unremarkable Osseous structures: Scattered sclerotic lesions noted within thevisualized vertebral bodies and sternum are grossly unchanged inappearance since prior study. Additional lytic lesion noted within thesternum is also grossly unchanged (for example image 71 of series 901). No definite new lesion or pathologic fracture isnoted. CT abdomen and pelvis: Liver: Multiple ill-defined hepatic lesions are noted, similar to mildlydecreased in size since prior study. No definite enlarging lesion isidentified. Gallbladder: The gallbladder is normal without evidence of radiopaquestones. Bile Ducts: No billiary dcutal dilation. Spleen: Spleen is normal in size and CT density. Pancreas: Pancreas is normal. There is no evidence of pancreatic mass orperipancreatic fluid. Adrenals: Adrenal glands are unremarkable. Kidneys: Kidneys are normal in size. There are no stones orhydronephrosis. Gastrointestinal: Mild diffuse colonic wall thickening, similar to priorstudy. Otherwise the GI tract is grossly unremarkable. Bladder: The bladder is normal. Pelvis: No suspecious mass. Peritoneum/Mesentery: No fluid collection, ascities, or free air. Lymph Nodes: No lymphadenopathy. Vasculature: Unremarkable Abdominal Wall: Unremarkable Bony Structures: Multiple scattered small sclerotic lesions are once againnoted within the vertebral bodies, sacrum and pelvic bones. A fewsclerotic lesions are also noted within the visualized femoral bones.Accounting for differences in technique, these appear to be grossly similar. IMPRESSION: Impression: 1.Overall findings are stable since prior study. No evidence of new orworsening metastatic lesion. Please note that the primary lesions notedwithin the breasts are better evaluated with mammogram. 2.Nonspecific mild diffuse colonic wall thickening may represent mildcolitis, possibly treatment related Electronically Signed: Gurmeet Michelle, DO 02/19/2025 5:59 PM EDT Workstation ID: [id number] us Loretta Godfrey MD IMG CT ORDERABLES Final R esult * CT Chest With Contrast Diagnostic (02/19/2025 5:42 PM EDT) Anatomical Region Laterality Modality Chest N/A Computed Tomogra phy 02/19/2025 5:50 PM EDT Impressions 02/19/2025 5:59 PM EDT Impression: 1.Overall findings are stable since prior study. No evidence of new or worsening metastatic lesion. Please note that the primary lesions noted within the breasts are better evaluated with mammogram. 2.Nonspecific mild diffuse colonic wall thickening may represent mild colitis, possibly treatment related Electronically Signed: Gurmeet Michelle, DO 02/19/2025 5:59 PM EDT Workstation ID: [id number] Narrative 02/19/2025 5:[address] CHEST W CONTRAST DIAGNOSTIC, CT ABDOMEN PELVIS W CONTRAST Date of Exam: 02/19/2025 5:28 PM EDT Indication: C50.411 Z17.0. Comparison: 10/27/2024 Technique: Axial CT images were obtained of the chest, abdomen and pelvis after the uneventful intravenous administration of iodinated contrast. Reconstructed coronal and sagittal images were also obtained. Automated exposure control and iterative construction methods were used. Findings: CT chest: Lower Neck: Unremarkable. Hilum and Mediastinum: No pathologically enlarged lymph nodes. Normal heart size. No pericardial effusion. Unremarkable thoracic aorta and pulmonary arteries. Lung Parenchyma and Pleura: No focal consolidations. No suspicious pulmonary nodules. No endobronchial lesions. No significant pleural effusions. Soft tissues: Small nodular densities noted within the breasts bilaterally, grossly unchanged from prior study. Otherwise the visualized soft tissues are unremarkable Osseous structures: Scattered sclerotic lesions noted within the visualized vertebral bodies and sternum are grossly unchanged in appearance since prior study. Additional lytic lesion noted within the sternum is also grossly unchanged (for example image 71 of series 901). No definite new lesion or pathologic fracture is noted. CT abdomen and pelvis: Liver: Multiple ill-defined hepatic lesions are noted, similar to mildly decreased in size since prior study. No definite enlarging lesion is identified. Gallbladder: The gallbladder is normal without evidence of radiopaque stones. Bile Ducts: No billiary dcutal dilation. Spleen: Spleen is normal in size and CT density. Pancreas: Pancreas is normal. There is no evidence of pancreatic mass or peripancreatic fluid. Adrenals: Adrenal glands are unremarkable. Kidneys: Kidneys are normal in size. There are no stones or hydronephrosis. Gastrointestinal: Mild diffuse colonic wall thickening, similar to prior study. Otherwise the GI tract is grossly unremarkable. Bladder: The bladder is normal. Pelvis: No suspecious mass. Peritoneum/Mesentery: No fluid collection, ascities, or free air. Lymph Nodes: No lymphadenopathy. Vasculature: Unremarkable Abdominal Wall: Unremarkable Bony Structures: Multiple scattered small sclerotic lesions are once again noted within the vertebral bodies, sacrum and pelvic bones. A few sclerotic lesions are also noted within the visualized femoral bones. Accounting for differences in technique, these appear to be grossly similar. Procedure Note Gurmeet Martinez, DO - 02/19/2025 CT CHEST W CONTRAST DIAGNOSTIC, CT ABDOMEN PELVIS W CONTRAST Date of Exam: 02/19/2025 5:28 PM EDT Indication: C50.411 Z17.0. Comparison: 10/27/2024 Technique: Axial CT images were obtained of the chest, abdomen and pelvisafter the uneventful intravenous administration of iodinated contrast.Reconstructed coronal and sagittal images were also obtained. Automatedexposure control and iterative construction methods were used. Findings: CT chest: Lower Neck: Unremarkable. Hilum and Mediastinum: No pathologically enlarged lymph nodes. Normalheart size. No pericardial effusion. Unremarkable thoracic aorta andpulmonary arteries. Lung Parenchyma and Pleura: No focal consolidations. No suspiciouspulmonary nodules. No endobronchial lesions. No significant pleuraleffusions. Soft tissues: Small nodular densities noted within the breastsbilaterally, grossly unchanged from prior study. Otherwise the visualized soft tissues are unremarkable Osseous structures: Scattered sclerotic lesions noted within thevisualized vertebral bodies and sternum are grossly unchanged inappearance since prior study. Additional lytic lesion noted within thesternum is also grossly unchanged (for example image 71 of series 901). No definite new lesion or pathologic fracture isnoted. CT abdomen and pelvis: Liver: Multiple ill-defined hepatic lesions are noted, similar to mildlydecreased in size since prior study. No definite enlarging lesion isidentified. Gallbladder: The gallbladder is normal without evidence of radiopaquestones. Bile Ducts: No billiary dcutal dilation. Spleen: Spleen is normal in size and CT density. Pancreas: Pancreas is normal. There is no evidence of pancreatic mass orperipancreatic fluid. Adrenals: Adrenal glands are unremarkable. Kidneys: Kidneys are normal in size. There are no stones orhydronephrosis. Gastrointestinal: Mild diffuse colonic wall thickening, similar to priorstudy. Otherwise the GI tract is grossly unremarkable. Bladder: The bladder is normal. Pelvis: No suspecious mass. Peritoneum/Mesentery: No fluid collection, ascities, or free air. Lymph Nodes: No lymphadenopathy. Vasculature: Unremarkable Abdominal Wall: Unremarkable Bony Structures: Multiple scattered small sclerotic lesions are once againnoted within the vertebral bodies, sacrum and pelvic bones. A fewsclerotic lesions are also noted within the visualized femoral bones.Accounting for differences in technique, these appear to be grossly similar. IMPRESSION: Impression: 1.Overall findings are stable since prior study. No evidence of new orworsening metastatic lesion. Please note that the primary lesions notedwithin the breasts are better evaluated with mammogram. 2.Nonspecific mild diffuse colonic wall thickening may represent mildcolitis, possibly treatment related Electronically Signed: Gurmeet Martinez DO 02/19/2025 5:59 PM EDT Workstation ID: [id number] us Loretta Godfrey MD IMG CT ORDERABLES Final R esult documented in this encounter Visit Diagnoses Diagnosis Malignant neoplasm of upper-outer quadrant of right breast in female, estrogen receptor positive documented in this encounter Administered Medications Inactive Administered Medications - up to 3 most recent administrations Medication Order MAR Action Action Date Dose Rate Site iopamidol (ISOVUE-300) 61 % injection 100 mL 100 mL, Intravenous, Once in Imaging, On Sat02/19/25 at 1830, For 1 dose Given 02/19/2025 5:36 PM EDT 85 mL documented in this encounter Care Teams Web Press Operator Assistant Relationship Specialty Start Date End Date Hermilo Otto MD [address] [facility] [address] [facility] [address] [place] [id number] PCP - General Family Medicine 04/14/24 documented as of this encounter
--- OUTSIDE RECORDS SUMMARY | 2025-03-02 08:00 | XMS_ITS | Encounter Summary ---
Author Organization [facility] Address [address] [place] [address] Care Team Providers Care Pediatric Audiologist Name Role Phone Hermilo Otto MD Primary Care Provider + [phone] Loretta Godfrey MD Unavailable [phone] Paola Rosenberg REJECTOR Unavailable Unavaila ble Reason for Visit * Reason Comments Follow-up Encounter Details Date Type Department Care Team (Late st Contact Info) Description 03/02/2025 8:00 AM EDT Office Visit [facility] [place] [facility] [address] [place] [phone] Loretta Godfrey MD [address] [address] Malignant neoplasm of upper-outer quadrant [...] week 08/27/2024 How often do you attend [facility] or buddhist services? More than 4 times per year 08/27/2024 Do you belong to any clubs o r organizations such as shinto groups, unions, fraternal or athletic groups, or [...] were you homeless or living in a [facility] (including now)? No 08/27/2024 Utilities Answer Date [...] Godfrey MD - 03/02/2025 8:00 AM EDT [facility] at [facility] [place] [facility] HEMATOLOGY/ONCOLOGY FOLLOW UP Shona Prieto 1985 [...] the dentist. She has been seen at [facility]. She had a good visit and we will send liquid biopsy for NGS. Pt has lost 10 pounds intentionally with cutting out sugar. 07/14/24 [facility] One CDX revealed no actionable driver manager mutation. Pt has been seen at [facility] and was told to continue current therapy. Pt enjoyed her daughter'day green party rollers kating. She's had some stressors with her shinto. She's quite active attending her children's sporting [...] possibly treatment related. 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 Pt feels well. She comments she is [...] recommendation of the National Kidney Foundation and [place] Society of Nephrology. This calculation has not been validated in women. For pediatric patients refer to https://www.kidney.org/professionals/KDOQI/gfr_calculatorPed Assessment/Plan Stage IV breast cancer ER+ MD + Her 2 garett - with metastatic [...] this continues to decline. Pt gone to [facility] and [facility] for a consultation. She [...] Description 03/30/2025 12:30 PM EDT Office Visit [facility] at [facility] [place] [facility] [address] [place] [phone] Loretta Godfrey MD [address] [phone] 03/30/2025 12:45 PM EDT Clinical Support [facility] at [facility] [place] [facility] [address] [place] [phone] documented as of this encounter Visit Diagnoses Diagnosis Malignant neoplasm of upper-outer quadrant of right breast in female, estrogen receptor positive- Primary documented in this encounter Additional Health Concerns Assessment Noted Time A fall risk assessment has been complete d for the patient 12/08/2024 8:31 AM EDT documented as of this encounter Care Teams Pediatric Audiologist Relationship Specialty Start Date End Date Hermilo Otto MD [address] [place] [phone] PCP - General 05/07/24 Loretta Godfrey MD [address] [phone] Medical Oncologist Hematology and Oncology 05/18/24 Paola Rosenberg LPN VALUE-BASED TRANSFORMATION PROGRAM Licensed Practical Nurse 08/25/24 documented as of this encounter
--- OUTSIDE RECORDS SUMMARY | 2025-03-02 08:15 | XMS_ITS | Encounter Summary ---
Author Organization [facility] Address [address] [place] [address] Care Team Providers Care Treatment Counselor Name Role Phone Hermilo Otto MD Primary Care Provider + [phone] Loretta Godfrey MD Unavailable [phone] Paola Rosenberg PEANUT PICKER Unavailable Unavaila ble Reason for Visit * Reason Comments Injections * Episode Based Medications (Routine) - Authorized Specialty Diagnoses / Procedures Referred By Venkat mccarthy Referred To Contact Diagnoses Malignant neoplasm of upper-outer quadrant of right breast in female, estrogen receptor positive Procedures [place] LEUPROLIDE ACETATE SUSPNSION Loretta Godfrey MD [address] [place] [address] [address] Phone: tel: fax: [facility] [address] [place] [address] Phone: tel: fax: Referral ID Status Reason Start Date Expiration Date V isits Requested Visits Authorized [id number] Authorized 05/19/2024 11/18/2025 1 14 Encounter Details Date Type Department Care Team (Latest Contact Info) Description 03/02/2025 8:15 AM EDT Clinical Support [facility] [address] [place] [address] Malignant neoplasm of upper-outer quadrant [...] you attend [facility] or islam services? More than 4 times per year 08/27/2024 Do you belong to any clubs o r organizations such as synagogue groups, unions, fraternal or athletic groups, or [...] Recorded Patient Health Questionnaire-2 Score 0 10/06/2024 [facility] [...] time in the past 12 m [facility], were you homeless or living in a penitentiary (including now)? No 08/27/2024 Utilities Answer Date Recorded In the past 12 months has th e [employer], gas, oil, or water company threatened to [...] Time Taken Comments Blood Pressure 118/79 03/02/2025 8:40 AM EDT Pulse 98 03/02/2025 8:40 AM EDT Temperature 36.4 C (97.5 F) 03/02/2025 8:40 AM EDT Respiratory Rate 19 03/02/2025 8:40 AM EDT Oxygen Saturation 100% 03/02/2025 8:40 AM EDT Inhaled Oxygen Concentration - - Weight 73.9 kg (162 lb 14.7 oz) 03/02/2025 8:40 AM EDT Height - - Body Mass Index 27.11 03/02/2025 7:58 AM EDT documented in this encounter Functional Status * Calculated C-SSRS Risk Score (Lifetime/Recent) Answer Date of Assessment Author No Risk Indicated 03/02/2025 8:50 AM EDT Opal Johnson, RN * Question Answer Date of Assessment Author 1. Wish to be (Past 1 Month) No 03/02/2025 8:50 AM EDT Opal Johnson, RN 2. Non-Specific Active Suici kelsie Thoughts (Past 1 Month) No 03/02/2025 8:50 AM EDT Erika Johnson, RN 6. Suicidal Behavior (Lifetime) No 8:50 AM EDT Opal Johnson, RN documented as of this encounter Plan of Treatment Upcoming Encounters Date Type Department Care Team (Late st Contact Info) Description 03/30/2025 12:30 PM EDT Office Visit [facility] [address] [place] [address] Loretta Godfrey MD [address] [address] 03/30/2025 12:45 PM EDT Clinical Support [facility] [address] [place] [address] documented as of this encounter Visit Diagnoses Diagnosis Malignant neoplasm of upper-outer quadrant of right breast in female, estrogen receptor positive- Primary documented in this encounter Administered Medications Inactive Administered Medications - up to 3 most recent administrations Medication Order MAR Action Action Date Dose Rate Site denosumab (Xgeva) 120 MG/1.7ML injection 120 mg 120 mg, Subcutaneous, Once, On Sat03/02/25 at 0900, For 1 doseIndications:[place] abdul neoplasm of upper-outer quadrant of right breast in female, estrogen receptor positive Given 03/02/2025 8:46 AM EDT 120 mg Right Upper Arm (Hugh k) leuprolide (Lupron) injection 3.75 mg 3.75 mg, Intramuscular, Once, 1 dose, On Sat03/02/25 at 0900, RoutineIndications:Ma lignant neoplasm of upper-outer quadrant of right breast in female, estrogen receptor positive Given 03/02/2025 8:51 AM EDT 3.75 mg Right Dorsogluteal documented in this encounter Additional Health Concerns Assessment Noted Time A fall risk assessment has been complete d for the patient 12/08/2024 8:31 AM EDT documented as of this encounter Care Teams Treatment Counselor Relationship Specialty Start Date End Date Hermilo Otto MD [address] [place] [address] PCP - General 05/07/24 Loretta Godfrey MD [address] [phone] Medical Oncologist Hematology and Oncology 05/18/24 Paola Rosenberg LPN VALUE-BASED TRANSFORMATION PROGRAM Licensed Practical Nurse 08/25/24 documented as of this encounter
--- OUTSIDE RECORDS SUMMARY | 2025-03-09 07:54 | XMS_ITS | Encounter Summary ---
Author Organization [facility] Address [address] [place] [address] Care Team Providers Care Director E Learning Name Role Phone Hermilo Otto MD Primary Care Provider + [phone] Loretta Godfrey MD Unavailable [phone] Paola Rosenberg SPINNER CONCRETE PIPE Unavailable Unavaila ble Encounter Details Date Type Department Care Team (Late st Contact Info) Description 03/01/2025 Orders Only [facility] [address] [place] [phone] Loretta Godfrey MD [address] [address] Malignant neoplasm of upper-outer quadrant [...] How often do you attend chur or taoism services? More than 4 times per year 08/27/2024 Do you belong to any clubs o r organizations such as advent groups, unions, fraternal or athletic groups, or [...] 0 10/06/2024 [facility] - Occupational Stress Questionnaire Answer [...] Author No Risk Indicated 03/02/2025 8:50 AM Opal Felix, SONA * Question Answer Date of Assessment Author 1. Wish to be (Past 1 Month) No 03/02/2025 8:50 AM Opal Felix, RN 2. Non-Specific Active Suici kelsie Thoughts (Past 1 Month) No 03/02/2025 8:50 AM Erika Felix RN 6. Suicidal Behavior (Lifetime) No 8:50 AM Opal Felix, RN documented as of this encounter Plan of Treatment Upcoming Encounters Date Type Department Care Team (Late st Contact Info) Description 03/30/2025 12:30 PM EDT Office Visit [facility] [address] [place] [address] Loretta Godfrey MD [address] [place] [phone] 03/30/2025 12:45 PM EDT Clinical Support [facility] [address] [place] [address] documented as of this encounter Procedures Procedure Name Priority Date/Time Associated Diagnosis Comments CANCER ANTIGEN 27.29 Routine 02/26/2025 12:09 PM EDT documented in this encounter Results * Cancer antigen 27.29 (02/26/2025 12:09 PM EDT) Blood Venous blood specimen / Unknown us Loretta Godfrey MD LAB BLOOD ORDERABLES Final Re sult documented in this encounter Visit Diagnoses Diagnosis Malignant neoplasm of upper-outer quadrant of right breast in female, estrogen receptor positive documented in this encounter Additional Health Concerns Assessment Noted Time A fall risk assessment has been complete d for the patient 12/08/2024 8:31 AM EDT documented as of this encounter Care Teams Director E Learning Relationship Specialty Start Date End Date Hermilo Otto MD [address] [address] PCP - General 05/07/24 Loretta Godfrey MD [address] [place] [address] Medical Oncologist Hematology and Oncology 05/18/24 Paola Rosenberg LPN VALUE-BASED TRANSFORMATION PROGRAM Licensed Practical Nurse 08/25/24 documented as of this encounter
--- OUTSIDE RECORDS SUMMARY | 2025-03-09 07:54 | XMS_ITS | Encounter Summary ---
Author Organization [facility] Address [address] [place] [address] Care Team Providers Care Cloth Packer Name Role Phone Hermilo Otto MD Primary Care Provider + [phone] Loretta Godfrey MD Unavailable [phone] Paola Rosenberg LPN Unavailable Unavaila ble [...] attend [facility] or zoroastrian services? More than 4 times per year 08/27/2024 Do you belong to any clubs o r organizations such as religious groups, unions, fraternal or athletic groups, or [...] [facility] Occup[facility] ional [facility] - Occupational Stress Questionnaire Answer [...] any time in the past 12 m [facility], were you homeless or [...] Description 03/30/2025 12:30 PM EDT Office Visit [facility] [address] [place] [address] Loretta Godfrey MD [address] [place] [phone] 03/30/2025 12:45 PM EDT Clinical Support [facility] [address] [place] [address] documented as of this encounter Visit Diagnoses Not on filedocumented in this encounter Additional Health Concerns Assessment Noted Time A fall risk assessment has been complete d for the patient 12/08/2024 8:31 AM EDT documented as of this encounter Care Teams Cloth Packer Relationship Specialty Start Date End Date Hermilo Otto MD 1210 [facility] [address] [place] [address] PCP - General 05/07/24 Loretta Godfrey MD [address] [address] Medical Oncologist Hematology and Oncology 05/18/24 Paola Rosenberg LPN VALUE-BASED TRANSFORMATION PROGRAM Licensed Practical Nurse 08/25/24 documented as of this encounter
--- OUTSIDE RECORDS SUMMARY | 2025-03-09 07:54 | XMS_ITS | Encounter Summary ---
Author Organization [facility] Address [address] [place] [address] Care Team Providers Care Consumer Studies Professor Name Role Phone Hermilo Otto MD Primary Care Provider + [phone] Loretta Godfrey MD Unavailable [phone] Paola Rosenberg STEEL FABRICATING SUPERVISOR Unavailable Unavaila ble Encounter Details Date Type Department Care Team (Late st Contact Info) Description 02/26/2025 Orders Only [facility] [address] [place] [address] Loretta Godfrey MD [address] [address] Social History Tobacco Use Types [...] often do you attend chur ch or scientology services? More than 4 times per year 08/27/2024 Do you belong to any clubs o r organizations such as worship groups, unions, fraternal or athletic groups, or [...] Health Questionnaire-2 Score 0 10/06/2024 [facility] of Occupat ional Health - Occupational [...] in the past 12 m [facility], were you homeless or living [...] Description 03/30/2025 12:30 PM EDT Office Visit [facility] [address] [place] [address] Loretta Godfrey MD [address] [place] [address] 03/30/2025 12:45 PM EDT Clinical Support [facility] [address] [place] [address] documented as of this encounter Procedures Procedure Name Priority Date/Time Associated Diagnosis Comments COMPLETE METABOLIC PROFILE (CMP) Routine 02/26/2025 9:35 AM EDT CBC W/DIFF Routine 02/26/2025 9:35 AM EDT documented in this encounter Results * COMPLETE METABOLIC PROFILE (CMP) (02/26/2025 9:35 AM EDT) us Loretta Godfrey MD LAB BLOOD ORDERABLES Final Re sult * CBC W/DIFF (02/26/2025 9:35 AM EDT) us Loretta Godfrey MD LAB BLOOD ORDERABLES Final Re sult documented in this encounter Visit Diagnoses Not on filedocumented in this encounter Additional Health Concerns Assessment Noted Time A fall risk assessment has been complete d for the patient 12/08/2024 8:31 AM EDT documented as of this encounter Care Teams Consumer Studies Professor Relationship Specialty Start Date End Date Hermilo Otto MD [facility] [address] [address] PCP - General 05/07/24 Loretta Godfrey MD [address] [facility] [address] [place] [address] Medical Oncologist Hematology and Oncology 05/18/24 Paola Rosenberg LPN VALUE-BASED TRANSFORMATION PROGRAM Licensed Practical Nurse 08/25/24 documented as of this encounter
--- OUTSIDE RECORDS SUMMARY | 2025-03-09 07:54 | XMS_ITS | Clinical Summary ---
Author Organization [facility] Address [address] [place] [address] Care Team Providers Care Coyote Hunter Name Role Phone Hermilo Otto MD Primary Care Provider + [phone] Allergies No known active allergies Medications Vit-Fe [...] - 02/19/2025 11:59 PM EDT Hospital Encounter [address] [place] [address] Loretta Godfrey MD Malignant neoplasm [...] drink = 0.6 oz pur e alcohol) Lucile Depression Scale Answer Date Recorded Retired Lucile Depression Score 1 10/17/2018 Retired EPD Scale: [...] colitis, possibly treatment related Electronically Signed: Gurmeet Martniez DO 02/19/2025 5:59 PM EDT Workstation ID: [id number] Narrative 02/19/2025 5:[address] CHEST [...] DO 02/19/2025 5:59 PM EDT Workstation ID: [id number] us Loretta Godfrey MD [facility] ORDERABLES Final R esult * CT [...] Martinez, 02/19/2025 5:59 PM EDT Workstation ID: [id number] Narrative 02/19/2025 5:[address] CHEST [...] DO 02/19/2025 5:59 PM EDT Workstation ID: [id number] Loretta Gdofrey MD IMG CT ORDERABLES Final R esult * Hepatitis C Antibody (03/04/2018 4:42 PM EDT) Hepatitis C Ab Non-Reacti ve Non-Reacti ve 03/04/2018 7:55 PM EDT [facility] Blood Venipuncture / Unknown 03/04/2018 4:42 PM EDT 03/04/2018 4:42 PM EDT Makenzie Ward MD LAB BLOOD ORDERABLES Final Re sult [facility]
[address] [id number], from Last 3 Months or Most Recently Relevant to Health Maintenance Insurance [facility] BLUE [facility] PPO Advance Directives * CPR (Attempt [...] 3:13 PM 03/30/2016 2:24 AM Care Teams Coyote Hunter Relationship Specialty Start Date End Date Hermilo Otto MD [address] [place] [address] [place] [address] PCP - General Family Medicine 04/14/24
--- OUTSIDE RECORDS SUMMARY | 2025-03-09 07:54 | XMS_ITS | Patient Health Record ---
Author Organization [facility] Address [address] [place] [address] Care Team Providers Care Oxygen Therapy Technician Name Role Phone Makenzie Ward Unavailable [phone] Chela Doss Unavailable [phone] Allergies No Known Allergies Results Component Value [...] of concern indicated by the patient. A [place] marker is placed over a visible skin [...] 09:31:36 AM Interpretation:Pap normal, HPV negative Performing Lab:[facility], [facility] - MAX CLIA ID [id number], [address], [address], [place] [address], Director - Maya Durant MD Notes/Report: Any Nucleic Acid Amplification testing is performed on the [employer] [place]. Diagnosis: Negative for intraepithelial lesion or malignancy. AP results Recommendation: Follow-up based on current clinical guidelines and/or clinical consideration. Satisfactory for interpretation with endocervical/transforma tion zone component absent. Specimen Type: ThinPrep Collection Technique: Not provided Specimen Source: Cervical/Endocervical ICD Codes: Z01.419 Date of Last Pap: Not provided CPT Codes: 57725 Negative for intraepithelial lesion or malignancy. LMP: 03/20/2024 DIAGNOSIS: Results of Last Pap: Not provided Resident Services Supervisor Other Gynecological Patient Information: Not provided Liyah Castellano Educational Note: The pap screening test aids in the detection of premalignant and malignant states of the cervix. False positive and negative results may occur. It is not a diagnostic test. If abnormal cells are reported, follow-up based on current clinical guidelines and/or clinical consideration is recommended. Screening note: This specimen has been analyzed by the [employer] Imaging System, an interactive computer system which assists the lab in screening of ThinPrep Pap Test slides. Following imaging, the slide was reviewed by a Resident Services Supervisor and/or Pathologist. 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 Problem Premenstrual tension syndrome (33003605) PMDD (premenstrual dysphoric disorder) (F32.81) Active confirmed Problem test positive (296873988) Encounter for test, result positive (Z32.01) 018 Active confirmed test positive Problem Gynecological examination normal (833680204411346 ) Cervical smear, as part of routine gynecological examination (Z01.419) 019 Active confirmed Annual without abnormal findings Vital Signs Blood pressure diastolic 70 mm Hg 05/11/2024 Height 65 in 05/11/2024 Blood pressure systolic 114 mm Hg 05/11/2024 Weight 171.8 lbs 05/11/2024 BMI 28.59 kg/m2 05/11/2024 Encounters Encounter Location Date Provider Diagnosis [facility] [address] [address] 05/11/2024 Chela Doss PMDD (premenstrual dysphoric disorder) F32.81 [facility] [address] [address] 04/06/2024 Chela Doss Encounter for gynecological examination [...] Provider Name:Parul Main, 04/14/2025 03:00:00 PM, [address], [address], Insurance Providers Payer Name Payer Address Payer Phone Subscriber Number Group Number Insured Name Patient Relationship to Insured Coverage Start Date Coverage End Date Fanny DOLAN [address] [place] [address] [phone] [id number] Shona Sterling Self - patient is the insured Medical (General) History Surgical History Surgery Date(Month/Year) BTL [place] Teeth 2007 Tonsillectomy
--- OUTSIDE RECORDS SUMMARY | 2025-03-09 07:54 | XMS_ITS | Encounter Summary ---
Author Organization [facility] Address [address] [place] [address] Care Team Providers Care Special Forces Senior Sergeant Name Role Phone Hermilo Otto MD Primary Care Provider + [phone] Loretta Godfrey MD Unavailable [phone] Paola Rosenberg LPN Unavailable Unavaila ble Encounter Details Date Type Department Care Team (Latest Contact Info) Description 02/28/2025 Travel Social History Tobacco Use Types Packs/Day [...] week 08/27/2024 How often do you attend [facility] or baptism services? More than 4 times per year [...] Recorded Patient Health Questionnaire-2 Score 0 10/06/2024 [facility] of Occupat ional [facility] - Occupational Stress Questionnaire Answer Date Recorded [...] any time in the past 12 m [facility], were you homeless or living [...] Description 03/30/2025 12:30 PM EDT Office Visit [facility] [address] [place] [phone] Loretta Godfrey MD [address] [place] [phone] 03/30/2025 12:45 PM EDT Clinical Support [facility] [address] [place] [phone] documented as of this encounter Visit Diagnoses Not on filedocumented in this encounter Additional Health Concerns Assessment Noted Time A fall risk assessment has been complete d for the patient 12/08/2024 8:31 AM EDT documented as of this encounter Care Teams Special Forces Senior Sergeant Relationship Specialty Start Date End Date Hermilo Otto MD 1210 [facility] [address] [place], [place] [phone] PCP - General 05/07/24 Loretta Godfrey MD [address] [place], [place] [address] [phone] Medical Oncologist Hematology and Oncology 05/18/24 Paola Rosenberg LPN VALUE-BASED TRANSFORMATION PROGRAM Licensed Practical Nurse 08/25/24 documented as of this encounter
--- OUTSIDE RECORDS SUMMARY | 2025-03-09 07:54 | XMS_ITS | Clinical Summary ---
Author Organization [facility] Address [address] [place] [address] Care Team Providers Care Greige Goods Inspector Name Role Phone Hermilo Otto MD Primary Care Provider + [phone] Loretta Godfrey MD Unavailable [phone] Paola Rosenberg SLAG MOTOR OPERATOR Unavailable Unavaila ble Allergies No known active allergies Medications sertraline (Zoloft) 50 MG tablet Take 1 tablet (50 mg) by mouth daily. Active letrozole (Femara) 2.5 MG chemo tabletIndicatio ns: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, estrogen receptor positive, unspecified site of breast Take 1 tablet (2.5 mg total) by mouth daily. Take with or without food. 30 tablet 5 5 025 Active Abemaciclib (Verzenio) 150 MG tablet chemo tablet TAKE 1 TABLET TWICE A DAY 60 tablet 11 5 Active Abemaciclib (Verzenio) 150 MG tablet chemo tablet Take 1 tablet (150 mg total) by mouth 2 (two) times a day. 60 tablet 11 4 025 Discontinued Active Problems Problem Noted Date Diagnosed Date Malignant neoplasm of upper- outer quadrant of right breast in female, estrogen receptor positive 05/19/2024 Encounters Date Type Department Care Team Description 03/08/2025 [facility] at [address] [address] Loretta Godfrey MD 03/08/2025 [facility] at [address] [place] [place] [address] Loretta Godfrey MD 03/02/2025 8:15 AM EDT Clinical Support [facility] at [address] [place] [address] Malignant neoplasm of upper-outer quadrant of right breast in female, estrogen receptor positive (Primary Dx) 03/02/2025 8:00 AM EDT Office Visit [facility] at [address] [place] [address] Loretta Godfrey MD Malignant neoplasm of upper-outer quadrant of right breast in female, estrogen receptor positive (Primary Dx) 03/02/2025 Travel 03/01/2025 Orders Only [facility] at [address] [place] [address] Loretta Godfrey MD Malignant neoplasm of upper-outer quadrant of right breast in female, estrogen receptor positive 02/28/2025 Travel 02/26/2025 Orders Only [facility] at [address] [place] [address] Loretta Godfrey MD 02/23/2025 Travel 02/23/2025 Orders Only [facility] at [address] [place] [address] Loretta Godfrey MD 02/11/2025 Patient Outreach [facility] [address] [place] [address], [address] [place] [address] Paola Rosenberg LPN Follow-up 02/02/2025 9:30 AM EDT Clinical Support [facility] at [address] [place] [address] Malignant neoplasm of upper-outer quadrant of right breast in female, estrogen receptor positive (Primary Dx) 02/02/2025 9:15 AM EDT Office Visit [facility] at [address] [place] [address] Loretta Godfrey MD Malignant neoplasm of upper-outer quadrant of right breast in female, estrogen receptor positive (Primary Dx) 02/02/2025 Travel 02/01/2025 Travel 02/01/2025 Orders Only [facility] at [address] [place] [address] Provider, Historical 01/29/2025 Orders Only [facility] [address] [place] [address] Loretta Godfrey MD 01/14/2025 Patient Outreach [facility] [address], [address] [place] [address] Paola Rosenberg SLAG MOTOR OPERATOR Follow-up 01/13/2025 Patient Outreach [address], [address] [place] [address] Paola Rosenberg SLAG MOTOR OPERATOR Follow-up 01/05/2025 8:15 AM EDT Clinical Support [facility] [address] [place] [address] Malignant neoplasm of upper-outer quadrant of right breast in female, estrogen receptor positive (Primary Dx) 01/05/2025 8:00 AM EDT Office Visit [facility] [address] [place] [address] Loretta Godfrey MD Malignant neoplasm of upper-outer quadrant of right breast in female, estrogen receptor positive (Primary Dx) 01/05/2025 Orders Only [facility] [place] [address] [place] [address] Loretta Godfrey MD 01/05/2025 Travel 01/04/2025 Orders Only [facility] [place] [address] [place] [address] Loretta Godfrey MD 01/01/2025 Travel 01/01/2025 Orders Only [facility] at [address] [address] Loretta Godfrey MD 12/17/2024 Orders Only [facility] at [address] [address] Loretta Godfrey MD 12/15/2024 Patient Outreach [facility] [address] [place] [address] [address], [address] [place] [address] Paola Rosenberg, SLAG MOTOR OPERATOR Follow-up 12/14/2024 Patient Outreach [facility] [address], [address] [place] [address] Paola Rosenberg, SLAG MOTOR OPERATOR Follow-up 12/08/2024 8:45 AM EDT Clinical Support [facility] at [address] [address] Malignant neoplasm of upper-outer quadrant of right breast in female, estrogen receptor positive (Primary Dx) 12/08/2024 8:30 AM EDT Office Visit [facility] at [address] [address] Loretta Godfrey MD Malignant neoplasm of upper-outer quadrant of right breast in female, estrogen receptor positive (Primary Dx) 12/08/2024 Travel 12/08/2024 Orders Only [facility] at [address] [address] Loretta Godfrey MD 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, estrogen receptor positive, unspecified site of breast 12/07/2024 Travel 12/07/2024 Orders Only [facility] at [address] [address] Loretta Godfrey MD from Last 3 Months [...] How often do you attend chur or voodoo services? More than 4 times per year [...] Recorded Patient Health Questionnaire-2 Score 0 10/06/2024 [place] [facility] Occupat ional Health - Occupational Stress [...] in the past 12 m [facility], were you homeless or living [...] 14.7 oz) 03/02/2025 8:40 AM EDT Height 165.1 cm (5' 5 ) 03/02/2025 7:58 AM EDT Body Mass Index 27.11 03/02/2025 7:58 AM EDT Plan of Treatment Upcoming Encounters Date Type Department Care Team (Late st Contact Info) Description 03/30/2025 12:30 PM EDT Office Visit [facility] [address] [place] [address] Loretta Godfrey MD [address] [phone] 03/30/2025 12:45 PM EDT Clinical Support [facility] [address] [place] [address] Health Maintenance Due Date Last Done Comments [facility]-HIV Screening 1987 [facility]-Infant/Child/Adol SDOH Screenings 1987 RAD-DCMND-[id number] Vaccine (#1) 09/27/1992 [facility]-Obesity Intervention 09/27/1993 [facility]-Varicella [...] ANTIGEN 27.29 Routine 02/26/2025 12:09 PM EDT COMPLETE METABOLIC PROFILE (CMP) Routine 02/26/2025 9:35 AM EDT CBC W/DIFF Routine 02/26/2025 9:[address] ABDOMEN PELVIS W IV [...] SIGNATERA ONLY Routine 12/17/2024 9:29 AM EDT from Last 3 Months Results * Cancer antigen 27.29 (02/26/2025 12:09 PM EDT) Only the most recent of3 resultswithin the time period is included. Blood Venous blood specimen / Unknown Result [facility] Loretta Godfrey MD LAB BLOOD ORDERABLES Final Re sult * COMPLETE METABOLIC PROFILE (CMP) (02/26/2025 9:35 AM EDT) Only the most recent of4 resultswithin the time period is included. Result [facility] Loretta Godfrey MD LAB BLOOD ORDERABLES Final Re sult * CBC W/DIFF (02/26/2025 9:35 AM EDT) Only the most recent of3 resultswithin the time period is included. Result [facility] Loretta Godfrey MD LAB BLOOD ORDERABLES Final Re sult * CT Abdomen Pelvis w IV Contrast (02/19/2025 12:13 PM EDT) Anatomical Region Laterality Modality Abdomen, Pelvis Computed Tomogra phy Result [facility] Loretta Godfrey MD IMG CT PROCEDURES Final Resul t * CT Chest w IV Contrast (02/19/2025 9:43 AM EDT) Anatomical Region Laterality Modality Chest Computed Tomogra phy Result [facility] Loretta Godfrey MD IMG CT PROCEDURES Final Resul t * SIGNATERA ONLY (12/17/2024 9:29 AM EDT) Blood Venous blood specimen / Unknown Result [facility] Loretta Godfrey MD [facility] BLOOD ORDERABLES Final Result from Last 3 Months Insurance ADA Care Teams Greige Goods Inspector Relationship Specialty Start Date End Date Hermilo Otto MD [address] [place] [address] PCP - General 05/07/24 Loretta Godfrey MD [address] [phone] Medical Oncologist Hematology and Oncology 05/18/24 Paola Rosenberg LPN VALUE-BASED TRANSFORMATION PROGRAM Licensed Practical Nurse 08/25/24
--- OUTSIDE RECORDS SUMMARY | 2025-03-09 07:54 | XMS_ITS | Encounter Summary ---
Author Organization [facility] Address [address] [place] [address] Care Team Providers Care Sandal Parts Assembler Name Role Phone Hermilo Otto MD Primary Care Provider + [phone] Loretta Godfrey MD Unavailable [phone] Paola Rosenberg LPN Unavailable Unavaila ble [...] week 08/27/2024 How often do you attend [facility] or catholic services? More than 4 times per year 08/27/2024 Do you belong to any clubs o r organizations such as sabianist groups, unions, fraternal or athletic groups, or [...] Recorded Patient Health Questionnaire-2 Score 0 10/06/2024 [facility] Occupat ional [facility] - Occupational Stress Questionnaire Answer [...] were you homeless or living in a long term (including now)? No 08/27/2024 Utilities Answer Date [...] Description 03/30/2025 12:30 PM EDT Office Visit [facility] [address] [place] [phone] Loretta Godfrey MD [address] [place] [phone] 03/30/2025 12:45 PM EDT Clinical Support [facility] at [facility] [address] [place] [address] documented as of this encounter Visit Diagnoses Not on filedocumented in this encounter Additional Health Concerns Assessment Noted Time A fall risk assessment has been complete d for the patient 12/08/2024 8:31 AM EDT documented as of this encounter Care Teams Sandal Parts Assembler Relationship Specialty Start Date End Date Hermilo Otto MD [address] [facility] [address] [place], [place] [phone] PCP - General 05/07/24 Loretta Godfrey MD [address] [place], [place] [address] [phone] Medical Oncologist Hematology and Oncology 05/18/24 Paola Rosenberg LPN VALUE-BASED TRANSFORMATION PROGRAM Licensed Practical Nurse 08/25/24 documented as of this encounter
--- OUTSIDE RECORDS SUMMARY | 2025-03-09 07:54 | XMS_ITS | Referral Summary ---
Author Organization [employer] ([place], [place], [place], [place]) Address [address] [place] [address] Care Team Providers Care Chief Radiation Therapist Name Role Phone Hermilo Otto MD Primary Care Provider + [phone] Allergies No known active allergies Medications sertraline (ZOLOFT) 50 MG tablet Take 1 tablet (50 mg total) by mouth daily. Active Social History Tobacco Use Types Packs/Day Years Used Date Smoking Tobacco: Never Smokeless Tobacco: Never Tobacco Cessation:Counseling Given: Not Answered Comments No Sex and Gender Information Value Date Recorded Sex Assigned at Not on file Legal Sex Female 8:46 AM RACING CAR DRIVER Gender Identity Not on file Sexual Orientation [...] file Insurance BLUE CROSS/BLUE SHIELD Care Teams Chief Radiation Therapist Relationship Specialty Start Date End Date Hermilo Otto MD [address] [facility] [address] [place] [phone] PCP - General Family Medicine 05/15/24
--- OUTSIDE RECORDS SUMMARY | 2025-03-09 07:54 | XMS_ITS | Encounter Summary ---
Author Organization [facility] Address [address] [place] [address] Care Team Providers Care Director Of User Experience Name Role Phone Hermilo Otto MD Primary Care Provider + [phone] Loretta Godfrey MD Unavailable [phone] Paola Rosenberg LPN Unavailable Unavaila ble Reason for Visit * Reason Comments Follow-up Encounter Details Date Type Department Care Team (Late st Contact Info) Description 02/11/2025 Patient Outreach [facility] [address], [address] [place] [address] Paola Rosenberg LPN VALUE-BASED TRANSFORMATION [...] Recorded Patient Health Questionnaire-2 Score 0 10/06/2024 [facility] of Occupat ional Health - [...] any time in the past 12 m [facility], were you homeless or living [...] encounter Miscellaneous Notes * Progress Notes - Poala Rosenberg LPN - 02/11/2025 11:49 AM EDT 02/11/2025 Reason for Follow-up: [facility] update call. Patient Status: Current Symptoms: Patient [...] Description 03/30/2025 12:30 PM EDT Office Visit [facility] [address] [place] [phone] Loretta Godfrey MD [address] [phone] 03/30/2025 12:45 PM EDT Clinical Support [facility] [address] [place] [address] documented as of this encounter Visit Diagnoses Not on filedocumented in this encounter Additional Health Concerns Assessment Noted Time A fall risk assessment has been complete d for the patient 12/08/2024 8:31 AM EDT documented as of this encounter Care Teams Director Of User Experience Relationship Specialty Start Date End Date Hermilo Otto MD [address] [place] [address] PCP - General 05/07/24 Loretta Godfrey MD [address] [phone] Medical Oncologist Hematology and Oncology 05/18/24 Paola Rosenberg LPN VALUE-BASED TRANSFORMATION PROGRAM Licensed Practical Nurse 08/25/24 documented as of this encounter
--- OUTSIDE RECORDS SUMMARY | 2025-03-09 07:54 | XMS_ITS | Encounter Summary ---
Author Organization [employer] ([place], [place], [place], [place]) Address [address] [place] [address] Care Team Providers Care Adjunct Professor Of U.[place]. History Name Role Phone Hermilo Otto MD Primary Care Provider [phone] Reason for Referral * CAT Scan (Routine) - Pending Review Specialty Diagnoses / Procedures Referred By Venkat mccarthy Referred To Contact Radiology Diagnoses Estrogen receptor positive Procedures CT BIOPSY SITE LIVER Loretta Godfrey MD [address] [place] [address] Phone: tel: fax: Referral ID Status Reason Start Date Expiration Date V isits Requested Visits Authorized [id number] Pending Review 05/13/2024 05/13/2025 1 1 Encounter Details Date Type Department Care Team (Late st Contact Info) Description 05/13/2024 Outside Orders [facility] Central Scheduling [address] [place] [address] Loretta Godfrey MD [address] [place] [address] Estrogen receptor positive (Primary Dx) Social History Tobacco Use Types Packs/Day Years Used Date Smoking Tobacco: Never Assessed Comments Unknown Sex and Gender Information Value Date Recorded Sex Assigned at Not on file Legal Sex Female 8:46 AM MICROCOMPUTER 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 ATTENDING RADIOLOGIST: Dr. Courtney. PHYSICIAN MACHINIST INSTRUCTOR: Fabian Starks PA-C. PROCEDURE: After informed consent [...] liver masses. ATTENDING RADIOLOGIST: Dr. Courtney. PHYSICIAN MACHINIST INSTRUCTOR: Fabian Starks PA-C. PROCEDURE: After informed consent [...] [ER+] documented in this encounter Care Teams Adjunct Professor Of U.S. History Relationship Specialty Start Date End Date Hermilo Otto MD [address] [facility] [address] [place] [phone] PCP - General Family Medicine 05/15/24 documented as of this encounter
--- OUTSIDE RECORDS SUMMARY | 2025-03-09 07:54 | XMS_ITS | Encounter Summary ---
Author Organization [facility] Address [address] [place] [address] Care Team Providers Care Senior Ux Developer Name Role Phone Hermilo Otto MD Primary Care Provider + [phone] Loretta Godfrey MD Unavailable [phone] Paola Rosenberg LPN Unavailable Unavaila ble Encounter Details Date Type Department Care Team (Late st Contact Info) Description 02/01/2025 Orders Only [facility] at [facility] [address] [place] [address] Provider, [address] [address] Social History Tobacco Use Types Packs/Day Years [...] any time in the past 12 m [facility], were you homeless or living in [...] EDT Office Visit [facility] at [facility] [address] [place] [address] Loretta Godfrey MD [address] [place] [phone] 03/30/2025 12:45 PM EDT Clinical Support [facility] at [facility] [address] [place] [address] documented as of this encounter Procedures Procedure [...] documented as of this encounter Care Teams Senior Ux Developer Relationship Specialty Start Date End Date Hermilo Otto MD [address] [place] [address] PCP - General 05/07/24 Loretta Godfrey MD [address] [place] [phone] Medical Oncologist Hematology and Oncology 05/18/24 Paola Rosenberg LPN VALUE-BASED TRANSFORMATION PROGRAM Licensed Practical Nurse 08/25/24 documented as of this encounter
--- OUTSIDE RECORDS SUMMARY | 2025-03-09 07:54 | XMS_ITS | Encounter Summary ---
Author Organization [facility] Address [address] [place] [address] Care Team Providers Care Elevator Attendant Name Role Phone Hermilo Otto MD Primary Care Provider + [phone] Loretta Godfrey MD Unavailable [phone] Paola Rosenberg REFRIGERATOR REPAIRMAN Unavailable Unavaila ble Encounter Details Date Type Department Care Team (Late st Contact Info) Description 02/23/2025 Orders Only [facility] at [facility] [address] [place] [phone] Loretta Godfrey MD [address] [address] Social History Tobacco Use Types [...] Recorded Patient Health Questionnaire-2 Score 0 10/06/2024 [facility] of Occupat ional Health - Occupational [...] any time in the past 12 m [facility], were you homeless or living in [...] 12:30 PM EDT Office Visit [facility] [address] [place] [phone] Loretta Godfrey MD [address] [place] [address] 03/30/2025 12:45 PM EDT Clinical Support [facility] [address] [place] [address] documented as of this encounter Procedures Procedure [...] documented as of this encounter Care Teams Elevator Attendant Relationship Specialty Start Date End Date Hermilo Otto MD [address] [place], [place] [phone] PCP - General 05/07/24 Loretta Godfrey MD [address] [facility] [address] [place] [address] Medical Oncologist Hematology and Oncology 05/18/24 Paola Rosenberg LPN VALUE-BASED TRANSFORMATION PROGRAM Licensed Practical Nurse 08/25/24 documented as of this encounter
--- OUTSIDE RECORDS SUMMARY | 2025-03-09 07:54 | XMS_ITS | Encounter Summary ---
Author Organization [facility] Address [address] [place] [address] Care Team Providers Care Copywriting Intern Name Role Phone Hermilo Otto MD Primary Care Provider + [phone] Loretta Godfrey MD Unavailable [phone] Paola Rosenberg INDUCTION BRAZER Unavailable Unavaila ble Encounter Details Date Type Department Care Team (Late st Contact Info) Description 01/05/2025 Orders Only [facility] at [facility] [address] [place] [phone] Loretta Godfrey MD [address] [address] Social History Tobacco Use Types [...] often do you attend chur ch or mandaeism services? More than 4 times per year 08/27/2024 Do you belong to any clubs o r organizations such as buddhism groups, unions, fraternal or athletic groups, or [...] (Past 1 Month) No 01/05/2025 8:39 AM Erika Felix RN 6. Suicidal Behavior (Lifetime) No 8:39 AM Opal Felix, RN documented as of this encounter Plan of Treatment Upcoming Encounters Date Type Department Care Team (Late st Contact Info) Description 03/30/2025 12:30 PM EDT Office Visit [facility] at [facility] [address] [place] [phone] Loretta Godfrey MD [address] [place] [phone] 03/30/2025 12:45 PM EDT Clinical Support [facility] at [facility] [address] [place] [address] documented as of this encounter Procedures Procedure [...] documented as of this encounter Care Teams Copywriting Intern Relationship Specialty Start Date End Date Hermilo Otto MD [facility] [address] [address] PCP - General 05/07/24 Loretta Godfrey MD [address] [place] [address] Medical Oncologist Hematology and Oncology 05/18/24 Paola Rosenberg LPN VALUE-BASED TRANSFORMATION PROGRAM Licensed Practical Nurse 08/25/24 documented as of this encounter
--- OUTSIDE RECORDS SUMMARY | 2025-03-09 07:54 | XMS_ITS | Encounter Summary ---
Author Organization [facility] Address [address] [place] [address] Care Team Providers Care Hair Tinter Name Role Phone Hermilo Otto MD Primary Care Provider + [phone] Loretta Godfrey MD Unavailable [phone] Paola Rosenberg CERTIFIED DRIVER EXAMINER Unavailable Unavaila ble Encounter Details Date Type Department Care Team (Late st Contact Info) Description 01/29/2025 Orders Only [facility] [place] [facility] [address] [place] [phone] Loretta Godfrey MD [address] [address] Social History Tobacco Use Types [...] often do you attend chur ch or episcopalian services? More than 4 times [...] Recorded Patient Health Questionnaire-2 Score 0 10/06/2024 [facility] of Occupat ional Health - [...] any time in the past 12 m [facility], were you homeless or living [...] Description 03/30/2025 12:30 PM EDT Office Visit [facility] [address] [place] [phone] Loretta Godfrey MD [address] [address] 03/30/2025 12:45 PM EDT Clinical Support [facility] [address] [place] [place] [address] documented as of this encounter Procedures Procedure [...] documented as of this encounter Care Teams Hair Tinter Relationship Specialty Start Date End Date Hermilo Otto MD [facility] [address] [address] PCP - General 05/07/24 Loretta Godfrey MD [address] [facility] [address] [place] [address] Medical Oncologist Hematology and Oncology 05/18/24 Paola Rosenberg LPN VALUE-BASED TRANSFORMATION PROGRAM Licensed Practical Nurse 08/25/24 documented as of this encounter
--- OUTSIDE RECORDS SUMMARY | 2025-03-09 07:54 | XMS_ITS | Encounter Summary ---
Author Organization [facility] Address [address] [place] [address] Care Team Providers Care Steel Pourer Name Role Phone Hermilo Otto MD Primary Care Provider + [phone] Loretta Godfrey MD Unavailable [phone] Paola Rosenberg TRANSPLANT RN Unavailable Unavaila ble Encounter Details Date Type Department Care Team (Late st Contact Info) Description 01/04/2025 Orders Only [facility] at [facility] [address] [place] [phone] Loretta Godfrey MD [address] [address] Social History Tobacco Use Types [...] time in the past 12 m [facility], were you homeless or living in [...] Office Visit [facility] at [facility] [address] [place] [phone] Loretta Godfrey MD [address] [place] [address] 03/30/2025 12:45 PM EDT Clinical Support [facility] at [facility] [address] [place] [phone] documented as of this encounter Procedures Procedure [...] documented as of this encounter Care Teams Steel Pourer Relationship Specialty Start Date End Date Hermilo Otto MD [facility] [address] [address] PCP - General 05/07/24 Loretta Godfrey MD [address] [phone] Medical Oncologist Hematology and Oncology 05/18/24 Paola Rosenberg LPN VALUE-BASED TRANSFORMATION PROGRAM Licensed Practical Nurse 08/25/24 documented as of this encounter
--- OUTSIDE RECORDS SUMMARY | 2025-03-09 07:54 | XMS_ITS | Encounter Summary ---
Author Organization [facility] Address [address] [place] [address] Care Team Providers Care Electronics Department Manager Name Role Phone Hermilo Otto MD Primary Care Provider + [phone] Loretta Godfrey MD Unavailable [phone] Paola Rosenberg LPN Unavailable Unavaila ble Reason for Visit * Reason Comments Follow-up Encounter Details Date Type Department Care Team (Late st Contact Info) Description 01/14/2025 Patient Outreach [facility] [address] [place] [address] Paola Rosenberg LPN VALUE-BASED TRANSFORMATION [...] any time in the past 12 m [facility], were you homeless or living [...] 1:16 PM EDT 01/14/2025 Reason for Follow-up: [facility]+ update call. Patient Status: Current Symptoms: [...] EDT Office Visit [facility] [address] [place] [phone] Loretta Godfrey MD [address] [phone] 03/30/2025 12:45 PM EDT Clinical Support [facility] [address] [place] [phone] documented as of this encounter Visit Diagnoses Not on filedocumented in this encounter Additional Health Concerns Assessment Noted Time A fall risk assessment has been complete d for the patient 12/08/2024 8:31 AM EDT documented as of this encounter Care Teams Electronics Department Manager Relationship Specialty Start Date End Date Hermilo Otto MD [address] [place] [address] PCP - General 05/07/24 Loretta Godfrey MD [address] [address] Medical Oncologist Hematology and Oncology 05/18/24 Paoal Rosenberg LPN VALUE-BASED TRANSFORMATION PROGRAM Licensed Practical Nurse 08/25/24 documented as of this encounter
--- OUTSIDE RECORDS SUMMARY | 2025-03-09 07:54 | XMS_ITS ---
Author Organization [facility] Address [address] [place] [address] Care Team Providers Care Swat Team Member Name Role Phone Hermilo Otto MD Primary Care Provider + [phone] Loretta Godfrey MD Unavailable [phone] Paola Rosenberg PAINT GRINDER Unavailable Unavaila ble Active Problems Problem Noted [...]
--- OUTSIDE RECORDS SUMMARY | 2025-03-09 07:54 | XMS_ITS ---
Author Organization [facility] Address [address] [place] [address] Care Team Providers Care Tugger Operator Name Role Phone Hermilo Otto MD Primary Care Provider + [phone] Loretta Godfrey MD Unavailable [phone] Paola Rosenberg LPN Unavailable Unavaila ble [facility] Status:Active (Active) Start date:08/25/2024 Enrollment date:08/27/2024 Enrollment reason:Identified as high-risk Overview This episode type is for outpatient care managers enrolling patients in the [facility] program. Case Team Name Relationship Phone Paola Rosenberg LPN(Responsible Staff) Licens ed Practical Nurse Continued Care and Services Coordination
--- OUTSIDE RECORDS SUMMARY | 2025-03-09 07:54 | XMS_ITS | Encounter Summary ---
Author Organization [facility] Address [address] [place] [address] Care Team Providers Care Veterinary Practitioner Name Role Phone Hermilo Otto MD Primary Care Provider + [phone] Loretta Godfrey MD Unavailable [phone] Paola Rosenberg LPN Unavailable Unavaila ble [...] do you attend [facility] or [facility] services? More than 4 times [...] 10/06/2024 [facility] Occupat ional [facility] - Occupational Stress Questionnaire Answer [...] in the past 12 m [facility], were you homeless or living in [...] 03/30/2025 12:30 PM EDT Office Visit [facility] at [facility] [address] [place] [phone] Loretta Godfrey MD [address] [place] [phone] 03/30/2025 12:45 PM EDT Clinical Support [facility] at [facility] [address] [place] [phone] documented as of this encounter Visit Diagnoses Not on filedocumented in this encounter Additional Health Concerns Assessment Noted Time A fall risk assessment has been complete d for the patient 12/08/2024 8:31 AM EDT documented as of this encounter Care Teams Veterinary Practitioner Relationship Specialty Start Date End Date Hermilo Otto MD [address] [facility] [address] [place], [place] [phone] PCP - General 05/07/24 Loretta Godfrey MD [address] [place], [place] [address] [phone] Medical Oncologist Hematology and Oncology 05/18/24 Paola Rosenberg LPN VALUE-BASED TRANSFORMATION PROGRAM Licensed Practical Nurse 08/25/24 documented as of this encounter
--- OUTSIDE RECORDS SUMMARY | 2025-03-09 07:54 | XMS_ITS | Encounter Summary ---
Author Organization [facility] Address [address] [place] [address] Care Team Providers Care Commercial Lines Underwriter Name Role Phone Hermilo Otto MD Primary Care Provider + [phone] Loretta Godfrey MD Unavailable [phone] Paola Rosenberg SKI LIFT ATTENDANT Unavailable Unavaila ble Reason for Visit * Reason Onset Date Comments Med Refill 03/08/2025 Encounter Details Date Type Department Care Team (Late st Contact Info) Description 03/08/2025 Refill [facility] [address] [place] [phone] Loretta Godfrey MD [address] [address] Social History Tobacco Use Types [...] How often do you attend chur or baptist services? More than 4 times per year [...] Recorded Patient Health Questionnaire-2 Score 0 10/06/2024 [facility] of Occupat ional Health - Occupational [...] any time in the past 12 m [facility], were you homeless or living in a [...] 03/30/2025 12:30 PM EDT Office Visit [facility] at [address] [place] [phone] Loretta Godfrey MD [address] [place] [phone] 03/30/2025 12:45 PM EDT Clinical Support [facility] at [address] [place] [address] documented as of this encounter Visit Diagnoses Not on filedocumented in this encounter Additional Health Concerns Assessment Noted Time A fall risk assessment has been complete d for the patient 12/08/2024 8:31 AM EDT documented as of this encounter Care Teams Commercial Lines Underwriter Relationship Specialty Start Date End Date Hermilo Otto MD 1210 [facility] [address] [place] [address] PCP - General 05/07/24 Loretta Godfrey MD [address] [phone] Medical Oncologist Hematology and Oncology 05/18/24 Paola Rosenberg LPN VALUE-BASED TRANSFORMATION PROGRAM Licensed Practical Nurse 08/25/24 documented as of this encounter
--- OUTSIDE RECORDS SUMMARY | 2025-03-09 07:54 | XMS_ITS | Encounter Summary ---
Author Organization [facility] Address [address] [place] [address] Care Team Providers Care Automotive Instructor Name Role Phone Hermilo Otto MD Primary Care Provider [phone] Encounter Details Date Type Department Care Team (Latest Contact Info) Description 02/19/2025 Travel Social History Tobacco Use Types Packs/Day Years Used Date Smoking Tobacco: Never Alcohol Use Standard Drinks/Week Comments No 0 (1 standard drink = 0.6 oz pur e alcohol) [place] Depression Scale Answer Date Recorded Retired [place] Depression Score 1 10/17/2018 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
--- OUTSIDE RECORDS SUMMARY | 2025-03-09 07:54 | XMS_ITS | Clinical Summary ---
Author Organization [facility] ([place], [place], [place], [place]) Address [address] [place] [address] Care Team Providers Care Dictaphone Technician Name Role Phone Hermilo Otto MD Primary Care Provider + [phone] Allergies No known active allergies Medications sertraline (ZOLOFT) 50 MG tablet Take 1 tablet (50 mg total) by mouth daily. 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 Gender Identity Not on file Sexual Orientation [...] COVID-19 VACCINE (1 - 2023-2 5 season) 2025 Influenza Vaccine (#1) 2025 05/23/2024 Tobacco Cessation Counseling and Screening (12+) 05/15/2025 05/15/2024 DTAP/TDAP/TD VACCINES (2 - T d or Tdap) 09/18/2028 09/18/2018 Pneumococcal Vaccine: 0-49 Years Aged Out No longer eligible based on patient's age to complete this topic Insurance BLUE CROSS/BLUE SHIELD Care Teams Dictaphone Technician Relationship Specialty Start Date End Date Hermilo Otto MD [address] [place] [facility] [address] [place] [phone] PCP - General Family Medicine 05/15/24
--- OUTSIDE RECORDS SUMMARY | 2025-03-09 07:54 | XMS_ITS | Encounter Summary ---
Author Organization [facility] Address [address] [place] [address] Care Team Providers Care Rock Lather Name Role Phone Hermilo Otto MD Primary Care Provider + [phone] Loretta Godfrey MD Unavailable [phone] Paola Rosenberg NEEDLE GRADER Unavailable Unavaila ble Reason for Visit * Reason Comments Med Refill Encounter Details Date Type Department Care Team (Late st Contact Info) Description 03/08/2025 Refill [facility] at [facility] [address] [place] [phone] Loretta Godfrey MD [address] [address] Social History Tobacco Use Types [...] often do you attend chur ch or sabianism services? More than 4 times per year 08/27/2024 Do you belong to any clubs o r organizations such as judaism groups, unions, fraternal or athletic groups, or [...] Health Questionnaire-2 Score 0 10/06/2024 [facility] of Occupat ional Health - Occupational [...] any time in the past 12 m [facility], were you homeless or living in a [...] Description 03/30/2025 12:30 PM EDT Office Visit [facility] [address] [place] [phone] Loretta Godfrey MD [address] [phone] 03/30/2025 12:45 PM EDT Clinical Support [facility] [address] [place] [address] documented as of this encounter Visit Diagnoses Not on filedocumented in this encounter Additional Health Concerns Assessment Noted Time A fall risk assessment has been complete d for the patient 12/08/2024 8:31 AM EDT documented as of this encounter Care Teams Rock Lather Relationship Specialty Start Date End Date Hermilo Otto MD [address] [place] [address] [address] PCP - General 05/07/24 Loretta Godfrey MD [address] [phone] Medical Oncologist Hematology and Oncology 05/18/24 Paola Rosenberg LPN VALUE-BASED TRANSFORMATION PROGRAM Licensed Practical Nurse 08/25/24 documented as of this encounter
--- OUTSIDE RECORDS SUMMARY | 2025-03-09 07:54 | XMS_ITS | Patient Health Record ---
Author Organization [facility] Address [address] [place] [id number] Care Team Providers Care Group Controller Name Role Phone Hermilo Otto Primary Care Provider Allergies No Known Allergies Reason For Referral No Information Medications Medication SIG (Take, Route, Frequency, Duration) Notes Start Date End Date Status metFORMIN HCl 500 MG 3 tab(s) orally 2 t imes a day Not-Taking Medrol 4 MG as directed orally d aily; Duration: 6 days 01/26/2020 Not-Taking Bactrim DS 800-160 MG 1 tab(s) orally ev theresa 12 hours; Duration: 10 day(s) 10/02/2021 Activ e Immunizations Vaccine Route Administration Date Status Comme nts tuberculin (ppd) ID Intradermal 01/04/2009 Administered Tetanus Tdap-Adacel (over 7yrs) IM Intramuscular 01/04/2009 Administered Tetanus Tdap-Adacel (over 7yrs) Unknown 09/18/2018 Administered ppd ID Intradermal 01/25/2010 Administered MENINGOCOCCAL VACCINE, SC IM Intramuscular 02/03/2007 Admi nistered Fluzone PF Quad (6-35 months) Unknown 06/06/2018 Administered Problems Problem Type SNOMED Code ICD Code Onset Dates Problem Status W/U Status Risk Notes Problem Sebaceous cyst (883504932) Sebaceous cyst (L72.3) Active confirmed Plan Of Treatment No Information Insurance Providers Payer Name Payer Address Payer Phone Subscriber Number Group Number Insured Name Patient Relationship to Insured Coverage Start Date Coverage End Date [employer] BLUE CROSSBLUE SHIELD [address] [place] [address] [id number] Shona Prieto Self - patient is the insured Medical (General) History Surgical History Surgery Date(Month/Year) none
--- OUTSIDE RECORDS SUMMARY | 2025-03-09 07:54 | XMS_ITS | Encounter Summary ---
Author Organization [facility] Address [address] [place] [address] Care Team Providers Care Speedboat Driver Name Role Phone Hermilo Otto MD Primary Care Provider + [phone] Loretta Godfrey MD Unavailable [phone] Paola Rosenberg LPN Unavailable Unavaila ble Encounter Details Date Type Department Care Team (Latest Contact Info) Description 03/02/2025 Travel Social History Tobacco Use Types Packs/Day [...] week 08/27/2024 How often do you attend [facility] or sikhism services? More than 4 times [...] 0 10/06/2024 [facility] Occupat ional [facility] - Occupational Stress Questionnaire [...] any time in the past 12 m [facility], were you homeless or [...] Description 03/30/2025 12:30 PM EDT Office Visit [facility] [address] [place] [address] Loretta Godfrey MD [address] [place] [phone] 03/30/2025 12:45 PM EDT Clinical Support [facility] [address] [place] [address] documented as of this encounter Visit Diagnoses Not on filedocumented in this encounter Additional Health Concerns Assessment Noted Time A fall risk assessment has been complete d for the patient 12/08/2024 8:31 AM EDT documented as of this encounter Care Teams Speedboat Driver Relationship Specialty Start Date End Date Hermilo Otto MD [address] [place] [phone] PCP - General 05/07/24 [place] [address] [place] [phone] Medical Oncologist Hematology and Oncology 05/18/24 Paola Rosenberg LPN VALUE-BASED TRANSFORMATION PROGRAM Licensed Practical Nurse 08/25/24 documented as of this encounter
--- OUTSIDE RECORDS SUMMARY | 2025-03-09 07:54 | XMS_ITS | Encounter Summary ---
Author Organization [facility] Address [address] [place] [address] Care Team Providers Care Stock Mixer Name Role Phone Hermilo Otto MD Primary Care Provider + [phone] Loretta Godfrey MD Unavailable [phone] Paola Rosenberg LPN Unavailable Unavaila ble Reason for Visit * Reason Comments Follow-up Encounter Details Date Type Department Care Team (Late st Contact Info) Description 01/13/2025 Patient Outreach [facility] [address] [place] [address] Paola Rosenberg LPN VALUE-BASED TRANSFORMATION [...] How often do you attend chur or hindu services? More than 4 times per year 08/27/2024 Do you belong to any clubs o r organizations such as hinduism groups, unions, fraternal or athletic groups, or [...] Recorded Patient Health Questionnaire-2 Score 0 10/06/2024 [facility] of Occupat ional Health - Occupational [...] Description 03/30/2025 12:30 PM EDT Office Visit [facility] at [facility] [address] [place] [address] Loretta Godfrey MD [address] [place] [phone] 03/30/2025 12:45 PM EDT Clinical Support [facility] at [facility] [address] [place] [address] documented as of this encounter Visit Diagnoses Not on filedocumented in this encounter Additional Health Concerns Assessment Noted Time A fall risk assessment has been complete d for the patient 12/08/2024 8:31 AM EDT documented as of this encounter Care Teams Stock Mixer Relationship Specialty Start Date End Date Hermilo Otto MD [address] [address] PCP - General 05/07/24 Loretta Godfrey MD [address] [phone] Medical Oncologist Hematology and Oncology 05/18/24 Paola Rosenberg LPN VALUE-BASED TRANSFORMATION PROGRAM Licensed Practical Nurse 08/25/24 documented as of this encounter
[2025-03-09 08:56] LABS: Alanine Aminotransferase 31 U/L (12-78); Albumin Level 4.0 g/dl (3.5-5.0); Albumin/Globulin Ratio 1.5 (1.1-1.8); Alkaline Phosphatase 74 U/L (38-126); Anion Gap 9.0 mEq/L (5-15); Aspartate Amino Transferase 27 U/L (14-36); Bilirubin,Total 0.4 mg/dl (0.2-1.3); Blood Urea Nitrogen 15 mg/dl (7-17); Calcium 8.6 mg/dl (8.4-10.2); Carbon Dioxide 25 mmol/L (22.0-30.0); Chloride 111 mmol/L (98-107); Creatinine,Serum 1.00 mg/dl (0.52-1.04); Estimated Glomerular Filt Rate 62 ml/min (>60); GFR (African American) 75 ML/MIN (>60); Globulin 2.6 g/dL (1.3-3.2); Glucose 95 mg/dl (74-100); Potassium 5.0 mmoL/L (3.5-5.1); Sodium 140 mmol/L (136-145); Total Protein,Serum 6.6 g/dl (6.3-8.2)
== END 2025-03-09 23:59 | disposition home or self-care (01) ==
LOC: LAB 07:52
PROVIDERS: PCP Family Medicine; Visit Provider Internal Medicine Hematology & Oncology
DX: C50.411 Malignant neoplasm of upper-outer quadrant of right female breast (principal); C50.912 Malignant neoplasm of unspecified site of left female breast; Z17.0 Estrogen receptor positive status [ER+]
CPT/HCPCS: 36415; 80053; 80074

== ENCOUNTER 2025-03-26 07:39 | Outpatient (CLI) | payer BC, SELFPAY ==
[2025-03-26 07:56] LABS: Hematocrit 36.6 % (37.0-47.0); Hemoglobin 12.9 g/dL (12.2-16.2); Immature Granulocytes % 0.2 %; Mean Corpuscular HGB Conc 35.2 g/dL (31.8-35.4); Mean Corpuscular Hemoglobin 33.9 pg (27.0-31.2); Mean Corpuscular Volume 96.3 fl (81-99); Nucleated Red Blood Cells % 0 %; Platelet Count 155 K/mm3 (142-424); Red Blood Count 3.80 M/mm3 (4.20-5.40); Red Cell Distribution Width-SD 42.1 fL; White Blood Count 4.9 K/mm3 (4.8-10.8)
[2025-03-26 08:37] LABS: Albumin Level 3.9 g/dl (3.5-5.0); Chloride 105 mmol/L (98-107)
[2025-03-26 08:38] LABS: Potassium 5.2 mmoL/L (3.5-5.1); Sodium 140 mmol/L (136-145)
[2025-03-26 08:40] LABS: Alanine Aminotransferase 26 U/L (12-78); Anion Gap 10.2 mEq/L (5-15); Aspartate Amino Transferase 26 U/L (14-36); Blood Urea Nitrogen 15 mg/dl (7-17); Carbon Dioxide 30 mmol/L (22.0-30.0); Creatinine,Serum 1.00 mg/dl (0.52-1.04); Estimated Glomerular Filt Rate 62 ml/min (>60); GFR (African American) 75 ML/MIN (>60)
[2025-03-26 08:41] LABS: Albumin/Globulin Ratio 1.4 (1.1-1.8); Alkaline Phosphatase 77 U/L (38-126); Bilirubin,Total 0.5 mg/dl (0.2-1.3); Calcium 10.1 mg/dl (8.4-10.2); Globulin 2.8 g/dL (1.3-3.2); Glucose 93 mg/dl (74-100); Total Protein,Serum 6.7 g/dl (6.3-8.2)
[2025-03-27 09:44] LABS: CA 27.29 97.5 U/mL (0.0-38.6)
== END 2025-03-26 23:59 | disposition home or self-care (01) ==
LOC: LAB 07:40
PROVIDERS: PCP Family Medicine; Visit Provider Internal Medicine Hematology & Oncology
DX: C50.411 Malignant neoplasm of upper-outer quadrant of right female breast (principal); C50.912 Malignant neoplasm of unspecified site of left female breast; Z17.0 Estrogen receptor positive status [ER+]
CPT/HCPCS: 36415; 80053; 85025; 86300

== ENCOUNTER 2025-04-23 07:56 | Outpatient (CLI) | payer BC, SELFPAY ==
--- OUTSIDE RECORDS SUMMARY | 2025-03-02 08:00 | XMS_ITS | Encounter Summary ---
Author Organization [facility] Address [address] [place] [address] Care Team Providers Care Customs Agent Name Role Phone Hermilo tOto MD Primary Care Provider + [phone] Loretta Godfrey MD Unavailable [phone] Paola Rosenberg ELECTRONIC RESOURCES LIBRARIAN Unavailable Unavaila ble Reason for Visit * Reason Comments Follow-up Encounter Details Date Type Department Care Team (Late st Contact Info) Description 03/02/2025 8:00 AM EDT Office Visit [facility] at [facility] [address] [place] [phone] Loretta Godfrey MD [address] [address] Malignant neoplasm of upper-outer quadrant [...] week 08/27/2024 How often do you attend [facility] or mormonism services? More than 4 times per year [...] Recorded Patient Health Questionnaire-2 Score 0 10/06/2024 [facility] of Occupat ional Health - [...] Sign Reading Time Taken Comments Blood Pressure 118/79 03/02/2025 7:58 AM EDT Pulse 98 03/02/2025 7:58 AM EDT Temperature 36.4 C (97.5 F) 03/02/2025 7:58 AM EDT Respiratory Rate - - Oxygen Saturation 100% 03/02/2025 7:58 AM EDT Inhaled Oxygen Concentration - - Weight 73.9 kg (162 lb 14.7 oz) 03/02/2025 7:58 AM EDT Height 165.1 cm (5' 5 ) 03/02/2025 7:58 AM EDT Body Mass Index 27.11 03/02/2025 7:58 AM EDT documented in this encounter Miscellaneous Notes * Progress Notes - Loretta Godfrey MD - 03/02/2025 8:00 AM EDT [facility] HEMATOLOGY/ONCOLOGY FOLLOW UP Shona Prieto 1985 Primary [...] mg (11/03/2024), 3.75 mg (12/08/2024), 3.75 mg (01/05/2025), 3.75 mg (02/02/2025) Treatment Details Treatment goal [No plan goal] [...] mg (11/03/2024), 120 mg (12/08/2024), 120 mg (01/05/2025), 120 mg (02/02/2025) Subjective History of Present Illness: Shona Prieto is a 39 y.o. female with breast cancer. Pt is alone. Pt's gynecologic PA palpated a left breast [...] the dentist. She has been seen at [facility]. She had a good visit and we will send liquid biopsy for NGS. Pt has lost 10 pounds intentionally with cutting out sugar. 07/14/24 [facility] One CDX revealed no actionable mechanic driver mutation. Pt has been seen at [facility] and was told to continue current therapy. Pt enjoyed her daughter'day constitution party rollers kating. She's had some stressors with her pentecostal. She's quite active attending her children's sporting activities. Signetera to date: 05/19/24 34.16 08/19/24 0 12/08/24 0 02/19/25 CT CAP 1.Overall findings are stable since prior study. No evidence of new or worsening metastatic lesion.Please note that the primary lesions noted within the breasts are better evaluated with mammogram. 2.Nonspecific mild diffuse colonic wall thickening may represent mild colitis, possibly treatment related. 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 Pt feels well. She comments she is concerned regarding her labs. She has been drinking a new protein shake. The following portions of the chart were reviewed this encounter and updated as appropriate: Tobacco Allergies Meds Problems Med Hx Surg Hx Fam Hx Objective Review of Systems Constitutional: Negative for chills and fever. HENT: Negative for mouth sores. Respiratory: Positive for chest tightness. Negative for cough and shortness of breath. Cardiovascular: Negative for chest pain. Gastrointestinal: Negative for diarrhea, nausea and vomiting. Genitourinary: Negative for frequency. Musculoskeletal: Positive for arthralgias and back pain. Skin: Negative for rash. Neurological: Negative. Psychiatric/Behavioral: Negative. Physical Exam: Vital Signs for this encounter: BSA: 1.84 meters squared Visit Vitals BP 118/79 Pulse 98 Temp 36.4 ??C (97.5 ??F) (Temporal) Ht 1.651 m (5' 5 ) Wt 73.9 kg (162 lb 14.7 oz) SpO2 100% BMI 27.11 kg/m?? Smoking Status Never BSA 1.84 m?? Physical Exam Vitals reviewed. HENT: Head: Normocephalic. Mouth/Throat: Mouth: Mucous membranes are moist. Eyes: Extraocular Movements: Extraocular movements intact. Cardiovascular: Rate and Rhythm: Normal rate. Heart sounds: Normal heart sounds. Pulmonary: Effort: [...] recommendation of the National Kidney Foundation and [place] Society of Nephrology. This calculation has not been validated in women. For pediatric patients refer to https://www.kidney.org/professionals/KDOQI/gfr_calculatorPed Assessment/Plan Stage IV breast cancer ER+ SC + Her 2 garett - with metastatic [...] NCCN guidelines. We will follow her Ca 27-29/Signatera and this continues to decline. Pt gone to [facility] and MD Rubi for a consultation. She has had some hot flashes and diarrhea. These are both resolving. She takesimodium intermittently prn. Pt has had Signatera 12/08/24 sent with most recent was 0. Her genetic te sting revealed no deleterious mutation. NGS liquid biopsy revealed no deleterious mutation. Repeat imaging has been reviewed on 02/19/25. We discussed the prior bone sclerosis as being healing bone. Overall, she is doing well. Pt continues to feel well. We will re-image q 3 months or sooner pending labs. She will repeat CMP in 1 week after she discontinues supplemental protein shakes. She may alsohave a viral syndrome. documented in this encounter Plan of Treatment Upcoming Encounters Date Type Department Care Team (Late st Contact Info) Description 04/27/2025 9:30 AM EST Office Visit [facility] [address] [place] [phone] Loretta Godfrey MD [address] [phone] 04/27/2025 9:45 AM EST Clinical Support [facility] at [facility] [address] [place] [phone] documented as of this encounter Visit Diagnoses Diagnosis Malignant neoplasm of upper-outer quadrant of right breast in female, estrogen receptor positive- Primary documented in this encounter Additional Health Concerns Assessment Noted Time A fall risk assessment has been complete d for the patient 12/08/2024 8:31 AM EDT documented as of this encounter Care Teams Customs Agent Relationship Specialty Start Date End Date Hermilo Otto MD [facility] [place] [address] PCP - General 05/07/24 Loretta Godfrey MD [address] [phone] Medical Oncologist Hematology and Oncology 05/18/24 Paola Rosenberg LPN VALUE-BASED TRANSFORMATION PROGRAM Licensed Practical Nurse 08/25/24 documented as of this encounter
--- OUTSIDE RECORDS SUMMARY | 2025-03-02 08:15 | XMS_ITS | Encounter Summary ---
Author Organization [facility] Address [address] [place] [address] Care Team Providers Care Nurse Aide Name Role Phone Hermilo Otto MD Primary Care Provider + [phone] Loretta Godfrey MD Unavailable [phone] Paola Rosenberg NEWS VIDEO EDITOR Unavailable Unavaila ble Reason for Visit * Reason Comments Injections * Episode Based Medications (Routine) - Authorized Specialty Diagnoses / Procedures Referred By Venkat mccarthy Referred To Contact Diagnoses Malignant neoplasm of upper-outer quadrant of right breast in female, estrogen receptor positive Procedures [place] LEUPROLIDE ACETATE SUSPNSION Loretta Godfrey MD [address] [address] Phone: tel: fax: [facility] [address] [place] [address] Phone: tel: fax: Referral ID Status Reason Start Date Expiration Date V isits Requested Visits Authorized [id number] Authorized 05/19/2024 11/18/2025 1 14 Encounter Details Date Type Department Care Team (Latest Contact Info) Description 03/02/2025 8:15 AM EDT Clinical Support [facility] [address] [place] [address] Malignant neoplasm of upper-outer quadrant [...] How often do you attend [facility] or zoroastrianism services? More than 4 times [...] the past 12 months has th e [employer], gas, oil, or water company threatened to [...] Description 04/27/2025 9:30 AM EST Office Visit [facility] [address] [place] [address] Loretta Godfrey MD [address] [address] 04/27/2025 9:45 AM EST Clinical Support [facility] [address] [place] [address] documented as of this encounter Visit Diagnoses [...] as of this encounter Care Teams Nurse Aide Relationship Specialty Start Date End Date Hermilo Otto MD [facility] [place] [address] PCP - General 05/07/24 Loretta Godfrey MD [address] [phone] Medical Oncologist Hematology and Oncology 05/18/24 Paola Rosenberg LPN VALUE-BASED TRANSFORMATION PROGRAM Licensed Practical Nurse 08/25/24 documented as of this encounter
--- OUTSIDE RECORDS SUMMARY | 2025-03-30 12:30 | XMS_ITS | Encounter Summary ---
Author Organization [facility] Address [address] [place] [address] Care Team Providers Care Nail Maker Name Role Phone Hermilo Otto MD Primary Care Provider + [phone] Loretta Godfrey MD Unavailable [phone] Paola Rosenberg AUTO REPAIR TECHNICIAN Unavailable Unavaila ble Reason for Visit * Reason Comments Follow-up Encounter Details Date Type Department Care Team (Late st Contact Info) Description 03/30/2025 12:30 PM EDT Office Visit [facility] [address] [place] [phone] Loretta Godfrey MD [address] [phone] Malignant neoplasm of upper-outer quadrant [...] week 08/27/2024 How often do you attend [facility] or mormonism services? More than 4 times [...] Health Questionnaire-2 Score 0 10/06/2024 [facility] - Occupational Stress [...] any time in the past 12 m [facility], were you homeless or living in a [...] Godfrey MD - 03/30/2025 12:30 PM EDT [facility] HEMATOLOGY/ONCOLOGY FOLLOW UP Shona Prieto 1985 Primary [...] the dentist. She has been seen at [facility]. She had a good visit and we will send liquid biopsy for NGS. Pt has lost 10 pounds intentionally with cutting out sugar. 07/14/24 [facility] CDX revealed no actionable race car driver mutation. Pt has been seen at [facility] and was told to continue current therapy. Pt enjoyed her daughter' constitution party rollers [employer]. She's had some stressors with her faith. She's quite active attending her children's sporting [...] possibly treatment related. 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 Pt feels well. She comments she [...] recommendation of the National Kidney Foundation and [place] [employer] of Nephrology. This calculation has not been validated in women. For pediatric patients refer to https://www.kidney.org/professionals/KDOQI/gfr_calculatorPed No results found. Assessment/Plan Stage IV breast cancer ER+ ID + Her 2 garett - with metastatic [...] Description 04/27/2025 9:30 AM EST Office Visit [facility] [address] [place] [phone] Loretta Godfrey MD [address] [place] [phone] 04/27/2025 9:45 AM EST Clinical Support [facility] [address] [place] [address] documented as of this encounter Visit Diagnoses Diagnosis Malignant neoplasm of upper-outer quadrant of right breast in female, estrogen receptor positive- Primary documented in this encounter Additional Health Concerns Assessment Noted Time A fall risk assessment has been complete d for the patient 03/30/2025 2:22 PM EDT documented as of this encounter Care Teams Nail Maker Relationship Specialty Start Date End Date Hermilo Otto MD [address] [address] PCP - General 05/07/24 Loretta Godfrey MD [facility] [phone] Medical Oncologist Hematology and Oncology 05/18/24 Paola Rosenberg LPN VALUE-BASED TRANSFORMATION PROGRAM Licensed Practical Nurse 08/25/24 documented as of this encounter
--- OUTSIDE RECORDS SUMMARY | 2025-03-30 12:45 | XMS_ITS | Encounter Summary ---
Author Organization [facility] Address [address] [place] [address] Care Team Providers Care Nuisance Wildlife Trapper Name Role Phone Hermilo Otto MD Primary Care Provider + [phone] Loretta Godfrey MD Unavailable [phone] Paola Rosenberg UTILITY ACCOUNTS DIRECTOR Unavailable Unavaila ble Reason for Visit * Episode Based Medications (Routine) - Authorized Specialty Diagnoses / Procedures Referred By Venkat mccarthy Referred To Contact Diagnoses Malignant neoplasm of upper-outer quadrant of right breast in female, estrogen receptor positive Procedures RI LEUPROLIDE ACETATE SUSPNSION Loretta Godfrey MD [address] [phone] Phone: tel: fax: [facility] [address] [place] [phone] Phone: tel: fax: Referral ID Status Reason Start Date Expiration Date V isits Requested Visits Authorized [id number] Authorized 05/19/2024 11/18/2025 1 14 Encounter Details Date Type Department Care Team (Latest Contact Info) Description 03/30/2025 12:45 PM EDT Clinical Support [facility] [address] [place] [phone] Malignant neoplasm of upper-outer quadrant of [...] 08/27/2024 How often do you attend [facility] or baptism services? More than 4 times [...] Patient Health Questionnaire-2 Score 0 10/06/2024 [facility] - Occupational Stress Questionnaire Answer Date Recorded [...] No Risk Indicated 03/30/2025 2:22 PM EDT Esetlita Villeda RN * Question Answer Date of [...] Description 04/27/2025 9:30 AM EST Office Visit [facility] [address] [place] [phone] Loretta Godfrey MD [address] [phone] 04/27/2025 9:45 AM EST Clinical Support [facility] [address] [place] [address] Scheduled Orders Name Type Priority Associated Diagnoses Orde r Schedule Comprehensive metabolic panel Lab STAT Malignant neoplasm of upper-outer quadrant of right breast in female, estrogen receptor positive Expected: 03/30/2025, Expires: 03/30/2026 documented as of this encounter Visit Diagnoses [...] documented as of this encounter Care Teams Nuisance Wildlife Trapper Relationship Specialty Start Date End Date Hermilo Otto MD [address] [place] [phone] PCP - General 05/07/24 Loretta Godfrey MD [address] [phone] Medical Oncologist Hematology and Oncology 05/18/24 Paola Rosenberg LPN VALUE-BASED TRANSFORMATION PROGRAM Licensed Practical Nurse 08/25/24 documented as of this encounter
--- OUTSIDE RECORDS SUMMARY | 2025-04-14 11:00 | XMS_ITS ---
Author Organization [facility] Address [address] [place] [address] Care Team Providers Care Public Works Laborer Name Role Phone Makenzie Ward Unavailable [phone] Parul Main Unavailable [phone] Allergies No Known Allergies Results Component Value Reference Range Flag Notes Pap w/reflex HPV Reviewed date:04/19/2025 12:27:46 PM Interpretation:Negative Performing Lab: Notes/Report: [facility] Testing performed at: [WB] [address], [address], , Aviation Neuropsychologist: Adeola Plascencia MD Source.............Cervix;Endocervix Dates / Results....2023 negative Other..............Post Menopausal No. of containers..01 ThinPrep Vial DIAGNOSIS: Comment N NEGATIVE FOR I NTRAEPITHELIAL LESION OR MALIGNANCY. Specimen adequacy: Comment N Satisfactory for evaluation. Endocervical and/or squamous metaplastic cells (endocervical component) are present. Areas of partially obscuring blood are present. Clinician provided ICD10: Comment N Z01.419 Performed by: Dmitri N Yesenia arrieta, Broach Grinder (ASCP) . . N Note: Comment N [...] ThinPrep(R) pap test was interpreted using the [employer](R) Genius(TM) Cervical Algorithm whole slide imaging system. 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) Active confirmed Vital Signs Blood pressure systolic 120 mm Hg 04/14/20 25 Blood pressure diastolic 78 mm Hg 025 Height 65 in 04/14/2025 Weight 167.8 lbs 04/14/2025 BMI 27.92 kg/m2 04/14/2025 Encounters Encounter Location Date Provider Diagnosis [facility] [address] [facility] [address] [place] [address] 04/14/2025 Parul Main Cervical smear, as p [...] Provider Name:Parul Etelvina, 04/18/2026 03:00:00 PM, [address] [facility] [[email or web address] [address], [place], [address], History and Physical Notes * HPI (History of Present Illness) Category Sub-Category Detail Notes Category Not es General Health Maintenance Presents for annual exam with no BUS VAN DRIVER complaints. She is s/p diagnosis of bilateral [...] non distended, no masses or hepatosplenomegaly appreciated Laborer Construction Or Leak Gang Laborer Construction Or Leak Gang Laborer Construction Or Leak Gang presen t during physical exam. Name: Compa Hercules Title: AUTOCAD OPERATOR Progress Notes * Shona ORDAZ CDOB:[birth year] (39 yo F)Acc No.[id number]:04/14/2025 Progress Note Patient: Shona Barboza Provider: Julius Main MD :1985 A ge:39 Y S ex:Female Date:04/14/2025 Address:[address] [place], [place] [address] [address] [id number] Subjective: * Chief Complaints: * 1 . Annual. * HPI: G eneral Health Maintenance: Presents for annual exam with no BUS VAN DRIVER complaints. She is s/p diagnosis of bilateral [...] d enies. ? 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 ? C haperone: Laborer Construction Or Leak Gang C haperone present during physical exam. Name:Linda [...] Annual) * Billing Information: * Visit Code: 39993 Est Pt Annual 18-39 yr old. Images * Control Director's License 2025-04-09 * Sign off status: Completed Visit Status: A RR (Check-In) true * Provider: Julius Main MD Date: Generated for Vik montero/Nikolay/eTransmitting on: 08:00 AM EDT
--- OUTSIDE RECORDS SUMMARY | 2025-04-23 07:59 | XMS_ITS | Encounter Summary ---
Author Organization [facility] Address [address] [place] [address] Care Team Providers Care Education Manager Name Role Phone Hermilo Otto MD Primary Care Provider + [phone] Loretta Godfrey MD Unavailable [phone] Paola Rosenberg TRUCKER HAND Unavailable Unavaila ble Encounter Details Date Type Department Care Team (Late st Contact Info) Description 03/29/2025 Orders Only [facility] [address] [place] [phone] Loretta Godfrey MD [address] [address] Social History Tobacco Use Types [...] often do you attend chur ch or yazidi services? More than 4 times per year 08/27/2024 Do you belong to any clubs o r organizations such as confucianist groups, unions, fraternal or athletic groups, or [...] Author No Risk Indicated 03/30/2025 2:22 PM Estelita Marin RN * Question Answer Date of Assessment Author 1. Wish to be (Past 1 Month) No 03/30/2025 2:22 PM Estelita Marin RN 2. Non-Specific Active Suici kelsie Thoughts (Past 1 Month) No 03/30/2025 2:22 PM MARIA FER[facility]NDAT Bobby Villeda RN 6. Suicidal Behavior (Lifetime) No 2:22 PM Estelita Marin RN documented as of this encounter Plan of Treatment Upcoming Encounters Date Type Department Care Team (Late st Contact Info) Description 04/27/2025 9:30 AM EST Office Visit [facility] at [facility] [address] [place] [phone] Loretta Godfrey MD [address] [phone] 04/27/2025 9:45 AM EST Clinical Support [facility] at [facility] [address] [place] [phone] documented as of this encounter Procedures Procedure Name Priority Date/Time Associated Diagnosis Comments COMPLETE METABOLIC PROFILE (CMP) Routine 03/26/2025 11:03 AM EDT CBC W/DIFF Routine 03/26/2025 11:03 AM EDT CANCER ANTIGEN 27.29 Routine 03/26/2025 9:22 AM EDT documented in this encounter Results * CBC W/DIFF (03/26/2025 11:03 AM EDT) Loretta Godfrey MD LAB BLOOD ORDERABLES Final Re sult * COMPLETE METABOLIC PROFILE (CMP) (03/26/2025 11:03 AM EDT) Loretta Godfrey MD LAB BLOOD ORDERABLES Final Re sult * Cancer antigen 27.29 (03/26/2025 9:22 AM EDT) Blood Venous blood specimen / Unknown Lorteta Godfrey MD LAB BLOOD ORDERABLES Final Re sult documented in this encounter Visit Diagnoses Not on filedocumented in this encounter Additional Health Concerns Assessment Noted Time A fall risk assessment has been complete d for the patient 12/08/2024 8:31 AM EDT documented as of this encounter Care Teams Education Manager Relationship Specialty Start Date End Date Hermilo Otto MD [address] [facility] [address] [place], [place] [id number] PCP - General 05/07/24 Loretta Godfrey MD [address] [place] [address] Medical Oncologist Hematology and Oncology 05/18/24 Paola Rosenberg LPN VALUE-BASED TRANSFORMATION PROGRAM Licensed Practical Nurse 08/25/24 documented as of this encounter
--- OUTSIDE RECORDS SUMMARY | 2025-04-23 07:59 | XMS_ITS | Encounter Summary ---
Author Organization [facility] Address [address] [place] [address] Care Team Providers Care Customer Support Associate Name Role Phone Hermilo Otto MD Primary Care Provider + [phone] Loretta Godfrey MD Unavailable [phone] Paola Rosenberg LPN Unavailable Unavaila ble Reason for Visit * Reason Comments [facility] Encounter Details Date Type Department Care Team (Late st Contact Info) Description 04/15/2025 Patient Outreach [facility] [address] [place] [address] Paola Rosenberg LPN VALUE-BASED TRANSFORMATION PROGRAM [facility] Social History Tobacco Use Types Packs/Day Years [...] How often do you attend chur or taoist services? More than 4 times per year [...] Progress Notes - Paola Rosenberg LPN - 04/15/2025 10:40 AM EDT 04/15/2025 Reason for Follow-up: [facility]+ update call. Patient Status: Current Symptoms: Patient denies any at this time. Side Effects: Patient denies any at this time. Treatment Updates: Current Treatment Plan: leuprolide (Lupron) injection 3.75 mg denosumab (Xgeva) 120 MG/1.7ML injection 120 mg Letrozole 2.5 mg daily. Verzenio 150 mg twice a day [facility] Update: Other: Patient reports no needs at this time. Follow-Up Plan: Next Appointment: 04/27/2025@9:30 am with Loretta Godfrey. Additional Notes/Care Coordination Needs: Patient Concerns: Patient denies any issues or concerns for this nurse at time of call. Patient encouraged to call with any non-urgent matters. documented in this encounter Plan of Treatment Upcoming Encounters Date Type Department Care Team (Late st Contact Info) Description 04/27/2025 9:30 AM EST Office Visit [facility] [address] [place] [phone] Loretta Godfrey MD [address] [phone] 04/27/2025 9:45 AM EST Clinical Support [facility] [address] [place] [phone] documented as of this encounter Visit Diagnoses Not on filedocumented in this encounter Additional Health Concerns Assessment Noted Time A fall risk assessment has been complete d for the patient 03/30/2025 2:22 PM EDT documented as of this encounter Care Teams Customer Support Associate Relationship Specialty Start Date End Date Hermilo Otto MD [address] [place] [address] PCP - General 05/07/24 Loretta Godfrey MD [address] [phone] Medical Oncologist Hematology and Oncology 05/18/24 Paola Rosenberg LPN VALUE-BASED TRANSFORMATION PROGRAM Licensed Practical Nurse 08/25/24 documented as of this encounter
--- OUTSIDE RECORDS SUMMARY | 2025-04-23 07:59 | XMS_ITS | Encounter Summary ---
Author Organization Healthcare Address [address] [place] [address] Care Team Providers Care Developing Machine Operator Name Role Phone Hermilo Otto MD Primary Care Provider + [phone] Loretta Godfrey MD Unavailable [phone] Paola Rosenberg LPN Unavailable Unavaila ble Encounter Details Date Type Department Care Team (Latest Contact Info) Description 03/30/2025 Travel Social History Tobacco Use Types Packs/Day [...] do you attend [facility] or tenriism services? More than 4 times per year [...] Recorded Patient Health Questionnaire-2 Score 0 10/06/2024 [facility] of Occupat ional [facility] - Occupational Stress Questionnaire Answer [...] time in the past 12 m [facility], were you homeless or living [...] Description 04/27/2025 9:30 AM EST Office Visit [facility] [address] [place] [address] Loretta Godfrey MD [address] [place] [phone] 04/27/2025 9:45 AM EST Clinical Support [facility] [address] [place] [address] documented as of this encounter Visit Diagnoses Not on filedocumented in this encounter Additional Health Concerns Assessment Noted Time A fall risk assessment has been complete d for the patient 03/30/2025 2:22 PM EDT documented as of this encounter Care Teams Developing Machine Operator Relationship Specialty Start Date End Date Hermilo Otto MD [address] [address] PCP - General 05/07/24 Loretta Godfrey MD [address] [phone] Medical Oncologist Hematology and Oncology 05/18/24 Paola Rosenberg LPN VALUE-BASED TRANSFORMATION PROGRAM Licensed Practical Nurse 08/25/24 documented as of this encounter
--- OUTSIDE RECORDS SUMMARY | 2025-04-23 07:59 | XMS_ITS | Encounter Summary ---
Author Organization [facility] Address [address] [place] [address] Care Team Providers Care Laborer Golf Course Name Role Phone Hermilo Otto MD Primary Care Provider + [phone] Loretta Godfrey MD Unavailable [phone] Paola Rosenberg LPN Unavailable Unavaila ble Encounter Details Date Type Department Care Team (Latest Contact Info) Description 04/22/2025 Travel Social History Tobacco Use Types Packs/Day [...] How often do you attend [facility] or episcopal services? More than 4 times per year [...] [facility] of Occupat ional [facility] - Occupational Stress Questionnaire Answer [...] time in the past 12 m [facility], were you homeless or living [...] EST Office Visit [facility] [address] [place] [phone] Loretta Godfrey MD [address] [place] [phone] 04/27/2025 9:45 AM EST Clinical Support [facility] at [facility] [address] [place] [phone] documented as of this encounter Visit Diagnoses Not on filedocumented in this encounter Additional Health Concerns Assessment Noted Time A fall risk assessment has been complete d for the patient 03/30/2025 2:22 PM EDT documented as of this encounter Care Teams Laborer Golf Course Relationship Specialty Start Date End Date Hermilo Otto MD [address] [facility] [address] [place] [address] PCP - General 05/07/24 Loretta Godfrey MD [address] [phone] Medical Oncologist Hematology and Oncology 05/18/24 Paola Rosenberg LPN VALUE-BASED TRANSFORMATION PROGRAM Licensed Practical Nurse 08/25/24 documented as of this encounter
--- OUTSIDE RECORDS SUMMARY | 2025-04-23 07:59 | XMS_ITS | Encounter Summary ---
Author Organization [facility] Address [address] [place] [address] Care Team Providers Care Die Sinker Apprentice Name Role Phone Hermilo Otto MD Primary Care Provider + [phone] Loretta Godfrey MD Unavailable [phone] Paola Rosenberg LPN Unavailable Unavaila ble Encounter Details Date Type Department Care Team (Latest Contact Info) Description 03/25/2025 Travel Social History Tobacco Use Types Packs/Day [...] week 08/27/2024 How often do you attend [facility] or uatsdin services? More than 4 [...] 10/06/2024 [facility] of Occupat ional [facility] - Occupational Stress Questionnaire Answer Date Recorded [...] were you homeless or living in a residential (including now)? No 08/27/2024 Utilities Answer Date [...] Description 04/27/2025 9:30 AM EST Office Visit [facility] [address] [place] [phone] Loretta Godfrey MD [address] [place] [phone] 04/27/2025 9:45 AM EST Clinical Support [facility] [address] [place] [phone] documented as of this encounter Visit Diagnoses Not on filedocumented in this encounter Additional Health Concerns Assessment Noted Time A fall risk assessment has been complete d for the patient 12/08/2024 8:31 AM EDT documented as of this encounter Care Teams Die Sinker Apprentice Relationship Specialty Start Date End Date Hermilo Otot MD 1210 [facility] [address] [place] [address] PCP - General 05/07/24 Loretta Godfrey MD [address] [address] [phone] Medical Oncologist Hematology and Oncology 05/18/24 Paola Rosenberg LPN VALUE-BASED TRANSFORMATION PROGRAM Licensed Practical Nurse 08/25/24 documented as of this encounter
--- OUTSIDE RECORDS SUMMARY | 2025-04-23 07:59 | XMS_ITS | Encounter Summary ---
Author Organization [facility] Address [address] [place] [address] Care Team Providers Care Translation Director Name Role Phone Hermilo Otto MD Primary Care Provider + [phone] Loretta Godfrey MD Unavailable [phone] Paola Rosenberg LPN Unavailable Unavaila ble Reason for Visit * Reason Comments [facility] Encounter Details Date Type Department Care Team (Late st Contact Info) Description 03/19/2025 Patient Outreach [facility] [address] [place] [address] Paola Rosenberg LPN VALUE-BASED TRANSFORMATION PROGRAM [facility] Social History Tobacco Use Types Packs/Day [...] How often do you attend chur or orthodox services? More than 4 times [...] Progress Notes - Paola Rosenberg LPN - 03/19/2025 10:19 AM EDT 03/19/2025 Reason for Follow-up: [facility]+ update call. Patient Status: Current Symptoms: Patient denies. Side Effects: Patient denies. Treatment Updates: Current Treatment Plan: leuprolide (Lupron) injection 3.75 mg denosumab (Xgeva) 120 MG/1.7ML injection 120 mg Letrozole 2.5 mg daily. Verzenio 150 mg twice a day [facility] Update: Other: Patient denies any needs at time of call. Follow-Up Plan: Next Appointment: 03/30/2025@12:30 pm with Loretta Godfrey. Additional Notes/Care Coordination Needs: Patient Concerns: Patient denies any questions or concerns for this nurse. Patient encouraged to call with any non-urgent matters. documented in this encounter Plan of Treatment Upcoming Encounters Date Type Department Care Team (Late st Contact Info) Description 04/27/2025 9:30 AM EST Office Visit [facility] [address] [place] [phone] Loretta Godfrey MD [address] [address] 04/27/2025 9:45 AM EST Clinical Support [facility] [address] [place] [address] documented as of this encounter Visit Diagnoses Not on filedocumented in this encounter Additional Health Concerns Assessment Noted Time A fall risk assessment has been complete d for the patient 12/08/2024 8:31 AM EDT documented as of this encounter Care Teams Translation Director Relationship Specialty Start Date End Date Hermilo Otto MD [facility] [address] [address] PCP - General 05/07/24 Loretta Godfrey MD [address] [phone] Medical Oncologist Hematology and Oncology 05/18/24 Paola Rosenberg LPN VALUE-BASED TRANSFORMATION PROGRAM Licensed Practical Nurse 08/25/24 documented as of this encounter
--- OUTSIDE RECORDS SUMMARY | 2025-04-23 07:59 | XMS_ITS | Clinical Summary ---
[facility] Organization [facility] Address [address] [place] [address] Care Team Providers Care Manager Public Name Role Phone Hermilo Otto MD Primary Care Provider + [phone] Allergies No known active allergies Medications Vit-Fe [...] - 02/19/2025 11:59 PM EDT Hospital Encounter [address] [place] [address] Loretta Godfrey MD Malignant neoplasm [...] drink = 0.6 oz pur e alcohol) [place] Depression Scale Answer Date Recorded [place] Depression Scale Total 1 10/17/2018 The thought of harming myself has occurred to me . Unrecognized value 10/17/2018 PHQ-2 Answer Date Recorded Patient [...] 1985 PAP SMEAR 09/27/2008 ANNUAL PHYSICAL 10/16/2018 INFLUENZA VACCINE 01/22/2025 05/20/2024, 06/06/2018 TDAP/TD VACCINES (2 - Td [...] DO 02/19/2025 5:59 PM EDT Workstation ID: [id number] Narrative 02/19/2025 5:[address] CHEST [...] DO 02/19/2025 5:59 PM EDT Workstation ID: [id number] Loretta Godfrey MD IMG CT ORDERABLES [...] DO 02/19/2025 5:59 PM EDT Workstation ID: [id number] Narrative 02/19/2025 5:[address] CHEST [...] DO 02/19/2025 5:59 PM EDT Workstation ID: [id number] Loretta Godfrey MD IMG CT ORDERABLES Final R esult * Hepatitis C Antibody (03/04/2018 4:42 PM EDT) Hepatitis C Ab Non-Reacti ve Non-Reacti ve 03/04/2018 7:55 PM EDT [facility] Blood Venipuncture / Unknown 03/04/2018 4:42 PM EDT 03/04/2018 4:42 PM EDT Makenzie Ward MD LAB BLOOD ORDERABLES Final Re sult [facility]
[address] [place] [address], from Last 3 Months or Most Recently Relevant to Health Maintenance Insurance [facility] PPO Advance Directives * CPR (Attempt [...] 3:13 PM 03/30/2016 2:24 AM Care Teams Manager Public Relationship Specialty Start Date End Date Hermilo Otto MD [address] [facility] [address] [place] [address] PCP - General Family Medicine 04/14/24
--- OUTSIDE RECORDS SUMMARY | 2025-04-23 07:59 | XMS_ITS ---
Author Organization [facility] [place] Address [address] [place] [address] Care Team Providers Care Cnc Router Operator Name Role Phone Hermilo Otto MD Primary Care Provider + [phone] Loretta Godfrey MD Unavailable [phone] Paola Rosenberg LPN Unavailable Unavaila ble [facility] Status:Active (Active) Start date:08/25/2024 Enrollment date:08/27/2024 Enrollment reason:Identified as high-risk Overview This episode type is for outpatient care managers enrolling patients in the [facility] program. Case Team Name Relationship Phone Paola Rosenberg LPN(Responsible Staff) Licens ed Practical Nurse Continued Care and Services Coordination
--- OUTSIDE RECORDS SUMMARY | 2025-04-23 07:59 | XMS_ITS | Encounter Summary ---
Author Organization [facility] Address [address] [place] [address] Care Team Providers Care Transcription Typist Name Role Phone Hermilo Otto MD Primary Care Provider + [phone] Loretta Godfrey MD Unavailable [phone] Paola Rosenberg LPN Unavailable Unavaila ble Reason for Visit * Reason Comments [facility] Encounter Details Date Type Department Care Team (Late st Contact Info) Description 04/14/2025 Patient Outreach POP[facility]ALTH [address] [place] [address] Paola Rosenberg LPN VALUE-BASED TRANSFORMATION PROGRAM [facility] Social History Tobacco Use Types Packs/Day Years [...] How often do you attend chur or pentecostalism services? More than 4 times [...] Recorded Patient Health Questionnaire-2 Score 0 10/06/2024 [facility] of Occupat ional Health - Occupational [...] Progress Notes - Paola Rosenberg LPN - 04/14/2025 12:53 PM EDT 04/14/2025 Call attempt 1; unable to reach patient, left voicemail with call back number. documented in this encounter Plan of Treatment Upcoming Encounters Date Type Department Care Team (Late st Contact Info) Description 04/27/2025 9:30 AM EST Office Visit [facility] [address] [place] [address] Loretta Godfrey MD [address] [place] [phone] 04/27/2025 9:45 AM EST Clinical Support [facility] [address] [place] [phone] documented as of this encounter Visit Diagnoses Not on filedocumented in this encounter Additional Health Concerns Assessment Noted Time A fall risk assessment has been complete d for the patient 03/30/2025 2:22 PM EDT documented as of this encounter Care Teams Transcription Typist Relationship Specialty Start Date End Date Hermilo Otto MD 1210 [facility] [address] [phone] PCP - General 05/07/24 Loretta Godfrey MD [address] [phone] Medical Oncologist Hematology and Oncology 05/18/24 Paola Rosenberg LPN VALUE-BASED TRANSFORMATION PROGRAM Licensed Practical Nurse 08/25/24 documented as of this encounter
--- OUTSIDE RECORDS SUMMARY | 2025-04-23 08:00 | XMS_ITS | Encounter Summary ---
Author Organization [facility] Address [address] [place] [address] Care Team Providers Care Wool Hat Hydraulicker Name Role Phone Hermilo Otto MD Primary Care Provider + [phone] Loretta Godfrey MD Unavailable [phone] Paola Rosenberg PROFESSIONAL ADVISOR Unavailable Unavaila ble Encounter Details Date Type Department Care Team (Late st Contact Info) Description 03/09/2025 Orders Only [facility] at [facility] [address] [place] [phone] Loretta Godfrey MD [address] [address] Social History Tobacco Use Types [...] often do you attend chur ch or anabaptism services? More than 4 times per year 08/27/2024 Do you belong to any clubs o r organizations such as religion groups, unions, fraternal or athletic groups, or [...] Questionnaire-2 Score 0 10/06/2024 [facility] of Occupat ional Health - Occupational [...] time in the past [address] [facility], were you homeless or [...] Office Visit [facility] at [address] [phone] [place] [address] [place] [phone] 04/27/2025 9:45 AM EST Clinical Support [facility] at [address] [phone] documented as of this encounter Procedures Procedure Name Priority Date/Time Associated Diagnosis Comments COMPLETE METABOLIC PROFILE (CMP) Routine 03/09/2025 1:56 PM EDT documented in this encounter Results * COMPLETE METABOLIC PROFILE (CMP) (03/09/2025 1:56 PM EDT) us Loretta Godfrey MD LAB BLOOD ORDERABLES Final Re sult documented in this encounter Visit Diagnoses Not on filedocumented in this encounter Additional Health Concerns Assessment Noted Time A fall risk assessment has been complete d for the patient 12/08/2024 8:31 AM EDT documented as of this encounter Care Teams Wool Hat Hydraulicker Relationship Specialty Start Date End Date Hermilo Otto MD [address] [address] PCP - General 05/07/24 Loretta Godfrey MD [address] [address] Medical Oncologist Hematology and Oncology 05/18/24 Paola Rosenberg LPN VALUE-BASED TRANSFORMATION PROGRAM Licensed Practical Nurse 08/25/24 documented as of this encounter
--- OUTSIDE RECORDS SUMMARY | 2025-04-23 08:00 | XMS_ITS | Encounter Summary ---
Author Organization Healthcare Address [address] [place] [address] Care Team Providers Care Sports Broadcasting Internship Name Role Phone Hermilo Otto MD Primary Care Provider + [phone] Loretta Godfrey MD Unavailable [phone] Paola Rosenberg LPN Unavailable Unavaila ble [...] week 08/27/2024 How often do you attend [facility] or bahai services? More than 4 times per year 08/27/2024 Do you belong to any clubs o r organizations such as yarsanism groups, unions, fraternal or athletic groups, or [...] Patient Health Questionnaire-2 Score 0 10/06/2024 [facility] of Occupat ional [facility] - Occupational Stress Questionnaire Answer Date [...] Risk Indicated 03/02/2025 8:50 AM Opal Felix, RN * Question Answer Date of Assessment Author 1. Wish to be (Past 1 Month) No 03/02/2025 8:50 AM Opal Felix, RN 2. Non-Specific Active Suici kelsie Thoughts (Past 1 Month) No 03/02/2025 8:50 AM Erika Felix, RN 6. Suicidal Behavior (Lifetime) No 8:50 AM Opal Felix, RN documented as of this encounter Plan of Treatment Upcoming Encounters Date Type Department Care Team (Late st Contact Info) Description 04/27/2025 9:30 AM EST Office Visit [facility] at [facility] [address] [place] [address] Loretta Godfrey MD [address] [place] [phone] 04/27/2025 9:45 AM EST Clinical Support [facility] at [facility] [address] [place] [address] documented as of this encounter Visit Diagnoses Not on filedocumented in this encounter Additional Health Concerns Assessment Noted Time A fall risk assessment has been complete d for the patient 12/08/2024 8:31 AM EDT documented as of this encounter Care Teams Sports Broadcasting Internship Relationship Specialty Start Date End Date Hermilo Otto MD 1210 [facility] [address] [place] [phone] PCP - General 05/07/24 [place] [address] [place] [phone] Medical Oncologist Hematology and Oncology 05/18/24 Paola Rosenberg LPN VALUE-BASED TRANSFORMATION PROGRAM Licensed Practical Nurse 08/25/24 documented as of this encounter
--- OUTSIDE RECORDS SUMMARY | 2025-04-23 08:00 | XMS_ITS | Encounter Summary ---
Author Organization Healthcare Address [address] [place] [address] Care Team Providers Care Bilingual Counter Sales Retail Name Role Phone Hermilo Otto MD Primary Care Provider + [phone] Loretta Godfrey MD Unavailable [phone] Paola Rosenberg LPN Unavailable Unavaila ble [...] 08/27/2024 How often do you attend [facility] or taoist services? More than 4 times [...] [facility] of Occupat ional [facility] - Occupational Stress Questionnaire Answer Date [...] EST Office Visit [facility] at [facility] [address] [place] [phone] Lorteta Godfrey MD [address] [place] [phone] 04/27/2025 9:45 AM EST Clinical Support [facility] at [facility] [address] [place] [phone] documented as of this encounter Visit Diagnoses Not on filedocumented in this encounter Additional Health Concerns Assessment Noted Time A fall risk assessment has been complete d for the patient 12/08/2024 8:31 AM EDT documented as of this encounter Care Teams Bilingual Counter Sales Retail Relationship Specialty Start Date End Date Hermilo Otto MD 1210 [facility] [address] [place] [address] PCP - General 05/07/24 Loretta [facility]drey [facility] [address] [phone] Medical Oncologist Hematology and Oncology 05/18/24 Paola Rosenberg LPN VALUE-BASED TRANSFORMATION PROGRAM Licensed Practical Nurse 08/25/24 documented as of this encounter
--- OUTSIDE RECORDS SUMMARY | 2025-04-23 08:00 | XMS_ITS | Encounter Summary ---
Author Organization Healthcare Address [address] [place] [address] Care Team Providers Care Fisher Lampara Net Name Role Phone Hermilo Otto MD Primary Care Provider + [phone] Loretta Godfrey MD Unavailable [phone] Paola Rosenberg LPN Unavailable Unavaila ble [...] week 08/27/2024 How often do you attend [facility] or [facility] services? More than 4 [...] 0 10/06/2024 [facility] of Occupat ional [facility] - Occupational Stress Questionnaire Answer Date [...] in the past [address] [facility], were you homeless or living in a [...] Description 04/27/2025 9:30 AM EST Office Visit [facility] [address] [place] [phone] Loretta Godfrey MD [address] [place] [phone] 04/27/2025 9:45 AM EST Clinical Support [facility] at [facility] [address] [place] [phone] documented as of this encounter Visit Diagnoses Not on filedocumented in this encounter Additional Health Concerns Assessment Noted Time A fall risk assessment has been complete d for the patient 12/08/2024 8:31 AM EDT documented as of this encounter Care Teams Fisher Lampara Net Relationship Specialty Start Date End Date Hermilo Otto MD 1210 [facility] [address] [place] [address] PCP - General 05/07/24 Loretta Godfrey MD [address] [phone] Medical Oncologist Hematology and Oncology 05/18/24 Paola Rosenberg LPN VALUE-BASED TRANSFORMATION PROGRAM Licensed Practical Nurse 08/25/24 documented as of this encounter
--- OUTSIDE RECORDS SUMMARY | 2025-04-23 08:00 | XMS_ITS | Referral Summary ---
Author Organization [employer] ([place], [place], [place], [place]) Address [address] [place] [address] Care Team Providers Care Corduroy Brusher Operator Name Role Phone Hermilo Otto MD Primary Care Provider + [phone] Allergies No known active allergies Medications sertraline (ZOLOFT) 50 MG tablet Take 1 tablet (50 mg total) by mouth daily. 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
--- OUTSIDE RECORDS SUMMARY | 2025-04-23 08:00 | XMS_ITS | Patient Health Record ---
Author Organization [facility] Address [address] [place] [address] Care Team Providers Care Senior Group Manager Name Role Phone Makenzie Ward Unavailable [phone] Parul Main Unavailable [phone] Chela Doss Unavailable [phone] Allergies No Known Allergies Results Component Value Reference Range Flag Notes Pap w/reflex HPV Reviewed date:04/19/2025 12:27:46 PM Interpretation:Negative Performing Lab: Notes/Report: [facility] Testing performed at: [WB] [address], [address], , [place] Roller: Adeola Plascencia MD Source.............Cervix;Endocervix Dates / Results....2023 negative Other..............Post Menopausal No. of containers..01 ThinPrep Vial DIAGNOSIS: Comment N NEGATIVE FOR I NTRAEPITHELIAL LESION OR MALIGNANCY. Specimen adequacy: Comment N Areas of partially obscuring blood are present. Satisfactory for evaluation. Endocervical and/or squamous metaplastic cells (endocervical component) are present. Clinician provided ICD10: Comment N Z01.419 Performed by: Comment N Yesenia arrieta, Label Printing Machinist (ASCP) . . N Note: Comment N uterine cervix. It is not a diagnostic procedure and detection of premalignant and malignant conditions of the cancer. Both false-positive and false-negative reports do occur. should not be used as the sole means of detecting cervical The Pap smear is a screening test designed to aid in the Test Methodology: Comment N This liquid based ThinPrep(R) pap test was interpreted using the Gigwalk(R) Genius(TM) Cervical Algorithm whole slide imaging system. . Comment N The HPV DNA reflex criteria were not met with this specimen result therefore, no HPV testing was performed. 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 Problem Gynecological examination normal (748108487626579 ) Cervical smear, as part of routine gynecological examination (Z01.419) 019 Active confirmed Annual without abnormal findings Problem Premenstrual tension syndrome (03480527) PMDD (premenstrual dysphoric disorder) (F32.81) Active confirmed Vital Signs Blood pressure diastolic 78 mm Hg 04/14/2025 Height 65 in 04/14/2025 Blood pressure systolic 120 mm Hg 04/14/2025 Weight 167.8 lbs 04/14/2025 BMI 27.92 kg/m2 04/14/2025 Encounters Encounter Location Date Provider Diagnosis [facility] [address] [employer] [address] [phone] 05/11/2024 Chela Doss PMDD (premenstrual dysphoric disorder) F32.81 [facility] [address] [employer] [address] [address] 04/14/2025 Parul Main Cervical smear, as p art of routine gynecological examination Z01.419 ; Malignant neoplasm of unspecified site of unspecified female breast C50.919 and Secondary malignant neoplasm of liver and intrahepatic bile duct C78.7 Assessments Encounter Date Diagnosis (ICD Code) Assessment Notes Treatment Notes Treatment Clinical Notes Section Notes 05/11/2024 PMDD (premenstrual dysphoric disorder) (ICD-10 - F32.81) C/w Zoloft. RF sent. ER if SI/HI develops. 04/14/2025 Malignant neoplasm of unspecified site of unspecified female breast (ICD-10 - C50.919) 04/14/2025 Cervical smear, as part of routine gynecological examination (ICD-10 - Z01.419) 04/14/2025 Secondary malignant neoplasm of liver and intrahepatic bile duct (ICD-10 - C78.7) Plan Of Treatment Next Appt Details Provider Name:Parul Main, 04/18/2026 03:00:00 PM, [address] [address], [place], [address], Insurance Providers Payer Name Payer Address Payer Phone Subscriber Number Group Number Insured Name Patient Relationship to Insured Coverage Start Date Coverage End Date Fanny DOLAN [address] [place] [address] [id number] Shona Sterling Self - patient is the insured Medical (General) History Medical History History ICD Code breast cancer HSV -1 Surgical History Surgery Date(Month/Year) BTL [facility] 2007 Tonsillectomy liver biosy breast biopsy Hospitalization History Reason Date(Month/Year) childbirth
--- OUTSIDE RECORDS SUMMARY | 2025-04-23 08:00 | XMS_ITS | Encounter Summary ---
Author Organization [employer] ([place], [place], [place], [place]) Address [address] [place] [address] Care Team Providers Care Master Fire Control Technician Name Role Phone Hermilo Otto MD Primary Care Provider [phone] Reason for Referral * CAT Scan (Routine) - Pending Review Specialty Diagnoses / Procedures Referred By Venkat mccarthy Referred To Contact Radiology Diagnoses Estrogen receptor positive Procedures CT BIOPSY SITE LIVER Loretta Godfrey MD [address] [place] [address] Phone: tel: fax: Referral ID Status Reason Start Date Expiration Date V isits Requested Visits Authorized [id number] Pending Review 05/13/2024 05/13/2025 1 1 Encounter Details Date Type Department Care Team (Late st Contact Info) Description 05/13/2024 Outside Orders [facility] Central Scheduling [address] [place] [address] Loretta Godfrey MD [address] [place] [address] Estrogen receptor positive (Primary Dx) Social History Tobacco Use Types Packs/Day Years Used Date Smoking Tobacco: Never Assessed Comments Unknown Sex and Gender Information Value Date Recorded Sex Assigned at Not on file Legal Sex Female 8:46 AM DRAIN TILER Gender Identity Not on file Sexual Orientation [...] liver masses. ATTENDING RADIOLOGIST: Dr. Courtney. PHYSICIAN HUMAN RESOURCES PARTNER: Fabian Starks PA-C. PROCEDURE: After informed consent [...] liver masses. ATTENDING RADIOLOGIST: Dr. Courtney. PHYSICIAN HUMAN RESOURCES PARTNER: Fabian Starks PA-C. PROCEDURE: After informed consent [...] [ER+] documented in this encounter Care Teams Master Fire Control Technician Relationship Specialty Start Date End Date Hermilo Otto MD 1210 [facility] [address] [place] [phone] PCP - General Family Medicine 05/15/24 documented as of this encounter
--- OUTSIDE RECORDS SUMMARY | 2025-04-23 08:00 | XMS_ITS | Encounter Summary ---
Author Organization [facility] Address [address] [place] [address] Care Team Providers Care Head Of Store Operations Name Role Phone Hermilo Otto MD Primary Care Provider + [phone] Loretta Godfrey MD Unavailable [phone] Paola Rosenberg WHARF TALLY CLERK Unavailable Unavaila ble Encounter Details Date Type Department Care Team (Late st Contact Info) Description 03/01/2025 Orders Only [facility] at [facility] [address] [place] [phone] Loretta Godfrey MD [address] [address] Malignant neoplasm of upper-outer quadrant [...] any clubs o r organizations such as jehovah's witness groups, unions, fraternal or athletic groups, or [...] Questionnaire-2 Score 0 10/06/2024 [facility] - Occupational Stress Questionnaire Answer [...] 04/27/2025 9:30 AM EST Office Visit [facility] at [facility] [address] [place] [address] Loretta Godfrey MD [address] [phone] 04/27/2025 9:45 AM EST Clinical Support [facility] at [facility] [address] [place] [address] documented as of this encounter Procedures Procedure [...] as of this encounter Care Teams Head Of Store Operations Relationship Specialty Start Date End Date Hermilo Otto MD [address] [address] PCP - General 05/07/24 Loretta Godfrey MD [address] [phone] Medical Oncologist Hematology and Oncology 05/18/24 Paola Rosenberg LPN VALUE-BASED TRANSFORMATION PROGRAM Licensed Practical Nurse 08/25/24 documented as of this encounter
--- OUTSIDE RECORDS SUMMARY | 2025-04-23 08:00 | XMS_ITS | Encounter Summary ---
Author Organization [facility] Address [address] [place] [address] Care Team Providers Care Police Academy Instructor Name Role Phone Hermilo Otto MD Primary Care Provider + [phone] Loretta Godfrey MD Unavailable [phone] Paola Rosenberg EDUCATIONAL CONSULTANT Unavailable Unavaila ble Reason for Visit * Reason Comments Med Refill Encounter Details Date Type Department Care Team (Late st Contact Info) Description 03/08/2025 Refill [facility] at [facility] [address] [place] [phone] Loretta Godfrey MD [address] [address] Social History Tobacco Use Types [...] Recorded Patient Health Questionnaire-2 Score 0 10/06/2024 [facility] of Occupat ional Health - Occupational [...] Description 04/27/2025 9:30 AM EST Office Visit [facility] at [address] [phone] [place] [address] [place] [phone] 04/27/2025 9:45 AM EST Clinical Support [facility] at [address] [address] documented as of this encounter Visit Diagnoses Not on filedocumented in this encounter Additional Health Concerns Assessment Noted Time A fall risk assessment has been complete d for the patient 12/08/2024 8:31 AM EDT documented as of this encounter Care Teams Police Academy Instructor Relationship Specialty Start Date End Date Hermilo Otto MD [address] [place] [address], [place] [address] PCP - General 05/07/24 Loretta Godfrey MD [address] [facility] [address] [place] [address] Medical Oncologist Hematology and Oncology 05/18/24 Paola Rosenberg LPN VALUE-BASED TRANSFORMATION PROGRAM Licensed Practical Nurse 08/25/24 documented as of this encounter
--- OUTSIDE RECORDS SUMMARY | 2025-04-23 08:00 | XMS_ITS | Encounter Summary ---
Author Organization [facility] Address [address] [place] [address] Care Team Providers Care Child And Adolescent Psychologist Name Role Phone Hermilo Otto MD Primary Care Provider + [phone] Loretta Godfrey MD Unavailable [phone] Paola Rosenberg GOLF BALL MARKER Unavailable Unavaila ble Reason for Visit * Reason Onset Date Comments Lab Results 03/09/2025 Encounter Details Date Type Department Care Team (Late st Contact Info) Description 03/09/2025 Telephone [facility] [address] [place] [address] Loretta Godfrey MD [address] [address] Lab Results Social History Tobacco Use Types Packs/Day Years [...] How often do you attend chur or jehovah's witness services? More than 4 times per year 08/27/2024 Do you belong to any clubs o r organizations such as caodaism groups, unions, fraternal or athletic groups, or [...] 0 10/06/2024 [facility] of Occupat ional Health - [...] time in the past 12 m [facility], were you homeless or living [...] 04/27/2025 9:30 AM EST Office Visit [facility] at [address] [phone] [place] [address] [place] [phone] 04/27/2025 9:45 AM EST Clinical Support [facility] at [address] [phone] documented as of this encounter Visit Diagnoses Not on filedocumented in this encounter Additional Health Concerns Assessment Noted Time A fall risk assessment has been complete d for the patient 12/08/2024 8:31 AM EDT documented as of this encounter Care Teams Child And Adolescent Psychologist Relationship Specialty Start Date End Date Hermilo Otto MD 1210 [facility] [address] [place] [address] PCP - General 05/07/24 Loretta Godfrey MD [address] [facility] [address] [place] [address] Medical Oncologist Hematology and Oncology 05/18/24 Paola Rosenberg LPN VALUE-BASED TRANSFORMATION PROGRAM Licensed Practical Nurse 08/25/24 documented as of this encounter
--- OUTSIDE RECORDS SUMMARY | 2025-04-23 08:00 | XMS_ITS | Encounter Summary ---
Author Organization [facility] Address [address] [place] [address] Care Team Providers Care Inventory Worker Name Role Phone Hermilo Otto MD Primary Care Provider + [phone] Loretta Godfrey MD Unavailable [phone] Paola Rosenberg MASONRY CONTRACTOR Unavailable Unavaila ble Encounter Details Date Type Department Care Team (Late st Contact Info) Description 03/11/2025 Orders Only [facility] at [facility] [address] [place] [phone] Loretta Godfrey MD [address] [address] Social History Tobacco Use Types [...] any time in the past 12 m [facility], were you homeless or living [...] AM EST Office Visit [facility] at [address] [phone] Loretta Godfrey MD [address] [phone] 04/27/2025 9:45 AM EST Clinical Support [facility] at [facility] [place] [place] [address] documented as of this encounter Procedures Procedure Name Priority Date/Time Associated Diagnosis Comments SIGNATERA ONLY Routine 03/11/2025 12:08 PM EDT documented in this encounter Results * SIGNATERA ONLY (03/11/2025 12:08 PM EDT) Blood Venous blood specimen / Unknown us Loretta Godfrey MD SKYLER BLOOD ORDERABLES Final Result documented in this encounter Visit Diagnoses Not on filedocumented in this encounter Additional Health Concerns Assessment Noted Time A fall risk assessment has been complete d for the patient 12/08/2024 8:31 AM EDT documented as of this encounter Care Teams Inventory Worker Relationship Specialty Start Date End Date Hermilo Otto MD [facility] [place] [address] PCP - General 05/07/24 Loretta Godfrey MD [address] [phone] Medical Oncologist Hematology and Oncology 05/18/24 Paola Rosenberg LPN VALUE-BASED TRANSFORMATION PROGRAM Licensed Practical Nurse 08/25/24 documented as of this encounter
--- OUTSIDE RECORDS SUMMARY | 2025-04-23 08:00 | XMS_ITS ---
Author Organization [facility] Address [address] [place] [address] Care Team Providers Care Diabetes Solutions Specialist Name Role Phone Hermilo Otto MD Primary Care Provider + [phone] Loretta Godfrey MD Unavailable [phone] Paola Rosenberg SALON RECEPTIONIST Unavailable Unavaila ble Active Problems Problem Noted [...]
--- OUTSIDE RECORDS SUMMARY | 2025-04-23 08:00 | XMS_ITS | Clinical Summary ---
Author Organization [employer] ([place], [place], [place], [place]) Address [address] [place] [address] Care Team Providers Care Product Promoter Sales Person Name Role Phone Hermilo Otto MD Primary Care Provider + [phone] Allergies No known active allergies Medications sertraline (ZOLOFT) 50 MG tablet Take 1 tablet (50 mg total) by mouth daily. Active Social History Tobacco Use Types Packs/Day Years Used Date Smoking Tobacco: Never Smokeless Tobacco: Never Tobacco Cessation:Counseling Given: Not Answered Comments No Sex and Gender Information Value Date Recorded Sex Assigned at Not on file Legal Sex Female 8:46 AM TIP CUTTER Gender Identity Not on file Sexual Orientation [...] topic Insurance BLUE CROSS/BLUE SHIELD Care Teams Product Promoter Sales Person Relationship Specialty Start Date End Date Hermilo Otto MD [address] [place] [facility] [address] [place] [phone] PCP - General Family Medicine 05/15/24
--- OUTSIDE RECORDS SUMMARY | 2025-04-23 08:00 | XMS_ITS | Encounter Summary ---
Author Organization [facility] Address [address] [place] [address] Care Team Providers Care Brazer Electronic Name Role Phone Hermilo Otto MD Primary Care Provider + [phone] Loretta Godfrey MD Unavailable [phone] Paola Rosenberg LPN Unavailable Unavaila ble Reason for Visit * Reason Comments [facility] Encounter Details Date Type Department Care Team (Late st Contact Info) Description 03/18/2025 Patient Outreach POPUL[facility] [address], [address] [place] [address] Paola Rosenberg LPN VALUE-BASED TRANSFORMATION PROGRAM [facility] Social History Tobacco Use Types Packs/Day Years [...] Progress Notes - Paola Rosenberg LPN - 03/18/2025 10:20 AM EDT 03/18/2025 Call attempt 1; unable to reach patient, left voicemail with call back number. documented in this encounter Plan of Treatment Upcoming Encounters Date Type Department Care Team (Late st Contact Info) Description 04/27/2025 9:30 AM EST Office Visit [facility] [address] [address] Loretta Godfrey MD [address] [place] [phone] 04/27/2025 9:45 AM EST Clinical Support [facility] [address] [place] [address] documented as of this encounter Visit Diagnoses Not on filedocumented in this encounter Additional Health Concerns Assessment Noted Time A fall risk assessment has been complete d for the patient 12/08/2024 8:31 AM EDT documented as of this encounter Care Teams Brazer Electronic Relationship Specialty Start Date End Date Hermilo Otto MD 1210 [facility] [address] [phone] PCP - General 05/07/24 Loretta Godfrey MD [address] [address] Medical Oncologist Hematology and Oncology 05/18/24 Paola Rosenberg LPN VALUE-BASED TRANSFORMATION PROGRAM Licensed Practical Nurse 08/25/24 documented as of this encounter
--- OUTSIDE RECORDS SUMMARY | 2025-04-23 08:00 | XMS_ITS | Encounter Summary ---
Author Organization [facility] Address [address] [place] [address] Care Team Providers Care Rn Endoscopy Name Role Phone Hermilo Otto MD Primary Care Provider + [phone] Loretta Godfrey MD Unavailable [phone] Paola Rosenberg PLATFORM CONSULTANT Unavailable Unavaila ble Reason for Visit * Reason Onset Date Comments Med Refill 03/08/2025 Encounter Details Date Type Department Care Team (Late st Contact Info) Description 03/08/2025 Refill [facility] at [facility] [address] [place] [phone] Loretta Godfrey MD [address] [address] Social History Tobacco Use Types [...] How often do you attend chur or mormonism services? More than 4 times [...] Office Visit [facility] at [address] [phone] [place] [address] [place] [phone] 04/27/2025 9:45 AM EST Clinical Support [facility] at [address] [address] documented as of this encounter Visit Diagnoses Not on filedocumented in this encounter Additional Health Concerns Assessment Noted Time A fall risk assessment has been complete d for the patient 12/08/2024 8:31 AM EDT documented as of this encounter Care Teams Rn Endoscopy Relationship Specialty Start Date End Date Hermlio Otto MD 1210 [facility] [address] [place] [address] PCP - General 05/07/24 Loretta Godfrey MD [address] [facility] [address] [place] [address] Medical Oncologist Hematology and Oncology 05/18/24 Paola Rosenberg LPN VALUE-BASED TRANSFORMATION PROGRAM Licensed Practical Nurse 08/25/24 documented as of this encounter
--- OUTSIDE RECORDS SUMMARY | 2025-04-23 08:00 | XMS_ITS | Encounter Summary ---
Author Organization [facility] Address [address] [place] [address] Care Team Providers Care Nike Athlete Name Role Phone Hermilo Otto MD Primary Care Provider + [phone] Loretta Godfrey MD Unavailable [phone] Paola Rosenberg DEVELOPMENTAL SERVICES WORKER Unavailable Unavaila ble Encounter Details Date Type Department Care Team (Late st Contact Info) Description 03/12/2025 Orders Only [facility] at [facility] [address] [place] [phone] Loretta Godfrey MD [address] [address] Social History Tobacco Use Types [...] often do you attend chur ch or hindu services? More than 4 times per year 08/27/2024 Do you belong to any clubs o r organizations such as catholic groups, unions, fraternal or athletic groups, [...] any time in the past 12 m [facility], were you homeless or living in [...] EST Office Visit [facility] at [address] [phone] Loretta Godfrey MD [address] [phone] 04/27/2025 9:45 AM EST Clinical Support [facility] at [facility] [address] [place] [address] documented as of this encounter Procedures Procedure Name Priority Date/Time Associated Diagnosis Comments HEPATIC FUNCTION PANEL Routine 03/09/2025 9:27 AM EDT documented in this encounter Results * Hepatic Function Panel (03/09/2025 9:27 AM EDT) Blood Venous blood specimen / Unknown us Loretta Godfrey MD LAB BLOOD ORDERABLES Final Re sult documented in this encounter Visit Diagnoses Not on filedocumented in this encounter Additional Health Concerns Assessment Noted Time A fall risk assessment has been complete d for the patient 12/08/2024 8:31 AM EDT documented as of this encounter Care Teams Nike Athlete Relationship Specialty Start Date End Date Hermilo Otto MD [address] [place] [address] PCP - General 05/07/24 Loretta Godfrey MD [address] [phone] Medical Oncologist Hematology and Oncology 05/18/24 Paola Rosenberg LPN VALUE-BASED TRANSFORMATION PROGRAM Licensed Practical Nurse 08/25/24 documented as of this encounter
--- OUTSIDE RECORDS SUMMARY | 2025-04-23 08:00 | XMS_ITS | Clinical Summary ---
Author Organization [facility] Address [address] [place] [address] Care Team Providers Care Solder Cream Maker Name Role Phone Hermilo Otto MD Primary Care Provider + [phone] Loretta Godfrey MD Unavailable [phone] Paola Rosenberg LPN Unavailable Unavaila ble Allergies No known active allergies Medications sertraline (Zoloft) 50 MG tablet Take 1 tablet (50 mg) by mouth daily. Active letrozole (Femara) 2.5 MG chemo tabletIndication s: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, estrogen receptor positive, unspecified site of breast Take 1 tablet (2.5 mg total) by mouth daily. Take with or without food. 30 tablet 5 11/13/2024 05/12/20 25 Active Abemaciclib (Verzenio) 150 MG tablet chemo tablet TAKE 1 TABLET TWICE A DAY 60 tablet 11 03/08/2025 Active Active Problems Problem Noted Date Diagnosed Date Malignant neoplasm of upper- outer quadrant of right breast in female, estrogen receptor positive 05/19/2024 Encounters Date Type Department Care Team Description 04/22/2025 Travel 04/15/2025 Patient Outreach [facility] [address] [place] [phone] Paola Rosenberg LPN [facility] 04/14/2025 Patient Outreach [facility] [address] [facility] [address], [address] [place] [phone] Paola Rosenberg LPN [facility] 03/30/2025 12:45 PM EDT Clinical Support [facility] [address] [place] [address] Malignant neoplasm of upper-outer quadrant of right breast in female, estrogen receptor positive (Primary Dx) 03/30/2025 12:30 PM EDT Office Visit [facility] at [place] [address] [place] [address] Loretta Godfrey MD Malignant neoplasm of upper-outer quadrant of right breast in female, estrogen receptor positive (Primary Dx) 03/30/2025 Travel 03/29/2025 Orders Only [facility] at [address] [place] [address] Loretta Godfrey MD 03/25/2025 Travel 03/19/2025 Patient Outreach POPULATION [address], [address] [place] [address] Paola Rosenberg [facility] 03/18/2025 Patient Outreach POPULATION [address], [address] [place] [address] Paola Rosenberg [facility] 03/12/2025 Orders Only [facility] at [place] [address] [place] [address] Loretta Godfrey MD 03/11/2025 Orders Only [facility] at [place] [address] [place] [address] Loretta Godfrey MD 03/09/2025 Telephone [facility] at [place] [address] [place] [address] Loretta Godfrey MD Lab Results 03/09/2025 Orders Only [facility] at [place] [address] [place] [address] Loretta Godfrey MD 03/08/2025 Refill [facility] at [address] [place] [address] Loretta Godfrey MD 03/08/2025 Refill [facility] at [address] [place] [address] Loretta Godfrey MD 03/02/2025 8:15 AM EDT Clinical Support [facility] at [address] [place] [address] Malignant neoplasm of upper-outer quadrant of right breast in female, estrogen receptor positive (Primary Dx) 03/02/2025 8:00 AM EDT Office Visit [facility] at [address] [place] [address] Loretta Godfrey MD Malignant neoplasm of upper-outer quadrant of right breast in female, estrogen receptor positive (Primary Dx) 03/02/2025 Travel 03/01/2025 Orders Only [facility] at [address] [place] [address] Loretta Godfrey MD Malignant neoplasm of upper-outer quadrant of right breast in female, estrogen receptor positive 02/28/2025 Travel 02/26/2025 Orders Only [facility] at [address] [place] [address] Loretta Godfrey MD 02/23/2025 Travel 02/23/2025 Orders Only [facility] at [address] [place] [address] Loretta Godfrey MD 02/11/2025 Patient Outreach POP[facility] [address] [place] [address] Paola Rosenberg LPN Follow-up 02/02/2025 9:30 AM EDT Clinical Support [facility] at [address] [place] [address] Malignant neoplasm of upper-outer quadrant of right breast in female, estrogen receptor positive (Primary Dx) 02/02/2025 9:15 AM EDT Office Visit [facility] [address] [place] [address] Loretta Godfrey MD Malignant neoplasm of upper-outer quadrant of right breast in female, estrogen receptor positive (Primary Dx) 02/02/2025 Travel 02/01/2025 Travel 02/01/[address] [facility] at [facility] [address] [place] [address] Provider, Historical 01/29/2025 Orders Only [facility] [address] [place] [address] Loretta Godfrey MD from Last 3 Months [...] How often do you attend chur or yazidi services? More than 4 times [...] Recorded Patient Health Questionnaire-2 Score 0 10/06/2024 [facility] - Occupational Stress Questionnaire Answer [...] the past 12 months has th e [employer] gas, oil, or water company threatened to [...] F) 03/30/2025 1:21 PM EDT Respiratory Rate 19 03/02/2025 8:40 AM EDT Oxygen Saturation 98% 03/30/2025 1:21 PM EDT Inhaled Oxygen Concentration - - Weight 72.1 kg (158 lb 15.2 oz) 03/30/2025 1:21 PM EDT Height 165.1 cm (5' 5 ) 03/30/2025 1:21 PM EDT Body Mass Index 26.45 03/30/2025 1:21 PM EDT Plan of Treatment Upcoming Encounters Date Type Department Care Team (Late st Contact Info) Description 04/27/2025 9:30 AM EST Office Visit [facility] [address] [place] [address] Loretta Godfrey MD [address] [place] [phone] 04/27/2025 9:45 AM EST Clinical Support [facility] [address] [place] [address] Health Maintenance Due Date Last Done Comments [facility]-HIV Screening 1987 [facility]-/Child/Adol SDOH Screenings 1987 [id number] Vaccine (#1) 09/27/1992 [facility]-Obesity Intervention 09/27/1993 [facility]-Varicella [...] Date/Time Associated Diagnosis Comments CBC W/DIFF Routine 03/26/2025 11:03 AM EDT COMPLETE METABOLIC PROFILE (CMP) Routine 03/26/2025 11:03 AM EDT CANCER ANTIGEN 27.29 Routine 03/26/2025 9:22 AM EDT SIGNATERA ONLY Routine 03/11/2025 12:08 PM EDT COMPLETE METABOLIC PROFILE (CMP) Routine 03/09/2025 1:56 PM EDT HEPATIC FUNCTION PANEL Routine 03/09/2025 9:27 AM EDT CANCER ANTIGEN 27.29 Routine 02/26/2025 12:09 PM [...] CBC W/DIFF Routine 01/29/2025 9:12 AM EDT from Last 3 Months Results * COMPLETE METABOLIC PROFILE (CMP) (03/26/2025 11:03 AM EDT) Only the most recent of4 resultswithin the time period is included. us Loretta Godfrey MD LAB BLOOD ORDERABLES Final Re sult * CBC W/DIFF (03/26/2025 11:03 AM EDT) Only the most recent of3 resultswithin the time period is included. us Loretta Godfrey MD LAB BLOOD ORDERABLES Final Re sult * Cancer antigen 27.29 (03/26/2025 9:22 AM EDT) Only the most recent of3 resultswithin the time period is included. Blood Venous blood specimen / Unknown us Loretta Godfrey MD LAB BLOOD ORDERABLES Final Re sult * SIGNATERA ONLY (03/11/2025 12:08 PM EDT) Blood Venous blood specimen / Unknown us Loretta Godfrey MD [facility] BLOOD ORDERABLES Final Result * Hepatic Function Panel (03/09/2025 9:27 AM EDT) Blood Venous blood specimen / Unknown Loretta Godfrey MD LAB BLOOD ORDERABLES Final Re sult * CT Abdomen Pelvis w IV Contrast (02/19/2025 12:13 PM EDT) Anatomical Region Laterality Modality Abdomen, Pelvis Computed Tomogra phy Loretta Godfrey MD IMG CT PROCEDURES Final Resul t * CT Chest w IV Contrast (02/19/2025 9:43 AM EDT) Anatomical Region Laterality Modality Chest Computed Tomogra phy Loretta Godfrey MD IMG CT PROCEDURES Final Resul t from Last 3 Months Insurance ANTH Care Teams Solder Cream Maker Relationship Specialty Start Date End Date Hermilo Otto MD [address] [place] [address] PCP - General 05/07/24 Loretta Godfrey MD [address] [address] Medical Oncologist Hematology and Oncology 05/18/24 Paola Rosenberg LPN VALUE-BASED TRANSFORMATION PROGRAM Licensed Practical Nurse 08/25/24
--- OUTSIDE RECORDS SUMMARY | 2025-04-23 08:00 | XMS_ITS | Encounter Summary ---
Author Organization [facility] Address [address] [place] [address] Care Team Providers Care Assembly Line Inspector Name Role Phone Hermilo Otto MD Primary Care Provider + [phone] Loretta Godfrey MD Unavailable [phone] Paola Rosenberg TEST MAN Unavailable Unavaila ble Encounter Details Date Type Department Care Team (Late st Contact Info) Description 02/23/2025 Orders Only [facility] at [facility] [address] [place] [phone] Loretta Godfrey MD [address] [address] Social History Tobacco Use Types [...] often do you attend chur ch or spiritism services? More than 4 times per year [...] Recorded Patient Health Questionnaire-2 Score 0 10/06/2024 [facility] - Occupational Stress [...] in the past 12 m [facility], were you homeless or living in a [...] Description 04/27/2025 9:30 AM EST Office Visit [facility] at [address] [phone] Loretta Godfrey MD [address] [place] [address] 04/27/2025 9:45 AM EST Clinical Support [facility] at [facility] [address] [place] [address] documented as of this encounter Procedures Procedure [...] documented as of this encounter Care Teams Assembly Line Inspector Relationship Specialty Start Date End Date Hermilo Otto MD [address] [place] [address] PCP - General 05/07/24 Loretta Godfrey MD [address] [address] Medical Oncologist Hematology and Oncology 05/18/24 Paola Rosenberg LPN VALUE-BASED TRANSFORMATION PROGRAM Licensed Practical Nurse 08/25/24 documented as of this encounter
--- OUTSIDE RECORDS SUMMARY | 2025-04-23 08:00 | XMS_ITS | Encounter Summary ---
Author Organization [facility] Address [address] [place] [address] Care Team Providers Care Paper Sheeter Name Role Phone Hermilo Otto MD Primary Care Provider + [phone] Loretta Godfrey MD Unavailable [phone] Paola Rosenberg DIGITAL IMAGER Unavailable Unavaila ble Encounter Details Date Type Department Care Team (Late st Contact Info) Description 02/26/2025 Orders Only [facility] at [facility] [address] [place] [address] Loretta Godfrey MD [address] [address] Social History Tobacco Use Types [...] often do you attend chur ch or sikhism services? More than 4 times [...] Description 04/27/2025 9:30 AM EST Office Visit [facility] at [address] [phone] Loretta Godfrey MD [address] [address] 04/27/2025 9:45 AM EST Clinical Support [facility] [address] [address] documented as of this encounter Procedures Procedure [...] documented as of this encounter Care Teams Paper Sheeter Relationship Specialty Start Date End Date Hermilo Otto MD [facility] [address] [address] PCP - General 05/07/24 Loretta Godfrey MD [address] [address] Medical Oncologist Hematology and Oncology 05/18/24 Paola Rosenberg LPN VALUE-BASED TRANSFORMATION PROGRAM Licensed Practical Nurse 08/25/24 documented as of this encounter
[2025-04-23 08:31] LABS: Hematocrit 37.3 % (37.0-47.0); Hemoglobin 13.0 g/dL (12.2-16.2); Immature Granulocytes % 0.4 %; Mean Corpuscular HGB Conc 34.9 g/dL (31.8-35.4); Mean Corpuscular Hemoglobin 33.7 pg (27.0-31.2); Mean Corpuscular Volume 96.6 fl (81-99); Nucleated Red Blood Cells % 0 %; Platelet Count 151 K/mm3 (142-424); Red Blood Count 3.86 M/mm3 (4.20-5.40); Red Cell Distribution Width-SD 44.5 fL; White Blood Count 5.0 K/mm3 (4.8-10.8)
[2025-04-23 09:57] LABS: Albumin Level 4.7 g/dl (3.5-5.0); Chloride 106 mmol/L (98-107); Potassium 4.6 mmoL/L (3.5-5.1); Sodium 136 mmol/L (136-145)
[2025-04-23 09:59] LABS: Alanine Aminotransferase 52 U/L (12-78); Blood Urea Nitrogen 15 mg/dl (7-17); Creatinine,Serum 1.00 mg/dl (0.52-1.04); Estimated Glomerular Filt Rate 62 ml/min (>60); GFR (African American) 75 ML/MIN (>60)
[2025-04-23 10:00] LABS: Albumin/Globulin Ratio 2.2 (1.1-1.8); Alkaline Phosphatase 90 U/L (38-126); Anion Gap 7.6 mEq/L (5-15); Aspartate Amino Transferase 38 U/L (14-36); Bilirubin,Total 0.5 mg/dl (0.2-1.3); Calcium 8.8 mg/dl (8.4-10.2); Carbon Dioxide 27 mmol/L (22.0-30.0); Globulin 2.1 g/dL (1.3-3.2); Glucose 87 mg/dl (74-100); Total Protein,Serum 6.8 g/dl (6.3-8.2)
[2025-04-24 08:25] LABS: CA 27.29 99.1 U/mL (0.0-38.6)
== END 2025-04-23 23:59 | disposition home or self-care (01) ==
LOC: LAB 07:57
PROVIDERS: PCP Family Medicine; Visit Provider Internal Medicine Hematology & Oncology
DX: C50.411 Malignant neoplasm of upper-outer quadrant of right female breast (principal); C50.912 Malignant neoplasm of unspecified site of left female breast; Z17.0 Estrogen receptor positive status [ER+]
CPT/HCPCS: 36415; 80053; 80074; 85025; 86300

== ENCOUNTER 2025-05-21 08:07 | Outpatient (CLI) | payer BC, SELFPAY ==
--- OUTSIDE RECORDS SUMMARY | 2025-03-30 11:30 | XMS_ITS | Encounter Summary ---
Author Organization [facility] Address [address] [place] [address] Care Team Providers Care Registered Associate Name Role Phone Hermilo Otto MD Primary Care Provider + [phone] Loretta Godfrey MD Unavailable [phone] Pal[place] Rosenberg NEW ACCOUNTS CLERK Unavailable Unavaila ble Reason for Visit * Reason Comments Follow-up Encounter Details Date Type Department Care Team (Late st Contact Info) Description 03/30/2025 12:30 PM EDT Office Visit [facility] at [facility] [address] [place] [phone] Loretta Godfrey MD [address] [address] Malignant neoplasm of upper-outer quadrant [...] week 08/27/2024 How often do you attend [facility] or evangelical services? More than 4 times per year 08/27/2024 Do you belong to any clubs o r organizations such as sabianism groups, unions, fraternal or athletic groups, or [...] Recorded Patient Health Questionnaire-2 Score 0 10/06/2024 [facility] of Occupat ional Health - Occupational Stress [...] Sign Reading Time Taken Comments Blood Pressure 115/77 03/30/2025 12:33 PM EDT Pulse 83 03/30/2025 12:33 PM EDT Temperature 36.3 C (97.3 F) 03/30/2025 12:33 PM EDT Respiratory Rate - - Oxygen Saturation 98% 03/30/2025 12: 33 PM EDT Inhaled Oxygen Concentration - - Weight 72.1 kg (158 lb 15.2 oz) 025 12:33 PM EDT Height 165.1 cm (5' 5 ) 03/30/2025 12:3 3 PM EDT Body Mass Index 26.45 03/30/2025 12:33 PM EDT documented in this encounter Miscellaneous Notes * Progress Notes - Loretta Godfrey MD - 03/30/2025 12:30 PM EDT [facility] HEMATOLOGY/ONCOLOGY FOLLOW UP Shona Prieto [...] mg (12/08/2024), 3.75 mg (01/05/2025), 3.75 mg (02/02/2025), 3.75 mg (03/02/2025) Treatment Details Treatment goal [No plan goal] [...] mg (12/08/2024), 120 mg (01/05/2025), 120 mg (02/02/2025), 120 mg (03/02/2025) Subjective History of Present Illness: Shona Prieto [...] the dentist. She has been seen at [facility]. She had a good visit and we will send liquid biopsy for NGS. Pt has lost 10 pounds intentionally with cutting out sugar. 07/14/24 [facility] CDX revealed no actionable superintendent drivers mutation. Pt has been seen at [facility] and was told to continue current therapy. Pt enjoyed her daughter' alliance party rollers [employer]. She's had some stressors with her sabianism. She's quite active attending her children's sporting activities. Signetera to date: 05/19/24 34.16 08/19/24 0 12/08/24 0 03/02/25 0 02/19/25 CT CAP 1.Overall findings are stable since prior study. No evidence of new or worsening metastatic lesion.Please note that the primary lesions noted within the breasts are better evaluated with mammogram. 2.Nonspecific mild diffuse colonic wall thickening may represent mild colitis, possibly treatment related. 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 Pt feels well. She comments she is [...] Skin: Negative for rash. Neurological: Negative. Psychiatric/Behavioral: The patient is nervous/anxious. Physical Exam: Vital Signs for this encounter: BSA: 1.82 meters squared Visit Vitals BP 115/77 Pulse 83 Temp 36.3 ??C (97.3 ??F) (Temporal) Ht 1.651 m (5' 5 ) Wt 72.1 kg (158 lb 15.2 oz) SpO2 98% BMI 26.45 kg/m?? Smoking Status Never BSA 1.82 m?? Physical Exam Vitals reviewed. HENT: Head: Normocephalic. Mouth/Throat: Mouth: Mucous membranes are moist. Eyes: Extraocular Movements: Extraocular movements intact. Cardiovascular: Rate and Rhythm: Normal rate. Heart sounds: Normal heart sounds. Pulmonary: Effort: Pulmonary effort is normal. Abdominal: Palpations: Abdomen is soft. Musculoskeletal: General: Normal range of motion. Skin: General: Skin is warm. Neurological: General: [...] recommendation of the National Kidney Foundation and [place] Society of Nephrology. This calculation has not been validated in women. For pediatric patients refer to https://www.kidney.org/professionals/KDOQI/gfr_calculatorPed No results found. Assessment/Plan Stage IV breast cancer ER+ MT + Her 2 garett - with metastatic [...] this continues to decline. Pt gone to [facility] [...] q 3 months or sooner pending labs. documented in this encounter Plan of Treatment Upcoming Encounters Date Type Department Care Team (Late st Contact Info) Description 05/25/2025 1:45 PM EST Office Visit [facility] at [facility] [address] [place] [phone] Loretta Godfrey MD [address] [place] [phone] 05/25/2025 2:00 PM EST Clinical Support [facility] at [facility] [address] [place] [address] documented as of this encounter Visit Diagnoses Diagnosis Malignant neoplasm of upper-outer quadrant of right breast in female, estrogen receptor positive- Primary documented in this encounter Additional Health Concerns Assessment Noted Time A fall risk assessment has been complete d for the patient 03/30/2025 2:22 PM EDT documented as of this encounter Care Teams Registered Associate Relationship Specialty Start Date End Date Hermilo Otto MD [address] [address] PCP - General 05/07/24 Loretta Godfrey MD [facility] [phone] Medical Oncologist Hematology and Oncology 05/18/24 Paola Rosenberg LPN VALUE-BASED TRANSFORMATION PROGRAM None Licensed Practical Nurse 08/25/24 documented as of this encounter
--- OUTSIDE RECORDS SUMMARY | 2025-03-30 11:45 | XMS_ITS | Encounter Summary ---
Author Organization [facility] Address [address] [place] [address] Care Team Providers Care Coin Wrapping Machine Operator Name Role Phone Hermilo Otto MD Primary Care Provider + [phone] Loretta Godfrey MD Unavailable [phone] Paola Rosenberg STITCHER TAPE CONTROLLED MACHINE Unavailable Unavaila ble Reason for Visit * Episode Based Medications (Routine) - Authorized Specialty Diagnoses / Procedures Referred By Venkat mccarthy Referred To Contact Diagnoses Malignant neoplasm of upper-outer quadrant of right breast in female, estrogen receptor positive Procedures CA LEUPROLIDE ACETATE SUSPNSION Loretta Godfrey MD [address] [address] Phone: tel: fax: [facility] [address] [place] [phone] Phone: tel: fax: Referral ID Status Reason Start Date Expiration Date V isits Requested Visits Authorized [id number] Authorized 05/19/2024 06/23/2026 1 39 Encounter Details Date Type Department Care Team (Latest Contact Info) Description 03/30/2025 12:45 PM EDT Clinical Support [facility] [address] [place] [phone] Malignant neoplasm of upper-outer quadrant of [...] week 08/27/2024 How often do you attend [facility] or uatsdin services? More than 4 times [...] Score 0 10/06/2024 [facility] - Occupational Stress Questionnaire Answer Date [...] any time in the past 12 m [facility], were you homeless or [...] Time Taken Comments Blood Pressure 115/77 03/30/2025 1:21 PM EDT Pulse 83 03/30/2025 1:21 PM EDT Temperature 36.3 C (97.3 F) 03/30/2025 1:21 PM EDT Respiratory Rate - - Oxygen Saturation 98% 03/30/2025 1:21 PM EDT Inhaled Oxygen Concentration - - Weight 72.1 kg (158 lb 15.2 oz) 03/30/2025 1:21 PM EDT Height 165.1 cm (5' 5 ) 03/30/2025 1:21 PM EDT Body Mass Index 26.45 03/30/2025 1:21 PM EDT documented in this encounter Functional Status * Calculated C-SSRS Risk Score (Lifetime/Recent) Answer Date of Assessment Author No Risk Indicated 03/30/2025 2:22 PM EDT Estelita Villeda RN * Question Answer Date of Assessment Author 1. Wish to be (Past 1 Month) No 03/30/2025 2:22 PM EDT Estelita Villeda RN 2. Non-Specific Active Suici kelsie Thoughts (Past 1 Month) No 03/30/2025 2:22 PM EDT Bobby Villeda RN 6. Suicidal Behavior (Lifetime) No 2:22 PM EDT Estelita Villeda RN documented as of this encounter Plan of Treatment Upcoming Encounters Date Type Department Care Team (Late st Contact Info) Description 05/25/2025 1:45 PM EST Office Visit [facility] [address] [place] [phone] Loretta Godfrey MD [address] [phone] 05/25/2025 2:00 PM EST Clinical Support [facility] [address] [place] [address] documented as of this encounter Visit Diagnoses Diagnosis Malignant neoplasm of upper-outer quadrant of right breast in female, estrogen receptor positive- Primary documented in this encounter Administered Medications Inactive Administered Medications - up to 3 most recent administrations Medication Order MAR Action Action Date Dose Rate Site denosumab (Xgeva) 120 MG/1.7ML injection 120 mg 120 mg, Subcutaneous, Once, On Sat03/30/25 at 1330, For 1 doseIndications:Malign ant neoplasm of upper-outer quadrant of right breast in female, estrogen receptor positive Given 03/30/2025 1:21 PM EDT 120 mg Left Upper Arm (Back ) leuprolide (Lupron) injection 3.75 mg 3.75 mg, Intramuscular, Once, 1 dose, On Sat03/30/25 at 1330, RoutineIndications:Mal ignant neoplasm of upper-outer quadrant of right breast in female, estrogen receptor positive Given 03/30/2025 1:21 PM EDT 3.75 mg Left Dorsogluteal documented in this encounter Additional Health Concerns Assessment Noted Time A fall risk assessment has been complete d for the patient 03/30/2025 2:22 PM EDT documented as of this encounter Care Teams Coin Wrapping Machine Operator Relationship Specialty Start Date End Date Hermilo Otto MD [facility] [place] [address] PCP - General 05/07/24 Loretta Godfrey MD [address] [phone] Medical Oncologist Hematology and Oncology 05/18/24 Paola Rosenberg LPN VALUE-BASED TRANSFORMATION PROGRAM None Licensed Practical Nurse 08/25/24 documented as of this encounter
--- OUTSIDE RECORDS SUMMARY | 2025-04-14 10:00 | XMS_ITS ---
Author Organization [facility] Address [address] [place] [address] Care Team Providers Care Gig Tender Name Role Phone Makenzie Ward Unavailable [phone] Parul Main Unavailable [phone] Allergies No Known Allergies Results Component Value Reference Range Flag Notes Pap w/reflex HPV Reviewed date:04/19/2025 12:27:46 PM Interpretation:Negative Performing Lab: Notes/Report: [facility] Testing performed at: [WB] [address], [address], , Learn To Swim Instructor: Adeola Plascencia MD Source.............Cervix;Endocervix Dates / Results....2023 negative Other..............Post Menopausal No. of containers..01 ThinPrep Vial DIAGNOSIS: Comment N NEGATIVE FOR I NTRAEPITHELIAL LESION OR MALIGNANCY. Specimen adequacy: Comment N Satisfactory for evaluation. Endocervical and/or squamous metaplastic cells (endocervical component) are present. Areas of partially obscuring blood are present. Clinician provided ICD10: Comment N Z01.419 Performed by: Dmitri N Yesenia arrieta, Drill Press Tender (ASCP) . . N Note: Comment N The Pap smear is a screening test designed to aid in the detection of premalignant and malignant conditions of the uterine cervix. It is not a diagnostic procedure and should not be used as the sole means of detecting cervical cancer. Both false-positive and false-negative reports do occur. Test Methodology: Comment N This liquid based ThinPrep(R) pap test was interpreted using the [employer](R) Genius(TM) Cervical Algorithm whole slide imaging system. . Comment N The HPV DNA reflex criteria were not met with this specimen result therefore, no HPV testing was performed. 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) Active confirmed Vital Signs Blood pressure systolic 120 mm Hg 04/14/20 25 Blood pressure diastolic 78 mm Hg 025 Height 65 in 04/14/2025 Weight 167.8 lbs 04/14/2025 BMI 27.92 kg/m2 04/14/2025 Encounters Encounter Location Date Provider Diagnosis [facility] [address] [facility] [address] [place] [address] 04/14/2025 Parul Main Cervical smear, as p art of routine gynecological examination Z01.419 ; Malignant neoplasm of unspecified site of unspecified female breast C50.919 and Secondary malignant neoplasm of liver and intrahepatic bile duct C78.7 Assessments Encounter Date Diagnosis (ICD Code) Assessment Notes Treatment Notes Treatment Clinical Notes Section Notes 04/14/2025 Cervical smear, as part of routine gynecological examination (ICD-10 - Z01.419) 04/14/2025 Malignant neoplasm of unspecified site of unspecified female breast (ICD-10 - C50.919) 04/14/2025 Secondary malignant neoplasm of liver and intrahepatic bile duct (ICD-10 - C78.7) Plan Of Treatment Next Appt Details Follow Up: 1 Year,prn, Reaso n: Annual Provider Name:Parul Etelvina, 04/18/2026 03:00:00 PM, [address] [facility] [address], [address], History and Physical Notes * HPI (History of Present Illness) Category Sub-Category Detail Notes Category Not es General Health Maintenance Presents for annual exam with no LAB ASSISTANT complaints. She is s/p diagnosis of bilateral breast intraductal invasive cancer with the largest lesions left 9:00 and 12:00 grade 2, Estrogen/Progesterone positive, HER 2 negative . Before surgical consult CT scan showed liver lesion with biopsy positive for same intraductal invasive cancer, E/P, HER 2 neg metastatic breast cancer. She is now on Letrozole, Lupron, and Verzenio with no side effects. She is also being protected against bony fractures with Xgeva. She has had no menses since . She is s/p bilateral salpingectomy for contraception in 2018. She is seeing her oncologist, Dr. Godfrey every month with labs that she reports have normal LFT's, and she has CT scans every 3 months showing stable sclerotic lesions in vertebral bodies, sternum, and liver . Examination Category Sub-Category Detail Notes Category Not es Gynecological CERVIX: no lesions or di scharge or bleeding, PAP smear done VAGINA: no lesions or discha rge EXTERNAL GENITALIA: no erythema, no lesi ons or skin changes UTERUS: normal mobility, non -tender, normal size, shape and consistency ADNEXA: no masses or tendern ess bilaterally URETHRA: normal, no masses, n on-tender BREASTS: Dense, nipples unrem arkable, no axillary adenopathy, no dimpling, no masses palpated right, left breast with increased dense islands at 9 and 11:00 without discrete mass, nontender, no nipple discharge, no skin changes URETHRAL MEATUS: normal in appearance General Examination GENERAL APPEARANCE: pleasant , well nourished, well developed, in no acute distress EYES: non icteric, no pall or NECK/THYROID: no lymphadenopathy, no thyroid nodules HEART: regular rate and rhy thm, no murmurs, rubs, gallops LUNGS: normal respiratory e ffort, clear anteriorly and posteriorly ABDOMEN: soft, nontender, non distended, no masses or hepatosplenomegaly appreciated Light Bulb Tester Light Bulb Tester Light Bulb Tester presen t during physical exam. Name: Compa Hercules Title: GERIATRIC AIDE Progress Notes * Shona ORDAZ CDOB:[birth year] (39 yo F)Acc No.[id number]:04/14/2025 Progress Note Patient: Shona Barboza Provider: Julius Main MD :1985 A ge:39 Y S ex:Female Date:04/14/2025 Address:[address] [place], [place] [address] [address] [id number] Subjective: * Chief Complaints: * 1 . Annual. * HPI: G eneral Health Maintenance: Presents for annual exam with no LAB ASSISTANT complaints. She is s/p diagnosis of bilateral breast intraductal invasive cancer with the largest lesions left 9:00 and 12:00 grade 2, Estrogen/Progesterone positive, HER 2 negative . B efore surgical consult CT scan showed liver lesion with biopsy positive for same intraductal invasive cancer, E/P, HER 2 neg metastatic breast cancer. She is now on Letrozole, Lupron, and Verzenio with no side effects. She is also being protected against bony fractures with Xgeva. She has had no menses since . She is s/p bilateral salpingectomy for contraception in 2019. She is seeing her oncologist, Dr. Godfrey every month with labs that she reports have normal LFT's, and she has CT scans every 3 months showing stable sclerotic lesions in vertebral bodies, sternum, and liver . * ROS: G eneral/Constitutional: Change in weight d enies. F atigue d enies. ? E NT: Difficulty swallowing d enies. S inus pain d enies.? E ndocrine: Excessive sweating d enies. E xcessive thirst d enies. T hyroid Problems d enies. R espiratory: Pain with inspiration d enies. S hortness of breath at rest d enies. B reast: Breast lump d enies. B reast pain d enies. N ipple discharge d enies. C ardiovascular: Chest Pain a dmits intermittent, has discussed with oncologist. C hest pain at rest d enies. G astrointestinal: Abdominal pain d enies. C hange in bowel habits d enies. G enitourinary: Abnormal vaginal bleeding d enies. P elvic Pain d enies. V aginal Discharge d enies. M usculoskeletal: Joint stiffness d enies. P ainful joints d enies.? S kin: Rash d enies. S kin lesion(s) d enies. ? * Medical History: * Print Color Matcher History: P ap Smear History: D ate of Last Pap/HPV: L ast Pap/HPV Results: N ormal Pap, Negative HPV M ammogram History: D ate of last mammogram: M enstrual History: C urrently having menstrual cycles? N o A ge of Onset 1 5 L MP: 0 03/20/2024 T vane between periods: 3 3 to 44 days apart D uration: 2 -7 days P ad/tampon use per day: 4 -6,1-3 A ssociated signs and symptoms of period: w ith moderate pain,medium M enses monthly Y es S exual Activity/Contraception: C urrently sexually active Y es E dulce maria sexually active Y es A ge of first sexual activity 1 8 B irth control (Historical) b ilateral tubal ligation. A bnormal pap smear (Historical) d enies. L ast Pap Smear/HPV Date (Historical) 0 03/22/2022, normal HPV negative. * OB History: P regnancy History (GPA) Total Pregnancies 3 Full Term 3 Living 3 Vaginal Deliveries 3 G P : 3 Para: 3 P regnancy # 1: Anastacia doll, 03/10/2014, female. P regnancy # 2: Bronson link, 03/29/2016, female. P regnancy # 3: , Male, . * Surgical History: * Hospitalization/Major Diagno stic Procedure: * Family History: F ather: prostate cancerstroke. M aternal Grand Mother: dementia. M aternal Grand Father: asthma. M other: diagnosed with Unspecified essential hypertension. F amily History Verified.. * Social History: T obacco Use: T obacco Use/Smoking A re you a n onsmoker Tobacco Control (Standard) T obacco use: N onsmoker M igrated Social History: D rugs/Alcohol: denies/denies. Tobacco Use: denies. D rugs/Alcohol: D rugs H ave you used drugs other than those for medical reasons in the past 12 months? N o Alcohol Screen D id you have a drink containing alcohol in the past year? Y es H ow often did you have a drink containing alcohol in the past year? M onthly or less (1 point) P oints 1 I nterpretation N egative * Medications: T aking Letrozole , Taking Lupron , Taking Valtrex(valACYclovir HCl) 1 GM Tablet 2 tablets Orally every 12 hours , Taking Verzenio(Abemaciclib) 150 MG Tablet as directed Orally , Taking Xgeva , Discontinued Zoloft(Sertraline HCl) 50 MG Tablet 1 tablet Orally Once a day , Medication List reviewed and reconciled with the patient * Allergies: N .K.D.A. Allergies Verified. Objective: * Vitals: B P:120/78mm Hg, Ht: 65 in, Wt:167.8lbs, BMI:27.92Index. * Examination: G eneral Examination: GENERAL APPEARANCE: p leasant, well nourished, well developed, in no acute distress. EYES: n on icteric, no pallor. NECK/THYROID: n o lymphadenopathy, no thyroid nodules. HEART: r egular rate and rhythm, no murmurs, rubs, gallops.? LUNGS: n ormal respiratory effort, clear anteriorly and posteriorly. ABDOMEN: s oft, nontender, nondistended, no masses or hepatosplenomegaly appreciated. G ynecological: BREASTS: D ense, nipples unremarkable, no axillary adenopathy, no dimpling, no masses palpated right, left breast with increased dense islands at 9 and 11:00 without discrete mass, nontender, no nipple discharge, no skin changes. EXTERNAL GENITALIA: n o erythema, no lesions or skin changes. URETHRAL MEATUS: n ormal in appearance. URETHRA: n ormal, no masses, non-tender. VAGINA: n o lesions or discharge. CERVIX: n o lesions or discharge or bleeding, PAP smear done. UTERUS: n ormal mobility, non-tender, normal size, shape and consistency. ADNEXA: n o masses or tenderness bilaterally. ? C haperone: Light Bulb Tester C haperone present during physical exam. Name:Linda Burrell itle: STEPHANIE. Assessment: * Assessment: 1. C ervical smear, as part of routine gynecological examination - Z01.419 (Primary) 2 . M alignant neoplasm of unspecified site of unspecified female breast - C50.919 & #160; 3 . 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 Plan: * Treatment: * Follow Up: 1 Year,prn (Reason: Annual) * Billing Information: * Visit Code: [id number] Est Pt Annual 18-39 yr old. Images * Veneer Taper's License 2025-04-09 * Sign off status: Completed Visit Status: A RR (Check-In) true * Provider: Julius Main MD Date: Generated for Vik montero/Nikolay/eTransmitting on: 07/21/2024 08:10 AM EST
--- OUTSIDE RECORDS SUMMARY | 2025-04-27 09:30 | XMS_ITS | Encounter Summary ---
Author Organization [facility] Address [address] [place] [address] Care Team Providers Care Continuous Yarn Dyeing Machine Operator Name Role Phone Hermilo Otto MD Primary Care Provider [phone] Loretta Godfrey MD Unavailable [phone] Paola Rosenberg BUILDING CARPENTER Unavailable Unavaila ble Reason for Visit * Reason Comments Follow-up Encounter Details Date Type Department Care Team (Late st Contact Info) Description 04/27/2025 9:30 AM EST Office Visit [facility] [address] [place] [phone] Loretta Godfrey MD [address] [address] Malignant neoplasm of upper-outer quadrant [...] week 08/27/2024 [facility] often do you attend [facility] services? More than 4 times [...] Date Recorded Patient Health Questionnaire-2 Score 0 04/27/2025 [facility] - [...] things needed for daily living? No 08/27/2024 PHQ-9 Answer Date Recorded Patient Health Questionnaire-9 Score 0 04/27/2025 Housing Stability Vital Sign Answer Min e [...] Sign Reading Time Taken Comments Blood Pressure 120/87 04/27/2025 9:00 AM EST Pulse 95 04/27/2025 9:00 AM EST Temperature 36.3 C (97.3 F) 04/27/2025 9:00 AM EST Respiratory Rate - - Oxygen Saturation 98% 04/27/2025 9:00 AM EST Inhaled Oxygen Concentration - - Weight 76.3 kg (168 lb 3.4 oz) 04/27/2025 9:00 A M EST Height 165.1 cm (5' 5 ) 04/27/2025 9:00 AM EST Body Mass Index 27.99 04/27/2025 9:00 AM EST documented in this encounter Functional Status * Calculated C-SSRS Risk Score (Lifetime/Recent) Answer Date of Assessment Author No Risk Indicated 04/27/2025 9:01 AM Silvana Parrish * Question Answer Date of Assessment Author 1. Wish to be (Past 1 Month) No 025 9:01 AM Silvana Parrish 2. Non-Specific Active Suici kelsie Thoughts (Past 1 Month) No 04/27/2025 9:01 AM Silvana Parrish 6. Suicidal Behavior (Lifetime) No 9:01 AM Silvana Parrish documented as of this encounter Miscellaneous Notes * Progress Notes - Loretta Godfrey MD - 04/27/2025 9:30 AM EST [facility] HEMATOLOGY/ONCOLOGY FOLLOW UP Shona Prieto 1985 [...] mg (01/05/2025), 3.75 mg (02/02/2025), 3.75 mg (03/02/2025), 3.75 mg (03/30/2025) Treatment Details Treatment goal [No plan goal] [...] mg (01/05/2025), 120 mg (02/02/2025), 120 mg (03/02/2025), 120 mg (03/30/2025) Subjective History of Present Illness: Shona Prieto is a 40 y.o. female with breast cancer. Pt is [...] the dentist. She has been seen at [facility]. She had a good visit and we will send liquid biopsy for NGS. Pt has lost 10 pounds intentionally with cutting out sugar. 07/14/24 [facility] CDX revealed no actionable delivery driver mutation. Pt has been seen at [facility] and was told to continue current therapy. She's quite active attending her children's sporting [...] possibly treatment related. 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 Pt feels well. She comments she is concerned regarding her labs. She has been drinking a discontinued protein shake. Pt's children have been ill with strep. The following portions of the chart were [...] Exam: Vital Signs for this encounter: BSA: 1.87 meters squared Visit Vitals BP 120/87 Pulse 95 Temp 36.3 ??C (97.3 ??F) (Temporal) Ht 1.651 m (5' 5 ) Wt 76.3 kg (168 lb 3.4 oz) SpO2 98% BMI 27.99 kg/m?? Smoking Status Never BSA 1.87 m?? Physical Exam Vitals reviewed. HENT: Head: [...] recommendation of the National Kidney Foundation and [place] [employer] of Nephrology. This calculation has not been validated in women. For pediatric patients refer to https://www.kidney.org/professionals/KDOQI/gfr_calculatorPed No results found. Assessment/Plan Stage IV breast cancer ER+ [place] + Her 2 garett - with metastatic [...] [facility] and [facility] for a consultation. These are both resolving. She takes imodium intermittently prn. Pt has had [facility] 12/08/24 [...] Description 05/25/2025 1:45 PM EST Office Visit [facility] at [facility] [address] [place] [address] Loretta Godfrey MD [address] [phone] 05/25/2025 2:00 PM EST Clinical Support [facility] at [facility] [address] [place] [phone] documented as of this encounter Visit Diagnoses Diagnosis Malignant neoplasm of upper-outer quadrant of right breast in female, estrogen receptor positive- Primary documented in this encounter Additional Health Concerns Assessment Noted Time PHQ-9 Depression Total Score: 0 04/27/20 10:54 AM EST A fall risk assessment has been complete d for the patient 04/27/2025 10:54 AM EST documented as of this encounter Care Teams Continuous Yarn Dyeing Machine Operator Relationship Specialty Start Date End Date Hermilo Otto MD [address] [facility] [address] [place], [place] [id number] PCP - General 05/07/24 Loretta Godfrey MD [address] [phone] Medical Oncologist Hematology and Oncology 05/18/24 Paola Rosenberg LPN VALUE-BASED TRANSFORMATION PROGRAM None Licensed Practical Nurse 08/25/24 documented as of this encounter
--- OUTSIDE RECORDS SUMMARY | 2025-04-27 09:45 | XMS_ITS | Encounter Summary ---
Author Organization [facility] Address [address] [place] [address] Care Team Providers Care Advertising Vice President Name Role Phone Hermilo Otto MD Primary Care Provider + [phone] Loretta Godfrey MD Unavailable [phone] Paola Rosenberg LPN Unavailable Unavaila ble Reason for Visit * Episode Based Medications (Routine) - Authorized Specialty Diagnoses / Procedures Referred By Venkat mccarthy Referred To Contact Diagnoses Malignant neoplasm of upper-outer quadrant of right breast in female, estrogen receptor positive Loretta Godfrey MD [address] [address] Phone: tel: fax: [address] [place] [address] Phone: tel: fax: Referral ID Status Reason Start Date Expiration Date V isits Requested Visits Authorized [id number] Authorized 06/10/2024 06/23/2026 1 25 Encounter Details Date Type Department Care Team (Latest Contact Info) Description 04/27/2025 9:45 AM EST Clinical Support [facility] [address] [place] [address] Malignant neoplasm of upper-outer quadrant [...] 08/27/2024 How often do you attend [facility] or [facility] services? More than 4 times per year 08/27/2024 Do you belong to any clubs o r organizations such as baptism groups, unions, fraternal or athletic groups, or [...] Recorded Patient Health Questionnaire-2 Score 0 04/27/2025 [facility] - Occupational Stress Questionnaire Answer [...] Questionnaire-2 Score 0 04/27/2025 10:54 AM Christina Jones RN * Question Answer Date of Assessment Author Trouble falling or staying asleep, or sleeping too much Not at all 04/27/2025 10:54 AM EST Beverley Lopez RN Feeling tired or having little energy [...] so slowly that other people could have noticed? Or the opposite - being so fidgety or restless that you have been moving around a lot more than usual. Not at all 04/27/2025 10:54 AM Beverley Villanueva RN Thoughts that you would be better off or hurting yourself in some way Not at all 04/27/2025 10:54 AM Jolene Jones RN Patient Health Questionnaire-9 Score 0 04/27/2025 10:54 AM Christina Jones RN * Calculated C-SSRS Risk Score (Lifetime/Recent) Answer Date of Assessment Author No Risk Indicated 04/27/2025 9:01 AM Silvana Parrish * How difficult have these problems made [...] 04/27/2025 10:54 AM Beverley Dickerson RN * Question Answer Date of Assessment Author 1. Wish to be (Past 1 Month) No 025 9:01 AM Silvana Parrish 2. Non-Specific Active Suici kelsie Thoughts (Past 1 Month) No 04/27/2025 9:01 AM Silvana Parrish 6. Suicidal Behavior (Lifetime) No 9:01 AM Silvana Parrish documented as of this encounter Plan of Treatment Upcoming Encounters Date Type Department Care Team (Late st Contact Info) Description 05/25/2025 1:45 PM EST Office Visit [facility] [address] [place] [phone] Loretta Godfrey MD [address] [phone] 05/25/2025 2:00 PM EST Clinical Support [facility] [address] [facility] [address] Scheduled Orders Name Type Priority Associated Diagnoses Orde r Schedule Comprehensive metabolic panel Lab STAT Malignant neoplasm of upper-outer quadrant of right breast in female, estrogen receptor positive Expected: 04/27/2025, Expires: 04/27/2026 documented as of this encounter Visit Diagnoses [...] On Sat04/27/25 at 1015, For 1 doseIndications:[place] nanshari neoplasm of upper-outer quadrant of right breast [...] documented as of this encounter Care Teams Advertising Vice President Relationship Specialty Start Date End Date Hermilo Otto MD [address] [address] PCP - General 05/07/24 Loretta Godfrey MD [address] [phone] Medical Oncologist Hematology and Oncology 05/18/24 Paola Rosenberg LPN VALUE-BASED TRANSFORMATION PROGRAM None Licensed Practical Nurse 08/25/24 documented as of this encounter
--- OUTSIDE RECORDS SUMMARY | 2025-05-21 08:09 | XMS_ITS | Clinical Summary ---
[facility] Organization [facility] Address [address] [place] [address] Care Team Providers Care Human Resources Recruiter Name Role Phone Hermilo Otto MD Primary Care Provider + [phone] Allergies No known active allergies Medications Vit-Fe [...] - 02/19/2025 11:59 PM EDT Hospital Encounter [facility] [place] [address] [place] [address] Loretta Godfrey MD Malignant neoplasm [...] drink = 0.6 oz pur e alcohol) Glasgow Depression Scale Answer Date Recorded Glasgow Depression Scale Total 1 10/17/2018 The thought [...] 05/06/2024 11:45 AM EST Plan of Treatment Upcoming Encounters Date Type Department Care Team (Late st Contact Info) Description 06/02/2025 1:30 PM EST Appointment [facility]MO[facility]APHY [place] [address] [place] [phone] 06/08/2025 2:15 PM EST Appointment [facility] PET [place] [address] [facility] [address] [place] [address] 06/08/2025 3:15 PM EST Appointment [facility] PET [place] [address] [facility] [address] [place] [address] Health Maintenance Due Date Last Done Comments Annual Gynecologic Pelvic an d Breast Exam 1985 ANNUAL PHYSICAL 10/16/2018 INFLUENZA VACCINE 01/22/2025 05/20/2024, [...] DO 02/19/2025 5:59 PM EDT Workstation ID: [id number] Narrative 02/19/2025 5:[address] CHEST [...] mildcolitis, possibly treatment related Electronically Signed: Gurmeet Martinez, DO 02/19/2025 5:59 PM EDT Workstation ID: [id number] us Loretta Godfrey MD IMG CT ORDERABLES [...] possibly treatment related Electronically Signed: Gurmeet Martinez, DO 02/19/2025 5:59 PM EDT Workstation ID: [id number] Narrative 02/19/2025 5:[address] CHEST [...] DO 02/19/2025 5:59 PM EDT Workstation ID: [id number] us Loretta Godfrey MD IM CT ORDERABLES Final R esult * Hepatitis C Antibody (03/04/2018 4:42 PM EDT) Hepatitis C Ab Non-Reacti ve Non-Reacti ve 03/04/2018 7:55 PM EDT [facility] Blood Venipuncture / Unknown 03/04/2018 4:42 PM EDT 03/04/2018 4:42 PM EDT us Makenzie Ward MD LAB BLOOD ORDERABLES Final Re sult [facility]
[address] [place] [address], from Last 3 Months or Most Recently Relevant to Health Maintenance Insurance [facility] PPO Advance Directives * CPR (Attempt [...] 3:13 PM 03/30/2016 2:24 AM Care Teams Human Resources Recruiter Relationship Specialty Start Date End Date Hermilo Otto MD [address] [facility] [address] [place] [address] PCP - General Family Medicine 04/14/24
--- OUTSIDE RECORDS SUMMARY | 2025-05-21 08:09 | XMS_ITS ---
Author Organization [facility] Address [address] [place] [address] Care Team Providers Care Counselor Camp Name Role Phone Hermilo Otto MD Primary Care Provider + [phone] Loretta Godfrey MD Unavailable [phone] Paola Rosenberg LPN Unavailable Unavaila ble [facility] Status:Active (Active) Start date:08/25/2024 Enrollment date:08/27/2024 Enrollment reason:Identified as high-risk Overview This episode type is for outpatient care managers enrolling patients in the [facility] program. Case Team Name Relationship Phone Paola Rosenberg LPN(Responsible Staff) Licens ed Practical Nurse Continued Care and Services Coordination
--- OUTSIDE RECORDS SUMMARY | 2025-05-21 08:09 | XMS_ITS | Encounter Summary ---
Author Organization Healthcare Address [address] [place] [address] Care Team Providers Care Hotel Office Manager Name Role Phone Hermilo Otto MD Primary Care Provider + [phone] Loretta Godfrey MD Unavailable [phone] Paola Rosenberg LPN Unavailable Unavaila ble [...] 08/27/2024 How often do you attend [facility] or buddhism services? More than 4 [...] 0 10/06/2024 [facility] - Occupational Stress Questionnaire Answer [...] Description 05/25/2025 1:45 PM EST Office Visit [facility] [address] [place] [phone] Loretta Godfrey MD [address] [place] [address] 05/25/2025 2:00 PM EST Clinical Support [facility] [address] [place] [phone] documented as of this encounter Visit Diagnoses Not on filedocumented in this encounter Additional Health Concerns Assessment Noted Time A fall risk assessment has been complete d for the patient 03/30/2025 2:22 PM EDT documented as of this encounter Care Teams Hotel Office Manager Relationship Specialty Start Date End Date Hermilo Otto MD [address] [facility] [address] [place] [address] PCP - General 05/07/24 Loretta Godfrey MD [address] [place], [place] [address] [phone] Medical Oncologist Hematology and Oncology 05/18/24 Paola Rosenberg LPN VALUE-BASED TRANSFORMATION PROGRAM None Licensed Practical Nurse 08/25/24 documented as of this encounter
--- OUTSIDE RECORDS SUMMARY | 2025-05-21 08:09 | XMS_ITS | Encounter Summary ---
Author Organization [facility] Address [address] [place] [address] Care Team Providers Care Dump Truck Operator Name Role Phone Hermilo Otto MD Primary Care Provider + [phone] Loretta Godfrey MD Unavailable [phone] Paola Rosenberg OFFICE MACHINE INSPECTOR Unavailable Unavaila ble Encounter Details Date Type Department Care Team (Late st Contact Info) Description 03/29/2025 Orders Only [facility] at [facility] [address] [place] [phone] Loretta Godfrey MD [address] [address] Social History Tobacco Use Types [...] often do you attend chur ch or confucianist services? More than 4 times [...] Recorded Patient Health Questionnaire-2 Score 0 10/06/2024 [facility] Occupat ional Health - [...] Description 05/25/2025 1:45 PM EST Office Visit [facility] at [facility] [address] [place] [phone] Loretta Godfrey MD [address] [phone] 05/25/2025 2:00 PM EST Clinical Support [facility] at [facility] [address] [place] [phone] documented as of this encounter Procedures Procedure [...] documented as of this encounter Care Teams Dump Truck Operator Relationship Specialty Start Date End Date Hermilo Otto MD 1210 [facility] [address] [place], [place] [phone] PCP - General 05/07/24 Loretta Godfrey MD [address] [place] [address] Medical Oncologist Hematology and Oncology 05/18/24 Paola Rosenberg LPN VALUE-BASED TRANSFORMATION PROGRAM None Licensed Practical Nurse 08/25/24 documented as of this encounter
--- OUTSIDE RECORDS SUMMARY | 2025-05-21 08:09 | XMS_ITS | Encounter Summary ---
Author Organization [facility] Address [address] [place] [address] Care Team Providers Care County Administrator Name Role Phone Hermilo Otto MD Primary Care Provider + [phone] Loretta Godfrey MD Unavailable [phone] Paola Rosenberg LPN Unavailable Unavaila ble Reason for Visit * Reason Comments [facility] Encounter Details Date Type Department Care Team (Late st Contact Info) Description 04/15/2025 Patient Outreach [facility] [address] [place] [address] Paola Rosenberg LPN VALUE-BASED TRANSFORMATION PROGRAM None [facility] Social History Tobacco Use Types Packs/Day Years [...] any time in the past 12 m [facility], were you homeless or [...] 10:40 AM EDT 04/15/2025 Reason for Follow-up: [facility]+ update call. Patient Status: Current Symptoms: [...] Description 05/25/2025 1:45 PM EST Office Visit [facility] [address] [place] [phone] Loretta Godfrey MD [address] [phone] 05/25/2025 2:00 PM EST Clinical Support [facility] [address] [place] [phone] documented as of this encounter Visit Diagnoses Not on filedocumented in this encounter Additional Health Concerns Assessment Noted Time A fall risk assessment has been complete d for the patient 03/30/2025 2:22 PM EDT documented as of this encounter Care Teams County Administrator Relationship Specialty Start Date End Date Hermilo Otto MD [address] [place] [address] PCP - General 05/07/24 Loretta Godfrey MD [address] [phone] Medical Oncologist Hematology and Oncology 05/18/24 Paola Rosenberg LPN VALUE-BASED TRANSFORMATION PROGRAM None Licensed Practical Nurse 08/25/24 documented as of this encounter
--- OUTSIDE RECORDS SUMMARY | 2025-05-21 08:09 | XMS_ITS | Encounter Summary ---
Author Organization [facility] Address [address] [place] [address] Care Team Providers Care Engineering Documentation Specialist Name Role Phone Hermilo Otto MD Primary Care Provider + [phone] Loretta Godfrey MD Unavailable [phone] Paola Rosenberg LPN Unavailable Unavaila ble Reason for Visit * Reason Comments [facility] Encounter Details Date Type Department Care Team (Late st Contact Info) Description 04/14/2025 Patient Outreach [facility] [address] [place] [address] Paola Rosenberg LPN VALUE-BASED TRANSFORMATION PROGRAM None [facility] Social History Tobacco Use Types Packs/Day Years [...] How often do you attend chur or quaker services? More than 4 times per year [...] Recorded Patient Health Questionnaire-2 Score 0 10/06/2024 [facility] of Occupat ional Health - Occupational [...] any time in the past 12 m [facility], were you homeless or living [...] Description 05/25/2025 1:45 PM EST Office Visit [facility] [address] [place] [address] Loretta Godfrey MD [address] [place] [phone] 05/25/2025 2:00 PM EST Clinical Support [facility] [address] [place] [address] documented as of this encounter Visit Diagnoses Not on filedocumented in this encounter Additional Health Concerns Assessment Noted Time A fall risk assessment has been complete d for the patient 03/30/2025 2:22 PM EDT documented as of this encounter Care Teams Engineering Documentation Specialist Relationship Specialty Start Date End Date Hermilo Otto MD 1210 [facility] [address] [place] [address] PCP - General 05/07/24 Loretta Godfrey MD [address] [phone] Medical Oncologist Hematology and Oncology 05/18/24 Paola Rosenberg LPN VALUE-BASED TRANSFORMATION PROGRAM None Licensed Practical Nurse 08/25/24 documented as of this encounter
--- OUTSIDE RECORDS SUMMARY | 2025-05-21 08:10 | XMS_ITS | Encounter Summary ---
Author Organization Healthcare Address [address] [place] [address] Care Team Providers Care Certified Nurses Aide Name Role Phone Hermilo Otto MD Primary Care Provider + [phone] Loretta Godfrey MD Unavailable [phone] Paola Rosenberg CHIEF CONCIERGE Unavailable Unavaila ble Encounter Details Date Type Department Care Team (Late st Contact Info) Description 04/23/2025 Telephone [facility] [address] [facility], 2nd [place] [address] Keith Bullock, PharmD None None Social History Tobacco Use Types Packs/Day Years [...] How often do you attend chur or roman catholic services? More than 4 times per year 08/27/2024 Do you belong to any clubs o r organizations such as scientology groups, unions, fraternal or athletic groups, or [...] Recorded Patient Health Questionnaire-2 Score 0 04/27/2025 [facility] - Occupational Stress Questionnaire Answer [...] any time in the past 12 m [facility], were you homeless or living [...] Description 05/25/2025 1:45 PM EST Office Visit [facility] at [address] [phone] [place] [address] [place] [phone] 05/25/2025 2:00 PM EST Clinical Support [facility] at [facility] [address] [place] [phone] documented as of this encounter Visit Diagnoses Not on filedocumented in this encounter Additional Health Concerns Assessment Noted Time A fall risk assessment has been complete d for the patient 03/30/2025 2:22 PM EDT documented as of this encounter Care Teams Certified Nurses Aide Relationship Specialty Start Date End Date Hermilo Otto MD 1210 [facility] [address] [place] [address] PCP - General 05/07/24 Loretta Godfrey MD [address] [address] Medical Oncologist Hematology and Oncology 05/18/24 Paola Rosenberg LPN VALUE-BASED TRANSFORMATION PROGRAM None Licensed Practical Nurse 08/25/24 documented as of this encounter
--- OUTSIDE RECORDS SUMMARY | 2025-05-21 08:10 | XMS_ITS | Clinical Summary ---
Author Organization [facility] Address [address] [place] [address] Care Team Providers Care Formulator Name Role Phone Hermilo Otto MD Primary Care Provider + [phone] Loretta Godfrey MD Unavailable [phone] Paola Rosenberg LPN Unavailable Unavaila ble Allergies No known active allergies Medications sertraline (Zoloft) 50 MG tablet Take 1 tablet (50 mg) by mouth daily. Active Abemaciclib (Verzenio) 150 MG tablet chemo tablet TAKE 1 TABLET TWICE A DAY 60 tablet 11 5 Active letrozole (Femara) 2.5 MG chemo tabletIndicatio ns: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, estrogen receptor positive, unspecified site of breast TAKE 1 TABLET DAILY, TAKE WITH OR WITHOUT FOOD 90 tablet 3 5 Active letrozole (Femara) 2.5 MG chemo tabletIndicatio ns: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, estrogen receptor positive, unspecified site of breast Take 1 tablet (2.5 mg total) by mouth daily. Take with or without food. 30 tablet 5 5 025 Discontinued Active Problems Problem Noted Date Diagnosed Date Malignant neoplasm of upper- outer quadrant of right breast in female, estrogen receptor positive 05/19/2024 Encounters Date Type Department Care Team Description 05/17/2025 Patient Outreach [facility] [address] [facility], [address] [place] [address] Paola Rosenberg LPN [facility] 05/06/2025 Refill [facility] at [facility] [address] [place] [address] Loretta Godfrey MD 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, estrogen receptor positive, unspecified site of breast 04/30/2025 Orders Only [facility] at [facility] [address] [place] [address] Loretta Godfrey MD 04/27/2025 9:45 AM EST Clinical Support [facility] at [address] [place] [address] Malignant neoplasm of upper-outer quadrant of right breast in female, estrogen receptor positive (Primary Dx) 04/27/2025 9:30 AM EST Office Visit [facility] at [address] [place] [address] Loretta Godfrey MD Malignant neoplasm of upper-outer quadrant of right breast in female, estrogen receptor positive (Primary Dx) 04/27/2025 Travel 04/26/2025 Orders Only [facility] at [address] [place] [address] Loretta Godfrey MD 04/23/2025 Telephone [facility] Breast [facility] [address] [place] [address], 2[address] [place] [address] Keith Bullock, PharmD 04/22/2025 Travel 04/15/2025 Patient Outreach [facility] Critical access hospital [address], [facility] [address] [place] [address] Paola Rosenberg LPN [facility] 04/14/2025 Patient Outreach [facility] Critical access hospital [address], [address] [place] [address] Paola Rosenberg LPN [facility] 03/30/2025 12:45 PM EDT Clinical Support [facility] at [facility] [address] [place] [address] Malignant neoplasm of upper-outer quadrant of right breast in female, estrogen receptor positive (Primary Dx) 03/30/2025 12:30 PM EDT Office Visit [facility] at [address] [place] [address] Loretta Godfrey MD Malignant neoplasm of upper-outer quadrant of right breast in female, estrogen receptor positive (Primary Dx) 03/30/2025 Travel 03/29/2025 Orders Only [facility] at [address] [place] [address] Loretta Godfrey MD 03/25/2025 Travel 03/19/2025 Patient Outreach POPULATION [address], [address] [place] [address] [facility] 03/18/2025 Patient Outreach [address] [place], [address] [place] [address] Paola Rosenberg MEDICAL ADMINISTRATIVE [facility] 03/12/2025 Orders Only [facility] at [address] [place] [address] Loretta Godfrey MD 03/11/2025 Orders Only [facility] at [address] [place] [address] Loretta Godfrey MD 03/09/2025 Telephone [facility] at [address] [place] [address] Loretta Godfrey MD Lab Results 03/09/2025 Orders Only [facility] at [address] [place] [address] Loretta Godfrey MD 03/08/2025 Refill [facility] at [place] [address] [place] [address] Loretta Godfrey MD 03/08/2025 Refill [facility] at [address] [place] [address] Loretta Godfrey MD 03/02/2025 8:15 AM EDT Clinical Support [facility] at [address] [place] [address] Malignant neoplasm of upper-outer quadrant of right breast in female, estrogen receptor positive (Primary Dx) 03/02/2025 8:00 AM EDT Office Visit [facility] at [address] [place] [address] Loretta Godfrey MD Malignant neoplasm of upper-outer quadrant of right breast in female, estrogen receptor positive (Primary Dx) 03/02/2025 Travel 03/01/2025 Orders Only [facility] at [address] [place] [address] Loretta Godfrey MD Malignant neoplasm of upper-outer quadrant of right breast in female, estrogen receptor positive 02/28/2025 Travel 02/26/2025 Orders Only [facility] at [address] [place] [address] Loretta Godfrey MD 02/23/2025 Travel 02/23/2025 Orders Only [facility] at [address] [place] [address] Loretta Godfrey MD from Last 3 Months [...] week 08/27/2024 How often do you attend [facility] or jainism services? More than 4 times per year 08/27/2024 Do you belong to any clubs o r organizations such as orthodox groups, unions, fraternal or athletic groups, [...] Recorded Patient Health Questionnaire-2 Score 0 04/27/2025 [facility] of Occupat ional Health - Occupational Stress [...] time in the past 12 m [facility], were you homeless or living [...] Mass Index 27.99 04/27/2025 10:00 AM EST Plan of Treatment Upcoming Encounters Date Type Department Care Team (Late st Contact Info) Description 05/25/2025 1:45 PM EST Office Visit [facility] [address] [place] [address] Loretta Godfrey MD [address] [phone] 05/25/2025 2:00 PM EST Clinical Support [facility] at [facility] [address] [place] [phone] Health Maintenance Due Date Last Done Comments [facility]-HIV Screening 1987 [facility]-Infant/Child/Adol SDOH Screenings 1985 [id number] Vaccine (#1) 09/27/1992 [facility]-Obesity Intervention 09/27/1993 [facility]-Varicella [...] [facility]-Adult SDOH Screenings 02/27/2025 08/27/2024 [facility]-Depression Screening 04/27/2026 025, 04/27/2025 [facility]-DTaP,Tdap,and Td Vaccine s (2 - Td or Tdap) 09/18/2028 09/18/2018 [facility]-Hepatitis C Screening Completed 2024, 03/04/2018 [facility]-HIB Vaccines Aged Out No longer e ligible based on patient's age to complete this topic [facility]-IPV Vaccines Aged Out No longer e ligible based on patient's age to complete this topic [facility]-Rotavirus Vaccines Aged Out No lo nger eligible based on patient's age to complete this topic Procedures Procedure Name Priority Date/Time Associated Diagnosis Comments CANCER ANTIGEN 27.29 Routine 04/23/2025 4:00 PM EDT ACUTE HEPATITIS PANEL Routine 04/23/2025 4:00 PM EDT COMPLETE METABOLIC PROFILE (CMP) Routine 04/23/2025 11:16 AM EDT CBC W/DIFF Routine 04/23/2025 11:02 AM EDT CBC W/DIFF Routine 03/26/2025 11:03 [...] IV CONTRAST Routine 02/19/2025 9:43 AM EDT from Last 3 Months Results * Cancer antigen 27.29 (04/23/2025 4:00 PM EDT) Only the most recent of3 resultswithin the time period is included. Blood Venous blood specimen / Unknown us Loretta Godfrey MD LAB BLOOD ORDERABLES Final Re sult * Acute Hepatitis Panel (04/23/2025 4:00 PM EDT) Blood Venous blood specimen / Unknown us Loretta Godfrey MD LAB BLOOD ORDERABLES Final Re sult * COMPLETE METABOLIC PROFILE (CMP) (04/23/2025 11:16 AM EDT) Only the most recent of4 resultswithin the time period is included. us Loretta Godfrey MD LAB BLOOD ORDERABLES Final Re sult * CBC W/DIFF (04/23/2025 11:02 AM EDT) Only the most recent of3 resultswithin the time period is included. us Loretta Godfrey MD LAB BLOOD ORDERABLES Final Re sult * S[place]ATERA ONLY (03/11/2025 12:08 PM EDT) Blood Venous blood specimen / Unknown Result [facility] us Loretta Godfrey MD [facility] BLOOD ORDERABLES Final Result * Hepatic Function Panel (03/09/2025 9:27 AM EDT) Blood Venous blood specimen / Unknown us Loretta Godfrey MD LAB BLOOD ORDERABLES Final Re sult * CT Abdomen Pelvis w IV Contrast (02/19/2025 12:13 PM EDT) Anatomical Region Laterality Modality Abdomen, Pelvis Computed Tomogra phy Result [facility] us Loretta Godfrey MD IMG CT PROCEDURES Final Resul t * CT Chest w IV Contrast (02/19/2025 9:43 AM EDT) Anatomical Region Laterality Modality Chest Computed Tomogra phy Result [facility] us Loretta Godfrey MD IMG CT PROCEDURES Final Resul t from Last 3 Months Insurance ANTHEM Care Teams Formulator Relationship Specialty Start Date End Date Hermilo Otto MD [address] [facility] [address] [place] [address] PCP - General 05/07/24 [place] [address] [place] [phone] Medical Oncologist Hematology and Oncology 05/18/24 Paola Rosenberg LPN VALUE-BASED TRANSFORMATION PROGRAM None Licensed Practical Nurse 08/25/24
--- OUTSIDE RECORDS SUMMARY | 2025-05-21 08:10 | XMS_ITS | Encounter Summary ---
Author Organization Healthcare Address [address] [place] [address] Care Team Providers Care Explosives Truck Driver Name Role Phone Hermilo Otto MD Primary Care Provider + [phone] Loretta Godfrey MD Unavailable [phone] Paola Rosenberg LPN Unavailable Unavaila ble [...] do you attend [facility] or cheondoism services? More than 4 times per year [...] 10/06/2024 [facility] Occupat ional [facility] - [...] any time in the past 12 m [facility], were you homeless or [...] Description 05/25/2025 1:45 PM EST Office Visit [facility] at [facility] [address] [place] [phone] Loretta Godfrey MD [address] [place] [phone] 05/25/2025 2:00 PM EST Clinical Support [facility] at [facility] [address] [place] [phone] documented as of this encounter Visit Diagnoses Not on filedocumented in this encounter Additional Health Concerns Assessment Noted Time A fall risk assessment has been complete d for the patient 12/08/2024 8:31 AM EDT documented as of this encounter Care Teams Explosives Truck Driver Relationship Specialty Start Date End Date Hermilo Otto MD 1210 [facility] [address] [place] [address] PCP - General 05/07/24 Loretta Godfrey MD [facility] [phone] Medical Oncologist Hematology and Oncology 05/18/24 Paola Rosenberg LPN VALUE-BASED TRANSFORMATION PROGRAM None Licensed Practical Nurse 08/25/24 documented as of this encounter
--- OUTSIDE RECORDS SUMMARY | 2025-05-21 08:10 | XMS_ITS | Encounter Summary ---
Author Organization [facility] Address [address] [place] [address] Care Team Providers Care Pediatric Cardiologist Name Role Phone Hermilo Otto MD Primary Care Provider + [phone] Loretta Godfrey MD Unavailable [phone] Paola Rosenberg VP OF DIGITAL MARKETING Unavailable Unavaila ble Encounter Details Date Type Department Care Team (Late st Contact Info) Description 04/26/2025 Orders Only [facility] at [facility] [address] [place] [phone] Loretta Godfrey MD [address] [address] Social History Tobacco Use Types [...] often do you attend chur ch or samaritan services? More than 4 times [...] Patient Health Questionnaire-2 Score 0 04/27/2025 [facility] of Occupat ional Health - Occupational [...] any time in the past 12 m [facility], were you homeless or [...] Description 05/25/2025 1:45 PM EST Office Visit [facility] at [address] [phone] Loretta Godfrey MD [address] [address] 05/25/2025 2:00 PM EST Clinical Support [facility] at [facility] [address] [place] [address] documented as of this encounter Procedures Procedure Name Priority Date/Time Associated Diagnosis Comments COMPLETE METABOLIC PROFILE (CMP) Routine 04/23/2025 11:16 AM EDT CBC W/DIFF Routine 04/23/2025 11:02 AM EDT documented in this encounter Results * COMPLETE METABOLIC PROFILE (CMP) (04/23/2025 11:16 AM EDT) us Loretta Godfrey MD LAB BLOOD ORDERABLES Final Re sult * CBC W/DIFF (04/23/2025 11:02 AM EDT) us Loretta Godfrey MD LAB BLOOD ORDERABLES Final Re sult documented in this encounter Visit Diagnoses Not on filedocumented in this encounter Additional Health Concerns Assessment Noted Time A fall risk assessment has been complete d for the patient 03/30/2025 2:22 PM EDT documented as of this encounter Care Teams Pediatric Cardiologist Relationship Specialty Start Date End Date Hermilo Otto MD [address] [place] [address] PCP - General 05/07/24 Loretta Godfrey MD [address] [place] [address] Medical Oncologist Hematology and Oncology 05/18/24 Paola Rosenberg LPN VALUE-BASED TRANSFORMATION PROGRAM None Licensed Practical Nurse 08/25/24 documented as of this encounter
--- OUTSIDE RECORDS SUMMARY | 2025-05-21 08:10 | XMS_ITS ---
Author Organization [facility] Address [address] [place] [address] Care Team Providers Care Water Plumber Name Role Phone Hermilo Otto MD Primary Care Provider + [phone] Loretta Godfrey MD Unavailable [phone] Paola Rosenberg MICA SPLITTER Unavailable Unavaila ble Active Problems Problem Noted [...]
--- OUTSIDE RECORDS SUMMARY | 2025-05-21 08:10 | XMS_ITS | Encounter Summary ---
Author Organization [facility] Address [address] [place] [address] Care Team Providers Care Freight Caller Name Role Phone Hermilo Otto MD Primary Care Provider + [phone] Loretta Godfrey MD Unavailable [phone] Paola Rosenberg SHOT PACKER Unavailable Unavaila ble Reason for Visit * Reason Comments Med Refill Encounter Details Date Type Department Care Team (Late st Contact Info) Description 05/06/2025 Refill [facility] at [facility] [address] [place] [phone] Loretta Godfrey MD [address] [address] Bilateral malignant neoplasm of breast [...] How often do you attend [facility] or denominational services? More than 4 times per year [...] Recorded Patient Health Questionnaire-2 Score 0 04/27/2025 [facility] Questionnaire Answer Date [...] Description 05/25/2025 1:45 PM EST Office Visit [facility] [address] [place] [address] Loretta Godfrey MD [address] [phone] 05/25/2025 2:00 PM EST Clinical Support [facility] at [facility] [address] [place] [phone] documented as of this encounter Visit Diagnoses Diagnosis 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, estrogen receptor positive, unspecified site of breast documented in this encounter Additional Health Concerns Assessment Noted Time PHQ-9 Depression Total Score: 0 04/27/20 10:54 AM EST A fall risk assessment has been complete d for the patient 04/27/2025 10:54 AM EST documented as of this encounter Care Teams Freight Caller Relationship Specialty Start Date End Date Hermilo Otto MD [address] [phone] PCP - General 05/07/24 Loretta Godfrey MD [address] [phone] Medical Oncologist Hematology and Oncology 05/18/24 Paola Rosenberg LPN VALUE-BASED TRANSFORMATION PROGRAM None Licensed Practical Nurse 08/25/24 documented as of this encounter
--- OUTSIDE RECORDS SUMMARY | 2025-05-21 08:10 | XMS_ITS | Patient Health Record ---
Author Organization [facility] Address [address] [place] [address] Care Team Providers Care Electronics Engineering Technologist Name Role Phone Makenzie Ward Unavailable [phone] Parul Main Unavailable [phone] Allergies No Known Allergies Results Component Value Reference Range Flag Notes Pap w/reflex HPV Reviewed date:04/19/2025 12:27:46 PM Interpretation:Negative Performing Lab: Notes/Report: [facility] Testing performed at: [WB] [address], [address], , Systems Security Consultant: Adeola Plascencia MD Source.............Cervix;Endocervix Dates / Results....2023 negative Other..............Post Menopausal No. of containers..01 ThinPrep Vial DIAGNOSIS: Comment N NEGATIVE FOR I NTRAEPITHELIAL LESION OR MALIGNANCY. Specimen adequacy: Comment N Areas of partially obscuring blood are present. Satisfactory for evaluation. Endocervical and/or squamous metaplastic cells (endocervical component) are present. Clinician provided ICD10: Comment N Z01.419 Performed by: Dmitri N Yesenia arrieta, Pocket Grinder Operator (ASCP) . . N Note: Comment N [...] ThinPrep(R) pap test was interpreted using the [employer](R) Genius(TM) Cervical Algorithm whole slide imaging system. 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 Problem Premenstrual tension syndrome (94917897) PMDD (premenstrual dysphoric disorder) (F32.81) Active confirmed Problem test positive (545740434) Encounter for test, result positive (Z32.01) 018 Active confirmed test positive Problem Gynecological examination normal (846627698219098 ) Cervical smear, as part of routine gynecological examination (Z01.419) 019 Active confirmed Annual without abnormal findings Vital Signs Blood pressure diastolic 78 mm Hg 04/14/2025 Height 65 in 04/14/2025 Blood pressure systolic 120 mm Hg 04/14/2025 Weight 167.8 lbs 04/14/2025 BMI 27.92 kg/m2 04/14/2025 Encounters Encounter Location Date Provider Diagnosis [facility] [address] [facility] [address] [place] [address] 04/14/2025 Parul Main Cervical smear, as p art of routine gynecological examination Z01.419 ; Malignant neoplasm of unspecified site of unspecified female breast C50.919 and Secondary malignant neoplasm of liver and intrahepatic bile duct C78.7 Assessments Encounter Date Diagnosis (ICD Code) Assessment Notes Treatment Notes Treatment Clinical Notes Section Notes 04/14/2025 Malignant neoplasm of unspecified site of unspecified female breast (ICD-10 - C50.919) 04/14/2025 Cervical smear, as part of routine gynecological examination (ICD-10 - Z01.419) 04/14/2025 Secondary malignant neoplasm of liver and intrahepatic bile duct (ICD-10 - C78.7) Plan Of Treatment Next Appt Details Provider Name:Parul Main, 04/18/2026 03:00:00 PM, [address] [address], [place], [address], Insurance Providers Payer Name Payer Address Payer Phone Subscriber Number Group Number Insured Name Patient Relationship to Insured Coverage Start Date Coverage End Date Fanny DOLAN [address] [place] [address] [id number] Shona Sterling Self - patient is the insured Medical (General) History Medical History History ICD Code breast cancer HSV -1 Surgical History Surgery Date(Month/Year) BTL [place] 2007 Tonsillectomy liver biosy breast biopsy Hospitalization History Reason Date(Month/Year) childbirth
--- OUTSIDE RECORDS SUMMARY | 2025-05-21 08:10 | XMS_ITS | Encounter Summary ---
Author Organization [facility] Address [address] [place] [address] Care Team Providers Care Train Control Technician Name Role Phone Hermilo Otto MD Primary Care Provider + [phone] Loretta Godfrey MD Unavailable [phone] Paola Rosenberg CLOTH CUTTING MACHINE OPERATOR Unavailable Unavaila ble Encounter Details Date Type Department Care Team (Late st Contact Info) Description 04/30/2025 Orders Only [facility] at [facility] [address] [place] [phone] Loretta Godfrey MD [address] [phone] Social History Tobacco Use Types [...] Patient Health Questionnaire-2 Score 0 04/27/2025 [facility] of Occupat ional Health - Occupational [...] Description 05/25/2025 1:45 PM EST Office Visit [facility] at [facility] [address] [place] [phone] Loretta Godfrey MD [address] [phone] 05/25/2025 2:00 PM EST Clinical Support [facility] at [facility] [address] [place] [phone] documented as of this encounter Procedures Procedure Name Priority Date/Time Associated Diagnosis Comments CANCER ANTIGEN 27.29 Routine 04/23/2025 4:00 PM EDT ACUTE HEPATITIS PANEL Routine 04/23/2025 4:00 PM EDT documented in this encounter Results * Cancer antigen 27.29 (04/23/2025 4:00 PM EDT) Blood Venous blood [...] documented as of this encounter Care Teams Train Control Technician Relationship Specialty Start Date End Date Hermilo Otto MD [address] [place], [place] [phone] PCP - General 05/07/24 [place] [address] [place] [phone] Medical Oncologist Hematology and Oncology 05/18/24 Paola Rosenberg LPN VALUE-BASED TRANSFORMATION PROGRAM None Licensed Practical Nurse 08/25/24 documented as of this encounter
--- OUTSIDE RECORDS SUMMARY | 2025-05-21 08:10 | XMS_ITS | Encounter Summary ---
Author Organization Healthcare Address [address] [place] [address] Care Team Providers Care Manager Presentation Name Role Phone Hermilo Otto MD Primary Care Provider + [phone] Loretta Godfrey MD Unavailable [phone] Paola Rosenberg LPN Unavailable Unavaila ble [...] week 08/27/2024 How often do you attend [facility] or spiritism services? More than 4 times per year 08/27/2024 Do you belong to any clubs o r organizations such as christian groups, unions, fraternal or athletic groups, or [...] Recorded Patient Health Questionnaire-2 Score 0 10/06/2024 [facility] of Occupat ional [facility] - Occupational Stress Questionnaire Answer Date [...] any time in the past 12 m [facility], were you homeless or living in [...] 05/25/2025 1:45 PM EST Office Visit [facility] at [facility] [address] [place] [address] Loretta Godfrey MD [address] [place] [phone] 05/25/2025 2:00 PM EST Clinical Support [facility] at [facility] [address] [place] [address] documented as of this encounter Visit Diagnoses Not on filedocumented in this encounter Additional Health Concerns Assessment Noted Time A fall risk assessment has been complete d for the patient 03/30/2025 2:22 PM EDT documented as of this encounter Care Teams Manager Presentation Relationship Specialty Start Date End Date Hermilo Otto MD [address] [address] PCP - General 05/07/24 Loretta Godfrey MD [address] [phone] Medical Oncologist Hematology and Oncology 05/18/24 Paola Rosenberg LPN VALUE-BASED TRANSFORMATION PROGRAM None Licensed Practical Nurse 08/25/24 documented as of this encounter
--- OUTSIDE RECORDS SUMMARY | 2025-05-21 08:10 | XMS_ITS | Referral Summary ---
Author Organization [employer] ([place], [place], [place], [place], [place]) Address [address] [place] [address] Care Team Providers Care Guest Services Lead Name Role Phone Hermilo Otto MD Primary Care Provider + [phone] Allergies No known active allergies Medications sertraline (ZOLOFT) 50 MG tablet Take 1 tablet (50 mg total) by mouth daily. 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
--- OUTSIDE RECORDS SUMMARY | 2025-05-21 08:10 | XMS_ITS | Encounter Summary ---
Author Organization [facility] Address [address] [place] [address] Care Team Providers Care Volleyball Player Name Role Phone Hermilo Otto MD Primary Care Provider + [phone] Loretta Godfrey MD Unavailable [phone] Paola Rosenberg LPN Unavailable Unavaila ble Reason for Visit * Reason Comments [facility] Encounter Details Date Type Department Care Team (Late st Contact Info) Description 05/17/2025 Patient Outreach [facility] [address] [place] [address] Paola Rosenberg LPN VALUE-BASED TRANSFORMATION PROGRAM None [facility] Social History Tobacco Use Types Packs/Day Years [...] How often do you attend chur or temple services? More than 4 times [...] Recorded Patient Health Questionnaire-2 Score 0 04/27/2025 [facility] of Occupat ional Health [...] any time in the past 12 m onths, were you homeless or living in a [...] Progress Notes - Paola Rosenberg LPN - 05/17/2025 4:22 PM EST 05/17/2025 Call attempt 1; unable to reach patient for OM+ update call. Left voicemail with name, call back number, and non-urgent call. documented in this encounter Plan of Treatment Upcoming Encounters Date Type Department Care Team (Late st Contact Info) Description 05/25/2025 1:45 PM EST Office Visit [facility] [address] [place] [phone] Loretta Godfrey MD [address] [place] [phone] 05/25/2025 2:00 PM EST Clinical Support [facility] at [facility] [address] [place] [address] documented as of this encounter Visit Diagnoses Not on filedocumented in this encounter Additional Health Concerns Assessment Noted Time PHQ-9 Depression Total Score: 0 04/27/20 10:54 AM EST A fall risk assessment has been complete d for the patient 04/27/2025 10:54 AM EST documented as of this encounter Care Teams Volleyball Player Relationship Specialty Start Date End Date Hermilo Otto MD 1210 [facility] [address] [place] [address] PCP - General 05/07/24 Loretta Godfrey MD [address] [phone] Medical Oncologist Hematology and Oncology 05/18/24 Paola Rosenberg LPN VALUE-BASED TRANSFORMATION PROGRAM None Licensed Practical Nurse 08/25/24 documented as of this encounter
--- OUTSIDE RECORDS SUMMARY | 2025-05-21 08:10 | XMS_ITS | Encounter Summary ---
Author Organization Healthcare Address [address] [place] [address] Care Team Providers Care Hospital Unit Coordinator Name Role Phone Hermilo Otto MD Primary Care Provider + [phone] Loretta Godfrey MD Unavailable [phone] Paola Rosenberg LPN Unavailable Unavaila ble Encounter Details Date Type Department Care Team (Latest Contact Info) Description 04/27/2025 Travel Social History Tobacco Use Types Packs/Day [...] week 08/27/2024 How often do you attend [facility] or latter-day services? More than 4 times per year 08/27/2024 Do you belong to any clubs o r organizations such as muslim groups, unions, fraternal or athletic groups, or [...] Patient Health Questionnaire-2 Score 0 04/27/2025 [facility] - Occupational Stress Questionnaire [...] the past 12 months has th e [employer], gas, oil, or water company threatened to [...] Description 05/25/2025 1:45 PM EST Office Visit [facility] at [facility] [address] [place] [phone] Loretta Godfrey MD [address] [place] [phone] 05/25/2025 2:00 PM EST Clinical Support [facility] at [facility] [address] [place] [address] documented as of this encounter Visit Diagnoses Not on filedocumented in this encounter Additional Health Concerns Assessment Noted Time PHQ-9 Depression Total Score: 0 04/27/20 10:54 AM EST A fall risk assessment has been complete d for the patient 04/27/2025 10:54 AM EST documented as of this encounter Care Teams Hospital Unit Coordinator Relationship Specialty Start Date End Date Hermilo Otto MD 1210 [facility] [address] [address] PCP - General 05/07/24 Loretta Godfrey MD [address] [phone] Medical Oncologist Hematology and Oncology 05/18/24 Paola Rosenberg LPN VALUE-BASED TRANSFORMATION PROGRAM None Licensed Practical Nurse 08/25/24 documented as of this encounter
--- OUTSIDE RECORDS SUMMARY | 2025-05-21 08:10 | XMS_ITS | Clinical Summary ---
Author Organization [employer] ([place], [place], [place], [place], [place]) Address [address] [place] [address] Care Team Providers Care Machine Stone Polisher Name Role Phone Hermilo Otto MD Primary Care Provider + [phone] Allergies No known active allergies Medications sertraline (ZOLOFT) 50 MG tablet Take 1 tablet (50 mg total) by mouth daily. 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
[2025-05-21 09:00] LABS: Hematocrit 39.1 % (37.0-47.0); Hemoglobin 13.4 g/dL (12.2-16.2); Immature Granulocytes % 0.2 %; Mean Corpuscular HGB Conc 34.3 g/dL (31.8-35.4); Mean Corpuscular Hemoglobin 33.6 pg (27.0-31.2); Mean Corpuscular Volume 98.0 fl (81-99); Nucleated Red Blood Cells % 0 %; Platelet Count 162 K/mm3 (142-424); Red Blood Count 3.99 M/mm3 (4.20-5.40); Red Cell Distribution Width-SD 46.5 fL; White Blood Count 5.2 K/mm3 (4.8-10.8)
[2025-05-21 10:06] LABS: Alanine Aminotransferase 23 U/L (12-78); Albumin Level 4.5 g/dl (3.5-5.0); Albumin/Globulin Ratio 1.6 (1.1-1.8); Alkaline Phosphatase 71 U/L (38-126); Anion Gap 9.2 mEq/L (5-15); Aspartate Amino Transferase 29 U/L (14-36); Bilirubin,Total 0.7 mg/dl (0.2-1.3); Blood Urea Nitrogen 18 mg/dl (7-17); Carbon Dioxide 26 mmol/L (22.0-30.0); Chloride 106 mmol/L (98-107); Creatinine,Serum 1.10 mg/dl (0.52-1.04); Estimated Glomerular Filt Rate 56 ml/min (>60); GFR (African American) 68 ML/MIN (>60); Globulin 2.8 g/dL (1.3-3.2); Potassium 5.2 mmoL/L (3.5-5.1); Sodium 136 mmol/L (136-145); Total Protein,Serum 7.3 g/dl (6.3-8.2)
[2025-05-21 10:08] LABS: Calcium 9.7 mg/dl (8.4-10.2); Glucose 90 mg/dl (74-100)
[2025-05-22 06:34] LABS: CA 27.29 118.5 U/mL (0.0-38.6)
== END 2025-05-21 23:59 | disposition home or self-care (01) ==
LOC: LAB 08:08
PROVIDERS: PCP Family Medicine; Visit Provider Internal Medicine Hematology & Oncology
DX: C50.411 Malignant neoplasm of upper-outer quadrant of right female breast (principal); C50.912 Malignant neoplasm of unspecified site of left female breast; Z17.0 Estrogen receptor positive status [ER+]
CPT/HCPCS: 36415; 80053; 85025; 86300

== ENCOUNTER 2025-06-18 10:05 | Outpatient (CLI) | payer BC, SELFPAY ==
--- OUTSIDE RECORDS SUMMARY | 2025-04-27 09:30 | XMS_ITS | Encounter Summary ---
Author Organization [facility] Address [address] [place] [address] Care Team Providers Care Surfboard Maker Name Role Phone Hermilo Otto MD Primary Care Provider [phone] Loretta Godfrey MD Unavailable [phone] Paola Rosenberg SLAT BASKET MAKER HELPER Unavailable Unavaila ble Reason for Visit * Reason Comments Follow-up Encounter Details Date Type Department Care Team (Late st Contact Info) Description 04/27/2025 9:30 AM EST Office Visit [facility] at [facility] [address] [place] [phone] Loretta Godfrey MD [address] [phone] Malignant neoplasm of upper-outer quadrant [...] How often do you attend [facility] or jain services? More than 4 times [...] Recorded Patient Health Questionnaire-2 Score 0 04/27/2025 [facility] - [...] documented in this encounter Functional Status * BP Answer Date of Assessment Author 120/87 04/27/2025 9:00 AM EST Eliu Wyman * Temp Answer Date of Assessment Author 97.3 04/27/2025 9:00 AM EST Garo Ta ylor * Temp src Answer Date of Assessment Author Temporal 04/27/2025 9:00 AM EST Wyman, Ta ylor * Pulse Answer Date of Assessment Author 95 04/27/2025 9:00 AM EST Wyman, Ta ylor * SpO2 Answer Date of Assessment Author 98 04/27/2025 9:00 AM EST Garo, Ta ylor * Height Answer Date of Assessment Author 65 04/27/2025 9:00 AM EST Wyman, Ta ylor * Weight Answer Date of Assessment Author 2691.38 04/27/2025 9:00 AM EST Wyman, Ta ylor * BMI (Calculated) Answer Date of Assessment Author 28.1 04/27/2025 9:00 AM EST Wyman, Ta ylor * Percent Excess Weight Loss Answer Date of Assessment Author 0 04/27/2025 9:00 AM EST Wyman, Ta ylor * Total Weight Change Percent Answer Date of Assessment Author 2222 04/27/2025 9:00 AM EST Wyman, Ta ylor * Weight Change Since Preop Answer Date of Assessment Author 76.28 04/27/2025 9:00 AM EST Wyman, Ta ylor * Initial Excess Weight Answer Date of Assessment Author -56.7 04/27/2025 9:00 AM EST Wyman, Ta ylor * IBW in lbs (Bariatric) Answer Date of Assessment Author 125 04/27/2025 9:00 AM EST Garo Ta ylor * Weight Change Since Last Visit Answer Date of Assessment Author 76.28 04/27/2025 9:00 AM EST Garo Ta ylor * IBW in kg (Bariatric) Answer Date of Assessment Author 56.7 04/27/2025 9:00 AM EST Wyman, Ta ylor * Percent of IBW Answer Date of Assessment Author 4,746.7 04/27/2025 9:00 AM EST Garo Ta ylor * EBW (kg) Answer Date of Assessment Author 2,239.77 04/27/2025 9:00 AM EST Wyman, Ta ylor * EBW (lbs) Answer Date of Assessment Author 2,413.57 04/27/2025 9:00 AM EST Garo Ta ylor * Weight Change 24 hrs Answer Date of Assessment Author 4.2 04/27/2025 9:00 AM Eliu Parrish ylor * BSA (Calculated - sq m) Answer Date of Assessment Author 1.87 04/27/2025 9:00 AM Eliu Parrish ylor * BMI (Calculated) Answer Date of Assessment Author 27.99 04/27/2025 9:00 AM FRANCY Wyman, Ta ylor * IBW/kg (Calculated) Male Answer Date of Assessment Author 61.5 04/27/2025 9:00 AM Eliu Parrish ylor * IBW/kg (Calculated) Female Answer Date of Assessment Author 57 04/27/2025 9:00 AM FRANCY Wyman Ta ylor * IBW/kg (Calculated) Answer Date of Assessment Author 57 04/27/2025 9:00 AM Eliu Parrish ylor * Calculated C-SSRS Risk Score (Lifetime/Recent) Answer Date of Assessment Author No Risk Indicated 04/27/2025 9:01 AM Silvana Parrish * Weight in (lb) to have BMI = 25 Answer Date of Assessment Author 149.9 04/27/2025 9:00 AM Eliu Parrishor * BMI (Calculated) Answer Date of Assessment Author 28.1 04/27/2025 9:00 AM Eliu Parrish ylor * Percent Excess Weight Loss Answer Date of Assessment Author 0 04/27/2025 9:00 AM Eliu Parrish ylor * Weight Change Since Preop Answer Date of Assessment Author 76.3 04/27/2025 9:00 AM FRANCY Wyman Ta ylor * Initial Excess Weight Answer Date of Assessment Author -56.7 04/27/2025 9:00 AM Eliu Parrish ylor * IBW in kg (Bariatric) Answer Date of Assessment Author 56.7 04/27/2025 9:00 AM EST Garo Ta ylor * IBW in lb (Bariatric) Answer Date of Assessment Author 125 04/27/2025 9:00 AM Eliu Parrish ylor * Weight Change Since Last Visit Answer Date of Assessment Author 4.2 04/27/2025 9:00 AM Eliu Parrish ylor * Percent of IBW Answer Date of Assessment Author 134.57 04/27/2025 9:00 AM Eliu Parrish ylor * EBW (kg) Answer Date of Assessment Author 19.58 04/27/2025 9:00 AM Eliu Parrish ylor * EBW (lb) Answer Date of Assessment Author 43.21 04/27/2025 9:00 AM Eliu Parrish * Difference in Weight Since Last Visit Answer Date of Assessment Author 4.2 04/27/2025 9:00 AM Eliu Parrish * Temp (in Celsius) for [place] IV Answer Date of Assessment Author 36.3 04/27/2025 9:00 AM Eliu Parrish * IBW/kg (Calculated) Answer Date of Assessment Author 57 04/27/2025 9:00 AM Eliu Parrish * Adult Low Range Vt 6mL/kg Answer Date of Assessment Author 342 04/27/2025 9:00 AM Eliu Parrish * Adult Moderate Range Vt 8mL/kg Answer Date of Assessment Author 456 04/27/2025 9:00 AM Eliu Parrish * Adult High Range Vt 10mL/kg Answer Date of Assessment Author 570 04/27/2025 9:00 AM Eliu Parrish * Pain Score Answer Date of Assessment Author 0 04/27/2025 9:01 AM Eliu Parrish * Pain Screening/Additional Assessments Question Answer Date of Assessment Author Pain Screening/Assessments Pain Screening 04/27/2025 9 :01 AM Silvana Parrish * Pain Screening Answer Date of Assessment Author 0-10 04/27/2025 9:01 AM Eliu Parrish * C-SSRS (Screener) Question Answer Date of Assessment Author Is patient awake, alert, and able/willing to answer questions appropriately? Yes 04/27/2025 9:01 AM Silvana Craig 1. Wish to be (Past 1 Month) No 025 9:01 AM Silvana Parrish 2. Non-Specific Active Suici kelsie Thoughts (Past 1 Month) No 04/27/2025 9:01 AM Silvana Parrish 6. Suicidal Behavior (Lifetime) No 9:01 AM Silvana Parrish * BP Answer Date of Assessment Author 120/87 04/27/2025 9:00 AM Eliu Parrish * Temp Answer Date of Assessment Author 97.3 04/27/2025 9:00 AM Eliu Parrish * Temp src Answer Date of Assessment Author Temporal 04/27/2025 9:00 AM Eliu Parrish Pulse Answer Date of Assessment Author 95 04/27/2025 9:00 AM Eliu Parrish * SpO2 Answer Date of Assessment Author 98 04/27/2025 9:00 AM Eliu Parrish * Height Answer Date of Assessment Author 65 04/27/2025 9:00 AM Eliu aPrrishor * Weight Answer Date of Assessment Author 2691.38 04/27/2025 9:00 AM Eliu Parrish * BSA (Calculated - sq m) Answer Date of Assessment Author 1.87 04/27/2025 9:00 AM Eliu Parrish * BMI (Calculated) Answer Date of Assessment Author 27.99 04/27/2025 9:00 AM Eliu Parrish * Calculated C-SSRS Risk Score (Lifetime/Recent) Answer Date of Assessment Author No Risk Indicated 04/27/2025 9:01 AM Silvana Parrish * Weight in (lb) to have BMI = 25 Answer Date of Assessment Author 149.9 04/27/2025 9:00 AM Eliu Parrish * Pain Score Answer Date of Assessment Author 0 04/27/2025 9:01 AM Eliu Parrish C-SSRS (Screener) Question Answer Date of Assessment Author Is patient awake, alert, and able/willing to answer questions appropriately? Yes 04/27/2025 9:01 AM Silvana Craig 1. Wish to be (Past 1 Month) No 025 9:01 AM Silvana Parrish 2. Non-Specific Active Suici kelsie Thoughts (Past 1 Month) No 04/27/2025 9:01 AM Silvana Parrish 6. Suicidal Behavior (Lifetime) No 9:01 AM Silvana Parrish documented as of this encounter Mental Status * BP Answer Entry Date Author 120/87 04/27/2025 9:00 AM Eliu Parrish * Temp Answer Entry Date Author 97.3 04/27/2025 9:00 AM Eliu Parrish Temp src Answer Entry Date Author Temporal 04/27/2025 9:00 AM Eliu Parrish * Pulse Answer Entry Date Author 95 04/27/2025 9:00 AM Eliu Parrish * SpO2 Answer Entry Date Author 98 04/27/2025 9:00 AM FRANCY Wyman Ta ylor * Height Answer Entry Date Author 65 04/27/2025 9:00 AM EST Garo Ta ylor * Weight Answer Entry Date Author 2691.38 04/27/2025 9:00 AM EST Wyman, Ta ylor * BMI (Calculated) Answer Entry Date Author 28.1 04/27/2025 9:00 AM EST Garo Ta ylor * Percent Excess Weight Loss Answer Entry Date Author 0 04/27/2025 9:00 AM EST Garo Ta ylor * Total Weight Change Percent Answer Entry Date Author 22204/27/2025 9:00 AM EST Wyman, Ta ylor * Weight Change Since Preop Answer Entry Date Author 76.28 04/27/2025 9:00 AM EST Garo Ta ylor * Initial Excess Weight Answer Entry Date Author -56.7 04/27/2025 9:00 AM EST Garo Ta ylor * IBW in lbs (Bariatric) Answer Entry Date Author 125 04/27/2025 9:00 AM EST Garo Ta ylor * Weight Change Since Last Visit Answer Entry Date Author 76.28 04/27/2025 9:00 AM EST Garo Ta ylor * IBW in kg (Bariatric) Answer Entry Date Author 56.7 04/27/2025 9:00 AM EST Garo Ta ylor * Percent of IBW Answer Entry Date Author 4,746.7 04/27/2025 9:00 AM FRANCY Wyman Ta ylor * EBW (kg) Answer Entry Date Author 2,689.77 04/27/2025 9:00 AM FRANCY Wyman Ta ylor * EBW (lbs) Answer Entry Date Author 2,683.57 04/27/2025 9:00 AM EST Garo Ta ylor * Weight Change 24 hrs Answer Entry Date Author 4.2 04/27/2025 9:00 AM EST Garo Ta ylor * BSA (Calculated - sq m) Answer Entry Date Author 1.87 04/27/2025 9:00 AM EST Garo Ta ylor * BMI (Calculated) Answer Entry Date Author 27.99 04/27/2025 9:00 AM EST Garo Ta ylor * IBW/kg (Calculated) Male Answer Entry Date Author 61.5 04/27/2025 9:00 AM EST Garo Ta ylor * IBW/kg (Calculated) Female Answer Entry Date Author 57 04/27/2025 9:00 AM FRANCY Wyman Ta ylor * IBW/kg (Calculated) Answer Entry Date Author 57 04/27/2025 9:00 AM FRANCY Wyman Ta ylor * Calculated C-SSRS Risk Score (Lifetime/Recent) Answer Entry Date Author No Risk Indicated 04/27/2025 9:01 AM Silvana Parrish * Restart Pain Assessment Timer Answer Entry Date Author Yes 04/27/2025 9:01 AM FRANCY Wyman Ta ylor * Weight in (lb) to have BMI = 25 Answer Entry Date Author 149.9 04/27/2025 9:00 AM EST Garo Ta ylor * BMI (Calculated) Answer Entry Date Author 28.1 04/27/2025 9:00 AM FRANCY Wyman Ta ylor * Percent Excess Weight Loss Answer Entry Date Author 0 04/27/2025 9:00 AM FRANCY Wyman Ta ylor * Weight Change Since Preop Answer Entry Date Author 76.3 04/27/2025 9:00 AM FRANCY Wyman Ta ylor * Initial Excess Weight Answer Entry Date Author -56.7 04/27/2025 9:00 AM EST Garo Ta ylor * IBW in kg (Bariatric) Answer Entry Date Author 56.7 04/27/2025 9:00 AM EST Garo Ta ylor * IBW in lb (Bariatric) Answer Entry Date Author 125 04/27/2025 9:00 AM FRANCY Wyman Ta ylor * Weight Change Since Last Visit Answer Entry Date Author 4.2 04/27/2025 9:00 AM FRANCY Wyman Ta ylor * Percent of IBW Answer Entry Date Author 134.57 04/27/2025 9:00 AM FRANCY Wyman Ta ylor * EBW (kg) Answer Entry Date Author 19.58 04/27/2025 9:00 AM EST Garo Ta ylor * EBW (lb) Answer Entry Date Author 43.21 04/27/2025 9:00 AM EST Garo Ta ylor * Difference in Weight Since Last Visit Answer Entry Date Author 4.2 04/27/2025 9:00 AM FRANCY Wyamn Ta ylor * Temp (in Celsius) for [place] IV Answer Entry Date Author 36.3 04/27/2025 9:00 AM Eliu Parrish * IBW/kg (Calculated) Answer Entry Date Author 57 04/27/2025 9:00 AM Eliu Parrish * Adult Low Range Vt 6mL/kg Answer Entry Date Author 342 04/27/2025 9:00 AM Eliu Parrishor * Adult Moderate Range Vt 8mL/kg Answer Entry Date Author 456 04/27/2025 9:00 AM Eliu Parrishor * Adult High Range Vt 10mL/kg Answer Entry Date Author 570 04/27/2025 9:00 AM Eliu Parrishor * Pain Score Answer Entry Date Author 0 04/27/2025 9:01 AM lEiu Parrish * Pain Screening Answer Entry Date Author 0-10 04/27/2025 9:01 AM Eliu Parrish * C-SSRS (Screener) Question Answer Entry Date Author Is patient awake, alert, and able/willing to answer questions appropriately? Yes 04/27/2025 9:01 AM Silvana Craig 1. Wish to be (Past 1 Month) No 025 9:01 AM Silvana Parrish 2. Non-Specific Active Suici kelsie Thoughts (Past 1 Month) No 04/27/2025 9:01 AM Silvana Parrish 6. Suicidal Behavior (Lifetime) No 9:01 AM Silvana Parrish documented in this encounter Miscellaneous Notes * Progress Notes - Loretta Godfrey MD - 04/27/2025 9:30 AM EST [facility] HEMATOLOGY/ONCOLOGY FOLLOW UP Shona Prieto 1985 [...] receptor and progesterone receptor positive by immunohistochemistry. HER2/delores negative by immunohistochemistry. Estrogen Receptor RESULT: Positive 95% 3+ (INTENSITY SCORE) Progesterone Receptor RESULT: Positive 90% 3+ (INTENSITY SCORE) Her2/Delores oncoprotein RESULT: Negative 0% 0+ (INTENSITY SCORE) 04/16/24 left axillary node BREAST, FNA, LEFT AXILLARY NODE: Malignant Estrogen Receptor RESULT: Positive 100% 2 + (INTENSITY SCORE) Progesterone Receptor RESULT: Positive 20% 1+ (INTENSITY SCORE) Her2/delores oncoprotein RESULT: Negative 0+ (INTENSITY SCORE) Left breast LEFT BREAST, 12:00, ULTRASOUND-GUIDED BIOPSY: Invasive ductal carcinoma, intermediate grade. Estrogen receptor and progesterone receptor positive by immunohistochemistry. HER2/delores negative by immunohistochemistry. See comment. IMMUNOHISTOCHEMICAL RESULTS ([facility]): Estrogen Receptor RESULT: Positive 90% 3+ (INTENSITY SCORE) Progesterone Receptor RESULT: Positive 90% 3+ (INTENSITY SCORE) Her2/[place] oncoprotein RESULT: Negative 0% 0+ (INTENSITY SCORE) [...] the dentist. She has been seen at [facility]. She had a good visit and we will send liquid biopsy for NGS. Pt has lost 10 pounds intentionally with cutting out sugar. 07/14/24 [facility] One CDX revealed no actionable tow car driver mutation. Pt has been seen at [facility] and was told to continue [...] possibly treatment related. 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 Pt feels well. She comments she [...] recommendation of the National Kidney Foundation and [place] Society of Nephrology. This calculation has not been validated in women. For pediatric patients refer to https://www.kidney.org/professionals/KDOQI/gfr_calculatorPed No results found. 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 Pt gone to [facility] and [facility] for a consultation. These [...] Care Team (Late st Contact Info) Description 06/22/2025 Orders Only [facility] [address] [place] [phone] Loretta Godfrey MD [address] [phone] Malignant neoplasm of upper-outer quadrant of right breast in female, estrogen receptor positive; 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, estrogen receptor positive, unspecified site of breast 06/22/2025 8:00 AM EST Office Visit [facility] [address] [place] [address] Loretta Godfrey MD [address] [place] [phone] 06/22/2025 8:15 AM EST Clinical Support [facility] at [address] [phone] 06/22/2025 9:00 AM EST Office Visit [facility] at [address] [place] [address] documented as of this encounter Visit Diagnoses Diagnosis Malignant neoplasm of upper-outer quadrant of right breast in female, estrogen receptor positive- Primary Malignant neoplasm of upper-outer quadrant of right [...] documented as of this encounter Care Teams Surfboard Maker Relationship Specialty [place] [id number] PCP - General 05/07/24 Loretta Godfrey MD [address] [place], [place] [address] [address] Medical Oncologist Hematology and Oncology 05/18/24 Paola Rosenberg LPN VALUE-BASED TRANSFORMATION PROGRAM None Licensed Practical Nurse 08/25/24 documented as of this encounter
--- OUTSIDE RECORDS SUMMARY | 2025-04-27 09:45 | XMS_ITS | Encounter Summary ---
Author Organization [facility] Address [address] [place] [address] Care Team Providers Care Calculus Teacher Name Role Phone Hermilo Otto MD Primary Care Provider [phone] Loretta Godfrey MD Unavailable [phone] Paola Rosenberg LPN Unavailable Unavaila ble Reason for Visit * Episode Based Medications (Routine) - Authorized Specialty Diagnoses / Procedures Referred By Contac t Referred To Contact Diagnoses Malignant neoplasm of upper-outer quadrant of right breast in female, estrogen receptor positive Loretta Godfrey MD [address] [address] Phone: tel: fax: [address] [place] [address] Phone: tel: fax: Referral ID Status Reason Start Date Expiration Date V isits Requested Visits Authorized [id number] Authorized 06/10/2024 06/23/2026 26 Encounter Details Date Type Department Care Team (Latest Contact Info) Description 04/27/2025 9:45 AM EST Clinical Support [facility] [address] [place] [address] Malignant neoplasm of upper-outer quadrant [...] do you attend up health system or alevism services? More than 4 times [...] Questionnaire-2 Score 0 04/27/2025 [facility]ational Stress Questionnaire [...] Time Taken Comments Blood Pressure 120/87 04/27/2025 10:00 AM EST Pulse 95 04/27/2025 10:00 AM EST Temperature 36.3 C (97.3 F) 04/27/2025 10:00 AM EST Respiratory Rate 18 04/27/2025 10:00 AM EST Oxygen Saturation 98% 04/27/2025 10:00 AM EST Inhaled Oxygen Concentration - - Weight 76.3 kg (168 lb 3.4 oz) 04/27/2025 10:00 AM EST Height 165.1 cm (5' 5 ) 04/27/2025 10:00 AM EST Body Mass Index 27.99 04/27/2025 10:00 AM EST documented in this encounter Functional Status * BMI (Calculated) Answer Date of Assessment Author 28.1 04/27/2025 10:00 AM EST Beverley Montgomery, RN * Percent Excess Weight Loss Answer Date of Assessment Author 0 04/27/2025 10:00 AM EST Beverley Montgomery RN * Total Weight Change Percent Answer Date of Assessment Author 2222 04/27/2025 10:00 AM EST Beverley Montgomery RN * Weight Change Since Preop Answer Date of Assessment Author 76.28 04/27/2025 10:00 AM EST Beverley Montgomery RN * Initial Excess Weight Answer Date of Assessment Author -56.7 04/27/2025 10:00 AM EST Beverley Montgomery RN * IBW in lbs (Bariatric) Answer Date of Assessment Author 125 04/27/2025 10:00 AM EST Beverley Montgomery RN * Weight Change Since Last Visit Answer Date of Assessment Author 76.28 04/27/2025 10:00 AM EST Beverley Montgomery, RN * IBW in kg (Bariatric) Answer Date of Assessment Author 56.7 04/27/2025 10:00 AM EST Beverley Montgomery RN * Percent of IBW Answer Date of Assessment Author 4,746.7 04/27/2025 10:00 AM EST Beverley Montgomery, RN * EBW (kg) Answer Date of Assessment Author 2,689.77 04/27/2025 10:00 AM EST Beverley Montgomery RN * EBW (lbs) Answer Date of Assessment Author 2,813.57 04/27/2025 10:00 AM EST Beverley Montgomery RN * Weight Change 24 hrs Answer Date of Assessment Author 4.2 04/27/2025 10:00 AM Beverley Linares, SONA * Depression Screening Question Answer Date of Assessment Author Will the patient answer the depression risk questions? Yes 04/27/2025 10:54 AM Beverley Jones, SONA * Oxygen Therapy Question Answer Date of Assessment Author SpO2 98 04/27/2025 10:00 AM Beverley Whalen, RN Oxygen Therapy None 04/27/2025 10:00 AM Beverley Meneses Se, SONA * IBW/kg (Calculated) Male Answer Date of Assessment Author 61.5 04/27/2025 10:00 AM Beverley Linares, RN * IBW/kg (Calculated) Female Answer Date of Assessment Author 57 04/27/2025 10:00 AM Beverley Linares, SONA * Chemotherapy Nursing Assessment Question Answer Date of Assessment Author Progress Note pt identifiers, drug , dose, site verified at bedside with TI RN, R back of arm cleansed, xgeva given, bandaid applied, R gluteal cleansed, luproon given, bandaid applied, no questions or concerns, left A&O x4 04/27/2025 10:15 AM Beverley Jones, SONA * Restart Vitals Timer Answer Date of Assessment Author Yes 04/27/2025 10:00 AM Beverley Linares RN * IBW/kg (Calculated) Answer Date of Assessment Author 57 04/27/2025 10:00 AM Beverley Linares, SONA * Over the past 2 weeks, how often have you been bothered by any of the following problems? Question Answer Date of Assessment Author Little interest or pleasure in doing things Not at all 04/27/2025 10:54 AM Beverley Jones RN Feeling down, depressed, or hopeless Not at all 04/27/2025 10:54 AM Beverley Jones RN Patient Health Questionnaire-2 Score 0 04/27/2025 10:54 AM Christina Jones, SONA * Over the past 2 weeks, how often have you been bothered by any of the following problems? Question Answer Date of Assessment Author Trouble falling or staying asleep, or sleeping too much Not at all 04/27/2025 10:54 AM Beverley Holland RN Feeling tired or having little energy Not at all 04/27/2025 10:54 AM Beverley Jones RN Poor appetite or overeating Not at all 04/27/2025 10 :54 AM Beverley Jones RN Feeling bad about yourself - or that you are a failure or have let yourself or your family down Not at all 04/27/2025 10:54 AM Beverley Jones RN Trouble concentrating on things, such as reading the newspaper or watching television Not at all 04/27/2025 10:54 AM Beverley Jones RN Moving or speaking so slowly that other people could have noticed. Or the opposite - being so fidgety or restless that you have been moving around a lot more than usual Not at all 04/27/2025 10:54 AM Beverley Holland RN Thoughts that you would be better off or hurting yourself in some way Not at all 04/27/2025 10:54 AM Jolene Jones RN Patient Health Questionnaire-9 Score 0 04/27/2025 10:54 AM Christina Jones RN * How difficult have these problems made it for you to do your work, take care of things at home, or get along with other people? Answer Date of Assessment Author Not difficult at all 04/27/2025 10:54 AM Beverley Dickerson RN * Vital Signs Question Answer Date of Assessment Author BP 120/87 04/27/2025 10:00 AM Beverley Whalen RN Temp 97.3 04/27/2025 10:00 AM Beverley Whalen RN Pulse 95 04/27/2025 10:00 AM Beverley Whalen RN Resp 18 04/27/2025 10:00 AM Beverley Whalen RN * Height and Weight Question Answer Date of Assessment Author Height 65 04/27/2025 10:00 AM Beverley Whalen RN Weight 2691.38 04/27/2025 10:00 AM Beverley Whalen RN BSA (Calculated - sq m) 1.87 04/27/2025 10:00 AM Beverley Jones RN BMI (Calculated) 27.99 04/27/2025 10:00 AM Beverley Jones RN Weight in (lb) to have BMI = 25 149.9 04/27/2025 10:00 AM Beverley Jones RN * BMI (Calculated) Answer Date of Assessment Author 28.1 04/27/2025 10:00 AM Beverley Linares RN * Percent Excess Weight Loss Answer Date of Assessment Author 0 04/27/2025 10:00 AM Beverley Linares, SONA * Weight Change Since Preop Answer Date of Assessment Author 76.3 04/27/2025 10:00 AM Beverley Linares RN * Initial Excess Weight Answer Date of Assessment Author -56.7 04/27/2025 10:00 AM Beverley Linares RN * IBW in kg (Bariatric) Answer Date of Assessment Author 56.7 04/27/2025 10:00 AM Beverley Linares RN * IBW in lb (Bariatric) Answer Date of Assessment Author 125 04/27/2025 10:00 AM Beverley Linares RN * Weight Change Since Last Visit Answer Date of Assessment Author 0 04/27/2025 10:00 AM Beverley Linares RN * Percent of IBW Answer Date of Assessment Author 134.57 04/27/2025 10:00 AM Beverley Linares, SONA * EBW (kg) Answer Date of Assessment Author 19.58 04/27/2025 10:00 AM Beverley Linares, SONA * EBW (lb) Answer Date of Assessment Author 43.21 04/27/2025 10:00 AM Beverley Linares, SONA * Difference in Weight Since Last Visit Answer Date of Assessment Author 0 04/27/2025 10:00 AM Beverley Linares, SONA * Temp (in Celsius) for OSAGE IV Answer Date of Assessment Author 36.3 04/27/2025 10:00 AM Beverley Linares, SONA * Pain Assessment Question Answer Date of Assessment Author Pain Score 0 04/27/2025 10:00 AM EST Beverley Jiang, SONA * IBW/kg (Calculated) Answer Date of Assessment Author 57 04/27/2025 10:00 AM EST Beverley Montgomery, RN * Adult Low Range Vt 6mL/kg Answer Date of Assessment Author 342 04/27/2025 10:00 AM EST Beverley Montgomery, RN * Adult Moderate Range Vt 8mL/kg Answer Date of Assessment Author 456 04/27/2025 10:00 AM EST Beverley Montgomery, RN * Adult High Range Vt 10mL/kg Answer Date of Assessment Author 570 04/27/2025 10:00 AM EST Beverley Montgomery, RN * Vitals Timer Question Answer Date of Assessment Author Restart Vitals Timer Yes 04/27/2025 10:00 AM Beverley Jones, RN * Oxygen Therapy Question Answer Date of Assessment Author SpO2 98 04/27/2025 10:00 AM Beverley Whalen RN Oxygen Therapy None 04/27/2025 10:00 AM EST Beverley Waller RN * Restart Vitals Timer Answer Date of Assessment Author Yes 04/27/2025 10:00 AM EST Beverley Montgomery RN * Over the past 2 weeks, how often have you been bothered by any of the following problems? Question Answer Date of Assessment Author Little interest or pleasure in doing things Not at all 04/27/2025 10:54 AM Beverley Jones RN Feeling down, depressed, or hopeless Not at all 04/27/2025 10:54 AM Beverley Jones RN Patient Health Questionnaire-2 Score 0 04/27/2025 10:54 AM Christina Jones, RN * Over the past 2 weeks, how often have you been bothered by any of the following problems? Question Answer Date of Assessment Author Trouble falling or staying asleep, or sleeping too much Not at all 04/27/2025 10:54 AM Beverley Holland RN Feeling tired or having little energy Not at all 04/27/2025 10:54 AM Beverley Jones RN Poor appetite or overeating Not at all 04/27/2025 10 :54 AM Beverley Jones RN Feeling bad about yourself - or that you are a failure or have let yourself or your family down Not at all 04/27/2025 10:54 AM Beverley Jones RN Trouble concentrating on things, such as reading the newspaper or watching television Not at all 04/27/2025 10:54 AM Beverley Jones RN Moving or speaking so slowly that other people could have noticed. Or the opposite - being so fidgety or restless that you have been moving around a lot more than usual Not at all 04/27/2025 10:54 AM Beverley Holland RN Thoughts that you would be better off or hurting yourself in some way Not at all 04/27/2025 10:54 AM Jolene Jones RN Patient Health Questionnaire-9 Score 0 04/27/2025 10:54 AM Christina Jones RN * How difficult have these problems made it for you to do your work, take care of things at home, or get along with other people? Answer Date of Assessment Author Not difficult at all 04/27/2025 10:54 AM Beverley Dickerson RN * How difficult have these problems made it for you to do your work, take care of things at home, or get along with other people? Answer Date of Assessment Author Not difficult at all 04/27/2025 10:54 AM Beverley Dickerson RN * Vital Signs Question Answer Date of Assessment Author BP 120/87 04/27/2025 10:00 AM Beverley Whalen RN Temp 97.3 04/27/2025 10:00 AM Beverley Whalen RN Pulse 95 04/27/2025 10:00 AM Beverley Whalen, RN Resp 18 04/27/2025 10:00 AM Beverley Whalen RN * Height and Weight Question Answer Date of Assessment Author Height 65 04/27/2025 10:00 AM Beverley Whalen RN Weight 2691.38 04/27/2025 10:00 AM Beverley Whalen RN BSA (Calculated - sq m) 1.87 04/27/2025 10:00 AM Beverley Jones RN BMI (Calculated) 27.99 04/27/2025 10:00 AM Beverley Jones RN Weight in (lb) to have BMI = 25 149.9 04/27/2025 10:00 AM Beverley Jones RN * Pain Assessment Question Answer Date of Assessment Author Pain Score 0 04/27/2025 10:00 AM Beverley Whalen RN documented as of this encounter Mental Status * BMI (Calculated) Answer Entry Date Author 28.1 04/27/2025 10:00 AM Beverley Linares RN * Percent Excess Weight Loss Answer Entry Date Author 0 04/27/2025 10:00 AM Beverley Linares RN * Total Weight Change Percent Answer Entry Date Author 222104/27/2025 10:00 AM Beverley Linares RN * Weight Change Since Preop Answer Entry Date Author 76.28 04/27/2025 10:00 AM Beverley Linares RN * Initial Excess Weight Answer Entry Date Author -56.7 04/27/2025 10:00 AM Beverley Linares RN * IBW in lbs (Bariatric) Answer Entry Date Author 125 04/27/2025 10:00 AM Beverley Linares RN * Weight Change Since Last Visit Answer Entry Date Author 76.28 04/27/2025 10:00 AM Beverley Linares RN * IBW in kg (Bariatric) Answer Entry Date Author 56.7 04/27/2025 10:00 AM Beverley Linares RN * Percent of IBW Answer Entry Date Author 4,746.7 04/27/2025 10:00 AM Beverley Linares RN * EBW (kg) Answer Entry Date Author 2,099.77 04/27/2025 10:00 AM Beverley Linares RN * EBW (lbs) Answer Entry Date Author 2,463.57 04/27/2025 10:00 AM Beverley Linares RN * Weight Change 24 hrs Answer Entry Date Author 4.2 04/27/2025 10:00 AM Beverley Linares RN * Depression Screening Question Answer Entry Date Author Will the patient answer the depression risk questions? Yes 04/27/2025 10:54 AM Beverley Jones RN * Oxygen Therapy Question Answer Entry Date Author SpO2 98 04/27/2025 10:00 AM EST Beverley Jiang RN Oxygen Therapy None 04/27/2025 10:00 AM EST Beverley Waller RN * IBW/kg (Calculated) Male Answer Entry Date Author 61.5 04/27/2025 10:00 AM Beverley Linares RN * IBW/kg (Calculated) Female Answer Entry Date Author 57 04/27/2025 10:00 AM Beverley Linares RN * Restart Vitals Timer Answer Entry Date Author Yes 04/27/2025 10:00 AM Beverley Lniares RN * IBW/kg (Calculated) Answer Entry Date Author 57 04/27/2025 10:00 AM Beverley Linares RN * Over the past 2 weeks, how often have you been bothered by any of the following problems? Question Answer Entry Date Author Little interest or pleasure in doing things Not at all 04/27/2025 10:54 AM Beverley Jones RN Feeling down, depressed, or hopeless Not at all 04/27/2025 10:54 AM Beverley Jones RN Patient Health Questionnaire-2 Score 0 04/27/2025 10:54 AM Christina Jones, SONA * Over the past 2 weeks, how often have you been bothered by any of the following problems? Question Answer Entry Date Author Trouble falling or staying asleep, or sleeping too much Not at all 04/27/2025 10:54 AM Beverley Jones RN Feeling tired or having carlos le energy Not at all 04/27/2025 10:54 AM Beverley Jones RN Poor appetite or overeating Not at all 09/2024 10:54 AM Beverley Jones RN Feeling bad about yourself - or that you are a failure or have let yourself or your family down Not at all 04/27/2025 10:54 AM Beverley Jones RN Trouble concentrating on things, such as reading the newspaper or watching television Not at all 04/27/2025 10:54 AM Beverley Jones RN Moving or speaking so slowly that other people could have noticed. Or the opposite - being so fidgety or restless that you have been moving around a lot more than usual Not at all 04/27/2025 10:54 AM Beverley Jones RN Thoughts that you would be better off or hurting yourself in some way Not at all 04/27/2025 10:54 AM Beverley Jones RN Patient Health Questionnaire -9 Score 0 04/27/2025 10:54 AM Beverley Jones RN * [facility] Health Concern Calculation Answer Entry Date Author 3 04/27/2025 10:54 AM Beverley Linares RN * How difficult have these problems made it for you to do your work, take care of things at home, or get along with other people? Answer Entry Date Author Not difficult at all 04/27/2025 10:54 AM Beverley Dickerson RN * Restart Pain Assessment Timer Answer Entry Date Author Yes 04/27/2025 10:00 AM Beverley Linares RN * Vital Signs Question Answer Entry Date Author BP 120/87 04/27/2025 10:00 AM Beverley Whalen RN Temp 97.3 04/27/2025 10:00 AM Beverley Whalen RN Pulse 95 04/27/2025 10:00 AM Beverley Whalen RN Resp 18 04/27/2025 10:00 AM Beverley Whalen RN * Height and Weight Question Answer Entry Date Author Height 65 04/27/2025 10:00 AM Beverley Whalen RN Weight 2691.38 04/27/2025 10:00 AM Beverley Whalen RN BSA (Calculated - sq m) 1.87 04/27/2025 10:00 AM Beverley Jones RN BMI (Calculated) 27.99 04/27/2025 10:00 AM Beverley Joens RN Weight in (lb) to have BMI = 25 149.9 04/27/2025 10:00 AM Beverley Jones RN * BMI (Calculated) Answer Entry Date Author 28.1 04/27/2025 10:00 AM Beverley Linares RN * Percent Excess Weight Loss Answer Entry Date Author 0 04/27/2025 10:00 AM EST Beverley Montgomery, SONA * Weight Change Since Preop Answer Entry Date Author 76.3 04/27/2025 10:00 AM Beverley Linares RN * Initial Excess Weight Answer Entry Date Author -56.7 04/27/2025 10:00 AM Beverley Linares RN * IBW in kg (Bariatric) Answer Entry Date Author 56.7 04/27/2025 10:00 AM Beverley Linares RN * IBW in lb (Bariatric) Answer Entry Date Author 125 04/27/2025 10:00 AM Beverley Linares RN * Weight Change Since Last Visit Answer Entry Date Author 0 04/27/2025 10:00 AM Beverley Linares RN * Percent of IBW Answer Entry Date Author 134.57 04/27/2025 10:00 AM Beverley Linares RN * EBW (kg) Answer Entry Date Author 19.58 04/27/2025 10:00 AM Beverley Linares RN * EBW (lb) Answer Entry Date Author 43.21 04/27/2025 10:00 AM EST Beverley Montgomery, SONA * Difference in Weight Since Last Visit Answer Entry Date Author 0 04/27/2025 10:00 AM Beverley Linares RN * Temp (in Celsius) for OSAGE IV Answer Entry Date Author 36.3 04/27/2025 10:00 AM Beverley Linares RN * Pain Assessment Question Answer Entry Date Author Pain Score 0 04/27/2025 10:00 AM Beverley Whalen, RN * IBW/kg (Calculated) Answer Entry Date Author 57 04/27/2025 10:00 AM EST Beverley Montgomery RN * Adult Low Range Vt 6mL/kg Answer Entry Date Author 342 04/27/2025 10:00 AM EST Beverley Montgomery, RN * Adult Moderate Range Vt 8mL/kg Answer Entry Date Author 456 04/27/2025 10:00 AM EST Beverley Montgomery RN * Adult High Range Vt 10mL/kg Answer Entry Date Author 570 04/27/2025 10:00 AM EST Beverley Montgomery RN * Vitals Timer Question Answer Entry Date Author Restart Vitals Timer Yes 04/27/2025 10:00 AM Beverley Jones RN documented in this encounter Plan of Treatment Upcoming Encounters Date Type Department Care Team (Late st Contact Info) Description 06/22/2025 Orders Only [facility] [address] [place] [phone] Loretta Godfrey MD [address] [phone] Malignant neoplasm of upper-outer quadrant of right breast in female, estrogen receptor positive; 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, estrogen receptor positive, unspecified site of breast 06/22/2025 8:00 AM EST Office Visit [facility] [address] [place] [phone] Loretta Godfrey MD [address] [phone] 06/22/2025 8:15 AM EST Clinical Support [facility] [address] [place] [address] 06/22/2025 9:00 AM EST Office Visit [facility] [place] [address] [place] [address] documented as of this encounter Visit Diagnoses [...] 120 mg 120 mg, Subcutaneous, Once, On Sat04/27/25 at 1015, For 1 doseIndications:[place]ia abdul neoplasm of upper-outer quadrant of right breast in female, estrogen receptor positive Given 04/27/2025 10:15 AM EST 120 mg Right Upper Arm (Hugh k) leuprolide (Lupron) injection 3.75 mg 3.75 mg, Intramuscular, Once, 1 dose, On Sat04/27/25 at 1015, RoutineIndications:Ma lignant neoplasm of upper-outer quadrant of right breast in female, estrogen receptor positive Given 04/27/2025 10:15 AM EST 3.75 mg Right Dorsogluteal documented in this encounter Additional Health Concerns Assessment Noted Time PHQ-9 Depression Total Score: 0 04/27/20 10:54 AM EST A fall risk assessment has been complete d for the patient 04/27/2025 10:54 AM EST documented as of this encounter Care Teams Calculus Teacher Relationship Specialty [place] [address] PCP - General 05/07/24 Loretta Godfrey MD [address] [address] Medical Oncologist Hematology and Oncology 05/18/24 Paola Rosenberg LPN VALUE-BASED TRANSFORMATION PROGRAM None Licensed Practical Nurse 08/25/24 documented as of this encounter
--- OUTSIDE RECORDS SUMMARY | 2025-05-25 13:45 | XMS_ITS | Encounter Summary ---
Author Organization [facility] Address [address] [place] [address] Care Team Providers Care Heatset Winder Operator Name Role Phone Hermilo Otto MD Primary Care Provider [phone] Loretta Godfrey MD Unavailable [phone] Paola Rosenberg CASINO CAGE CASHIER Unavailable Unavaila ble Reason for Visit * Reason Comments Follow-up * Episode Based Medications (Routine) - Authorized Specialty Diagnoses / Procedures Referred By Contac t Referred To Contact Diagnoses Malignant neoplasm of upper-outer quadrant of right breast in female, estrogen receptor positive Loretta Godfrey MD [address] [place] [phone] Phone: tel: fax: [address] [place] [address] Phone: tel: fax: Referral ID Status Reason Start Date Expiration Date V isits Requested Visits Authorized [id number] Authorized 06/10/2024 06/23/2026 1 26 Encounter Details Date Type Department Care Team (Late st Contact Info) Description 05/25/2025 1:45 PM EST Office Visit Shawn [facility] [address] [place] [address] Loretta Godfrey MD [address] [place] [phone] Malignant neoplasm of upper-outer quadrant of [...] week 08/27/2024 How often do you attend [facility] or gnosticism services? More than 4 times per year 08/27/2024 Do you belong to any clubs o r organizations such as sikh groups, unions, fraternal or athletic groups, or [...] Recorded Patient Health Questionnaire-2 Score 0 04/27/2025 [facility] - Occupational Stress Questionnaire [...] time in the past 12 m [facility], were you homeless or living in [...] Sign Reading Time Taken Comments Blood Pressure 112/76 05/25/2025 1:45 PM EST Pulse 80 05/25/2025 1:45 PM EST Temperature 36.2 C (97.1 F) 05/25/2025 1:45 PM EST Respiratory Rate - - Oxygen Saturation 98% 05/25/2025 1:45 PM EST Inhaled Oxygen Concentration - - Weight 75.6 kg (166 lb 10.7 oz) 05/25/2025 1:45 PM EST Height 165.1 cm (5' 5 ) 05/25/2025 1:45 PM EST Body Mass Index 27.73 05/25/2025 1:45 PM EST documented in this encounter Functional Status * BP Answer Date of Assessment Author 112/76 05/25/2025 1:45 PM EST Eliu Wyman ylor * Temp Answer Date of Assessment Author 97.1 05/25/2025 1:45 PM EST Eliu Wyman ylor * Temp src Answer Date of Assessment Author Temporal 05/25/2025 1:45 PM EST Eliu Wyman ylor * Pulse Answer Date of Assessment Author 80 05/25/2025 1:45 PM EST Garo Ta ylor * SpO2 Answer Date of Assessment Author 98 05/25/2025 1:45 PM EST Garo Ta ylor * Height Answer Date of Assessment Author 65 05/25/2025 1:45 PM EST Garo Ta ylor * Weight Answer Date of Assessment Author 2666.68 05/25/2025 1:45 PM EST Garo Ta ylor * BMI (Calculated) Answer Date of Assessment Author 27.8 05/25/2025 1:45 PM EST Garo Ta ylor * Percent Excess Weight Loss Answer Date of Assessment Author 0 05/25/2025 1:45 PM EST Garo Ta ylor * Total Weight Change Percent Answer Date of Assessment Author 2222 05/25/2025 1:45 PM EST Garo Ta ylor * Weight Change Since Preop Answer Date of Assessment Author 75.58 05/25/2025 1:45 PM EST Garo Ta ylor * Initial Excess Weight Answer Date of Assessment Author -56.7 05/25/2025 1:45 PM EST Garo Ta ylor * IBW in lbs (Bariatric) Answer Date of Assessment Author 125 05/25/2025 1:45 PM EST Eliu Wyman ylor * Weight Change Since Last Visit Answer Date of Assessment Author 75.58 05/25/2025 1:45 PM Eliu Parrish * IBW in kg (Bariatric) Answer Date of Assessment Author 56.7 05/25/2025 1:45 PM Eliu Parrish * Percent of IBW Answer Date of Assessment Author 4,703.14 05/25/2025 1:45 PM Eliu Parrishor * EBW (kg) Answer Date of Assessment Author 2,665.07 05/25/2025 1:45 PM Eliu Parrish * EBW (lbs) Answer Date of Assessment Author 2,658.87 05/25/2025 1:45 PM Eliu Parrish * Distress Thermometer Score Question Answer Date of Assessment Author Appointment Type Surveillance appointment 05/25/2025 1 :00 PM Silvana Parrish Based on the past week, please select the number that best describes how much distress you have had. 0 being none and 10 being the most extreme. 0 05/25/2025 1:00 PM Silvana Parrish * Weight Change 24 hrs Answer Date of Assessment Author -.7 05/25/2025 1:45 PM Eliu Parrish * Depression Screening Question Answer Date of Assessment Author Will the patient answer the depression risk questions? Yes 05/25/2025 1:46 PM Silvana Parrish * BSA (Calculated - sq m) Answer Date of Assessment Author 1.86 05/25/2025 1:45 PM Eliu Parrish * BMI (Calculated) Answer Date of Assessment Author 27.73 05/25/2025 1:45 PM Eliu Parrish * IBW/kg (Calculated) Male Answer Date of Assessment Author 61.5 05/25/2025 1:45 PM Eliu Parrish * IBW/kg (Calculated) Female Answer Date of Assessment Author 57 05/25/2025 1:45 PM Eliu Parrish * IBW/kg (Calculated) Answer Date of Assessment Author 57 05/25/2025 1:45 PM Eliu Parrish * Calculated C-SSRS Risk Score (Lifetime/Recent) Answer Date of Assessment Author No Risk Indicated 05/25/2025 1:46 PM Silvana Parrish * Weight in (lb) to have BMI = 25 Answer Date of Assessment Author 149.9 05/25/2025 1:45 PM EST Garo, Ta ylor * BMI (Calculated) Answer Date of Assessment Author 27.8 05/25/2025 1:45 PM EST Wyman, Ta ylor * Percent Excess Weight Loss Answer Date of Assessment Author 0 05/25/2025 1:45 PM EST Wyman, Ta ylor * Weight Change Since Preop Answer Date of Assessment Author 75.6 05/25/2025 1:45 PM EST Wyman, Ta ylor * Initial Excess Weight Answer Date of Assessment Author -56.7 05/25/2025 1:45 PM EST Wyman, Ta ylor * IBW in kg (Bariatric) Answer Date of Assessment Author 56.7 05/25/2025 1:45 PM EST Wyman, Ta ylor * IBW in lb (Bariatric) Answer Date of Assessment Author 125 05/25/2025 1:45 PM EST Wyman, Ta ylor * Weight Change Since Last Visit Answer Date of Assessment Author -0.7 05/25/2025 1:45 PM EST Garo Ta ylor * Percent of IBW Answer Date of Assessment Author 133.33 05/25/2025 1:45 PM EST Wyman, Ta ylor * EBW (kg) Answer Date of Assessment Author 18.88 05/25/2025 1:45 PM EST Garo Ta ylor * EBW (lb) Answer Date of Assessment Author 41.67 05/25/2025 1:45 PM EST Garo Ta ylor * Difference in Weight Since Last Visit Answer Date of Assessment Author -0.7 05/25/2025 1:45 PM EST Garo Ta ylor * Temp (in Celsius) for [place] Answer Date of Assessment Author 36.2 05/25/2025 1:45 PM EST Wyman, Ta ylor * IBW/kg (Calculated) Answer Date of Assessment Author 57 05/25/2025 1:45 PM EST Garo Ta ylor * Adult Low Range Vt 6mL/kg Answer Date of Assessment Author 342 05/25/2025 1:45 PM EST Garo Ta ylor * Adult Moderate Range Vt 8mL/kg Answer Date of Assessment Author 456 05/25/2025 1:45 PM EST Garo Ta ylor * Adult High Range Vt 10mL/kg Answer Date of Assessment Author 570 05/25/2025 1:45 PM EST Wyman, Ta ylor * Pain Score Answer Date of Assessment Author 0 05/25/2025 1:46 PM Eliu Parrish * Pain Screening/Additional Assessments Question Answer Date of Assessment Author Pain Screening/Assessments Pain Screening 05/25/2025 1 :46 PM Silvana Parrish * Pain Screening Answer Date of Assessment Author 0-10 05/25/2025 1:46 PM Eliu Parrish * C-SSRS (Screener) Question Answer Date of Assessment Author Is patient awake, alert, and able/willing to answer questions appropriately? Yes 05/25/2025 1:46 PM Silvana Craig 1. Wish to be (Past 1 Month) No 025 1:46 PM Silvana Parrish 2. Non-Specific Active Suici kelsie Thoughts (Past 1 Month) No 05/25/2025 1:46 PM Silvana Parrish 6. Suicidal Behavior (Lifetime) No 1:46 PM Silvana Parrish * BP Answer Date of Assessment Author 112/76 05/25/2025 1:45 PM Eliu Parrish * Temp Answer Date of Assessment Author 97.1 05/25/2025 1:45 PM Eliu Parrish * Temp src Answer Date of Assessment Author Temporal 05/25/2025 1:45 PM Eliu Parrish * Pulse Answer Date of Assessment Author 80 05/25/2025 1:45 PM Eliu Parrish * SpO2 Answer Date of Assessment Author 98 05/25/2025 1:45 PM Eliu Parrish * Height Answer Date of Assessment Author 65 05/25/2025 1:45 PM Eliu Parrish * Weight Answer Date of Assessment Author 2666.68 05/25/2025 1:45 PM Eliu Parrish * Distress Thermometer Score Question Answer Date of Assessment Author Appointment Type Surveillance appointment 05/25/2025 1 :00 PM Silvana Parrish Based on the past week, please select the number that best describes how much distress you have had. 0 being none and 10 being the most extreme. 0 05/25/2025 1:00 PM Silvana Parrish * BSA (Calculated - sq m) Answer Date of Assessment Author 1.86 05/25/2025 1:45 PM Eliu Parrish * BMI (Calculated) Answer Date of Assessment Author 27.73 05/25/2025 1:45 PM Eliu Parrish * Calculated C-SSRS Risk Score (Lifetime/Recent) Answer Date of Assessment Author No Risk Indicated 05/25/2025 1:46 PM Silvana Parrish * Weight in (lb) to have BMI = 25 Answer Date of Assessment Author 149.9 05/25/2025 1:45 PM Eliu Parrish * Pain Score Answer Date of Assessment Author 0 05/25/2025 1:46 PM Eliu Parrish * C-SSRS (Screener) Question Answer Date of Assessment Author Is patient awake, alert, and able/willing to answer questions appropriately? Yes 05/25/2025 1:46 PM Silvana Craig 1. Wish to be (Past 1 Month) No 025 1:46 PM Silvana Parrish 2. Non-Specific Active Suici kelsie Thoughts (Past 1 Month) No 05/25/2025 1:46 PM Silvana Parrish 6. Suicidal Behavior (Lifetime) No 1:46 PM Silvana Parrish documented as of this encounter Mental Status * BP Answer Entry Date Author 112/76 05/25/2025 1:45 PM Eliu Parrish * Temp Answer Entry Date Author 97.1 05/25/2025 1:45 PM Eliu Parrish * Temp src Answer Entry Date Author Temporal 05/25/2025 1:45 PM Eliu Parrish * Pulse Answer Entry Date Author 80 05/25/2025 1:45 PM Eliu Parrish * SpO2 Answer Entry Date Author 98 05/25/2025 1:45 PM Eliu Parrish * Height Answer Entry Date Author 65 05/25/2025 1:45 PM Eliu Parrishor * Weight Answer Entry Date Author 2666.68 05/25/2025 1:45 PM Eliu Parrish * BMI (Calculated) Answer Entry Date Author 27.8 05/25/2025 1:45 PM Eliu Parrish * Percent Excess Weight Loss Answer Entry Date Author 0 05/25/2025 1:45 PM Eliu Parrish * Total Weight Change Percent Answer Entry Date Author 222105/25/2025 1:45 PM Eliu Parrish * Weight Change Since Preop Answer Entry Date Author 75.58 05/25/2025 1:45 PM Eliu Parrish * Initial Excess Weight Answer Entry Date Author -56.7 05/25/2025 1:45 PM Eliu Parrishor * IBW in lbs (Bariatric) Answer Entry Date Author 125 05/25/2025 1:45 PM Eliu Parrishor * Weight Change Since Last Visit Answer Entry Date Author 75.58 05/25/2025 1:45 PM Eliu Parrishor * IBW in kg (Bariatric) Answer Entry Date Author 56.7 05/25/2025 1:45 PM Eliu Parrishor * Percent of IBW Answer Entry Date Author 4,703.14 05/25/2025 1:45 PM Eliu Parrishor * EBW (kg) Answer Entry Date Author 2,665.07 05/25/2025 1:45 PM Eliu Parrishor * EBW (lbs) Answer Entry Date Author 2,658.87 05/25/2025 1:45 PM Eliu Parrish * Distress Thermometer Score Question Answer Entry Date Author Appointment Type Surveillance appointment 2024 1:00 PM Silvana Parrish Based on the past week, please select the number that best describes how much distress you have had. 0 being none and 10 being the most extreme. 0 05/25/2025 1:00 PM Silvana Parrish * Weight Change 24 hrs Answer Entry Date Author -.7 05/25/2025 1:45 PM Eliu Parrish * Depression Screening Question Answer Entry Date Author Will the patient answer the depression risk questions? Yes 05/25/2025 1:46 PM Silvana Parrish * BSA (Calculated - sq m) Answer Entry Date Author 1.86 05/25/2025 1:45 PM Eliu Parrish * BMI (Calculated) Answer Entry Date Author 27.73 05/25/2025 1:45 PM Eliu Parrish * IBW/kg (Calculated) Male Answer Entry Date Author 61.5 05/25/2025 1:45 PM Eliu Parrish * IBW/kg (Calculated) Female Answer Entry Date Author 57 05/25/2025 1:45 PM EST Wyman, Ta ylor * IBW/kg (Calculated) Answer Entry Date Author 57 05/25/2025 1:45 PM FRANCY Wyman Ta ylor * Calculated C-SSRS Risk Score (Lifetime/Recent) Answer Entry Date Author No Risk Indicated 05/25/2025 1:46 PM Silvana Parrish * Restart Pain Assessment Timer Answer Entry Date Author Yes 05/25/2025 1:46 PM FRANCY Wyman Ta ylor * Weight in (lb) to have BMI = 25 Answer Entry Date Author 149.9 05/25/2025 1:45 PM FRANCY Wyman Ta ylor * BMI (Calculated) Answer Entry Date Author 27.8 05/25/2025 1:45 PM FRANCY Wyman Ta ylor * Percent Excess Weight Loss Answer Entry Date Author 0 05/25/2025 1:45 PM FRACNY Wyman Ta ylor * Weight Change Since Preop Answer Entry Date Author 75.6 05/25/2025 1:45 PM FRANCY Wyman Ta ylor * Initial Excess Weight Answer Entry Date Author -56.7 05/25/2025 1:45 PM FRANCY Wyman Ta ylor * IBW in kg (Bariatric) Answer Entry Date Author 56.7 05/25/2025 1:45 PM FRANCY Wyman Ta ylor * IBW in lb (Bariatric) Answer Entry Date Author 125 05/25/2025 1:45 PM FRANCY Wyman Ta ylor * Weight Change Since Last Visit Answer Entry Date Author -0.7 05/25/2025 1:45 PM FRANCY Wyman Ta ylor * Percent of IBW Answer Entry Date Author 133.33 05/25/2025 1:45 PM FRANCY Wyman Ta ylor * EBW (kg) Answer Entry Date Author 18.88 05/25/2025 1:45 PM FRANCY Wyman Ta ylor * EBW (lb) Answer Entry Date Author 41.67 05/25/2025 1:45 PM FRANCY Wyman Ta ylor * Difference in Weight Since Last Visit Answer Entry Date Author -0.7 05/25/2025 1:45 PM FRANCY Wyman Ta ylor * Temp (in Celsius) for [place] [facility] Answer Entry Date Author 36.2 05/25/2025 1:45 PM FRANCY Wyman Ta ylor * IBW/kg (Calculated) Answer Entry Date Author 57 05/25/2025 1:45 PM EST Eliu Wymanor * Adult Low Range Vt 6mL/kg Answer Entry Date Author 342 05/25/2025 1:45 PM EST Eliu Wyman * Adult Moderate Range Vt 8mL/kg Answer Entry Date Author 456 05/25/2025 1:45 PM FRANCY Wyman, Eliu hughesor * Adult High Range Vt 10mL/kg Answer Entry Date Author 570 05/25/2025 1:45 PM EST Eliu Wymanor * Pain Score Answer Entry Date Author 0 05/25/2025 1:46 PM EST Eliu Wyman * Pain Screening Answer Entry Date Author 0-10 05/25/2025 1:46 PM EST Eliu Wyman * C-SSRS (Screener) Question Answer Entry Date Author Is patient awake, alert, and able/willing to answer questions appropriately? Yes 05/25/2025 1:46 PM Silvana Craig 1. Wish to be (Past 1 Month) No 025 1:46 PM Silvana Parrish 2. Non-Specific Active Suici kelsie Thoughts (Past 1 Month) No 05/25/2025 1:46 PM Silvana Parrish 6. Suicidal Behavior (Lifetime) No 1:46 PM Silvana Parrish documented in this encounter Miscellaneous Notes * Progress Notes - Loretta Godfrey MD - 05/25/2025 1:45 PM EST [facility] HEMATOLOGY/ONCOLOGY FOLLOW UP Shona Prieto 1985 Primary Care Provider: Hermilo Otto MD Cancer Staging No matching staging information was found for the patient. Assessment & Plan Malignant neoplasm of upper-outer quadrant of right breast in female, estrogen receptor positive Treatment Details Treatment goal [No plan goal] [...] mg (02/02/2025), 3.75 mg (03/02/2025), 3.75 mg (03/30/2025), 3.75 mg (04/27/2025) Treatment Details Treatment goal [No plan goal] [...] mg (02/02/2025), 120 mg (03/02/2025), 120 mg (03/30/2025), 120 mg (04/27/2025) Subjective History of Present Illness: Shona Prieto [...] the dentist. She has been seen at [facility]. She had a good visit and we will send liquid biopsy for NGS. Pt has lost 10 pounds intentionally with cutting out sugar. 07/14/24 [facility] One CDX revealed no actionable wheelchair driver mutation. Pt has been seen at [facility] and was told to continue current therapy. She's quite active attending her children's sporting activities. [place] to date: 05/19/24 34.16 08/19/24 0 12/08/24 0 03/02/25 0 02/19/25 CT CAP 1.Overall findings are stable since prior study. No evidence of new or worsening metastatic lesion.Please note that the primary lesions noted within the breasts are better evaluated with mammogram. 2.Nonspecific mild diffuse colonic wall thickening may represent mild colitis, possibly treatment related. 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 Pt feels well. She enjoyed Thanksgiving. She did have an episode of diarrhea 2 weeks ago. This has resolved. The following portions of the chart were [...] Exam: Vital Signs for this encounter: BSA: 1.86 meters squared Visit Vitals BP 112/76 Pulse 80 Temp (!) 36.2 ??C (97.1 ??F) (Temporal) Ht 1.651 m (5' 5 ) Wt 75.6 kg (166 lb 10.7 oz) SpO2 98% BMI 27.73 kg/m?? Smoking Status Never BSA 1.86 m?? Physical Exam Vitals reviewed. HENT: Head: Normocephalic. Mouth/Throat: Mouth: Mucous membranes are moist. Eyes: Extraocular Movements: Extraocular movements intact. Cardiovascular: Rate and Rhythm: Normal rate. Heart sounds: Normal heart sounds. Pulmonary: Effort: Pulmonary effort is normal. Abdominal: Palpations: Abdomen is soft. Musculoskeletal: General: Normal range of motion. Cervical back: Normal range of motion. Skin: General: Skin [...] recommendation of the National Kidney Foundation and [place] [employer]ph[employer]. This calculation has not been validated in women. 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 Pt gone to [facility] and MD Rubi for a consultation. These [...] q 3 months or sooner pending labs. PET/CT is scheduled for 06/08/25. 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, estrogen receptor positive, unspecified site of breast 06/22/2025 8:00 AM EST Office Visit [facility] at [address] [phone] Loretta Godfrey MD [address] [place] [phone] 06/22/2025 8:15 AM EST Clinical Support [facility] at [address] [phone] 06/22/2025 9:00 AM EST Office Visit [facility] at [address] [phone] documented as of this encounter Visit Diagnoses Diagnosis Malignant neoplasm of upper-outer quadrant of right breast in female, 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, estrogen receptor positive 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, estrogen receptor positive, unspecified site of breast documented in this encounter Additional Health Concerns Assessment Noted Time PHQ-9 Depression Total Score: 0 04/27/20 10:54 AM EST A fall risk assessment has been complete d for the patient 05/25/2025 1:46 PM EST documented as of this encounter Care Teams Heatset Winder Operator Relationship Specialty [place] [id number] PCP - General 05/07/24 Loretta Godfrey MD [address] [place] [phone] Medical Oncologist Hematology and Oncology 05/18/24 Paola Rosenberg LPN VALUE-BASED TRANSFORMATION PROGRAM None Licensed Practical Nurse 08/25/24 documented as of this encounter
--- OUTSIDE RECORDS SUMMARY | 2025-05-25 14:00 | XMS_ITS | Encounter Summary ---
Author Organization [facility] Address [address] [place] [address] Care Team Providers Care Chinese Medicine Practitioner Name Role Phone Hermilo Otto MD Primary Care Provider [phone] Loretta Godfrey MD Unavailable [phone] Paola Rosenberg LPN Unavailable Unavaila ble Reason for Visit * Episode Based Medications (Routine) - Authorized Specialty Diagnoses / Procedures Referred By Contac t Referred To Contact Diagnoses Malignant neoplasm of upper-outer quadrant of right breast in female, estrogen receptor positive Procedures HI LEUPROLIDE ACETATE SUSPNSION Loretta Godfrey MD [address] [address] Phone: tel: fax: [facility] [address] [place] [address] Phone: tel: fax: Referral ID Status Reason Start Date Expiration Date V isits Requested Visits Authorized [id number] Authorized 05/19/2024 06/23/2026 1 39 Encounter Details Date Type Department Care Team (Latest Contact Info) Description 05/25/2025 2:00 PM EST Clinical Support [facility] [address] [place] [phone] Malignant neoplasm of upper-outer quadrant of [...] often do you attend [facility] or yazidi services? More than 4 times [...] Recorded Patient Health Questionnaire-2 Score 0 04/27/2025 [facility]ational Stress Questionnaire [...] Time Taken Comments Blood Pressure 112/76 05/25/2025 3:00 PM EST Pulse 80 05/25/2025 3:00 PM EST Temperature 36.2 C (97.2 F) 05/25/2025 3:00 PM EST Respiratory Rate - - Oxygen Saturation 98% 05/25/2025 3:00 PM EST Inhaled Oxygen Concentration - - Weight 75.6 kg (166 lb 10.7 oz) 05/25/2025 3:00 PM EST Height - - Body Mass Index 27.73 05/25/2025 1:45 PM EST documented in this encounter Functional Status * Total Weight Change Percent Answer Date of Assessment Author 222105/25/2025 3:00 PM EST Therese Glynn RN * Weight Change Since Preop Answer Date of Assessment Author 75.58 05/25/2025 3:00 PM EST Therese Glynn RN * Weight Change Since Last Visit Answer Date of Assessment Author 75.58 05/25/2025 3:00 PM Therese Abarca RN * Weight Change 24 hrs Answer Date of Assessment Author -.7 05/25/2025 3:00 PM Therese Abarca RN * Oxygen Therapy Question Answer Date of Assessment Author SpO2 98 05/25/2025 3:00 PM Calli Abarca RN * Chemotherapy Nursing Assessment Question Answer Date of Assessment Author Progress Note Pt in clinic followi kylah Godfrey visit for Xgeva/Lupron inj. Vitals and assessment complete with MD visit. Identifiers, drug, dose, route verified at bedside. Lupron admin IM R. dorsogluteal under aseptic technique. Pt tolerated well and no bleeding at site. Site care provided with band-aid. Xgeva admin subq R. back arm under aseptic technique. Pt tolerated well and site care provided with band-aid. Next appt confirmed. Pt leaves clinic ambulatory, alert, and oriented x4. 05/25/2025 3:00 PM Calli Abarca RN * Vital Signs Question Answer Date of Assessment Author BP 112/76 05/25/2025 3:00 PM Calli Abarca RN Temp 97.2 05/25/2025 3:00 PM Calli Abarca RN Pulse 80 05/25/2025 3:00 PM Calli Abarca RN * Height and Weight Question Answer Date of Assessment Author Weight 2666.68 05/25/2025 3:00 PM Calli Abarca RN BSA (Calculated - sq m) 1.86 05/25/2025 3:00 P M Calli Abarca RN BMI (Calculated) 27.73 05/25/2025 3:00 PM Calli Arita RN * Weight Change Since Preop Answer Date of Assessment Author 75.6 05/25/2025 3:00 PM Therese Abarca RN * Weight Change Since Last Visit Answer Date of Assessment Author 0 05/25/2025 3:00 PM Therese Abarca RN * Difference in Weight Since Last Visit Answer Date of Assessment Author 0 05/25/2025 3:00 PM Therese Abarca RN * Temp (in Celsius) for TONAWANDA IV Answer Date of Assessment Author 36.2 05/25/2025 3:00 PM Therese Abarca RN * Pain Assessment Question Answer Date of Assessment Author Pain Score 0 05/25/2025 3:00 PM Calli Abarca RN * Oxygen Therapy Question Answer Date of Assessment Author SpO2 98 05/25/2025 3:00 PM Calli Abarca RN * Vital Signs Question Answer Date of Assessment Author BP 112/76 05/25/2025 3:00 PM Calli Abarca RN Temp 97.2 05/25/2025 3:00 PM Calli Abacra RN Pulse 80 05/25/2025 3:00 PM Calli Abarca RN * Height and Weight Question Answer Date of Assessment Author Weight 2666.68 05/25/2025 3:00 PM Calli Abarca RN BSA (Calculated - sq m) 1.86 05/25/2025 3:00 P M Calli Abarca RN BMI (Calculated) 27.73 05/25/2025 3:00 PM Calli Arita RN * Pain Assessment Question Answer Date of Assessment Author Pain Score 0 05/25/2025 3:00 PM Calli Abarca RN documented as of this encounter Mental Status * Total Weight Change Percent Answer Entry Date Author 222105/25/2025 3:00 PM Therese Abarca RN * Weight Change Since Preop Answer Entry Date Author 75.58 05/25/2025 3:00 PM Therese Abarca RN * Weight Change Since Last Visit Answer Entry Date Author 75.58 05/25/2025 3:00 PM Therese Abarca RN * Weight Change 24 hrs Answer Entry Date Author -.7 05/25/2025 3:00 PM Therese Abarca RN * Oxygen Therapy Question Answer Entry Date Author SpO2 98 05/25/2025 3:00 PM Calli Abarca RN * Restart Pain Assessment Timer Answer Entry Date Author Yes 05/25/2025 3:00 PM Therese Abarca RN * Vital Signs Question Answer Entry Date Author BP 112/76 05/25/2025 3:00 PM Calli Abarca RN Temp 97.2 05/25/2025 3:00 PM Calli Abarca RN Pulse 80 05/25/2025 3:00 PM Calli Abarca RN * Height and Weight Question Answer Entry Date Author Weight 2666.68 05/25/2025 3:00 PM Calli Abarca RN BSA (Calculated - sq m) 1.86 05/25/2025 3:00 P M Calli Abarca RN BMI (Calculated) 27.73 05/25/2025 3:00 PM Calli Arita RN * Weight Change Since Preop Answer Entry Date Author 75.6 05/25/2025 3:00 PM Therese Abarca RN * Weight Change Since Last Visit Answer Entry Date Author 0 05/25/2025 3:00 PM Therese Abarca RN * Difference in Weight Since Last Visit Answer Entry Date Author 0 05/25/2025 3:00 PM Therese Abarca RN * Temp (in Celsius) for TONAWANDA IV Answer Entry Date Author 36.2 05/25/2025 3:00 PM Therese Abarca RN * Pain Assessment Question Answer Entry Date Author Pain Score 0 05/25/2025 3:00 PM Calli Abarca RN documented in this encounter Plan of Treatment Upcoming Encounters Date Type Department Care Team (Late st Contact Info) Description 06/22/2025 Orders Only [facility] [address] [phone] Loretta Godfrey MD [address] [phone] Malignant neoplasm of upper-outer quadrant of right breast in female, estrogen receptor positive; 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, estrogen receptor positive, unspecified site of breast 06/22/2025 8:00 AM EST Office Visit [facility] [address] [place] [address] Loretta Godfrey MD [address] [phone] 06/22/2025 8:15 AM EST Clinical Support [facility] [address] [place] [phone] 06/22/2025 9:00 AM EST Office Visit [facility] [address] [place] [address] Scheduled Orders Name Type Priority Associated Diagnoses Orde r Schedule Comprehensive metabolic panel Lab STAT Malignant neoplasm of upper-outer quadrant of right breast in female, estrogen receptor positive Expected: 05/25/2025, Expires: 05/25/2026 documented as of this encounter Visit Diagnoses [...] 120 mg 120 mg, Subcutaneous, Once, On Sat05/25/25 at 1500, For 1 doseIndications:Maligna nt neoplasm of upper-outer quadrant of right breast in female, estrogen receptor positive Given 05/25/2025 2:57 PM EST 120 mg Right Upper Arm (Back) leuprolide (Lupron) injection 3.75 mg 3.75 mg, Intramuscular, Once, 1 dose, On Sat05/25/25 at 1500, RoutineIndications:Bebe rouse neoplasm of upper-outer quadrant of right breast in female, estrogen receptor positive Given 05/25/2025 2:56 PM EST 3.75 mg Right Deltoid documented in this encounter Additional Health Concerns Assessment Noted Time PHQ-9 Depression Total Score: 0 04/27/20 10:54 AM EST A fall risk assessment has been complete d for the patient 05/25/2025 1:46 PM EST documented as of this encounter Care Teams Chinese Medicine Practitioner Relationship Specialty [place] [id number] PCP - General 05/07/24 Loretta Godfrey MD [address] [phone] Medical Oncologist Hematology and Oncology 05/18/24 Paola Rosenberg LPN VALUE-BASED TRANSFORMATION PROGRAM None Licensed Practical Nurse 08/25/24 documented as of this encounter
--- OUTSIDE RECORDS SUMMARY | 2025-06-02 13:10 | XMS_ITS | Encounter Summary ---
Author Organization [facility] Address [address] [place] [address] Care Team Providers Care News Clipping Cutter Name Role Phone Hermilo Otto MD Primary Care Provider + [phone] Reason for Referral * Diagnostic Imaging (Routine) - Closed Specialty Diagnoses / Procedures Referred By Venkat mccarthy Referred To Contact Radiology Diagnoses 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, estrogen receptor positive, unspecified site of breast Procedures Mammo Diagnostic Digital Tomosynthesis Bilateral With CAD CHG DIGITAL BREAST TOMOSYNTHESIS BILATERAL TN TOMOSYNTHESIS, MARYO Loretta Godfrey MD [address] [place] [address] Phone: tel: fax: [facility] [address] [place] [phone] Phone: tel: Referral ID Status Reason Start Date Expiration Date Visits Re quested Visits Authorized [id number] Closed 05/04/2025 08/03/2026 1 1 Reason for Visit * Diagnostic Imaging (Routine) - Closed Specialty Diagnoses / Procedures Referred By Venkat mccarthy Referred To Contact Radiology Diagnoses 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, estrogen receptor positive, unspecified site of breast Procedures Mammo Diagnostic Digital Tomosynthesis Bilateral With CAD CHG DIGITAL BREAST TOMOSYNTHESIS BILATERAL TN TOMOSYNTHESIS, MAMMO Loretta Godfrey MD [address] [address] Phone: tel: fax: [facility] [address] [place] [address] Phone: tel: Referral ID Status Reason Start Date Expiration Date Visits Re quested Visits Authorized [id number] Closed 05/04/2025 08/03/2026 1 1 Encounter Details Date Type Department Care Team (Late st Contact Info) Description 06/02/2025 1:10 PM EST - 06/02/2025 11:59 PM EST Hospital Encounter [facility] [place] [address] [place] [address] Loretta Godfrey MD [address] [place] [address] 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, estrogen receptor positive, unspecified site of breast Discharge Disposition: Home or Self Care Social History Tobacco Use Types Packs/Day Years Used Date Smoking Tobacco: Never Alcohol Use Standard Drinks/Week Comments No 0 (1 standard drink = 0.6 oz pur e alcohol) [place] Depression Scale Answer Date Recorded [place] Depression Scale Total 1 10/17/2018 The thought of harming myself has occurred to me . Unrecognized value 10/17/2018 PHQ-2 Answer Date Recorded Patient Health Questionnaire-2 Score 0 04/29/2024 Comments No Sex and Gender Information Value Date Recorded Sex Assigned at Female 06/01/2025 8:38 AM EST Legal Sex Female 10:19 AM EDT Gender [...] Procedure Name Priority Date/Time Associated Diagnosis Comments MAMMO DIAGNOSTIC DIGITAL TOMOSYNTHESIS BILATERAL W CAD Routine 06/02/2025 2:40 PM EST 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, estrogen receptor positive, unspecified site of breast documented in this encounter Results * (ABNORMAL) Mammo Diagnostic Digital Tomosynthesis Bilateral With CAD (06/02/2025 2:40 PM EST) Anatomical Region Laterality Modality Breast Bilateral Mammography 06/02/2025 3:04 PM EST Impressions 06/02/2025 3:14 PM EST Marked improvement in the patient's bilateral biopsy-proven carcinomas as as well as left axillary adenopathy. RECOMMENDATION: Recommend clinical follow-up. 6, KNOWN BIOPSY PROVEN MALIGNANCY ACR BI-RADS CATEGORY: CAD was utilized. The standard false-negative rate [...] of concern indicated by the patient. A cahto marker is placed over a visible skin lesion. A linear marker indicates a scar. 06/02/2025 3:[address] Calli Alcantar MD on Narrative 06/02/2025 3:14 PM EST BILATERAL DIAGNOSTIC MAMMOGRAM WITH TOMOSYNTHESIS CLINICAL INDICATION: 39-year-old patient presents for follow-up imaging bilaterally. The patient has bilateral biopsy-proven malignancies and known widespread metastatic disease. The patient is currently on Xgeva and Lupron shops for treatment. She was not deemed a surgical candidate. TECHNIQUE: Low dose full field digital breast tomosynthesis imaging was performed consisting of bilateral CC and MLO views. COMPARISON: Comparison is made to prior exam from 04/14/2024 P2 FINDINGS: There are scattered areas of fibroglandular density. Left breast: The previously noted grouped adjacent irregular masses in the mid 7-9 o'clock distribution have markedly decreased in size. There is a residual approximately 1 cm asymmetry associated with a coil-shaped core biopsy marking clip. There are stable residual calcifications in this region spanning over 3 x 2.3 cm of tissue. Several other smaller adjacent masses have resolved. The previously biopsied mass in the anterior to mid upper outer quadrant has essentially resolved. A wing shaped core biopsy marking clip is noted in this region. The 0.6 cm mass which was present superior and lateral to this mass has also resolved. The previously noted 0.4 cm mass in the posterior there upper outer quadrant has resolved. There is no mammographic evidence of adenopathy at this time. Right breast: The previously biopsied 0.5 cm mass in the right posterior upper outer quadrant has decreased in size. It measures approximately 0.2 cm on today's exam. The core biopsy marking clip is again not identified. No adenopathy is seen mammographically. Are some residual grouped calcifications present in the 6:00 subareolar region which are stable in appearance. Loretta Godfrey MD IMG MAMMOGRAPHY ORDERABLE S Final Result documented in this encounter Visit Diagnoses Diagnosis 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, estrogen receptor positive, unspecified site of breast documented in this encounter Care Teams News Clipping Cutter Relationship Specialty Start Date End Date Hermilo Otto MD [address] [place] [facility] [address] [facility] [address] [place] [address] PCP - General Family Medicine 04/14/24 documented as of this encounter
--- OUTSIDE RECORDS SUMMARY | 2025-06-08 13:56 | XMS_ITS | Encounter Summary ---
Author Organization [facility] Address [address] [place] [address] Care Team Providers Care Plan Coordinator Name Role Phone Hermilo Otto MD Primary Care Provider + [phone] Reason for Visit * MRI/CAT/PET Scan (Routine) - Closed Specialty Diagnoses / Procedures Referred By Venkat mccarthy Referred To Contact Radiology Diagnoses Malignant neoplasm of upper-outer quadrant of right female breast, unspecified estrogen receptor status Procedures NM PET/CT Skull Base to Mid Thigh Loretta Godfrey MD [address] [place] [address] Phone: tel: fax: Referral ID Status Reason Start Date Expiration Date Visits Re quested Visits Authorized [id number] Closed 05/14/2025 08/13/2026 2 2 Encounter Details Date Type Department Care Team (Latest Contact Info) Description 06/08/2025 1:56 PM EST - 06/08/2025 11:59 PM EST Hospital Encounter [facility] [place] [address] [facility] [address] [place] [address] Discharge Disposition: Home or Self Care Social History Tobacco Use Types Packs/Day Years Used Date Smoking Tobacco: Never Alcohol Use Standard Drinks/Week Comments No 0 (1 standard drink = 0.6 oz pur e alcohol) [place] Depression Scale Answer Date Recorded [place] Depression Scale Total 1 10/17/2018 The thought [...] Procedure Name Priority Date/Time Associated Diagnosis Comments NM PET/CT SKULL BASE TO MID THIGH Routine 06/08/2025 3:26 PM EST Malignant neoplasm of upper-outer quadrant of right female breast, unspecified estrogen receptor status POCT GLUCOSE FINGERSTICK Routine 06/08/2025 2:08 PM EST documented in this encounter Results * POC Glucose Once (06/08/2025 2:08 PM EST) Glucose 82 70 - 130 mg/dL 06/08/2025 2:10 PM EST [facility] Comment:Serial Number: [id number] Blood 06/08/2025 2:08 PM EST 06/08/2025 2:10 PM EST us Loretta Godfrey MD POINT OF CARE TEST ORDERA BLES Final Result [facility]
[address] [facility] [address] [place] [address], documented in this encounter Visit Diagnoses Not on filedocumented in this encounter Care Teams Plan Coordinator Relationship Specialty Start Date End Date Hermilo Otto MD [facility] [address] [facility] [address] [place] [address] PCP - General Family Medicine 04/14/24 documented as of this encounter
--- OUTSIDE RECORDS SUMMARY | 2025-06-08 13:56 | XMS_ITS | Encounter Summary ---
Author Organization [facility] Address [address] [place] [id number] Care Team Providers Care Contract Programmer Name Role Phone Hermilo Otto MD Primary Care Provider [phone] Reason for Referral * MRI/CAT/PET Scan (Routine) - Closed Specialty Diagnoses / Procedures Referred By Venkat mccarthy Referred To Contact Radiology Diagnoses Malignant neoplasm of upper-outer quadrant of right female breast, unspecified estrogen receptor status Procedures NM PET/CT Skull Base to Mid Thigh Loretta Godfrey MD [address] [place] [address] Phone: tel: fax: Referral ID Status Reason Start Date Expiration Date Visits Re quested Visits Authorized [id number] Closed 05/14/2025 08/13/2026 2 2 Reason for Visit * MRI/CAT/PET Scan (Routine) - Closed Specialty Diagnoses / Procedures Referred By Venkat mccarthy Referred To Contact Radiology Diagnoses Malignant neoplasm of upper-outer quadrant of right female breast, unspecified estrogen receptor status Procedures NM PET/CT Skull Base to Mid Thigh Loretta Godfrey MD [address] [place] [id number] Phone: tel: fax: Referral ID Status Reason Start Date Expiration Date Visits Re quested Visits Authorized [id number] Closed 05/14/2025 08/13/2026 2 2 Encounter Details Date Type Department Care Team (Latest Contact Info) Description 06/08/2025 1:56 PM EST - 06/08/2025 11:59 PM EST Hospital Encounter [facility] [place] [address] [place] [address] Malignant neoplasm of upper-outer quadrant of right female breast, unspecified estrogen receptor status Discharge Disposition: Home or Self Care Social History Tobacco Use Types Packs/Day Years Used Date Smoking Tobacco: Never Alcohol Use Standard Drinks/Week Comments No 0 (1 standard drink = 0.6 oz pur e alcohol) Flora Depression Scale Answer Date Recorded Flora Depression Scale Total 1 10/17/2018 The thought [...] right female breast, unspecified estrogen receptor status documented in this encounter Results * NM PET/CT Skull Base to Mid Thigh (06/08/2025 3:26 PM EST) Anatomical Region Laterality Modality Head and Neck, Spine, Abdome n, Chest, Pelvis, Lower Leg, Thigh N/A Nuclear Medicine 06/10/2025 9:58 AM EST Impressions 06/10/2025 10:25 AM EST 1.There is significant improvement from previous study. A single hypermetabolic liver metastatic lesion remains. Other metastatic lesions are no longer hypermetabolic and/or resolved. No new sites of metastatic disease. Electronically Signed: Lianne Carbajal MD 06/10/2025 10:25 AM EST Workstation ID: [id number] Narrative 06/10/2025 10:25 AM EST FDG NM PET/CT SKULL BASE TO MID THIGH Date of Exam: 06/08/2025 2:01 PM EST Indication: C50.411. Breast cancer. 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 Comparison: Whole-body PET/CT 05/12/2024, CT chest and pelvis 02/19/2025 Technique: 12.5 mCi of F-18 FDG was administered intravenously. PET imaging was obtained from skull base to mid-thigh approximately 60 minutes after radiotracer injection. A low dose non contrast CT was obtained for attenuation correction and anatomic localization. Fused PET-CT and 3D MIP reconstructions were utilized for image interpretation. Fasting blood glucose level: 82 mg/dl. Reference uptake values: Mediastinum: 3.2 SUVmax Liver: 3.9 SUVmax Normalization method: Body Weight Findings: Base of Skull/Neck: No suspicious metabolic activity. Physiologic activity is present. Thorax: There is resolution of the hypermetabolic masses in the breasts and axillary lymphadenopathy. Physiologic activity is present. Abdomen and Pelvis: There is a small hypermetabolic focus in the posterior right hepatic lobe on image 122 measuring maximally 9 SUV. The other hyper metabolic masses in liver are no longer seen. Previously activity in this location measured about 11.1 SUV. The mass is difficult to see well on noncontrast enhanced CT. It measures approximately 2.2 x 3.1 cm today compared with about 3.2 x 4.7 cm on previous study. Mild activity in the ascending colon at wall thickening on image 160 measuring 7.2 SUV maximum. There is fat density wall thickening seen in the transverse and ascending colon. Physiologic activity is present. Musculoskeletal System and Extremities: No suspicious metabolic activity. Physiologic activity is present. Resolution of the hypermetabolic osseous metastatic lesions since previous study. Miscellaneous CT Findings: The liver has hypodense foci which appear decreased in number and size since previous study. These are better evaluated on recent CT examination. A reference lesion in the inferior left lateral hepatic lobe on image 126 measures 1.1 x 0.9 cm today. Previously it measured 3.2 x 3.3 cm. Nonobstructing right intrarenal calculus is seen. Wall thickening of the transverse colon and ascending colon and rectum with fat density suggest chronic colitis. There are small sclerotic lesions in the bones consistent with patient's treated osseous metastatic disease. One of the largest lesions are seen in the posterior right sacrum on image 173. It measures about 1.7 x [address] this area was mixed lytic sclerotic. Procedure Note Lianne Carbajal MD - 06/10/2025 FDG NM PET/CT SKULL BASE TO MID THIGH Date of Exam: 06/08/2025 2:01 PM EST Indication: C50.411. Breast cancer. Bilateral breast cancer with leftaxillary lymph node metastatic disease and liver and osseous metastaticdisease. Comparison: Whole-body PET/CT 05/12/2024, CT chest and pelvis 02/19/2025 Technique: 12.5 mCi of F-18 FDG was administered intravenously. PETimaging was obtained from skull base to mid-thigh approximately 60 minutesafter radiotracer injection. A low dose non contrast CT was obtained forattenuation correction and anatomic localization. Fused PET-CT and 3D MIP reconstructions were utilized forimage interpretation. Fasting blood glucose level: 82 mg/dl. Reference uptake values: Mediastinum: 3.2 SUVmax Liver: 3.9 SUVmax Normalization method: Body Weight Findings: Base of Skull/Neck: No suspicious metabolic activity. Physiologic activityis present. Thorax: There is resolution of the hypermetabolic masses in the breastsand axillary lymphadenopathy. Physiologic activity is present. Abdomen and Pelvis: There is a small hypermetabolic focus in the posteriorright hepatic lobe on image 122 measuring maximally 9 SUV. The other hypermetabolic masses in liver are no longer seen. Previously activity in thislocation measured about 11.1 SUV. The mass is difficult to see well on noncontrast enhanced CT. Itmeasures approximately 2.2 x 3.1 cm today compared with about 3.2 x 4.7 cmon previous study. Mild activity in the ascending colon at wall thickeningon image 160 measuring 7.2 SUV maximum. There is fat density wall thickening seen in the transverse andascending colon. Physiologic activity is present. Musculoskeletal System and Extremities: No suspicious metabolic activity.Physiologic activity is present. Resolution of the hypermetabolic osseousmetastatic lesions since previous study. Miscellaneous CT Findings: The liver has hypodense foci which appeardecreased in number and size since previous study. These are betterevaluated on recent CT examination. A reference lesion in the inferiorleft lateral hepatic lobe on image 126 measures 1.1 x 0.9 cm today. Previously it measured 3.2 x 3.3 cm.Nonobstructing right intrarenal calculus is seen. Wall thickening of thetransverse colon and ascending colon and rectum with fat density suggestchronic colitis. There are small sclerotic lesions in the bones consistent with patient's treated osseous metastaticdisease. One of the largest lesions are seen in the posterior right sacrumon image 173. It measures about 1.7 x [address] this area wasmixed lytic sclerotic. IMPRESSION: 1.There is significant improvement from previous study. A singlehypermetabolic liver metastatic lesion remains. Other metastatic lesionsare no longer hypermetabolic and/or resolved. No new sites of metastaticdisease. Electronically Signed: Lianne Carbajal MD 06/10/2025 10:25 AM EST Workstation ID: [id number] Loretta Godfrey MD [facility] [place] ORDERABLES Final R esult documented in this encounter Visit Diagnoses Diagnosis Malignant neoplasm of upper-outer quadrant of right female breast, unspecified estrogen receptor status documented in this encounter Administered Medications Inactive Administered Medications - up to 3 most recent administrations Medication Order MAR Action Action Date Dose Rate Site fludeoxyglucose F18 injection 1 dose 1 dose, Intravenous, Once in Imaging, On Sat06/08/25 at 1515, For 1 dose, Millicuries: 12.85 Given 06/08/2025 2:13 PM EST 1 dose documented in this encounter Care Teams Contract Programmer Relationship Specialty Start Date End Date Hermilo Otto MD [address] [facility] [address] [facility] [address] [facility] [place] [address] PCP - General Family Medicine 04/14/24 documented as of this encounter
--- OUTSIDE RECORDS SUMMARY | 2025-06-18 10:07 | XMS_ITS | Encounter Summary ---
Author Organization Healthcare Address [address] [place] [address] Care Team Providers Care Allergy Nurse Name Role Phone Hermilo Otto MD Primary Care Provider [phone] Loretta Godfrey MD Unavailable [phone] Paola Rosenberg LPN Unavailable Unavaila ble [...] week 08/27/2024 [facility] often do you attend [facility] or mormon services? More than 4 times [...] [facility] Occupat ional [facility] - [...] Recorded In the past 12 months has [facility] electric, gas, oil, or water company [...] as of this encounter Functional Status * Travel Screening Question Answer Date of Assessment Author Have you traveled internatio nu or domestically in the last month? No 04/22/2025 10:57 AM EDT Mych art, Generic documented as of this encounter Mental Status * Travel Screening Question Answer Entry Date Author Have you traveled internatio nu or domestically in the last month? No 04/22/2025 10:57 AM EDT Mych art, Generic documented in this encounter Plan of Treatment Upcoming Encounters Date Type Department Care Team (Late st Contact Info) Description 06/22/2025 Orders Only [facility] at [address] [place] [phone] Loretta Godfrey MD [address] [address] Malignant neoplasm of upper-outer quadrant of right breast in female, estrogen receptor positive; 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, estrogen receptor positive, unspecified site of breast 06/22/2025 8:00 AM EST Office Visit [facility] [address] [place] [address] Loretta Godfrey MD [address] [place] [address] 06/22/2025 8:15 AM EST Clinical Support [facility] at [facility] [address] [place] [phone] 06/22/2025 9:00 AM EST Office Visit [facility] at [facility] [address] [place] [phone] documented as of this encounter Visit Diagnoses Not on filedocumented in this encounter Additional Health Concerns Assessment Noted Time A fall risk assessment has been complete d for the patient 03/30/2025 2:22 PM EDT documented as of this encounter Care Teams Allergy Nurse Relationship Specialty [place] [id number] PCP - General 05/07/24 Loretta Godfrey MD [address] [address] Medical Oncologist Hematology and Oncology 05/18/24 Paola Rosenberg LPN VALUE-BASED TRANSFORMATION PROGRAM None Licensed Practical Nurse 08/25/24 documented as of this encounter
--- OUTSIDE RECORDS SUMMARY | 2025-06-18 10:07 | XMS_ITS ---
Author Organization [facility] Address [address] [place] [address] Care Team Providers Care Clothespin Machine Operator Name Role Phone Hermilo Otto MD Primary Care Provider [phone] Loretta Godfrey MD Unavailable [phone] Paola Rosenberg LPN Unavailable Unavaila [facility] Status:Active (Active) Program category:Care Coordination Start date:08/25/2024 Enrollment date:08/27/2024 Enrollment reason:Identified as high-risk Overview This episode type is for outpatient care managers enrolling patients in the [facility] program. Case Team Name Relationship Phone Paola Rosenberg LPN(Responsible Staff) Licens ed Practical Nurse Continued Care and Services Coordination
--- OUTSIDE RECORDS SUMMARY | 2025-06-18 10:07 | XMS_ITS | Encounter Summary ---
Author Organization Healthcare Address [address] [place] [address] Care Team Providers Care Gasoline Truck Operator Name Role Phone Hermilo Otto MD Primary Care Provider Loretta Godfrey MD Unavailable [phone] Paola Rosenberg LPN Unavailable Unavaila ble Encounter Details Date Type Department Care Team (Latest Contact Info) Description 05/25/2025 Travel Social History Tobacco Use Types Packs/Day [...] do you attend [facility] or sabianist services? More than 4 times [...] Recorded Patient Health Questionnaire-2 Score 0 04/27/2025 [facility] - Occupational Stress Questionnaire Answer Date [...] time in the past 12 m [facility], were you homeless or living in a group home (including now)? No 08/27/2024 Utilities Answer Date Recorded In the past 12 months has th e [employer], gas, oil, or water company threatened to [...] as of this encounter Functional Status * Communicable Disease Screening Question Answer Date of Assessment Author Have you been in contact wit h someone who was sick? No / Unsure 05/25/2025 1:22 PM Carina Ivy Do you have any of the follo wing new or worsening symptoms? None of these 05/25/2025 1:22 PM Tarik Ivy ey * Travel Screening Question Answer Date of Assessment Author Have you traveled internatio nu or domestically in the last month? No 05/25/2025 1:22 PM Carina Ivy documented as of this encounter Mental Status * Communicable Disease Screening Question Answer Entry Date Author Have you been in contact wit h someone who was sick? No / Unsure 05/25/2025 1:22 PM Carina Ivy Do you have any of the follo wing new or worsening symptoms? None of these 05/25/2025 1:22 PM Tarik Ivy ey * Travel Screening Question Answer Entry Date Author Have you traveled internatio nu or domestically in the last month? No 05/25/2025 1:22 PM Carina Ivy documented in this encounter Plan of Treatment Upcoming Encounters Date Type Department Care Team (Late st Contact Info) Description 06/22/2025 Orders Only [facility] at [address] [place] [phone] Loretta Godfrey MD [address] [phone] Malignant neoplasm of upper-outer quadrant of right breast in female, estrogen receptor positive; 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, estrogen receptor positive, unspecified site of breast 06/22/2025 8:00 AM EST Office Visit [facility] at [address] [phone] Loretta Godrfey MD [address] [phone] 06/22/2025 8:15 AM EST Clinical Support [facility] at [address] [address] 06/22/2025 9:00 AM EST Office Visit [facility] at [address] [address] documented as of this encounter Visit Diagnoses Not on filedocumented in this encounter Additional Health Concerns Assessment Noted Time PHQ-9 Depression Total Score: 0 04/27/20 10:54 AM EST A fall risk assessment has been complete d for the patient 05/25/2025 1:46 PM EST documented as of this encounter Care Teams Gasoline Truck Operator Relationship Specialty [place] [id number] PCP - General 05/07/24 Loretta Godfrey MD [address] [phone] Medical Oncologist Hematology and Oncology 05/18/24 Paola Rosenberg LPN VALUE-BASED TRANSFORMATION PROGRAM None Licensed Practical Nurse 08/25/24 documented as of this encounter
--- OUTSIDE RECORDS SUMMARY | 2025-06-18 10:07 | XMS_ITS | Encounter Summary ---
Author Organization [facility] Address [address] [place] [address] Care Team Providers Care Cyberathlete Name Role Phone Hermilo Otto MD Primary Care Provider [phone] Loretta Godfrey MD Unavailable [phone] Paola Rosenberg CASE LINER Unavailable Unavaila ble Encounter Details Date Type Department Care Team (Late st Contact Info) Description 06/10/2025 Results Follow-Up [facility] at [facility] [address] [place] [phone] Loretta Godfrey MD [address] [address] Social History Tobacco Use Types [...] often do you attend chur ch or tenriism services? More than 4 times [...] Recorded Patient Health Questionnaire-2 Score 0 04/27/2025 [facility] of Occupat ional Health - [...] st Contact Info) Description 06/22/2025 Orders Only [facility] at [address] [place] [address] [facility] [address] [address] Malignant neoplasm of upper-outer quadrant of right breast in female, estrogen receptor positive; 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, estrogen receptor positive, unspecified site of breast 06/22/2025 8:00 AM EST Office Visit [facility] at [address] [place] [address] Loretta Godfrey MD [address] [place] [phone] 06/22/2025 8:15 AM EST Clinical Support [facility] at [facility] [address] [place] [phone] 06/22/2025 9:00 AM EST Office Visit [facility] at [facility] [address] [place] [phone] documented as of this encounter Visit Diagnoses Not on filedocumented in this encounter Additional Health Concerns Assessment Noted Time PHQ-9 Depression Total Score: 0 04/27/20 10:54 AM EST A fall risk assessment has been complete d for the patient 05/25/2025 1:46 PM EST documented as of this encounter Care Teams Cyberathlete Relationship Specialty [place] [id number] PCP - General 05/07/24 Loretta Godfrey MD [address] [place] [address] [address] Medical Oncologist Hematology and Oncology 05/18/24 Paola Rosenberg LPN VALUE-BASED TRANSFORMATION PROGRAM None Licensed Practical Nurse 08/25/24 documented as of this encounter
--- OUTSIDE RECORDS SUMMARY | 2025-06-18 10:07 | XMS_ITS | Encounter Summary ---
Author Organization [facility] Address [address] [place] [address] Care Team Providers Care Commercial Construction Project Manager Name Role Phone Hermilo Otto MD Primary Care Provider [phone] Loretta Godfrey MD Unavailable [phone] Paola Rosenberg REPLENISHMENT MERCHANDISING ASSOCIATE Unavailable Unavaila ble Reason for Visit * Reason Comments Med Refill Encounter Details Date Type Department Care Team (Late st Contact Info) Description 05/06/2025 Refill [facility] at [facility] [address] [place] [phone] Loretta Godfrey MD [address] [address] Bilateral malignant neoplasm of breast [...] week 08/27/2024 How often do you attend [facility] or scientology services? More than 4 times [...] Recorded Patient Health Questionnaire-2 Score 0 04/27/2025 [facility] Stress Questionnaire Answer Date [...] st Contact Info) Description 06/22/2025 Orders Only [facility] at [place] [address] [place] [address] Loretta Godfrey MD [address] [phone] Malignant neoplasm of upper-outer quadrant of right breast in female, estrogen receptor positive; 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, estrogen receptor positive, unspecified site of breast 06/22/2025 8:00 AM EST Office Visit [facility] at [place] [address] [place] [address] Loretta Godfrey MD [address] [address] 06/22/2025 8:15 AM EST Clinical Support [facility] at [facility] [address] [place] [address] 06/22/2025 9:00 AM EST Office Visit [facility] [address] [place] [address] documented as of this encounter Visit Diagnoses [...] as of this encounter Care Teams Commercial Construction Project Manager Relationship Specialty Start [place] [address] PCP - General 05/07/24 Loretta Godfrey MD [address] [address] Medical Oncologist Hematology and Oncology 05/18/24 Paola Rosenberg LPN VALUE-BASED TRANSFORMATION PROGRAM None Licensed Practical Nurse 08/25/24 documented as of this encounter
--- OUTSIDE RECORDS SUMMARY | 2025-06-18 10:07 | XMS_ITS | Patient Health Record ---
Author Organization [facility] Address [address] [place] [address] Care Team Providers Care Malt Specifications Control Assistant Name Role Phone Makenzie Ward Unavailable [phone] Parul Main Unavailable [phone] Allergies No Known Allergies Results Component Value Reference Range Flag Notes Pap w/reflex HPV Reviewed date:04/19/2025 12:27:46 PM Interpretation:Negative Performing Lab: Notes/Report: [facility] Testing performed at: [WB] [address], [address], , Client Service Supervisor: Adeola Plascencia MD Source.............Cervix;Endocervix Dates / Results....2023 negative Other..............Post Menopausal No. of containers..01 ThinPrep Vial DIAGNOSIS: Comment N NEGATIVE FOR I NTRAEPITHELIAL LESION OR MALIGNANCY. Specimen adequacy: Comment N Satisfactory for evaluation. Endocervical and/or squamous metaplastic cells (endocervical component) are present. Areas of partially obscuring blood are present. Clinician provided ICD10: Comment N Z01.419 Performed by: Dmitri N Yesenia arrieta, Convex Grinder (ASCP) . . N Note: Comment [...] ThinPrep(R) pap test was interpreted using the Lumidigm(R) Genius(TM) Cervical Algorithm whole slide imaging system. 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 Problem Premenstrual tension syndrome (60678640) PMDD (premenstrual dysphoric disorder) (F32.81) Active confirmed Problem test positive (639758962) Encounter for test, result positive (Z32.01) 018 Active confirmed test positive Problem Gynecological examination normal (959451631351731 ) Cervical smear, as part of routine gynecological examination (Z01.419) 019 Active confirmed Annual without abnormal findings Vital Signs Blood pressure diastolic 78 mm Hg 04/14/2025 Height 65 in 04/14/2025 Blood pressure systolic 120 mm Hg 04/14/2025 Weight 167.8 lbs 04/14/2025 BMI 27.92 kg/m2 04/14/2025 Encounters Encounter Location Date Provider Diagnosis [facility] [address] [facility] [address] [place] [address] 04/14/2025 Parul Main Cervical smear, as p [...] Name:Parul Main, 04/18/2026 03:00:00 PM, [address] [address], [place], [address], Insurance Providers Payer Name Payer Address Payer Phone Subscriber Number Group Number Insured Name Patient Relationship to Insured Coverage Start Date Coverage End Date Fanny DOLAN [address] [place] [address] [id number] Shona Sterling Self - patient is the insured Medical (General) History Medical History History ICD Code breast cancer HSV -1 Surgical History Surgery Date(Month/Year) BTL [place] 2007 Tonsillectomy liver biosy breast biopsy Hospitalization History Reason Date(Month/Year) childbirth
--- OUTSIDE RECORDS SUMMARY | 2025-06-18 10:07 | XMS_ITS | Encounter Summary ---
Author Organization [facility] Address [address] [place] [address] Care Team Providers Care Evaluator Name Role Phone Hermilo Otto MD Primary Care Provider [phone] Loretta Godfrey MD Unavailable [phone] Paola Rosenberg PROJECT ADMIN Unavailable Unavaila ble Encounter Details Date Type Department Care Team (Late st Contact Info) Description 06/10/2025 Orders Only [facility] at [facility] [address] [place] [phone] Loretta Godfrey MD [address] [address] Social History Tobacco Use Types [...] often do you attend chur ch or pentecostal services? More than 4 times [...] Recorded Patient Health Questionnaire-2 Score 0 04/27/2025 [facility] of Occupat ional Health - Occupational [...] st Contact Info) Description 06/22/2025 Orders Only [facility] at [address] [place] [address] Loretta [facility] MD [facility] [address] Malignant neoplasm of upper-outer quadrant of right breast in female, estrogen receptor positive; 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, estrogen receptor positive, unspecified site of breast 06/22/2025 8:00 AM EST Office Visit [facility] at [address] [place] [address] Loretta Godfrey MD [facility] [address] [address] 06/22/2025 8:15 AM EST Clinical Support [facility] at [facility] [address] [place] [address] 06/22/2025 9:00 AM EST Office Visit [facility] at [facility] [address] [place] [address] documented as of this encounter Procedures Procedure Name Priority Date/Time Associated Diagnosis Comments PET/CT FDG SKULL BASE TO MID THIGH Routine 06/08/2025 10:35 AM EST documented in this encounter Results * PET/CT FDG Skull Base To Mid Thigh (06/08/2025 10:35 AM EST) Anatomical Region Laterality Modality Positron Emissio n Tomography (PET) us Loretta Godfrey MD IMG NM PROCEDURES Final Resul t documented in this encounter Visit Diagnoses Not on filedocumented in this encounter Additional Health Concerns Assessment Noted Time PHQ-9 Depression Total Score: 0 04/27/20 10:54 AM EST A fall risk assessment has been complete d for the patient 05/25/2025 1:46 PM EST documented as of this encounter Care Teams Evaluator Relationship Specialty [place] [id number] PCP - General 05/07/24 Loretta Godfrey MD [address] [place] [address] [place] [address] Medical Oncologist Hematology and Oncology 05/18/24 Paola Rosenberg LPN VALUE-BASED TRANSFORMATION PROGRAM None Licensed Practical Nurse 08/25/24 documented as of this encounter
--- OUTSIDE RECORDS SUMMARY | 2025-06-18 10:07 | XMS_ITS | Clinical Summary ---
Author Organization [facility] Address [address] [place] [address] Care Team Providers Care Business Administrator Name Role Phone Hermilo Otto MD Primary Care Provider + [phone] Allergies No known active allergies Medications Vit-Fe [...] Encounters Date Type Department Care Team Description 06/08/2025 1:56 PM EST - 06/08/2025 11:59 PM EST Hospital Encounter [facility] [place] [address] [place] [address] Discharge Disposition: Home or Self Care 06/08/2025 1:56 PM EST - 06/08/2025 11:59 PM EST Hospital Encounter [facility] [place] [address] [place] [address] Malignant neoplasm of upper-outer quadrant of right female breast, unspecified estrogen receptor status Discharge Disposition: Home or Self Care 06/08/2025 Travel 06/02/2025 1:10 PM EST - 06/02/2025 11:59 PM EST Hospital Encounter [facility] MAMMOGRAPHY [place] [address] [place] [address] Loretta Godfrey MD 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, estrogen receptor positive, unspecified site of breast Discharge Disposition: Home or Self Care 06/02/2025 Travel 05/29/2025 Results Follow-Up [facility] CANCER RISK ASSESSMENT [address] [place] [address] Tatyana Lloyd from Last 3 Months Family History Medical History Relation Name Comments Prostate cancer Father Hypertension Mother Melanoma Paternal Aunt 70s Breast cancer Neg Hx Ovarian cancer Neg Hx Relation Name Status Comments Father Mother Paternal Aunt Alive Social History Tobacco Use Types Packs/Day Years Used Date Smoking Tobacco: Never Tobacco Cessation:Counseling Given: Not Answered Alcohol Use Standard Drinks/Week Comments No 0 (1 standard drink = 0.6 oz pur e alcohol) Thorp Depression Scale Answer Date Recorded Thorp Depression Scale Total 1 10/17/2018 The thought [...] Date Last Done Comments Annual Gynecologic Pelvic and Breast Exam 1985 ANNUAL PHYSICAL 10/16/2018 INFLUENZA VACCINE 01/22/2025 05/20/2024, 06/06/2018 Annual Breast MRI 06/08/2026 06/08/2025, , 05/14/2025, Additional history exists MAMMOGRAM TCS >= 20 06/08/2026 06/08/2025, 06/02/2025, 06/02/2025, Additional history exists TDAP/TD VACCINES (2 - Td or Tdap) [...] GLUCOSE FINGERSTICK Routine 06/08/2025 2:08 PM EST MAMMO DIAGNOSTIC DIGITAL TOMOSYNTHESIS BILATERAL W CAD Routine 06/02/2025 2:40 PM EST 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, estrogen receptor positive, unspecified site of breast AMBRY GENETIC ASSESSMENT Routine 05/29/2025 10:15 AM EST AMBRY GENETIC ASSESSMENT Routine 05/28/2025 8:47 AM EST HEPATITIS C ANTIBODY Routine 03/04/2018 4:42 PM EDT care, subsequent , first trimester from Last 3 Months or Most Recently Relevant to Health Maintenance Results * NM PET/CT Skull Base to [...] MD 06/10/2025 10:25 AM EST Workstation ID: [id number] Narrative 06/10/2025 10:25 AM EST FDG NM [...] MD 06/10/2025 10:25 AM EST Workstation ID: [id number] us Loretta Godfrey MD [facility] NM ORDERABLES Final R esult * POC Glucose Once (06/08/2025 2:08 PM EST) Glucose 82 70 - 130 mg/dL 06/08/2025 2:10 PM EST [facility] Comment:Serial Number: [id number]: [id number] Blood 06/08/2025 2:08 PM EST 06/08/2025 2:10 PM EST us Loretta Godfrey MD POINT OF CARE TEST ORDERA BLES Final Result [facility]
[address] [place] [address], [place] * (ABNORMAL) Mammo Diagnostic Digital Tomosynthesis Bilateral [...] of concern indicated by the patient. A coeur d'alene marker is placed over a visible skin [...] MD IMG MAMMOGRAPHY ORDERABLE S Final Result * (ABNORMAL) [facility] GENETIC RISK ASSESSMENT QUESTIONNAIRE - , (05/29/2025 10:15 AM EST) Only the most recent of2 resultswithin the time period is included. [facility] NCCN NCCN met(A) [facility] Comment:High Risk Cancer Ris k Assessment 05/29/2025 10:1 5 AM EST Loretta Godfrey MD GENETIC TESTING Final Res ult [facility] [employer]
[address] [place] [address], * Hepatitis C Antibody (03/04/2018 4:42 PM EDT) Pathologist [facility] Hepatitis C Ab Non-Reacti ve Non-Reacti ve 03/04/2018 7:55 PM EDT [facility] Blood Venipuncture / Unknown 03/04/2018 4:42 PM EDT 03/04/2018 4:42 PM EDT Makenzie Ward MD LAB BLOOD ORDERABLES Final Re sult [facility]
[address] [place] [address], from Last 3 Months or Most Recently [...] 3:13 PM 03/30/2016 2:24 AM Care Teams Business Administrator Relationship Specialty Start Date End Date Hermilo Otto MD [address] [place] [facility] [address] [facility] [address] [place] [address] PCP - General Family Medicine 04/14/24
--- OUTSIDE RECORDS SUMMARY | 2025-06-18 10:07 | XMS_ITS | Encounter Summary ---
Author Organization [facility] Address [address] [place] [address] Care Team Providers Care Mathematics Instructor Name Role Phone Hermilo Otto MD Primary Care Provider [phone] Loretta Godfrey MD Unavailable [phone] Paola Rosenberg LPN Unavailable Unavaila ble Reason for Visit * Reason Comments [facility] Encounter Details Date Type Department Care Team (Late st Contact Info) Description 06/14/2025 Patient Outreach [facility] [address] [place] [address] Paola Rosenberg LPN VALUE-BASED TRANSFORMATION PROGRAM None [facility] Social History Tobacco Use Types Packs/Day Years [...] any clubs o r organizations such as jew groups, unions, fraternal or athletic groups, or [...] Recorded Patient Health Questionnaire-2 Score 0 04/27/2025 [facility] of Occupat ional [...] Progress Notes - Paola Rosenberg LPN - 06/14/2025 3:37 PM EST 06/14/2025 Call attempt 1; unable to reach patient for OM+ update call. Left voicemail with name, call back number, and non-urgent call. documented in this encounter Plan of Treatment Upcoming Encounters Date Type Department Care Team (Late st Contact Info) Description 06/22/2025 Orders Only [facility] at [facility] [address] [place] [address] Loretta Godfrey MD [address] [place] [address] Malignant neoplasm of upper-outer quadrant of right breast in female, estrogen receptor positive; 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, estrogen receptor positive, unspecified site of breast 06/22/2025 8:00 AM EST Office Visit [facility] at [address] [phone] Loretta Godfrey MD [address] [place] [phone] 06/22/2025 8:15 AM EST Clinical Support [facility] at [address] [phone] 06/22/2025 9:00 AM EST Office Visit [facility] at [address] [phone] documented as of this encounter Visit Diagnoses Not on filedocumented in this encounter Additional Health Concerns Assessment Noted Time PHQ-9 Depression Total Score: 0 04/27/20 10:54 AM EST A fall risk assessment has been complete d for the patient 05/25/2025 1:46 PM EST documented as of this encounter Care Teams Mathematics Instructor Relationship Specialty [place] [address] PCP - General 05/07/24 Loretta Godfrey MD [address] [place] [phone] Medical Oncologist Hematology and Oncology 05/18/24 Paola Rosenberg LPN VALUE-BASED TRANSFORMATION PROGRAM None Licensed Practical Nurse 08/25/24 documented as of this encounter
--- OUTSIDE RECORDS SUMMARY | 2025-06-18 10:07 | XMS_ITS ---
Author Organization [facility] Address [address] [place] [address] Care Team Providers Care Development Director Name Role Phone Hermilo Otto MD Primary Care Provider [phone] Loretta Godfrey MD Unavailable [phone] Paola Rosenberg PROBATION WORKER Unavailable Unavaila ble Active Problems Problem Noted [...]
--- OUTSIDE RECORDS SUMMARY | 2025-06-18 10:07 | XMS_ITS | Clinical Summary ---
Author Organization [employer] ([place], [place], [place], [place], [place]) Address [address] [place] [address] Care Team Providers Care Cpas Name Role Phone Hermilo Otto MD Primary Care Provider + [phone] Allergies No known active allergies Medications sertraline (ZOLOFT) 50 MG tablet Take 1 tablet (50 mg total) by mouth daily. 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
--- OUTSIDE RECORDS SUMMARY | 2025-06-18 10:07 | XMS_ITS | Referral Summary ---
Author Organization [facility] ([place], [place], [place], [place], [place]) Address [address] [place] [address] Care Team Providers Care Refractory Manager Name Role Phone Hermilo Otto MD Primary Care Provider + [phone] Allergies No known active allergies Medications sertraline (ZOLOFT) 50 MG tablet Take 1 tablet (50 mg total) by mouth daily. Active Social History Tobacco Use Types Packs/Day Years Used Date Smoking Tobacco: Never Smokeless Tobacco: Never Tobacco Cessation:Counseling Given: Not Answered Comments No Sex and Gender Information Value Date Recorded Sex Assigned at Not on file Legal Sex Female 8:46 AM RN CARE MANAGER Gender Identity Not on file Sexual [...] Plan of Treatment Not on file Insurance * Guarantor: Dallas Ordaz Account Type Relation to Patient Date of Phone Billing Address Personal/Family Self 1985 [id number] [place] [id number] BLUE CROSS/BLUE SHIELD Care Teams Refractory Manager Relationship Specialty Start Date End Date Hermilo Otto MD [address] [facility] [address] [place] [phone] PCP - General Family Medicine 05/15/24
--- OUTSIDE RECORDS SUMMARY | 2025-06-18 10:07 | XMS_ITS | Encounter Summary ---
Author Organization [facility] Address [address] [place] [address] Care Team Providers Care General Production Manager Name Role Phone Hermilo Otto MD Primary Care Provider [phone] Loretta Godfrey MD Unavailable [phone] Paola Rosenberg LPN Unavailable Unavaila ble Reason for Visit * Reason Comments [facility] Encounter Details Date Type Department Care Team (Late st Contact Info) Description 05/17/2025 Patient Outreach [facility] [address] [place] [address] Paola Rosenberg LPN VALUE-BASED TRANSFORMATION PROGRAM None [facility] Social History Tobacco Use Types Packs/Day [...] How often do you attend chur or gnosticist services? More than 4 times [...] Recorded Patient Health Questionnaire-2 Score 0 04/27/2025 [facility] of Occupat ional Health - [...] st Contact Info) Description 06/22/2025 Orders Only [facility] at [facility] [address] [place] [address] Loretta Godfrey MD [address] [place] [address] Malignant neoplasm of upper-outer quadrant of right breast in female, estrogen receptor positive; 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, estrogen receptor positive, unspecified site of breast 06/22/2025 8:00 AM EST Office Visit [facility] at [address] [phone] Loretta Godfrey MD [address] [place] [phone] 06/22/2025 8:15 AM EST Clinical Support [facility] at [address] [phone] 06/22/2025 9:00 AM EST Office Visit [facility] at [address] [phone] documented as of this encounter Visit Diagnoses Not on filedocumented in this encounter Additional Health Concerns Assessment Noted Time PHQ-9 Depression Total Score: 0 04/27/20 10:54 AM EST A fall risk assessment has been complete d for the patient 04/27/2025 10:54 AM EST documented as of this encounter Care Teams General Production Manager Relationship Specialty [place] [address] PCP - General 05/07/24 Loretta Godfrey MD [address] [place] [phone] Medical Oncologist Hematology and Oncology 05/18/24 Paola Rosenberg LPN VALUE-BASED TRANSFORMATION PROGRAM None Licensed Practical Nurse 08/25/24 documented as of this encounter
--- OUTSIDE RECORDS SUMMARY | 2025-06-18 10:07 | XMS_ITS | Encounter Summary ---
Author Organization [facility] Address [address] [place] [address] Care Team Providers Care Web Marketing Strategist Name Role Phone Hermilo Otto MD Primary Care Provider [phone] Loretta Godfrey MD Unavailable [phone] Paola Rosenberg JAVA DEVELOPMENT MANAGER Unavailable Unavaila ble Encounter Details Date Type Department Care Team (Late st Contact Info) Description 05/24/2025 Orders Only [facility] at [facility] [address] [place] [phone] Loretta Godfrey MD [address] [address] Malignant neoplasm of upper-outer quadrant [...] often do you attend [facility] or confucianist services? More than 4 times per year 08/27/2024 Do you belong to any clubs o r organizations such as quaker groups, unions, fraternal or athletic groups, or [...] Health Questionnaire-2 Score 0 04/27/2025 [facility] of Occupat ional Health - Occupational Stress [...] st Contact Info) Description 06/22/2025 Orders Only [facility] at [facility] [address] [place] [address] Loretta Godfrey MD [address] [place] [phone] Malignant neoplasm of upper-outer quadrant of right breast in female, estrogen receptor positive; 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, estrogen receptor positive, unspecified site of breast 06/22/2025 8:00 AM EST Office Visit [facility] at [facility] [address] [place] [address] Loretta Godfrey MD [address] [phone] 06/22/2025 8:15 AM EST Clinical Support [facility] at [facility] [address] [place] [phone] 06/22/2025 9:00 AM EST Office Visit [facility] at [facility] [address] [place] [address] documented as of this encounter Procedures Procedure Name Priority Date/Time Associated Diagnosis Comments CANCER ANTIGEN 27.29 Routine 05/21/2025 9:40 AM EST COMPLETE METABOLIC PROFILE (CMP) Routine 05/21/2025 9:33 AM EST CBC W/DIFF Routine 05/21/2025 9:28 AM EST documented in this encounter Results * Cancer antigen 27.29 (05/21/2025 9:40 AM EST) Blood Venous blood specimen / Unknown Loretta Godfrey MD LAB BLOOD ORDERABLES Final Re sult * COMPLETE METABOLIC PROFILE (CMP) (05/21/2025 9:33 AM EST) Loretta Godfrey MD LAB BLOOD ORDERABLES Final Re sult * CBC W/DIFF (05/21/2025 9:28 AM EST) Loretta Godfrey MD LAB BLOOD ORDERABLES Final [...] Time PHQ-9 Depression Total Score: 0 04/27/20 25 10:54 AM EST A fall risk assessment has been complete d for the patient 04/27/2025 10:54 AM EST documented as of this encounter Care Teams Web Marketing Strategist Relationship Specialty Start Date End Date Hermilo Otto MD [id number] PCP - General 05/07/24 Loretta Godfrey MD [address] [phone] Medical Oncologist Hematology and Oncology 05/18/24 Paola Rosenberg LPN VALUE-BASED TRANSFORMATION PROGRAM None Licensed Practical Nurse 08/25/24 documented as of this encounter
--- OUTSIDE RECORDS SUMMARY | 2025-06-18 10:07 | XMS_ITS | Encounter Summary ---
Author Organization Healthcare Address [address] [place] [address] Care Team Providers Care Drafter Automotive Design Layout Name Role Phone Hermilo Otto MD Primary Care Provider [phone] Loretta Godfrey MD Unavailable [phone] Paola Rosenberg LPN Unavailable Unavaila ble [...] do you attend [facility] or hindu services? More than 4 times [...] Recorded Patient Health Questionnaire-2 Score 0 04/27/2025 [facility] - Occupational Stress Questionnaire Answer Date [...] any time in the past 12 m [facility], were you homeless or living in a intermediate (including now)? No 08/27/2024 Utilities Answer Date Recorded In the past 12 months has th e [employer], gas, oil, or water company threatened to [...] someone who was sick? No / Unsure 04/27/2025 8:49 AM Carina Ivy Do you have any of the follo wing new or worsening symptoms? None of these 04/27/2025 8:49 AM Tarik Ivy ey * Travel Screening Question Answer Date of Assessment Author Have you traveled internatio nu or domestically in the last month? No 04/27/2025 8:49 AM Carina Ivy documented as of this encounter Mental Status * Communicable Disease Screening Question Answer Entry Date Author Have you been in contact wit h someone who was sick? No / Unsure 04/27/2025 8:49 AM Carina Ivy Do you have any of the follo wing new or worsening symptoms? None of these 04/27/2025 8:49 AM Tarik Ivy ey * Travel Screening Question Answer Entry Date Author Have you traveled internatio nu or domestically in the last month? No 04/27/2025 8:49 AM Carina Ivy documented in this encounter Plan of Treatment Upcoming Encounters Date Type Department Care Team (Late st Contact Info) Description 06/22/2025 Orders Only [facility] at [place] [address] [place] [id number] Loretta Godfrey MD [address] [phone] Malignant neoplasm of upper-outer quadrant of right breast in female, estrogen receptor positive; 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, estrogen receptor positive, unspecified site of breast 06/22/2025 8:00 AM EST Office Visit [facility] at [address] [phone] Loretta Godfrey MD [address] [phone] 06/22/2025 8:15 AM EST Clinical Support [facility] at [address] [address] 06/22/2025 9:00 AM EST Office Visit [facility] at [address] [address] documented as of this encounter Visit Diagnoses Not on filedocumented in this encounter Additional Health Concerns Assessment Noted Time PHQ-9 Depression Total Score: 0 04/27/20 10:54 AM EST A fall risk assessment has been complete d for the patient 04/27/2025 10:54 AM EST documented as of this encounter Care Teams Drafter Automotive Design Layout Relationship Specialty [place] [id number] PCP - General 05/07/24 Loretta Godfrey MD [address] [address] Medical Oncologist Hematology and Oncology 05/18/24 Paola Rosenberg LPN VALUE-BASED TRANSFORMATION PROGRAM None Licensed Practical Nurse 08/25/24 documented as of this encounter
--- OUTSIDE RECORDS SUMMARY | 2025-06-18 10:07 | XMS_ITS | Encounter Summary ---
Author Organization [facility] Address [address] [place] [address] Care Team Providers Care Foreign Languages Professor Name Role Phone Hermilo Otto MD Primary Care Provider [phone] Loretta Godfrey MD Unavailable [phone] Paola Rosenberg NURSE PRN Unavailable Unavaila ble Encounter Details Date Type Department Care Team (Late st Contact Info) Description 06/03/2025 Orders Only [facility] at [facility] [address] [place] [phone] Loretta Godfrey MD [address] [address] Social History Tobacco Use Types [...] often do you attend chur ch or adventism services? More than 4 times [...] Recorded Patient Health Questionnaire-2 Score 0 04/27/2025 [facility] ional Health - Occupational [...] time in the past [address] [facility], were you homeless or living [...] Contact Info) Description 06/22/2025 Orders Only [facility] at [address] [place] [address] [facility] [address] Malignant neoplasm of upper-outer quadrant of right breast in female, estrogen receptor positive; 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, estrogen receptor positive, unspecified site of breast 06/22/2025 8:00 AM EST Office Visit [facility] at [address] [place] [address] Loret[facility] [address] 06/22/2025 8:15 AM EST Clinical Support [facility] at [facility] [address] [place] [phone] 06/22/2025 9:00 AM EST Office Visit [facility] at [facility] [address] [place] [address] documented as of this encounter Procedures Procedure Name Priority Date/Time Associated Diagnosis Comments MAMMOGRAPHY BREAST DIAGNOSTIC TOMOSYNTHESIS BILATERAL Routine 06/02/2025 9:21 AM EST documented in this encounter Results * Mammography Breast Diagnostic Tomosynthesis Bilateral (06/02/2025 9:21 AM EST) Anatomical Region Laterality Modality Breast Bilateral Mammography us Loretta Godfrey MD IMG BI PROCEDURES Final Resul t documented in this encounter Visit Diagnoses Not on filedocumented in this encounter Additional Health Concerns Assessment Noted Time PHQ-9 Depression Total Score: 0 04/27/20 10:54 AM EST A fall risk assessment has been complete d for the patient 05/25/2025 1:46 PM EST documented as of this encounter Care Teams Foreign Languages Professor Relationship Specialty [place] [id number] PCP - General 05/07/24 Loretta Godfrey MD [address] [place] [address] [address] Medical Oncologist Hematology and Oncology 05/18/24 Paola Rosenberg LPN VALUE-BASED TRANSFORMATION PROGRAM None Licensed Practical Nurse 08/25/24 documented as of this encounter
--- OUTSIDE RECORDS SUMMARY | 2025-06-18 10:07 | XMS_ITS | Encounter Summary ---
Author Organization [facility] Address [address] [place] [address] Care Team Providers Care Slot Shift Supervisor Name Role Phone Hermilo Otto MD Primary Care Provider [phone] Loretat Godfrey MD Unavailable [phone] Paola Rosenberg COAT OPERATOR Unavailable Unavaila ble Encounter Details Date Type Department Care Team (Late st Contact Info) Description 04/30/2025 Orders Only [facility] at [facility] [address] [place] [phone] Loretta Godfrey MD [address] [address] Social History Tobacco Use Types [...] often do you attend chur ch or church services? More than 4 times [...] Recorded Patient Health Questionnaire-2 Score 0 04/27/2025 [facility] ional Health - [...] st Contact Info) Description 06/22/2025 Orders Only [facility] at [address] [place] [address] [facility] [address] Malignant neoplasm of upper-outer quadrant of right breast in female, estrogen receptor positive; 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, estrogen receptor positive, unspecified site of breast 06/22/2025 8:00 AM EST Office Visit [facility] at [address] [place] [address] Loretta [facility]frey MD [facility] [address] 06/22/2025 8:15 AM EST Clinical Support [facility] at [facility] [address] [place] [address] 06/22/2025 9:00 AM EST Office Visit [facility] at [facility] [address] [place] [phone] documented as of this encounter Procedures Procedure [...] documented as of this encounter Care Teams Slot Shift Supervisor Relationship Specialty [place] [id number] PCP - General 05/07/24 Loretta Godfrey MD [address] [place] [address] [address] Medical Oncologist Hematology and Oncology 05/18/24 Paola Rosenberg LPN VALUE-BASED TRANSFORMATION PROGRAM None Licensed Practical Nurse 08/25/24 documented as of this encounter
--- OUTSIDE RECORDS SUMMARY | 2025-06-18 10:07 | XMS_ITS | Encounter Summary ---
Author Organization [facility] Address [address] [place] [address] Care Team Providers Care Social Science Research Assistant Name Role Phone Hermilo Otto MD Primary Care Provider [phone] Encounter Details Date Type Department Care Team (Latest Contact Info) Description 06/08/2025 Travel Social History Tobacco Use Types Packs/Day Years Used Date Smoking Tobacco: Never Alcohol Use Standard Drinks/Week Comments No 0 (1 standard drink = 0.6 oz pur e alcohol) [place] Depression Scale Answer Date Recorded [place] Depression Scale Total 1 10/17/2018 The thought [...] on filedocumented in this encounter Care Teams Social Science Research Assistant Relationship Specialty Start Date End Date Hermilo Otto MD [address] [place] [address] [place] [address] PCP - General Family Medicine 04/14/24 documented as of this encounter
--- OUTSIDE RECORDS SUMMARY | 2025-06-18 10:07 | XMS_ITS | Encounter Summary ---
Author Organization Healthcare Address [address] [place] [address] Care Team Providers Care Property Field Inspector Name Role Phone Hermilo Otto MD Primary Care Provider [phone] Loretta Godfrey MD Unavailable [phone] Paola Rosenberg LPN Unavailable Unavaila ble Encounter Details Date Type Department Care Team (Latest Contact Info) Description 05/24/2025 Travel Social History Tobacco Use Types Packs/Day [...] [facility] or worship services? More than 4 times [...] Recorded Patient Health Questionnaire-2 Score 0 04/27/2025 [facility] - Occupational Stress Questionnaire Answer [...] time in the past 12 m [facility], were you homeless or living in a usp (including now)? No 08/27/2024 Utilities Answer Date Recorded In the past 12 months has th e [employer], gas, oil, or water company threatened to [...] or domestically in the last month? No 05/24/2025 7:55 AM EST Mycha rt, Generic documented as of this encounter Mental Status * Travel Screening Question Answer Entry Date Author Have you traveled internatio nu or domestically in the last month? No 05/24/2025 7:55 AM EST Mycha rt, Generic documented in this encounter Plan of Treatment Upcoming Encounters Date Type Department Care Team (Late st Contact Info) Description 06/22/2025 Orders Only [facility] [place] [address] Loretta Godfrey MD [address] [place] [address] Malignant neoplasm of upper-outer quadrant of right breast in female, estrogen receptor positive; 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, estrogen receptor positive, unspecified site of breast 06/22/2025 8:00 AM EST Office Visit [facility] [address] [place] [address] Loretta Godfrey MD [address] [place] [address] 06/22/2025 8:15 AM EST Clinical Support [facility] [address] [place] [address] 06/22/2025 9:00 AM EST Office Visit [facility] [address] [place] [address] documented as of this encounter Visit Diagnoses Not on filedocumented in this encounter Additional Health Concerns Assessment Noted Time PHQ-9 Depression Total Score: 0 04/27/20 10:54 AM EST A fall risk assessment has been complete d for the patient 04/27/2025 10:54 AM EST documented as of this encounter Care Teams Property Field Inspector Relationship Specialty [place] [id number] PCP - General 05/07/24 Loretta Godfrey MD [address] [address] Medical Oncologist Hematology and Oncology 05/18/24 Paola Rosenberg LPN VALUE-BASED TRANSFORMATION PROGRAM None Licensed Practical Nurse 08/25/24 documented as of this encounter
--- OUTSIDE RECORDS SUMMARY | 2025-06-18 10:07 | XMS_ITS | Encounter Summary ---
Author Organization [facility] Address [address] [place] [address] Care Team Providers Care Strategic Alliances Manager Name Role Phone Hermilo Otto MD Primary Care Provider [phone] Loretta Godfrey MD Unavailable [phone] Paola Rosenberg FORMING PRESS OPERATOR Unavailable Unavaila ble Encounter Details Date Type Department Care Team (Late st Contact Info) Description 06/09/2025 Orders Only [facility] at [facility] [address] [place] [phone] Loretta Godfrey MD [address] [address] Social History Tobacco Use Types [...] often do you attend chur ch or caodaism services? More than 4 times per year [...] Recorded Patient Health Questionnaire-2 Score 0 04/27/2025 [facility] of Occupat ional Health - [...] st Contact Info) Description 06/22/2025 Orders Only [facility] at [address] [place] [address] [facility] [address] Malignant neoplasm of upper-outer quadrant of right breast in female, estrogen receptor positive; 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, estrogen receptor positive, unspecified site of breast 06/22/2025 8:00 AM EST Office Visit [facility] at [address] [place] [address] Loretta Godfrey MD [facility] [address] 06/22/2025 8:15 AM EST Clinical Support [facility] at [facility] [address] [place] [address] 06/22/2025 9:00 AM EST Office Visit [facility] at [facility] [address] [place] [address] documented as of this encounter Procedures Procedure Name Priority Date/Time Associated Diagnosis Comments GLUCOSE, PLASMA Routine 06/08/2025 9:11 AM EST documented in this encounter Results * Glucose, Plasma (06/08/2025 9:11 AM EST) Blood Venous blood specimen / Unknown us Loretta Godfery MD LAB BLOOD ORDERABLES Final Re sult documented in this encounter Visit Diagnoses Not on filedocumented in this encounter Additional Health Concerns Assessment Noted Time PHQ-9 Depression Total Score: 0 04/27/20 25 10:54 AM EST A fall risk assessment has been complete d for the patient 05/25/2025 1:46 PM EST documented as of this encounter Care Teams Strategic Alliances Manager Relationship Specialty [place] [id number] PCP - General 05/07/24 Loretta Godfrey MD [address] [place] [address] [place] [address] Medical Oncologist Hematology and Oncology 05/18/24 Paola Rosenberg LPN VALUE-BASED TRANSFORMATION PROGRAM None Licensed Practical Nurse 08/25/24 documented as of this encounter
--- OUTSIDE RECORDS SUMMARY | 2025-06-18 10:08 | XMS_ITS | Encounter Summary ---
Author Organization [facility] Address [address] [place] [address] Care Team Providers Care Medical Affairs Leader Name Role Phone Hermilo Otto MD Primary Care Provider [phone] Encounter Details Date Type Department Care Team (Latest Contact Info) Description 06/02/2025 Travel Social History Tobacco Use Types Packs/Day Years Used Date Smoking Tobacco: Never Alcohol Use Standard Drinks/Week Comments No 0 (1 standard drink = 0.6 oz pur e alcohol) [facility] Depression Scale Answer Date Recorded [facility] Depression Scale Total 1 10/17/2018 The thought [...] on filedocumented in this encounter Care Teams Medical Affairs Leader Relationship Specialty Start Date End Date Hermilo Otto MD [address] [place] [address] PCP - General Family Medicine 04/14/24 documented as of this encounter
--- OUTSIDE RECORDS SUMMARY | 2025-06-18 10:08 | XMS_ITS | Encounter Summary ---
[facility] Address [address] [place] [id number] Care Team Providers Care Ship Joiner Name Role Phone Hermilo Otto MD Primary Care Provider [phone] Encounter Details Date Type Department Care Team (Late st Contact Info) Description 05/29/2025 Results Follow-Up [facility] CANCER RISK ASSESSMENT [address] [place] [address] Tatyana Lloyd Social History Tobacco Use Types Packs/Day Years Used Date Smoking Tobacco: Never Alcohol Use Standard Drinks/Week Comments No 0 (1 standard drink = 0.6 oz pur e alcohol) [place] Depression Scale Answer Date Recorded [place] Depression Scale Total 1 10/17/2018 The thought [...] on file documented as of this encounter Progress Notes * Tatyana Lloyd - 05/29/2025 10:32 AM EST This patient recently completed the CARE risk assessment for a mammogram appointment. Based on the patient's responses, NCCN criteria for genetic testing was met. At the time of the assessment, the patient was provided with both written and video educational materials regarding genetic testing. Navigator follow-up: Patient's assessment was updated to include her personal history of breast cancer. The patient underwent genetic counseling and genetic testing in 2023. The CancerNext-Expanded panel was ordered through [employer] which analyzes BRCA1/2 and 74 additional genes associated with an increased cancer risk. Genetic testing was negative for pathogenic mutations in all 76 genes included on the CancerNext-Expanded panel. No additional genetic testing is indicated at this time. documented in this encounter Plan of Treatment Not on file documented as of this encounter Visit Diagnoses Not on filedocumented in this encounter Care Teams Ship Joiner Relationship Specialty Start Date End Date Hermilo Otto MD [address] [facility] [address] [facility] [address] [place] [address] PCP - General Family Medicine 04/14/24 documented as of this encounter
--- OUTSIDE RECORDS SUMMARY | 2025-06-18 10:08 | XMS_ITS | Clinical Summary ---
Author Organization [facility] Address [address] [place] [address] Care Team Providers Care Cleaning Supervisor Name Role Phone Hermilo Otto MD Primary Care Provider [phone] Loretta Godfrey MD Unavailable [phone] Paola Rosenberg LPN Unavailable Unavaila ble Allergies No known active allergies Medications sertraline (Zoloft) 50 MG tablet Take 1 tablet (50 mg) by mouth daily. Active Abemaciclib (Verzenio) 150 MG tablet chemo tablet TAKE 1 TABLET TWICE A DAY 60 tablet 11 03/08/2025 Active letrozole (Femara) 2.5 MG chemo tabletIndication s: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, estrogen receptor positive, unspecified site of breast TAKE 1 TABLET DAILY, TAKE WITH OR WITHOUT FOOD 90 tablet 3 05/06/2025 Active Active Problems Problem Noted Date Diagnosed Date Malignant neoplasm of upper- outer quadrant of right breast in female, estrogen receptor positive 05/19/2024 Encounters Date Type Department Care Team Description 06/14/2025 Patient Outreach [facility], [address] [place] [id number] Paola Rosenberg LPN [facility] 06/10/2025 Results Follow-Up [facility] at [address] [address] Loretta Godfrey MD 06/10/2025 Orders Only [facility] at [address] [address] Loretta Godfrey MD 06/09/2025 Orders Only [facility] [place] [address] [place] [address] Loretta Godfrey MD 06/03/2025 Orders Only [facility] [place] [address] [place] [address] Loretta Godfrey MD 05/25/2025 2:00 PM EST Clinical Support [facility] [place] [address] [place] [address] Malignant neoplasm of upper-outer quadrant of right breast in female, estrogen receptor positive (Primary Dx) 05/25/2025 1:45 PM EST Office Visit [facility] at [address] [place] [address] Loretta Godfrey MD Malignant neoplasm of upper-outer quadrant of right breast in female, estrogen receptor positive 05/25/2025 Travel 05/24/2025 Travel 05/24/2025 Orders Only [facility] at [address] [place] [address] Loretta Godfrey MD Malignant neoplasm of upper-outer quadrant of right breast in female, estrogen receptor positive; 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, estrogen receptor positive, unspecified site of breast 05/17/2025 Patient Outreach [facility] [address] [facility], [address] [place] [address] Paola Rosenberg LPN [facility] 05/06/2025 Refill [facility] at [address] [place] [address] Loretta Godfrey MD 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, estrogen receptor positive, unspecified site of breast 04/30/2025 Orders Only [facility] at [address] [place] [address] Loretta Godfrey MD 04/27/2025 9:45 AM EST Clinical Support [facility] at [address] [place] [address] Malignant neoplasm of upper-outer quadrant of right breast in female, estrogen receptor positive (Primary Dx) 04/27/2025 9:30 AM EST Office Visit [facility] [address] [place] [address] Loretta Godfrey MD Malignant neoplasm of upper-outer quadrant of right breast in female, estrogen receptor positive (Primary Dx) 04/27/2025 Travel 04/26/2025 Orders Only [facility] at [address] [place] [address] Loretta Godfrey MD 04/23/2025 Telephone [facility] [address] [facility]nd [place] [address] Keith Bullock, PharmD 04/22/2025 Travel 04/15/2025 Patient Outreach [facility] [address] [place] [address], [address] [place] [address] Paola Rosenberg STEAM TRAP WORKER [facility] 04/14/2025 Patient Outreach [facility] [address] [place] [address], [address] [place] [address] Paola Rosenberg STEAM TRAP WORKER [facility] 03/30/2025 12:45 PM EDT Clinical Support [facility] at [address] [place] [address] Malignant neoplasm of upper-outer quadrant of right breast in female, estrogen receptor positive (Primary Dx) 03/30/2025 12:30 PM EDT Office Visit [facility] [address] [place] [address] Loretta Godfrey MD Malignant neoplasm of upper-outer quadrant of right breast in female, estrogen receptor positive (Primary Dx) 03/30/2025 Travel 03/29/2025 Orders Only [facility] [address] [place] [address] Loretta Godfrey MD 03/25/2025 Travel 03/19/2025 Patient Outreach [facility] [address], [address] [place] [address] Paola Rosenberg LPN [facility] from Last 3 Months Immunizations Immunization Administration [...] How often do you attend chur or congregation services? More than 4 times per year [...] 0 04/27/2025 [facility] Occupat ional [facility] - Occupational Stress Questionnaire Answer [...] F) 05/25/2025 3:00 PM EST Respiratory Rate 18 04/27/2025 10:0 0 AM EST Oxygen Saturation 98% 05/25/2025 3:00 PM EST Inhaled Oxygen Concentration - - Weight 75.6 kg (166 lb 10.7 oz) 05/25/2025 3:00 PM EST Height 165.1 cm (5' 5 ) 05/25/2025 1:45 PM EST Body Mass Index 27.73 05/25/2025 1:45 PM EST Plan of Treatment Upcoming Encounters Date Type Department Care Team (Late st Contact Info) Description 06/22/2025 Orders Only [facility] [place] [address] Loretta Godfrey MD [address] [address] Malignant neoplasm of upper-outer quadrant of right breast in female, estrogen receptor positive; 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, estrogen receptor positive, unspecified site of breast 06/22/2025 8:00 AM EST Office Visit [facility] [place] [address] Loretta Godfrey MD [address] [place] [address] (Vmbl) 06/22/2025 8:15 AM EST Clinical Support [facility] [address] [place] [address] 06/22/2025 9:00 AM EST Office Visit [facility] [address] [place] [address] Health Maintenance Due Date Last Done Comments [facility]-HIV Screening 1987 [facility]-Infant/Child/Adol SDOH Screenings 1987 [id number] Vaccine (#1) 03/29/1988 [facility]-Obesity Intervention 09/27/1993 [facility]-Varicella Vaccines (1 of [...] 09/18/2018 [facility]-Hepatitis C Screening Completed 2024, 03/04/2018 HPV Vaccines (No Doses Required) Completed [facility]-HIB Vaccines Aged Out No longer e [...] MID THIGH Routine 06/08/2025 10:35 AM EST GLUCOSE, PLASMA Routine 06/08/2025 9:11 AM EST MAMMOGRAPHY BREAST DIAGNOSTIC TOMOSYNTHESIS BILATERAL Routine 06/02/2025 9:21 AM EST CANCER ANTIGEN 27.29 Routine 05/21/2025 9:40 AM EST COMPLETE METABOLIC PROFILE (CMP) Routine 05/21/2025 9:33 AM EST CBC W/DIFF Routine 05/21/2025 9:28 AM EST CANCER ANTIGEN 27.29 Routine 04/23/2025 4:00 PM EDT ACUTE HEPATITIS PANEL Routine 04/23/2025 4:00 PM EDT COMPLETE METABOLIC PROFILE (CMP) Routine 04/23/2025 11:16 AM EDT CBC W/DIFF Routine 04/23/2025 11:02 AM EDT CBC W/DIFF Routine 03/26/2025 11:03 AM EDT COMPLETE METABOLIC PROFILE (CMP) Routine 03/26/2025 11:03 AM EDT CANCER ANTIGEN 27.29 Routine 03/26/2025 9:22 AM EDT from Last 3 Months Results * PET/CT FDG Skull Base To Mid Thigh (06/08/2025 10:35 AM EST) Anatomical Region Laterality Modality Positron Emissio n Tomography (PET) Loretta HOLBROOKG NM PROCEDURES Final Resul t * Glucose, Plasma (06/08/2025 9:11 AM EST) Blood Venous blood specimen / Unknown us Loretta Godfrey MD LAB BLOOD ORDERABLES Final Re sult * Mammography Breast Diagnostic Tomosynthesis Bilateral (06/02/2025 9:21 AM EST) Anatomical Region Laterality Modality Breast Bilateral Mammography Loretta HOLBROOKG BI PROCEDURES Final Resul t * Cancer antigen 27.29 (05/21/2025 9:40 AM EST) Only the most recent of3 resultswithin the time period is included. Blood Venous blood specimen / Unknown Loretta Godfrey MD LAB BLOOD ORDERABLES Final Re sult * COMPLETE METABOLIC PROFILE (CMP) (05/21/2025 9:33 AM EST) Only the most recent of3 resultswithin the time period is included. Loretta Godfrey MD LAB BLOOD ORDERABLES Final Re sult * CBC W/DIFF (05/21/2025 9:28 AM EST) Only the most recent of3 resultswithin the time period is included. Result [facility] Loretta Godfrey MD LAB BLOOD ORDERABLES Final Re sult * Acute Hepatitis Panel (04/23/2025 4:00 PM EDT) Blood Venous blood specimen / Unknown Result [facility] Loretta Godfrey MD LAB BLOOD ORDERABLES Final Re sult from Last 3 Months Insurance ANTHEM Care Teams Cleaning Supervisor Relationship Specialty [place] [id number] PCP - General 05/07/24 Loretta Godfrey MD [address] [address] Medical Oncologist Hematology and Oncology 05/18/24 Paola Rosenberg LPN VALUE-BASED TRANSFORMATION PROGRAM None Licensed Practical Nurse 08/25/24
--- OUTSIDE RECORDS SUMMARY | 2025-06-18 10:08 | XMS_ITS | Encounter Summary ---
Author Organization [facility] Address [address] [place] [address] Care Team Providers Care Agricultural Services Director Name Role Phone Hermilo Otto MD Primary Care Provider [phone] Loretta Godfrey MD Unavailable [phone] Paola Rosenberg LPN Unavailable Unavaila ble Encounter Details Date Type Department Care Team (Late st Contact Info) Description 04/23/2025 Telephone [facility] [address] [facility], 2nd [place] [address] Keith Bullock, PharmD None None Social History [...] How often do you attend chur or latter day services? More than 4 times per year [...] Recorded Patient Health Questionnaire-2 Score 0 04/27/2025 [facility] - Occupational Stress [...] Orders Only [facility] at [place] [address] [place] [address] Loretta Godfrey MD [address] [place], [place] [address] [phone] Malignant neoplasm of upper-outer quadrant of right breast in female, estrogen receptor positive; 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, estrogen receptor positive, unspecified site of breast 06/22/2025 8:00 AM EST Office Visit [facility] at [place] [address] [place] [address] Loretta Godfrey MD [address] [place], [place] [address] [address] [place] [phone] 06/22/2025 8:15 AM EST Clinical Support [facility] at [place] [address] [place] [address] 06/22/2025 9:00 AM EST Office Visit [facility] at [facility] [address] [place] [address] documented as of this encounter Visit Diagnoses Not on filedocumented in this encounter Additional Health Concerns Assessment Noted Time A fall risk assessment has been complete d for the patient 03/30/2025 2:22 PM EDT documented as of this encounter Care Teams Agricultural Services Director Relationship Specialty [place] [id number] PCP - General 05/07/24 Loretta Godfrey MD [address] [place] [address] Medical Oncologist Hematology and Oncology 05/18/24 Paola Rosenberg LPN VALUE-BASED TRANSFORMATION PROGRAM None Licensed Practical Nurse 08/25/24 documented as of this encounter
--- OUTSIDE RECORDS SUMMARY | 2025-06-18 10:08 | XMS_ITS | Encounter Summary ---
Author Organization [facility] Address [address] [place] [address] Care Team Providers Care Clinical Documentation Nurse Name Role Phone Hermilo Otto MD Primary Care Provider [phone] Loretta Godfrey MD Unavailable [phone] Paola Rosenberg IMPORT/EXPORT ANALYST Unavailable Unavaila ble Encounter Details Date Type Department Care Team (Late st Contact Info) Description 04/26/2025 Orders Only [facility] at [facility] [address] [place] [phone] Loretta Godfrey MD [address] [address] Social History Tobacco Use [...] any clubs o r organizations such as hoahaoism groups, unions, fraternal or athletic groups, or [...] Patient Health Questionnaire-2 Score 0 04/27/2025 [facility] of Occupat ional [...] st Contact Info) Description 06/22/2025 Orders Only [facility] at [address] [place] [address] [facility] [address] Malignant neoplasm of upper-outer quadrant of right breast in female, estrogen receptor positive; 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, estrogen receptor positive, unspecified site of breast 06/22/2025 8:00 AM EST Office Visit [facility] at [address] [place] [address] Loret[facility] [address] 06/22/2025 8:15 AM EST Clinical Support [facility] at [facility] [address] [place] [address] 06/22/2025 9:00 AM EST Office Visit [facility] at [facility] [address] [place] [address] documented as of this encounter Procedures Procedure [...] documented as of this encounter Care Teams Clinical Documentation Nurse Relationship Specialty Start [place] [id number] PCP - General 05/07/24 Loretta Godfrey MD [address] [address] Medical Oncologist Hematology and Oncology 05/18/24 Paola Rosenberg LPN VALUE-BASED TRANSFORMATION PROGRAM None Licensed Practical Nurse 08/25/24 documented as of this encounter
[2025-06-18 10:29] LABS: Hematocrit 34.8 % (37.0-47.0); Hemoglobin 12.2 g/dL (12.2-16.2); Immature Granulocytes % 0.2 %; Mean Corpuscular HGB Conc 35.1 g/dL (31.8-35.4); Mean Corpuscular Hemoglobin 33.8 pg (27.0-31.2); Mean Corpuscular Volume 96.4 fl (81-99); Nucleated Red Blood Cells % 0 %; Platelet Count 137 K/mm3 (142-424); Red Blood Count 3.61 M/mm3 (4.20-5.40); Red Cell Distribution Width-SD 42.9 fL; White Blood Count 4.7 K/mm3 (4.8-10.8)
[2025-06-18 10:50] LABS: Chloride 110 mmol/L (98-107)
[2025-06-18 10:51] LABS: Albumin Level 4.0 g/dl (3.5-5.0); Potassium 4.2 mmoL/L (3.5-5.1); Sodium 143 mmol/L (136-145)
[2025-06-18 10:53] LABS: Blood Urea Nitrogen 16 mg/dl (7-17); Creatinine,Serum 1.10 mg/dl (0.52-1.04); Estimated Glomerular Filt Rate 56 ml/min (>60); GFR (African American) 68 ML/MIN (>60)
[2025-06-18 10:54] LABS: Alanine Aminotransferase 21 U/L (12-78); Albumin/Globulin Ratio 1.7 (1.1-1.8); Alkaline Phosphatase 59 U/L (38-126); Anion Gap 11.2 mEq/L (5-15); Aspartate Amino Transferase 22 U/L (14-36); Bilirubin,Total 0.7 mg/dl (0.2-1.3); Calcium 9.7 mg/dl (8.4-10.2); Carbon Dioxide 26 mmol/L (22.0-30.0); Globulin 2.4 g/dL (1.3-3.2); Glucose 85 mg/dl (74-100); Total Protein,Serum 6.4 g/dl (6.3-8.2)
== END 2025-06-18 23:59 | disposition home or self-care (01) ==
LOC: LAB 10:05
PROVIDERS: PCP Family Medicine; Visit Provider Internal Medicine Hematology & Oncology
DX: C50.411 Malignant neoplasm of upper-outer quadrant of right female breast (principal); C50.912 Malignant neoplasm of unspecified site of left female breast; Z17.0 Estrogen receptor positive status [ER+]
CPT/HCPCS: 36415; 80053; 85025; 86304